=== PATIENT | male | born 1955 | race Caucasian/White ===

== ENCOUNTER 2020-08-24 13:24 | Emergency (ER) | payer MEDICARE, MEDICAID, SELFPAY ==
[2020-08-24 13:31] VITALS: BP 123/71; PULSE 71; RESP 18; TEMP 36.5; O2SAT 99; BMI 23.5
[2020-08-24] MEDS: lidocaine 1% INJ 20 mL SUBCUT (15:45)
--- NOTE | 2020-08-24 16:01 | ED_ITS ---
HPI - Extremity Problem General: Chief complaint: Extremity Problem,Nontraumatic Stated complaint: LEFT TOE AMP IS BLEEDING Time Seen by Provider: 08/24/20 13:37 History of Present Illness: HPI Narrative: The patient is a 64-year-old male with past medical history left second hammertoe who had it operated on earlier this month. He had sutures removed today from the wound and when he got home they removed his shoe and the blood clot came off with it starting fresh bleeding. In the ER a pressure dressing was placed. Location: left Quality: sharp Associated symptoms: Deny chest pain or rash Review of Systems General: Reports: 10 or more systems reviewed and unremarkable except in HPI and below Const: Denies: fatigue Eyes: Denies: change in vision, blurry vision or eye redness ENMT: Denies: throat pain, swelling of lips/tongue, ear or mastoid pain or nasal congestion Card: Denies: chest pain, palpitations, irregular heart rhythm, edema, dyspnea on exertion or orthopnea Resp: Denies: dyspnea, productive cough or non-productive cough GI: Denies: abdominal pain, diarrhea or GI cramping : Denies: flank pain, urinary frequency or urinary urgency Musc: Denies: neck pain, back pain, extremity pain, joint pain, joint redness, limited range of motion or muscle weakness Skin/Breast: Reports: other (Bleeding from left second toe wound); Denies: rash, pruritus, erythema, skin pain or skin tenderness Neuro: Denies: headache(s), numbness in extremities, weakness in extremities, sensory changes, difficulty walking, dizziness, confusion or Slurred speech present Psych: Denies: anxiety or depression Endo: Denies: polyuria All/Imm: Denies: urticaria, throat swelling or tongue swelling Physical Exam Const: COMMON NORMALS: no acute distress, average body habitus, patient oriented x3, no limitations, healthy appearing, alert and well nourished GENERAL APPEARANCE: cooperative, comfortable, well kempt and well developed ORIENTATION/CONSCIOUSNESS: Yes awake, Yes oriented to person, Yes oriented to place and Yes oriented to time HENMT: COMMON NORMALS: normocephalic, external ears normal and Normal external nose present HEAD & SCALP: normal to inspection and normocephalic NOSE: Normal external nose present EXTERNAL EAR: Yes external ears normal MOUTH: Normal oral and palatal mucosa present THROAT: posterior oropharynx normal Eye: COMMON NORMALS: Equal, round and reactive pupils present and EOMs intact bilaterally GENERAL EYE: appearance normal, both eyes and all related structures PUPIL: Yes Equal, round and reactive pupils present Neck/C-Spine: COMMON NORMALS: full ROM, no lymphadenopathy, no meningeal signs and no JVD GENERAL: Yes normal visual inspection Lymph: LYMPHATIC: no lymphadenopathy noted Chest: COMMONS NORMALS: normal inspection of the chest and normal palpation of entire chest wall Resp: COMMON NORMALS: normal respiratory effort, No retractions, No use of accessory muscles, clear to auscultation bilaterally and percussion normal EFFORT & INSPECTION: Yes able to speak in complete sentences AUSCULTATION: clear to auscultation bilaterally PERCUSSION: percussion normal Cardio: COMMON NORMALS: no JVD, regular rate, regular rhythm, S1 normal heart sound present, S2 normal heart sound present and Peripheral pulses 2+ throughout RATE: regular rate RHYTHM: regular rhythm HEART SOUNDS: S1 normal heart sound present and S2 normal heart sound present PERIPHERAL PULSES: Peripheral pulses 2+ throughout GI: COMMON NORMALS: Normal to inspection, nondistended, normoactive bowel sounds present, Soft to palpation, non-tender and no masses INSPECTION: Yes normal to inspection PALPATION: Yes Soft to palpation : COMMON NORMALS: Yes no CVA tenderness BLADDER/KIDNEY EXAM: Yes no CVA tenderness Back/Pelvis: COMMON NORMALS: no CVA tenderness, thoracic and lumbar spine normal to inspection, no thoracic nor lumbar tenderness and thoraco-lumbar ROM normal Extremity: COMMON NORMALS: normal to inspection, full ROM, capillary refill normal, no joint enlargement and no pedal edema NARRATIVE EXTREMITY EXAM: Normal except recently amputated left second toe with open wound which has some oozing blood. After 1 hour of compression dressing it was still oozing blood from a small artery. Several [id number] sutures were placed to stop the bleeding as well as silver nitrate sticks. Pressure dressing was reapplied and after 30 minutes checked again and there was no bleeding. Nonstick dressing and pressure dressing reapplied and he was discharged in stable condition. GENERAL: Yes normal exam except as noted Neuro: COMMON NORMALS: patient oriented x3, CN's II-XII intact bilaterally, moves all extremities, no focal motor deficits, no sensory deficits noted and gait normal SENSORIUM/ORIENTATION: Yes alert, Yes oriented to person, Yes oriented to place and Yes oriented to time MENINGEAL SIGNS: Yes no meningeal signs Psych: COMMON NORMALS: mental status grossly normal, Normal thought process present, cooperative, normal affect and speech normal APPEARANCE: Yes well kempt ATTITUDE: Yes calm SPEECH: Yes normal speech THOUGHT PROCESS: Normal thought process present Skin: COMMON NORMALS: no rashes or lesions noted GENERAL SKIN EXAM: no rashes or lesions noted Course Vital Signs: Vital signs: Vital Signs Temperature 97.7 F 08/24/20 13:31 Pulse Rate 71 08/24/20 13:31 Respiratory Rate 18 08/24/20 13:31 Blood Pressure 123/71 08/24/20 13:31 Pulse Oximetry 99 08/24/20 13:31 MDM - Extremity (Nontraumatic) MDM Narrative: Medical decision making narrative: The patient had suture removal of a left second toe amputation today for hammertoe. when he got home patient had a small arterial bleed after the scab was glued to his shoe and came off when he took his shoe off after having a suture removal. Pressure dressing felt to stop this. So did silver nitrate sticks. He was anesthetized locally with 1% lidocaine, the wound cleaned before that. Several [id number] sutures were used to stop the bleed which did successfully. Recommended not walking on it and offered crutches. He refused them because he says they are uncomfortable however when he gets to his home he lives in a wheelchair. I recommended he avoid pressure on this wound until it heals. Return to the ER with bleeding. Wound check in 2 days from primary care physician. His tetanus was updated prior to discharge Discharge Plan Discharge Patient Disposition: Home Clinical Impression: Bleeding from wound Condition: Stable Discharge Orders: Discharge ED (Routine); Ordered 08/24/20 Ordered By: Nba East Referrals: Rehan Rodriguez MD [Primary Care Provider] - Discharge Diet: Advance as tolerated Discharge Activity: Resume usual activity Patient Instructions: Suture Care (ED), Opioid Safety, Wound Care (General) Activity Restrictions/Additional Instructions: You have had some bleeding and we have had to suture it to stop the bleeding. Please continue to monitor this and return to the ER if the bleeding continues. Follow-up with your regular doctor in 2 days for a wound check and return to the ER at any time with worrisome symptoms. Coding Level of Care Code ED Medical/Surgery Registered Nurse for mAber Lawson
[2020-08-24] MEDS: tetanus-dipt-pertussis 0.5 mL SDV IM (16:12)
[2020-08-24] MEDS: silver nitrate applicator 1 EACH TOPICAL (16:13)
[2020-08-24 16:19] VITALS: BP 125/90; PULSE 86; RESP 14; O2SAT 96
== END 2020-08-24 16:20 | disposition home or self-care (01) ==
PROVIDERS: Emergency Provider Family Medicine; PCP Internal Medicine
DX: M96.830 Postprocedural hemorrhage of a musculoskeletal structure following a musculoskeletal system procedure (principal); Z89.422 Acquired absence of other left toe(s); Z23 Encounter for immunization
CPT/HCPCS: 90471; 90715; 99282

== ENCOUNTER 2020-09-16 07:44 | Emergency (ER) | payer MEDICARE, MEDICAID, SELFPAY ==
[2020-09-16 07:44] VITALS: BP 129/78; PULSE 71; RESP 18; TEMP 36.6; O2SAT 98; BMI 23.5
--- NOTE | 2020-09-16 07:54 | XR_ITS ---
WS: [id number] Left foot, 3 views, 09/16/2020 Clinical Data: recent surgery, toe amputation Comparison: None. Findings: The second and third toes are absent. There is an orthopedic screw at the head of the left third meta tarsal. There is an orthopedic fusion of the left first MTP joint with a plate and screws. There is s oft tissue calcification or ossification on the plantar surface of the distal left first metatarsal. No recent fractures are seen. There is cystic change of the distal portion of the left first proximal phalanx and base of the left first distal phalanx. There is soft tissue swelling over the distal pha lanx of the left first toe. No bone destruction or erosion is seen. The tarsal bones are normal. Ther e is a plantar spur. XR/XR foot LT min 3V* [id number] Impression: 1. 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 2. Soft tissue swelling over distal phalanx of left first toe. 3. Fusion of the left first MTP joint. 4. Orthopedic screw in head of left third metatarsal.
--- NOTE | 2020-09-16 09:12 | PC.NURSE ---
blood drawn and sent to lab, no needs identified, will continue to monitor.
[2020-09-16 09:16] LABS: Basophils % 0.8 %; Eosinophils # 0.1 10^3/uL (0.0-0.8); Eosinophils % 2.3 %; Hematocrit 34.3 % (42.0-52.0); Hemoglobin 11.2 g/dL (11.7-16.6); Lymphocytes # 1.2 10^3/uL (0.8-4.8); Lymphocytes % 22.1 %; Mean Corpuscular HGB Conc 32.7 g/dL (30.0-36.0); Mean Corpuscular Hemoglobin 30.9 pg (28.0-34.0); Mean Corpuscular Volume 94.8 fL (80-94); Mean Platelet Volume 8.3 fL (7.4-10.4); Monocytes # 0.6 10^3/uL (0.2-0.9); Monocytes % 11.3 %; Neutrophils % 62.9 %; Nucleated Red Blood Cells % 0 %; Platelet Count 220 10^3/cmm (130-400); Red Blood Count 3.62 10^6/uL (4.1-5.3); White Blood Count 5.2 10^3/uL (4.0-10.0)
--- NOTE | 2020-09-16 09:22 | W.ED.EXTPRO ---
HPI - Extremity Problem General: Chief complaint: Extremity Problem,Nontraumatic Stated complaint: UNCONTROLLED BLEEDING FROM AMPUTATED TOE Time Seen by Provider: 09/16/20 07:45 History of Present Illness: HPI Narrative: 64-year-old male presents with bleeding from the operation site of a amputation for hammertoe on his left foot. This morning he woke up he had bleeding from the toe which is unusual he called EMS and was transported here. He denies any fever sweats or chills he previously had an amputation of the toe on that left foot and then had the second amputations now the second and third toes are both gone. EMS applied a pressure bandage when he was removed here on arrival for exam bleeding had stopped. MD Complaint: other (Bleeding from recent amputation toe same) Onset (ago): minute(s) Pain Consistency: constant Location: left Radiation: none Relieving factors: other (Pressure bandage on arrival here bleeding is stopped) Associated symptoms: Deny arthralgias, chest pain, fever(s), myalgias, rash or short of breath Review of Systems Const: Denies: fever(s) ENMT: Denies: throat pain, ear or mastoid pain, nasal discharge or nasal congestion Card: Denies: chest pain Resp: Denies: dyspnea, productive cough or non-productive cough GI: Denies: abdominal pain, nausea, vomiting, hematemesis, coffee ground emesis, diarrhea, constipation, bloating, hematochezia or melena : Denies: flank pain, dysuria, urinary frequency or urinary urgency Skin/Breast: Denies: rash Physical Exam Const: COMMON NORMALS: no acute distress GENERAL APPEARANCE: cooperative and comfortable ORIENTATION/CONSCIOUSNESS: Yes awake, Yes oriented to person, Yes oriented to place and Yes oriented to time HENMT: COMMON NORMALS: normocephalic, atraumatic, hearing grossly normal bilaterally, external ears normal, EAC's normal, TM's normal bilaterally, Normal nasal mucous membranes and turbinates present, moist oral mucous membranes and oropharynx normal HEAD & SCALP: normocephalic and atraumatic NOSE: Normal nasal mucous membranes and turbinates present EXTERNAL EAR: Yes external ears normal EXTERNAL AUDITORY CANAL: EAC's normal TYMPANIC MEMBRANE: TM's normal bilaterally Eye: COMMON NORMALS: Equal, round and reactive pupils present, EOMs intact bilaterally, conjunctivae normal and no scleral icterus CONJUNCTIVA: Yes conjunctivae normal PUPIL: Yes Equal, round and reactive pupils present Neck/C-Spine: COMMON NORMALS: full ROM, no lymphadenopathy, supple and no JVD Lymph: LYMPHATIC: no lymphadenopathy noted and no lymphedema noted Resp: COMMON NORMALS: normal respiratory effort, No retractions, No use of accessory muscles and clear to auscultation bilaterally AUSCULTATION: clear to auscultation bilaterally Cardio: COMMON NORMALS: no JVD, regular rate, regular rhythm and No murmurs present (Cardio) RATE: regular rate RHYTHM: regular rhythm GI: COMMON NORMALS: Soft to palpation and No hepatosplenomegaly present AUSCULTATION: Yes normoactive bowel sounds PALPATION: Yes Soft to palpation, No Tenderness to palpation present (GI), No Guarding due to palpation present (GI) and Yes No hepatosplenomegaly present Extremity: NARRATIVE EXTREMITY EXAM: Third and fourth toe surgically absent. Open wound at the surgical site approximately 2 cm in length open by about 1/2 cm widest point no active bleeding present when lying down. Trial the patient with him sitting up with a bit foot hanging over the edge of the bed. While in a dependent position there was no further active bleeding. Wound redressed. Neuro: SENSORIUM/ORIENTATION: Yes oriented to person, Yes oriented to place and Yes oriented to time Skin: COMMON NORMALS: no rashes or lesions noted GENERAL SKIN EXAM: no rashes or lesions noted Course Vital Signs: Vital signs: Vital Signs Temperature 97.9 F 09/16/20 07:44 Pulse Rate 81 09/16/20 11:47 Respiratory Rate 14 09/16/20 11:47 Blood Pressure 95/73 09/16/20 11:47 Pulse Oximetry 96 09/16/20 11:47 MDM - Extremity (Nontraumatic) MDM Narrative: Medical decision making narrative: Hemoglobin stable. Wound shows no sign of infection. Wound dressed we will have him follow-up with wound care clinic. Elevate whenever possible. If has recurrence recheck. Lab Data: Labs: Lab Results 09/16/20 Range/Units 09:05 WBC 5.2 (4.0-10.0) 10^3/ uL RBC 3.62 L (4.1-5.3) 10^6/u L Hgb 11.2 L (11.7-16.6) g/dL Hct 34.3 L (42.0-52.0) % MCV 94.8 H (80-94) fL MCH 30.9 (28.0-34.0) pg MCHC 32.7 (30.0-36.0) g/dL RDW 13.0 (12.1-15.1) % Plt Count 220 (130-400) 10^3/c mm MPV 8.3 (7.4-10.4) fL Neut % (Auto) 62.9 % Lymph % (Auto) 22.1 % Montgomery % (Auto) 11.3 % Eos % (Auto) 2.3 % Baso % (Auto) 0.8 % Neut # (Auto) 3.30 (1.8-7.7) 10^3/u L Lymph # (Auto) 1.2 (0.8-4.8) 10^3/u L Montgomery # (Auto) 0.6 (0.2-0.9) 10^3/u L Eos # (Auto) 0.1 (0.0-0.8) 10^3/u L Baso # (Auto) 0.0 (0.0-0.1) 10^3/u L Nucleated RBC % (a uto) 0 % Nucleated RBCs # 0.0 /100WBC Discharge Plan Discharge Patient Disposition: Home Clinical Impression: Post-op bleeding, Dehiscence of external surgical wound Condition: Stable Discharge Orders: Discharge ED (Routine); Ordered 09/16/20 Ordered By: Rad Menon Referrals: Rehan Rodriguez MD [Primary Care Provider] - Discharge Diet: Usual diet Discharge Activity: Increase activity as tolerated Patient Instructions: Opioid Safety Activity Restrictions/Additional Instructions: Case management will call to refer you to wound care for your foot. Coding Level of Care Code ED Jewelry Drill Operator for [facility] Fwd Exam Comprehensive
[2020-09-16 11:47] VITALS: BP 95/73; PULSE 81; RESP 14; O2SAT 96
--- NOTE | 2020-09-20 10:57 | DCPLANNER ---
Addendum entered by Johanny Mack 09/28/20 15:08: late entry - clinic called caser up and stated that patient had been transferred and would contact patient to schedule an appointment. Original Note: adult education manager had message to schedule a follow up appointment for patient with Wound Care. adult education manager called Wound Care clinic, spoke with Carley, gave clinic patients information. adult education manager was told that patients information would be printed and reviewed. Clinic will call patient with appointment information.
== END 2020-09-16 11:50 | disposition home or self-care (01) ==
PROVIDERS: Emergency Provider Family Medicine; PCP Internal Medicine
DX: M96.831 Postprocedural hemorrhage of a musculoskeletal structure following other procedure (principal); T87.81 Dehiscence of amputation stump; Z89.422 Acquired absence of other left toe(s)
CPT/HCPCS: 73630; 85025; 99283

== ENCOUNTER 2020-09-18 11:40 | Emergency (ER) | payer MEDICARE, MEDICAID, SELFPAY ==
[2020-09-18] VITALS (7 sets, daily range): BP systolic 94–165; BP diastolic 74–118; PULSE 78–96; RESP 16; TEMP 36.9; O2SAT 96–99; BMI 23.5
--- NOTE | 2020-09-18 12:03 | PC.NURSE ---
pressure dressing applied with ER physician at bedside. gauze and coban used.
--- NOTE | 2020-09-18 12:04 | ED_ITS ---
HPI - Wound/Laceration General: Chief Complaint: Wound/Laceration Stated Complaint: RECENT TOE AMPUTATION WITH BLEEDING AT SITE Time Seen by Provider: 09/18/20 11:45 Source: patient Mode of arrival: EMS Limitations: no limitations History of Present Illness: HPI narrative: This is a 64-year-old male who presents to the hospital from his place of residence at [facility] with bleeding from his left second toe at site of amputation. He had amputation done on 10 September by multiple drum sander helper at [facility] in [place]. He was seen here 2 days ago for bleeding from the wound however the bleeding stopped spontaneously and he was discharged back. Today during lunch he noticed that the wound dressing was soaked with blood and he had blood spilling down his leg. He denies any pain, fever, myalgias. Onset (ago): hour(s) (1) Review of Systems General: Reports: 10 or more systems reviewed and unremarkable except in HPI and below Physical Exam Const: COMMON NORMALS: no acute distress, average body habitus, patient oriented x3, no limitations, healthy appearing, alert and well nourished HENMT: COMMON NORMALS: normocephalic, atraumatic and moist oral mucous membranes HEAD & SCALP: normocephalic and atraumatic Neck/C-Spine: COMMON NORMALS: no meningeal signs and no JVD Resp: COMMON NORMALS: normal respiratory effort, No retractions, No use of accessory muscles, clear to auscultation bilaterally and percussion normal AUSCULTATION: clear to auscultation bilaterally PERCUSSION: percussion normal Cardio: COMMON NORMALS: no JVD, regular rate, regular rhythm, S1 normal heart sound present, S2 normal heart sound present, No gallops present (Cardio), No clicks present (Cardio), No murmurs present (Cardio), No rub (Cardio) and Peripheral pulses 2+ throughout RATE: regular rate RHYTHM: regular rhythm HEART SOUNDS: S1 normal heart sound present and S2 normal heart sound present PERIPHERAL PULSES: Peripheral pulses 2+ throughout GI: COMMON NORMALS: Normal to inspection, nondistended, normoactive bowel sounds present, Soft to palpation, non-tender, No hepatosplenomegaly present, no masses and no bruits PALPATION: Yes Soft to palpation and Yes No hepatosplenomegaly present Extremity: COMMON NORMALS: normal to inspection, full ROM, capillary refill normal, no calf tenderness and no pedal edema NARRATIVE EXTREMITY EXAM: Arterial bleed from the surgical wound of an amputated left second/third toe. Unable to get the arterial bleeding under control in a sufficient manner to examine the wound properly. No surrounding erythema, no purulent drainage. No signs of infection. Neuro: COMMON NORMALS: patient oriented x3 SENSORIUM/ORIENTATION: Yes alert MENINGEAL SIGNS: Yes no meningeal signs Course Consultations: Consultation #1: Discussed the patient with Dr. Hermosillo, multiple drum sander helper on-call at [facility] in [place]. He advised that we try long Steri-Strips from the bottom of the foot to the top of the foot to try to apply pressure and see if that stops the bleeding. He advised that if he does not the patient will need to be transferred to [facility] and be admitted under the service of the hospitalist as the multiple drum sander helper do not have admitting privileges. Time: 12:12 Consultation #2: Discussed the patient with Dr. Fan, hospitalist at [facility] in [place] and he kindly accepted the patient to his service. Time: 13:39 Vital Signs: Vital signs: Vital Signs Temperature 98.5 F 09/18/20 11:42 Pulse Rate 96 09/18/20 18:13 Respiratory Rate 16 09/18/20 11:42 Blood Pressure 165/118 09/18/20 18:13 Pulse Oximetry 96 09/18/20 18:13 MDM - Wound/Laceration MDM Narrative: Medical decision making narrative: Of [id number] male who had an amputation of his toe and presents to the emergency department with signs of secondary hemorrhage. The wound had arterial pulsatile bleeding which I was unable to stop. I initially applied a pressure dressing that was not successful, applied half-inch Steri-Strips as advised by the multiple drum sander helper on-call at [facility] and that was unsuccessful also. After another pressure dressing the patient had an episode where the blood soaked through his dressing and was pouring down his foot again. I eventually used a gauze soaked in tranexamic acid to attempt hemostasis. This was successful. However because of the nature of the bleed and the difficulty in controlling the bleeding he was transferred to [facility] for further evaluation and management. Hemoglobin was stable in the emergency department and no signs of infection on examination or lab work. Medical Records: Attestation: I reviewed the patient's medical records. Lab Data: Attestation: I reviewed the patient's lab results. Labs: Lab Results 09/18/20 09/18/20 09/18/20 Range/Units 12:30 12:30 12:35 WBC 4.3 (4.0-10.0) 10^3/ uL RBC 3.57 L (4.1-5.3) 10^6/u L Hgb 11.1 L (11.7-16.6) g/dL Hct 33.3 L (42.0-52.0) % MCV 93.3 (80-94) fL MCH 31.1 (28.0-34.0) pg MCHC 33.3 (30.0-36.0) g/dL RDW 13.0 (12.1-15.1) % Plt Count 244 (130-400) 10^3/c mm MPV 8.9 (7.4-10.4) fL Neut % (Auto) 56.7 % Lymph % (Auto) 28.8 % Sterling % (Auto) 10.5 % Eos % (Auto) 2.6 % Baso % (Auto) 0.7 % Neut # (Auto) 2.42 (1.8-7.7) 10^3/u L Lymph # (Auto) 1.2 (0.8-4.8) 10^3/u L Sterling # (Auto) 0.5 (0.2-0.9) 10^3/u L Eos # (Auto) 0.1 (0.0-0.8) 10^3/u L Baso # (Auto) 0.0 (0.0-0.1) 10^3/u L Nucleated RBC % (a uto) 0 % Nucleated RBCs # 0.0 /100WBC PT 12.90 (12.1-14.9) SECO NDS INR 0.95 (0.8-1.2) APTT 33.6 (23.9-36.7) SECO NDS Sodium 128 L (136-145) mmol/L Potassium 4.4 (3.5-5.1) mmol/L Chloride 94 L (98-107) mmol/L Carbon Dioxide 25 (22-29) mmol/L Anion Gap 13.4 (5-19) BUN 11 (8-23) mg/dL Creatinine 0.7 (0.7-1.2) mg/dL GFR Calculation 114.3 (90-130) mL/min Glucose 98 (65-115) mg/dL Calculated Osmolal ity 265 L (285-295) mOsm/k g Calcium 8.1 L (8.5-10.5) mg/dL Total Bilirubin 0.2 (0.15-1.2) mg/dL AST 15 (0-40) U/L ALT 15 (0-41) U/L Alkaline Phosphata se 61 (40-130) IU/L Total Protein 6.0 L (6.6-8.7) g/dL Albumin 3.7 (3.5-5.2) g/dL Globulin 2.3 (1.3-4.6) g/dL Discharge Plan Discharge Patient Disposition: Xfer Short-Term Hosp Clinical Impression: Secondary postoperative hemorrhage, Hyponatremia Dehiscence of external surgical wound Qualifiers: Encounter type: subsequent encounter Qualified Code(s): T81.31XD - Disruption of external operation (surgical) wound, not elsewhere classified, subsequent encounter Condition: Stable Discharge Orders: Transfer Out of Facility (Order); Ordered 09/18/20 Ordered By: Campos Tabor Referrals: Rehan Rodriguez MD [Primary Care Provider] - Coding Level of Care Code ED Professor Of Literacy for [facility] Fwd Exam Detailed
[2020-09-18 12:45] LABS: Basophils % 0.7 %; Eosinophils # 0.1 10^3/uL (0.0-0.8); Eosinophils % 2.6 %; Hematocrit 33.3 % (42.0-52.0); Hemoglobin 11.1 g/dL (11.7-16.6); Lymphocytes # 1.2 10^3/uL (0.8-4.8); Lymphocytes % 28.8 %; Mean Corpuscular HGB Conc 33.3 g/dL (30.0-36.0); Mean Corpuscular Hemoglobin 31.1 pg (28.0-34.0); Mean Corpuscular Volume 93.3 fL (80-94); Mean Platelet Volume 8.9 fL (7.4-10.4); Monocytes # 0.5 10^3/uL (0.2-0.9); Monocytes % 10.5 %; Neutrophils # 2.42 10^3/uL (1.8-7.7); Neutrophils % 56.7 %; Nucleated Red Blood Cells % 0 %; Platelet Count 244 10^3/cmm (130-400); Red Blood Count 3.57 10^6/uL (4.1-5.3); White Blood Count 4.3 10^3/uL (4.0-10.0)
[2020-09-18 13:02] LABS: Alanine Aminotransferase 15 U/L (0-41); Albumin Level 3.7 g/dL (3.5-5.2); Alkaline Phosphatase 61 IU/L (40-130); Blood Urea Nitrogen 11 mg/dL (8-23); Calcium 8.1 mg/dL (8.5-10.5); Carbon Dioxide 25 mmol/L (22-29); Chloride 94 mmol/L (98-107); Globulin 2.3 g/dL (1.3-4.6); Glomerular Filtration Rate 114.3 mL/min (90-130); Glucose 98 mg/dL (65-115); Osmolality Calculated 265 mOsm/kg (285-295); Sodium 128 mmol/L (136-145); Total Bilirubin 0.2 mg/dL (0.15-1.2)
[2020-09-18 13:04] LABS: Anion Gap 13.4 (5-19)
[2020-09-18 13:05] LABS: Aspartate Amino Transferase 15 U/L (0-40); Potassium 4.4 mmol/L (3.5-5.1)
--- NOTE | 2020-09-18 13:14 | PC.NURSE ---
pressure dressing reapplied. ER physician at bedside.
[2020-09-18 13:59] LABS: INR 0.95 (0.8-1.2)
[2020-09-18 14:00] LABS: Partial Thromboplastin Time 33.6 SECONDS (23.9-36.7)
[2020-09-18] MEDS: tranexamic acid 1,000 mg/10mL SDV 500 MG XX (17:45)
[2020-09-18] MEDS: oxyCODONE-APAP 5-325 mg Tablet 1 TAB PO (18:02)
== END 2020-09-18 18:13 | disposition short-term general hospital (02) ==
PROVIDERS: Emergency Provider Family Medicine; PCP Internal Medicine
DX: T81.31XA Disruption of external operation (surgical) wound, not elsewhere classified, initial encounter (principal); M96.831 Postprocedural hemorrhage of a musculoskeletal structure following other procedure; E87.1 Hypo-osmolality and hyponatremia; Z89.422 Acquired absence of other left toe(s)
CPT/HCPCS: 80053; 85025; 85610; 85730; 99285

== ENCOUNTER → 2020-12-08 10:48 | Outpatient (BNVA) | payer MEDICARE, MEDICAID, SELFPAY | PROVIDERS: PCP Internal Medicine; Referring Provider Psychiatry & Neurology Neurology; Visit Provider Specialist | DX: G43.709 Chronic migraine without aura, not intractable, without status migrainosus (principal); F32.9 Major depressive disorder, single episode, unspecified | CPT/HCPCS: 99204 ==

== ENCOUNTER 2020-12-27 15:49 | Inpatient (IN) | payer MEDICARE, MEDICAID, SELFPAY ==
--- NOTE | 2020-12-27 15:54 | W.ED.AMS ---
HPI - Altered Mental Status General: Chief Complaint: ER Hold Stated Complaint: CONFUSED Time Seen by Provider: 12/27/20 15:53 History of Present Illness: HPI narrative: Mr. Lucero is a 65-year-old gentleman with significant past medical history of hypertension, hyperlipidemia, migraines who presents to the emergency department due to altered mental status. Symptom onset was subacute or gradual approximately 3 days ago. He denies specific provoking factors. He describes his symptoms as feeling like his brain is foggy. Overall the course of symptoms has been worsening. The intensity is now moderate to severe. He denies similar episodes in the past. He denies head trauma or infectious symptoms. No recent changes in medications. No other specific exacerbating, alleviating, or provoking factors that the patient identifies. Review of Systems General: Reports: 10 or more systems reviewed and unremarkable except in HPI and below Narrative: CONSTITUTIONAL: denies fever, see hpi EYES - denies pain, denies loss of vision EARS - denies ear issues. NOSE - denies congestion or rhinorrhea. THROAT - denies sore throat or difficulty swallowing. CARDIOVASCULAR - denies chest pain and palpitations RESPIRATORY - denies shortness of breath and cough GASTROINTESTINAL - denies abdominal pain, no nausea vomiting, no changes in bowel habits GENITOURINARY - denies dysuria or urinary frequency MUSCULOSKELETAL- denies deformity or pain SKIN - denies rashes or new changed skin lesions NEUROLOGIC - denies focal weakness or sensory changes HEMATOLOGIC/LYMPHATIC - denies easy bruising or lymphadenopathy. [facility] ED PFS: Medical History (Updated 12/29/20 @ 13:23 by Maritza Tran MD) Depression determined by examination Social History Smoking and tobacco status: never smoked Physical Exam Narrative: EXAM NARRATIVE: GENERAL/CONSTITUTIONAL - somewhat ill appearing. No acute distress. somnolent Eyes - PERRL, no conjunctival injection ENMT - Atraumatic external nose and ears. Moist mucous membranes NECK - supple. trachea midline CARDIOVASCULAR - regular rate and rhythm. Peripheral pulses 2+ and equal RESPIRATORY -clear to auscultation bilaterally. No retractions or accessory muscle use. ABDOMEN/GI - Nontender, Nondistended. No tenderness to percussion or evidence of peritonitis MSK - Extremities without obvious deformity or tenderness to palpation SKIN - Warm, Dry NEURO - alert and appropriately oriented. strength and sensation intact. Moves all extremities equally. CN 2-12 intact. PSYCH - Appropriate mood and affect Course ED course: - Patient was seen and evaluated by me at bedside - Patient placed on cardiac monitors, IV access obtained - Initial evaluation notable for somewhat ill appearance, no acute distress. Nonfocal neurologic exam. -Fluids ordered - Labs notable for leukocytosis, normocytic anemia MRSA baseline. Elevated creatinine. After some delay urinalysis showed urinary tract infection. Antibiotics ordered. - Upon serial reexamination after treatment the patient was similar - Based on patient history, evaluation, labs, and imaging as interpreted the most likely cause of the patient's condition is urosepsis and STEVEN - The results of ED evaluation were discussed with the patient including plan for admission due to requirement for level of care not available if discharged to prevent significant worsening/deterioration. -Hospitalist service contacted and agreed to accept patient. - Patient was admitted without further deterioration or significant events. Vital Signs: Vital signs: Vital Signs Temperature 97.9 F 12/29/20 14:52 Pulse Rate 85 12/29/20 14:52 Respiratory Rate 18 12/29/20 14:52 Blood Pressure 157/89 12/29/20 14:52 Pulse Oximetry 97 12/29/20 14:52 MDM - Altered Mental Status Medical Records: Attestation: I reviewed the patient's medical records. Lab Data: Attestation: I reviewed the patient's lab results. Labs: Lab Results 12/27/20 12/27/20 12/27/20 Range/Units 16:32 16:37 16:37 WBC 11.4 H (4.0-10.0) 10^3/ uL RBC 3.22 L (4.1-5.3) 10^6/u L Hgb 8.6 L (11.7-16.6) g/dL Hct 28.3 L (42.0-52.0) % MCV 87.9 (80-94) fl MCH 26.7 L (28.0-34.0) pg MCHC 30.4 (30.0-36.0) g/dL RDW 14.9 (12.1-15.1) % Plt Count 350 (130-400) 10^3/c mm MPV 8.0 (7.4-10.4) fL Neut % (Auto) 79.8 % Lymph % (Auto) 8.8 % [place] % (Auto) 10.5 % Eos % (Auto) 0.1 % Baso % (Auto) 0.2 % Neut # (Auto) 9.09 H (1.8-7.7) 10^3/u L Lymph # (Auto) 1.0 (0.8-4.8) 10^3/u L [place] # (Auto) 1.2 H (0.2-0.9) 10^3/u L Eos # (Auto) 0.0 (0.0-0.8) 10^3/u L Baso # (Auto) 0.0 (0.0-0.1) 10^3/u L Nucleated RBC % (a uto) 0 % Nucleated RBCs # 0.0 /100WBC Specimen Type Arterial Sample Site Radial, left ABG pH 7.38 (7.35-7.45) ABG pCO2 45.0 (35-45) mmHg ABG pO2 64.9 L (80.0-100.0) mmH g ABG HCO3 26.6 H (22-26) mmol/L ABG Base Excess 1.2 (-2.0-2.0) mmol/ L Xavier Test Pos Hematocrit 27.0 L (42-52) % O2 Delivery Device Room air FiO2 21.0 % Hospital Staff Pharmacist ID [place] Sodium 136 (136-145) mmol/L Potassium 3.8 (3.5-5.1) mmol/L Chloride 97 L (98-107) mmol/L Carbon Dioxide 26 (22-29) mmol/L Anion Gap 16.8 (5-19) BUN 25 H (8-23) mg/dL Creatinine 1.9 H (0.7-1.2) mg/dL GFR Calculation 36.0 L (90-130) mL/min Glucose 98 (65-115) mg/dL Calculated Osmolal ity 286 (285-295) mOsm/k g Lactate (0.5-2.2) mmol/L Calcium 9.0 (8.5-10.5) mg/dL Magnesium 2.3 (1.7-2.3) mg/dL Total Bilirubin 0.2 (0.15-1.2) mg/dL AST 7 (0-40) U/L ALT 6 (0-41) U/L Alkaline Phosphata se 71 (40-130) IU/L Ammonia (16-60) umol/L Creatine Kinase (39-308) U/L Troponin T Baselin e (0-15) ng/L Troponin T 120 Min [place] (0-15) ng/L Delta Troponin T (0-10) ABS# Troponin T Hi Sens 6Hr (0-15) ng/L Troponin T Hi Sens 6Hr Delta (0-12) ng/L C-Reactive Protein 149.7 H (0.0-4.9) mg/L NT-Pro-B Natriuret Pep 321 H (0-125) pg/mL Total Protein 6.0 L (6.6-8.7) g/dL Albumin 3.0 L (3.5-5.2) g/dL Globulin 3.0 (1.3-4.6) g/dL Procalcitonin 0.26 (0-0.5) ng/mL TSH 0.88 (0.27-4.20) uIU/ mL Urine Color (Yellow) Urine Appearance (CLEAR) Urine pH (5-7) Ur Specific Gravit y (1.005-1.030) Urine Protein (Negative) Urine Glucose (UA) (Normal) Urine Ketones (Negative) Urine Blood (Negative) Urine Nitrate (Negative) Urine Bilirubin (Negative) Urine Urobilinogen (Negative) mg/dL Ur Leukocyte Jyoti ase (Negative) Urine RBC (0-2) /hpf Urine WBC (0-5) /hpf Ur Squamous Epith Cells (0-5) /hpf Amorphous Sediment Urine Bacteria (NONE) /hpf Ur Random Sodium mmol/L Ur Random Potassiu m mmol/L Ur Random Chloride mmol/L Urine Opiates Scre en (Negative) ng/mL Ur Barbiturates Sc reen (Negative) ng/mL Ur Phencyclidine S crn (Negative) ng/mL Ur Amphetamines Sc reen (Negative) ng/mL U Benzodiazepines Scrn (Negative) ng/mL Urine Cocaine Scre en (Negative) ng/mL U Marijuana (THC) Screen (Negative) ng/mL SARS-CoV-2 Ag (Rap id) (Negative) 12/27/20 12/27/20 12/27/20 Range/Units 16:37 16:37 16:37 WBC (4.0-10.0) 10^3/ uL RBC (4.1-5.3) 10^6/u L Hgb (11.7-16.6) g/dL Hct (42.0-52.0) % MCV (80-94) fl MCH (28.0-34.0) pg MCHC (30.0-36.0) g/dL RDW (12.1-15.1) % Plt Count (130-400) 10^3/c mm MPV (7.4-10.4) fL Neut % (Auto) % Lymph % (Auto) % [place] % (Auto) % Eos % (Auto) % Baso % (Auto) % Neut # (Auto) (1.8-7.7) 10^3/u L Lymph # (Auto) (0.8-4.8) 10^3/u L [place] # (Auto) (0.2-0.9) 10^3/u L Eos # (Auto) (0.0-0.8) 10^3/u L Baso # (Auto) (0.0-0.1) 10^3/u L Nucleated RBC % (a uto) % Nucleated RBCs # /100WBC Specimen Type Sample Site ABG pH (7.35-7.45) ABG pCO2 (35-45) mmHg ABG pO2 (80.0-100.0) mmH g ABG HCO3 (22-26) mmol/L ABG Base Excess (-2.0-2.0) mmol/ L Xavier Test Hematocrit (42-52) % O2 Delivery Device FiO2 % Hospital Staff Pharmacist ID Sodium (136-145) mmol/L Potassium (3.5-5.1) mmol/L Chloride (98-107) mmol/L Carbon Dioxide (22-29) mmol/L Anion Gap (5-19) BUN (8-23) mg/dL Creatinine (0.7-1.2) mg/dL GFR Calculation (90-130) mL/min Glucose (65-115) mg/dL Calculated Osmolal ity (285-295) mOsm/k g Lactate 0.6 (0.5-2.2) mmol/L Calcium (8.5-10.5) mg/dL Magnesium (1.7-2.3) mg/dL Total Bilirubin (0.15-1.2) mg/dL AST (0-40) U/L ALT (0-41) U/L Alkaline Phosphata se (40-130) IU/L Ammonia 11 L (16-60) umol/L Creatine Kinase (39-308) U/L Troponin T Baselin e 50 H (0-15) ng/L Troponin T 120 Min [place] (0-15) ng/L Delta Troponin T (0-10) ABS# Troponin T Hi Sens 6Hr (0-15) ng/L Troponin T Hi Sens 6Hr Delta (0-12) ng/L C-Reactive Protein (0.0-4.9) mg/L NT-Pro-B Natriuret Pep (0-125) pg/mL Total Protein (6.6-8.7) g/dL Albumin (3.5-5.2) g/dL Globulin (1.3-4.6) g/dL Procalcitonin (0-0.5) ng/mL TSH (0.27-4.20) uIU/ mL Urine Color (Yellow) Urine Appearance (CLEAR) Urine pH (5-7) Ur Specific Gravit y (1.005-1.030) Urine Protein (Negative) Urine Glucose (UA) (Normal) Urine Ketones (Negative) Urine Blood (Negative) Urine Nitrate (Negative) Urine Bilirubin (Negative) Urine Urobilinogen (Negative) mg/dL Ur Leukocyte Jyoti ase (Negative) Urine RBC (0-2) /hpf Urine WBC (0-5) /hpf Ur Squamous Epith Cells (0-5) /hpf Amorphous Sediment Urine Bacteria (NONE) /hpf Ur Random Sodium mmol/L Ur Random Potassiu m mmol/L Ur Random Chloride mmol/L Urine Opiates Scre en (Negative) ng/mL Ur Barbiturates Sc reen (Negative) ng/mL Ur Phencyclidine S crn (Negative) ng/mL Ur Amphetamines Sc reen (Negative) ng/mL U Benzodiazepines Scrn (Negative) ng/mL Urine Cocaine Scre en (Negative) ng/mL U Marijuana (THC) Screen (Negative) ng/mL SARS-CoV-2 Ag (Rap id) (Negative) 12/27/20 12/27/20 12/27/20 Range/Units 16:42 18:50 19:35 WBC (4.0-10.0) 10^3/ uL RBC (4.1-5.3) 10^6/u L Hgb (11.7-16.6) g/dL Hct (42.0-52.0) % MCV (80-94) fl MCH (28.0-34.0) pg MCHC (30.0-36.0) g/dL RDW (12.1-15.1) % Plt Count (130-400) 10^3/c mm MPV (7.4-10.4) fL Neut % (Auto) % Lymph % (Auto) % [place] % (Auto) % Eos % (Auto) % Baso % (Auto) % Neut # (Auto) (1.8-7.7) 10^3/u L Lymph # (Auto) (0.8-4.8) 10^3/u L [place] # (Auto) (0.2-0.9) 10^3/u L Eos # (Auto) (0.0-0.8) 10^3/u L Baso # (Auto) (0.0-0.1) 10^3/u L Nucleated RBC % (a uto) % Nucleated RBCs # /100WBC Specimen Type Sample Site ABG pH (7.35-7.45) ABG pCO2 (35-45) mmHg ABG pO2 (80.0-100.0) mmH g ABG HCO3 (22-26) mmol/L ABG Base Excess (-2.0-2.0) mmol/ L Xavier Test Hematocrit (42-52) % O2 Delivery Device FiO2 % Hospital Staff Pharmacist ID Sodium (136-145) mmol/L Potassium (3.5-5.1) mmol/L Chloride (98-107) mmol/L Carbon Dioxide (22-29) mmol/L Anion Gap (5-19) BUN (8-23) mg/dL Creatinine (0.7-1.2) mg/dL GFR Calculation (90-130) mL/min Glucose (65-115) mg/dL Calculated Osmolal ity (285-295) mOsm/k g Lactate (0.5-2.2) mmol/L Calcium (8.5-10.5) mg/dL Magnesium (1.7-2.3) mg/dL Total Bilirubin (0.15-1.2) mg/dL AST (0-40) U/L ALT (0-41) U/L Alkaline Phosphata se (40-130) IU/L Ammonia (16-60) umol/L Creatine Kinase (39-308) U/L Troponin T Baselin e (0-15) ng/L Troponin T 120 Min [place] 43.91 H (0-15) ng/L Delta Troponin T -6.09 L (0-10) ABS# Troponin T Hi Sens 6Hr (0-15) ng/L Troponin T Hi Sens 6Hr Delta (0-12) ng/L C-Reactive Protein (0.0-4.9) mg/L NT-Pro-B Natriuret Pep (0-125) pg/mL Total Protein (6.6-8.7) g/dL Albumin (3.5-5.2) g/dL Globulin (1.3-4.6) g/dL Procalcitonin (0-0.5) ng/mL TSH (0.27-4.20) uIU/ mL Urine Color Yellow (Yellow) Urine Appearance Sl hazy (CLEAR) Urine pH 5 (5-7) Ur Specific Gravit y 1.005 (1.005-1.030) Urine Protein Neg (Negative) Urine Glucose (UA) Norm (Normal) Urine Ketones Negative (Negative) Urine Blood 2+ H (Negative) Urine Nitrate Negative (Negative) Urine Bilirubin Neg (Negative) Urine Urobilinogen Norm (Negative) mg/dL Ur Leukocyte Jyoti ase 2+ H (Negative) Urine RBC 0-4 H (0-2) /hpf Urine WBC >100 H (0-5) /hpf Ur Squamous Epith Cells 0-4 H (0-5) /hpf Amorphous Sediment Not Reportable Urine Bacteria 4+ H (NONE) /hpf Ur Random Sodium mmol/L Ur Random Potassiu m mmol/L Ur Random Chloride mmol/L Urine Opiates Scre en (Negative) ng/mL Ur Barbiturates Sc reen (Negative) ng/mL Ur Phencyclidine S crn (Negative) ng/mL Ur Amphetamines Sc reen (Negative) ng/mL U Benzodiazepines Scrn (Negative) ng/mL Urine Cocaine Scre en (Negative) ng/mL U Marijuana (THC) Screen (Negative) ng/mL SARS-CoV-2 Ag (Rap id) Negative (Negative) 12/27/20 12/27/20 12/27/20 Range/Units 19:35 20:40 22:27 WBC (4.0-10.0) 10^3/ uL RBC (4.1-5.3) 10^6/u L Hgb (11.7-16.6) g/dL Hct (42.0-52.0) % MCV (80-94) fl MCH (28.0-34.0) pg MCHC (30.0-36.0) g/dL RDW (12.1-15.1) % Plt Count (130-400) 10^3/c mm MPV (7.4-10.4) fL Neut % (Auto) % Lymph % (Auto) % [place] % (Auto) % Eos % (Auto) % Baso % (Auto) % Neut # (Auto) (1.8-7.7) 10^3/u L Lymph # (Auto) (0.8-4.8) 10^3/u L [place] # (Auto) (0.2-0.9) 10^3/u L Eos # (Auto) (0.0-0.8) 10^3/u L Baso # (Auto) (0.0-0.1) 10^3/u L Nucleated RBC % (a uto) % Nucleated RBCs # /100WBC Specimen Type Sample Site ABG pH (7.35-7.45) ABG pCO2 (35-45) mmHg ABG pO2 (80.0-100.0) mmH g ABG HCO3 (22-26) mmol/L ABG Base Excess (-2.0-2.0) mmol/ L Xavier Test Hematocrit (42-52) % O2 Delivery Device FiO2 % Hospital Staff Pharmacist ID Sodium 135 L (136-145) mmol/L Potassium 3.2 L (3.5-5.1) mmol/L Chloride 97 L (98-107) mmol/L Carbon Dioxide 25 (22-29) mmol/L Anion Gap 16.2 (5-19) BUN 22 (8-23) mg/dL Creatinine 1.8 H (0.7-1.2) mg/dL GFR Calculation 38.3 L (90-130) mL/min Glucose 93 (65-115) mg/dL Calculated Osmolal ity 283 L (285-295) mOsm/k g Lactate (0.5-2.2) mmol/L Calcium 8.8 (8.5-10.5) mg/dL Magnesium (1.7-2.3) mg/dL Total Bilirubin (0.15-1.2) mg/dL AST (0-40) U/L ALT (0-41) U/L Alkaline Phosphata se (40-130) IU/L Ammonia (16-60) umol/L Creatine Kinase (39-308) U/L Troponin T Baselin e (0-15) ng/L Troponin T 120 Min [place] (0-15) ng/L Delta Troponin T (0-10) ABS# Troponin T Hi Sens 6Hr 44.32 H (0-15) ng/L Troponin T Hi Sens 6Hr Delta -5.68 L (0-12) ng/L C-Reactive Protein (0.0-4.9) mg/L NT-Pro-B Natriuret Pep (0-125) pg/mL Total Protein (6.6-8.7) g/dL Albumin (3.5-5.2) g/dL Globulin (1.3-4.6) g/dL Procalcitonin (0-0.5) ng/mL TSH (0.27-4.20) uIU/ mL Urine Color (Yellow) Urine Appearance (CLEAR) Urine pH (5-7) Ur Specific Gravit y (1.005-1.030) Urine Protein (Negative) Urine Glucose (UA) (Normal) Urine Ketones (Negative) Urine Blood (Negative) Urine Nitrate (Negative) Urine Bilirubin (Negative) Urine Urobilinogen (Negative) mg/dL Ur Leukocyte Jyoti ase (Negative) Urine RBC (0-2) /hpf Urine WBC (0-5) /hpf Ur Squamous Epith Cells (0-5) /hpf Amorphous Sediment Urine Bacteria (NONE) /hpf Ur Random Sodium 28 mmol/L Ur Random Potassiu m 9 mmol/L Ur Random Chloride 17 mmol/L Urine Opiates Scre en Positive H (Negative) ng/mL Ur Barbiturates Sc reen Negative (Negative) ng/mL Ur Phencyclidine S crn Negative (Negative) ng/mL Ur Amphetamines Sc reen Negative (Negative) ng/mL U Benzodiazepines Scrn Positive H (Negative) ng/mL Urine Cocaine Scre en Negative (Negative) ng/mL U Marijuana (THC) Screen Negative (Negative) ng/mL SARS-CoV-2 Ag (Rap id) (Negative) 12/28/20 Range/Units 06:00 WBC (4.0-10.0) 10^3/ uL RBC (4.1-5.3) 10^6/u L Hgb (11.7-16.6) g/dL Hct (42.0-52.0) % MCV (80-94) fl MCH (28.0-34.0) pg MCHC (30.0-36.0) g/dL RDW (12.1-15.1) % Plt Count (130-400) 10^3/c mm MPV (7.4-10.4) fL Neut % (Auto) % Lymph % (Auto) % [place] % (Auto) % Eos % (Auto) % Baso % (Auto) % Neut # (Auto) (1.8-7.7) 10^3/u L Lymph # (Auto) (0.8-4.8) 10^3/u L [place] # (Auto) (0.2-0.9) 10^3/u L Eos # (Auto) (0.0-0.8) 10^3/u L Baso # (Auto) (0.0-0.1) 10^3/u L Nucleated RBC % (a uto) % Nucleated RBCs # /100WBC Specimen Type Sample Site ABG pH (7.35-7.45) ABG pCO2 (35-45) mmHg ABG pO2 (80.0-100.0) mmH g ABG HCO3 (22-26) mmol/L ABG Base Excess (-2.0-2.0) mmol/ L Xavier Test Hematocrit (42-52) % O2 Delivery Device FiO2 % Hospital Staff Pharmacist ID Sodium (136-145) mmol/L Potassium (3.5-5.1) mmol/L Chloride (98-107) mmol/L Carbon Dioxide (22-29) mmol/L Anion Gap (5-19) BUN (8-23) mg/dL Creatinine (0.7-1.2) mg/dL GFR Calculation (90-130) mL/min Glucose (65-115) mg/dL Calculated Osmolal ity (285-295) mOsm/k g Lactate (0.5-2.2) mmol/L Calcium (8.5-10.5) mg/dL Magnesium (1.7-2.3) mg/dL Total Bilirubin (0.15-1.2) mg/dL AST (0-40) U/L ALT (0-41) U/L Alkaline Phosphata se (40-130) IU/L Ammonia (16-60) umol/L Creatine Kinase 56 (39-308) U/L Troponin T Baselin e (0-15) ng/L Troponin T 120 Min [place] (0-15) ng/L Delta Troponin T (0-10) ABS# Troponin T Hi Sens 6Hr (0-15) ng/L Troponin T Hi Sens 6Hr Delta (0-12) ng/L C-Reactive Protein (0.0-4.9) mg/L NT-Pro-B Natriuret Pep (0-125) pg/mL Total Protein (6.6-8.7) g/dL Albumin (3.5-5.2) g/dL Globulin (1.3-4.6) g/dL Procalcitonin (0-0.5) ng/mL TSH (0.27-4.20) uIU/ mL Urine Color (Yellow) Urine Appearance (CLEAR) Urine pH (5-7) Ur Specific Gravit y (1.005-1.030) Urine Protein (Negative) Urine Glucose (UA) (Normal) Urine Ketones (Negative) Urine Blood (Negative) Urine Nitrate (Negative) Urine Bilirubin (Negative) Urine Urobilinogen (Negative) mg/dL Ur Leukocyte Jyoti ase (Negative) Urine RBC (0-2) /hpf Urine WBC (0-5) /hpf Ur Squamous Epith Cells (0-5) /hpf Amorphous Sediment Urine Bacteria (NONE) /hpf Ur Random Sodium mmol/L Ur Random Potassiu m mmol/L Ur Random Chloride mmol/L Urine Opiates Scre en (Negative) ng/mL Ur Barbiturates Sc reen (Negative) ng/mL Ur Phencyclidine S crn (Negative) ng/mL Ur Amphetamines Sc reen (Negative) ng/mL U Benzodiazepines Scrn (Negative) ng/mL Urine Cocaine Scre en (Negative) ng/mL U Marijuana (THC) Screen (Negative) ng/mL SARS-CoV-2 Ag (Rap id) (Negative) Discharge Plan Discharge Patient Disposition: Admitted As Inpatient Admit Provider: Marium Neff Coding Level of Care Code ED Car Sealer for Amber Lawson
[2020-12-27 15:55] VITALS: BP 142/89; PULSE 86; RESP 16; TEMP 36.6; O2SAT 95; BMI 24.5
--- NOTE | 2020-12-27 16:02 | CTR_ITS ---
PROCEDURE INFORMATION: Exam: CT Head Without Contrast Exam date and time: 12/27/2020 4:02 PM Age: 65 years old Clinical indication: Altered mental status/memory loss; Additional info: AMS TECHNIQUE: Imaging protocol: Computed tomography of the head without contrast. Total images: 206 Radiation optimization: All CT scans at this facility use at least one of these dose optimization techniques: automated exposure control; mA and/or kV adjustment per patient size (includes targeted exams where dose is matched to clinical indication); or iterative reconstruction. COMPARISON: No relevant prior studies available. RADIATION DOSE METRICS: Total DLP (mGy-cm): 904.73 FINDINGS: Brain: No evidence of active or acute intracranial pathologic process, hemorrhage, or trauma. No visible evidence of diffuse cerebral edema or generalized demyelination. No hyperdense MCA or insular ribbon sign. No mass effect. No midline shift. Cerebral ventricles: No ventriculomegaly. Paranasal sinuses: Visualized sinuses are unremarkable. No fluid levels. Mastoid air cells: Visualized mastoid air cells are well aerated. Bones/joints: Unremarkable. No acute fracture. Soft tissues: Unremarkable. CT/CT head wo con* [id number] IMPRESSION: No evidence of active or acute intracranial pathologic process, hemorrhage, or trauma. Radiation Dose CTDIVOL = (mGy): DLP = 904.73 (mGy-cm)
--- NOTE | 2020-12-27 16:02 | XRR_ITS ---
PROCEDURE INFORMATION: Exam: XR Chest Exam date and time: 12/27/2020 4:02 PM Age: 65 years old Clinical indication: Other: AMS TECHNIQUE: Imaging protocol: XR of the chest. Views: 1 view. Total images: 1 COMPARISON: No relevant prior studies available. FINDINGS: Lungs: No visible active interstitial or alveolar airspace disease. Pleural spaces: Unremarkable. No pleural effusion. No pneumothorax. Heart/Mediastinum: Cardiomegaly. Suspected hiatal hernia. Diaphragm: Elevation of the left hemidiaphragm chronicity indeterminate. Bones/joints: Unremarkable. XR/XR chest 1V portable [id number] IMPRESSION: Nonacute.
--- NOTE | 2020-12-27 16:03 | ECG_ITS ---
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 Measurements Intervals [place] Rate: 92 P: 76 SD: 175 QRS: 20 QRSD: 105 T: -12 QT: 344 QTc: 427 Interpretive Statements SINUS RHYTHM LEFT VENTRICULAR HYPERTROPHY AND ST-T CHANGE [VOLTAGE CRITERIA PLUS ST/T ABNORMALITY] No previous ECG available for comparison Electronically Signed On 12-27-2020 17:00:01 CDT by Arturo España M.D. [id number]
[2020-12-27 16:44] LABS: ABG PH Result 7.38 (7.35-7.45); Base Excess ABG 1.2 mmol/L (-2.0-2.0); Blood Gas Allen Test Pos; Blood Gas Operator Identificat MONRO; Blood Gas Sample Site Radial, left; Blood Gas Sample Type Arterial; HCO3 ABG 26.6 mmol/L (22-26); Oxygen Device ROOM AIR; PO2 ABG 64.9 mmHg (80.0-100.0)
[2020-12-27 16:49] LABS: Basophils % 0.2 %; Eosinophils % 0.1 %; Hematocrit 28.3 % (42.0-52.0); Hemoglobin 8.6 g/dL (11.7-16.6); Lymphocytes % 8.8 %; Mean Corpuscular HGB Conc 30.4 g/dL (30.0-36.0); Mean Corpuscular Hemoglobin 26.7 pg (28.0-34.0); Mean Corpuscular Volume 87.9 fl (80-94); Monocytes # 1.2 10^3/uL (0.2-0.9); Monocytes % 10.5 %; Neutrophils # 9.09 10^3/uL (1.8-7.7); Neutrophils % 79.8 %; Nucleated Red Blood Cells % 0 %; Platelet Count 350 10^3/cmm (130-400); Red Blood Count 3.22 10^6/uL (4.1-5.3); Red Cell Distribution Width 14.9 % (12.1-15.1); White Blood Count 11.4 10^3/uL (4.0-10.0)
[2020-12-27 17:13] LABS: Lactate (Lactic Acid level) 0.6 mmol/L (0.5-2.2)
[2020-12-27 17:14] LABS: SARS Covid-2 Antigen Negative (Negative)
[2020-12-27 17:19] LABS: Troponin(5th) Baseline 50 ng/L (0-15)
[2020-12-27 17:26] LABS: NT Pro B Type Natriuretic Pept 321 pg/mL (0-125); Procalcitonin 0.26 ng/mL (0-0.5); Thyroid Stimulating Hormone 0.88 uIU/mL (0.27-4.20)
[2020-12-27 17:29] LABS: Ammonia 11 umol/L (16-60)
[2020-12-27 17:46] LABS: Alanine Aminotransferase 6 U/L (0-41); Alkaline Phosphatase 71 IU/L (40-130); Aspartate Amino Transferase 7 U/L (0-40); Blood Urea Nitrogen 25 mg/dL (8-23); C Reactive Protein 149.7 mg/L (0.0-4.9); Carbon Dioxide 26 mmol/L (22-29); Glucose 98 mg/dL (65-115); Magnesium 2.3 mg/dL (1.7-2.3); Total Bilirubin 0.2 mg/dL (0.15-1.2)
[2020-12-27 18:01] LABS: Anion Gap 16.8 (5-19); Osmolality Calculated 286 mOsm/kg (285-295); Potassium 3.8 mmol/L (3.5-5.1); Sodium 136 mmol/L (136-145)
[2020-12-27 18:02] LABS: Chloride 97 mmol/L (98-107)
[2020-12-27] MEDS: sodium chloride 0.9% 1,000 ML 999 ML IV (18:03)
--- NOTE | 2020-12-27 18:03 | ECG_ITS ---
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 Measurements Intervals [place] Rate: 93 P: 84 PA: 235 QRS: 24 QRSD: 102 T: -15 QT: 344 QTc: 430 Interpretive Statements SINUS RHYTHM WITH FIRST DEGREE AV BLOCK LEFT VENTRICULAR HYPERTROPHY AND ST-T CHANGE [VOLTAGE CRITERIA PLUS ST/T ABNORMALITY] Compared to ECG 12/27/2020 16:39:26 First degree AV block now present ST (T wave) deviation still present Electronically Signed On 12-27-2020 21:40:09 CDT by Arturo España M.D. [id number]
[2020-12-27 19:27] LABS: Troponin 5 2HR 43.91 ng/L (0-15)
[2020-12-27 19:29] LABS: Troponin 5 2HR Delta -6.09 ABS# (0-10)
[2020-12-27] MEDS: lactated ringers 1,000 ML 999 ML IV (19:41)
[2020-12-27 20:28] VITALS: BP 136/103; BP 154/95; BP 165/103; PULSE 102; PULSE 105; PULSE 108
[2020-12-27 20:47] LABS: Add Urine Microscopic? YES; Bilirubin Urine Neg (Negative); Blood Urine 2+ (Negative); Glucose Urine UA Norm (Normal); Ketones Urine Negative (Negative); Leukocyte Esterase Urine 2+ (Negative); Nitrate Urine Negative (Negative); Protein Urine Neg (Negative); Specific Gravity, Urine 1.005 (1.005-1.030); Urine Appearance SL Hazy (CLEAR); Urine Color Yellow (Yellow); Urobilinogen Urine Norm (Negative); pH Urine 5 (5-7)
[2020-12-27 20:48] LABS: Add Urine Culture? Yes; Bacteria Urine 4+ /hpf; RBC Urine 0-4 /hpf (0-2); Squamous Epithelial Cell Urine 0-4 /hpf (0-5); WBC Urine >100 /hpf (0-5)
[2020-12-27 21:11] LABS: Anion Gap 16.2 (5-19); Blood Urea Nitrogen 22 mg/dL (8-23); Calcium 8.8 mg/dL (8.5-10.5); Carbon Dioxide 25 mmol/L (22-29); Chloride 97 mmol/L (98-107); Glomerular Filtration Rate 38.3 mL/min (90-130); Glucose 93 mg/dL (65-115); Osmolality Calculated 283 mOsm/kg (285-295); Potassium 3.2 mmol/L (3.5-5.1); Sodium 135 mmol/L (136-145)
--- NOTE | 2020-12-27 22:03 | ECG_ITS ---
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 Measurements Intervals [place] Rate: 121 P: 46 IL: 167 QRS: 34 QRSD: 100 T: 210 QT: 269 QTc: 382 Interpretive Statements SINUS TACHYCARDIA ST DEVIATION AND MODERATE T-WAVE ABNORMALITY, CONSIDER ANTEROLATERAL ISCHEMIA [-0.1+ mV T-WAVE IN V3-V6] ST DEVIATION AND MODERATE T-WAVE ABNORMALITY, CONSIDER INFERIOR ISCHEMIA [-0.1+ mV T-WAVE IN II/aVF] Compared to ECG 12/27/2020 18:13:41 T-wave abnormality now present Possible ischemia now present Sinus rhythm no longer present First degree AV block no longer present Left ventricular hypertrophy no longer present ST (T wave) deviation no longer present Electronically Signed On 12-27-2020 23:06:16 CDT by Arturo España M.D. [email or web address].[id number]
[2020-12-27] MEDS: cefTRIAXone 1,000 MG in sodium chloride 0.9% (plus) 50 ML 100 MG IV (22:39)
[2020-12-27 22:53] LABS: Troponin 5 6HR 44.32 ng/L (0-15)
[2020-12-27 22:55] LABS: Troponin 5 6HR Delta -5.68 ng/L (0-12)
[2020-12-27 23:05] VITALS: BP 142/91; PULSE 113; RESP 18; O2SAT 94
[2020-12-28] VITALS (13 sets, daily range): BP systolic 122–160; BP diastolic 68–103; PULSE 79–116; RESP 12–22; TEMP 36.7; O2SAT 92–99
--- NOTE | 2020-12-28 01:14 | CTR_ITS ---
PROCEDURE INFORMATION: Exam: CT Abdomen And Pelvis Without Contrast Exam date and time: 12/28/2020 1:14 AM Age: 65 years old Clinical indication: Abnormal findings; Abnormal lab test; Abnormal kidney function lab tests; Prior surgery; Surgery type: Gastric. Gb. Hernia. ; Patient HX: Elevated creatinine. Positive bacteria on ua. ; Additional info: Evaluate for obstruction, hydronephrosis TECHNIQUE: Imaging protocol: Computed tomography of the abdomen and pelvis without contrast. Radiation optimization: All CT scans at this facility use at least one of these dose optimization techniques: automated exposure control; mA and/or kV adjustment per patient size (includes targeted exams where dose is matched to clinical indication); or iterative reconstruction. COMPARISON: CR XR chest 1V portable [id number] 12/27/2020 4:17 PM RADIATION DOSE METRICS: Total DLP (mGy-cm): 820.85 FINDINGS: Liver: Normal. No mass. Gallbladder and bile ducts: Surgical clips in the gallbladder fossa consistent with cholecystectomy. Pancreas: Normal. No ductal dilation. Spleen: Normal. No splenomegaly. Adrenal glands: Normal. No mass. Kidneys and ureters: Moderate to large bilateral hydronephrosis which may be secondary to enlarged urinary bladder. Stomach and bowel: Unremarkable. No obstruction. No mucosal thickening. Appendix: No evidence of appendicitis. Intraperitoneal space: Unremarkable. No free air. No significant fluid collection. Vasculature: Calcification of the abdominal aorta and/or iliac arteries consistent with atherosclerotic vessel disease. One or more calcified pelvic phleboliths. Lymph nodes: Unremarkable. No enlarged lymph nodes. Urinary bladder: Large urinary bladder suggesting possible outlet obstruction versus neurogenic bladder. Reproductive: Unremarkable as visualized. Bones/joints: Unremarkable. No acute fracture. Soft tissues: Unremarkable. CT/CT kidney stone [id number] IMPRESSION: 1. Large urinary bladder suggesting possible outlet obstruction versus neurogenic bladder. 2. Moderate to large bilateral hydronephrosis which may be secondary to enlarged urinary bladder. Radiation Dose CTDIVOL = (mGy): DLP = 820.85 (mGy-cm)
--- NOTE | 2020-12-28 01:24 | PM.HP ---
Providers/Chief Complaint Admitting Physician: Marium Neff MD Primary Care Provider: Rehan Rodriguez MD Chief Complaint: CONFUSED History of Present Illness Luis Lucero JR is a 65 year old male With a past medical history of hypertension, hyperlipidemia, migraine, esophageal cancer not currently active per history presented to the ER today due to altered mental status. Patient is a poor historian and unable to get a good history from him. Initially upon arrival he had complained about generalized weakness, being altered as if being in a fog. Work-up here identified a positive UA concerning for UTI. Patient denies any past history of urinary complaints to me, however his home medication list does contain bethanechol and Flomax. He is uncertain why he is on these medications. Denies any recent fever at home. Labs also notable for STEVEN with creatinine up to 1.8. Denies any abdominal pain nausea vomiting URI symptoms, cough chest pain dyspnea palpitations dysuria. He is right now able to tell me his name date of and the fact that he is in a hospital. CT head is unremarkable. Rapid Covid antigen is negative. He reports being vaccinated for COVID-19, but has recently been in touch with several positive contacts. Review of Systems General: Reports: 10 or more systems reviewed and unremarkable except in HPI and below Const: Denies: fever(s), chills or body aches Eyes: Denies: change in vision, blurry vision or photophobia ENMT: Reports: hoarseness; Denies: throat pain, enlarged tonsils, odynophagia or nasal congestion Card: Denies: chest pain, palpitations, irregular heart rhythm, edema, swelling of feet/ankles, lightheadedness, pre-syncope, dyspnea on exertion or orthopnea Resp: Denies: dyspnea, productive cough, non-productive cough, wheezing, stridor, pain on inspiration, change in phlegm color, hemoptysis or chest congestion GI: Denies: abdominal pain, nausea, vomiting, hematemesis, coffee ground emesis, dysphagia, heartburn, diarrhea, constipation, GI cramping, change in stool character, hematochezia or melena : Denies: flank pain, dysuria, urinary frequency, urinary urgency, urinary hesitancy or hematuria Musc: Denies: neck pain, back pain, extremity pain, joint swelling, joint warmth or deformity Neuro: Denies: headache(s), numbness in extremities, weakness in extremities, sensory changes, difficulty walking, frequent falls, dizziness, vertigo, behavioral changes, Slurred speech present or seizure-like activity Psych: Denies: anxiety, depression, suicidal ideation or homicidal ideation Endo: Denies: polyuria, polydipsia, tired all the time, cold intolerance or hot flashes Ebenezer/Lymph: Denies: easy bruising or easy bleeding Medications/Allergies Home Medications Medication Instructions Recorded Confirmed Last Taken Type amitriptyline 100 mg tablet 100 mg PO DAILY@199912/08/20 12/27/20 12/26/20 History amlodipine 5 mg tablet 5 mg PO DAILY@69912/08/20 12/27/20 12/27/20 History aspirin 81 mg tablet,delayed 81 mg PO DAILY@69912/08/20 12/27/20 12/27/20 History release bethanechol chloride 25 mg tablet 25 mg PO BID@08,199912/08/20 12/27/20 12/27/20 History buspirone 15 mg tablet 15 mg PO TID@0700,1400,199912/08/20 12/27/20 12/27/20 History clonidine HCl 0.1 mg tablet 0.1 mg PO Q12H PRN MDD SEE 12/08/20 12/27/20 Unknown History PHARMACY COMMENT divalproex 250 mg tablet,delayed 250 mg PO TID@0700,1400,199912/08/20 12/27/20 12/27/20 History release docusate sodium 100 mg capsule 100 mg PO BID@07,199912/08/20 12/27/20 12/27/20 History ferrous sulfate 325 mg (65 mg 325 mg PO DAILY@69912/08/20 12/27/20 12/27/20 History iron) tablet finasteride 5 mg tablet 5 mg PO DAILY@69912/08/20 12/27/20 12/27/20 History gabapentin 400 mg capsule 400 mg PO TID@07,,12/08/20 12/27/20 12/27/20 History hydrocodone 10 mg-acetaminophen 1 tab PO TID@0800,1400,1999 PRN 12/08/20 12/27/20 12/27/20 History 325 mg tablet linaclotide 145 mcg capsule 145 mcg PO DAILY@69912/08/20 12/27/20 12/27/20 History lorazepam 0.5 mg tablet 1 mg PO DAILY@1400 tab 12/08/20 12/27/20 12/27/20 History losartan 50 mg tablet 50 mg PO DAILY@79912/08/20 12/27/20 12/27/20 History metoprolol tartrate 50 mg tablet See Rx Instructions .ROUTE .COMPLEX 12/08/20 12/27/20 12/27/20 History omeprazole 40 mg capsule,delayed 40 mg PO DAILY@199912/08/20 12/27/20 12/26/20 History release oxybutynin chloride 10 mg 10 mg PO DAILY@69912/08/20 12/27/20 12/27/20 History tablet,extended release 24 hr oxycodone-acetaminophen 5 mg-325 1 tab PO Q4H PRN 12/08/20 12/27/20 Unknown History mg tablet tamsulosin 0.4 mg capsule 0.4 mg PO DAILY@69912/08/20 12/27/20 12/27/20 History tizanidine 2 mg capsule 2 mg PO DAILY@1900 PRN cap 12/08/20 12/27/20 12/26/20 History Mylanta 200 ml PO Q6H PRN 12/27/20 12/27/20 Unknown History aluminum hydrox-magnesium carb 10 ml PO Q6H PRN 12/27/20 12/27/20 Unknown History calcium carbonate-vitamin D3 1 tab PO BID@0700,1900 12/27/20 12/27/20 12/27/20 History [Calcium 600 + D(3)] cyanocobalamin (vitamin B-12) 1,000 mcg IM Q30D 12/27/20 12/27/20 12/13/20 History diclofenac sodium 2 g TOPICAL QID 12/27/20 12/27/20 Unknown History lorazepam 0.5 mg PO BID@0800,199912/27/20 12/27/20 12/27/20 History quetiapine 50 mg PO DAILY@1900 12/27/20 12/27/20 12/26/20 History Allergies Allergy/AdvReac Type Severity Reaction Status Date / Time No Known Allergies Allergy Verified 12/27/20 15:59 PFSH Acute PFSH: Medical History (Updated 12/28/20 @ 05:01 by Marium Neff MD) Depression determined by examination Social History Smoking and tobacco status: never smoked Vitals/I&O/Wt Last Vital Signs Temp 97.8 F 12/27/20 15:55 Pulse 113 H 12/27/20 23:05 Resp 18 12/27/20 23:05 BP 142/91 12/27/20 23:05 Pulse Ox 94 12/27/20 23:05 Weight last 48 hrs Weight 71.214 kg Physical Exam Narrative: EXAM NARRATIVE: GENERAL: Awake, alert, appears to be anxious, restless [] HEENT: Normocephalic, atraumatic, PERRLA. [] CHEST: Clear to auscultation bilaterally. [] CVS: S1, S2 normal. No murmur, rubs, gallops. Peripheral pulses palpable. [] ABDOMEN: Soft, . Bowel sounds heard. Distended with? Palpable bladder. Midline and right upper quadrant old scars noted, patient reports this is from surgery for esophageal cancer. [] NEUROVASCULAR: Awake, alert. Power 5/5 all extremities. [] EXTREMITIES: No edema. [] Data : 12/27/20 16:37 12/27/20 20:40 Micro: Microbiology 12/27/20 18:45 Blood Culture - Preliminary Blood SPECIMEN COLLECTED 12/27/20 18:50 Blood Culture - Preliminary Blood SPECIMEN COLLECTED Attestation for Other Data: I personally reviewed and interpreted the following: Other data: Laboratory Results WBC 11.4 10^3/uL (4.0-10.0) H 12/27/20 16:37 RBC 3.22 10^6/uL (4.1-5.3) L 12/27/20 16:37 Hgb 8.6 g/dL (11.7-16.6) L 12/27/20 16:37 Hct 28.3 % (42.0-52.0) L 12/27/20 16:37 MCV 87.9 fl (80-94) 12/27/20 16:37 MCH 26.7 pg (28.0-34.0) L 12/27/20 16:37 MCHC 30.4 g/dL (30.0-36.0) 12/27/20 16:37 RDW 14.9 % (12.1-15.1) 12/27/20 16:37 Plt Count 350 10^3/cmm (130-400) 12/27/20 16:37 MPV 8.0 fL (7.4-10.4) 12/27/20 16:37 Neut % (Auto) 79.8 % 12/27/20 16:37 Lymph % (Auto) 8.8 % 12/27/20 16:37 Bleckley % (Auto) 10.5 % 12/27/20 16:37 Eos % (Auto) 0.1 % 12/27/20 16:37 Baso % (Auto) 0.2 % 12/27/20 16:37 Neut # (Auto) 9.09 10^3/uL (1.8-7.7) H 12/27/20 16:37 Lymph # (Auto) 1.0 10^3/uL (0.8-4.8) 12/27/20 16:37 Bleckley # (Auto) 1.2 10^3/uL (0.2-0.9) H 12/27/20 16:37 Eos # (Auto) 0.0 10^3/uL (0.0-0.8) 12/27/20 16:37 Baso # (Auto) 0.0 10^3/uL (0.0-0.1) 12/27/20 16:37 Nucleated RBC % (auto) 0 % 12/27/20 16:37 Nucleated RBCs # 0.0 /100WBC 12/27/20 16:37 Specimen Type Arterial 12/27/20 16:32 Sample Site Radial, left 12/27/20 16:32 ABG pH 7.38 (7.35-7.45) 12/27/20 16:32 ABG pCO2 45.0 mmHg (35-45) 12/27/20 16:32 ABG pO2 64.9 mmHg (80.0-100.0) L 12/27/20 16:32 ABG HCO3 26.6 mmol/L (22-26) H 12/27/20 16:32 ABG Base Excess 1.2 mmol/L (-2.0-2.0) 12/27/20 16:32 Xavier Test Pos 12/27/20 16:32 Hematocrit 27.0 % (42-52) L 12/27/20 16:32 O2 Delivery Device Room air 12/27/20 16:32 FiO2 21.0 % 12/27/20 16:32 Car Servicer ID Howard 12/27/20 16:32 Sodium 135 mmol/L (136-145) L 12/27/20 20:40 Potassium 3.2 mmol/L (3.5-5.1) L 12/27/20 20:40 Chloride 97 mmol/L (98-107) L 12/27/20 20:40 Carbon Dioxide 25 mmol/L (22-29) 12/27/20 20:40 Anion Gap 16.2 (5-19) 12/27/20 20:40 BUN 22 mg/dL (8-23) 12/27/20 20:40 Creatinine 1.8 mg/dL (0.7-1.2) H 12/27/20 20:40 GFR Calculation 38.3 mL/min (90-130) L 12/27/20 20:40 Glucose 93 mg/dL (65-115) 12/27/20 20:40 Calculated Osmolality 283 mOsm/kg (285-295) L 12/27/20 20:40 Lactate 0.6 mmol/L (0.5-2.2) 12/27/20 16:37 Calcium 8.8 mg/dL (8.5-10.5) 12/27/20 20:40 Magnesium 2.3 mg/dL (1.7-2.3) 12/27/20 16:37 Total Bilirubin 0.2 mg/dL (0.15-1.2) 12/27/20 16:37 AST 7 U/L (0-40) 12/27/20 16:37 ALT 6 U/L (0-41) 12/27/20 16:37 Alkaline Phosphatase 71 IU/L (40-130) 12/27/20 16:37 Ammonia 11 umol/L (16-60) L 12/27/20 16:37 Troponin T Baseline 50 ng/L (0-15) H 12/27/20 16:37 Troponin T 120 Minute 43.91 ng/L (0-15) H 12/27/20 18:50 Delta Troponin T -6.09 ABS# (0-10) L 12/27/20 18:50 Troponin T Hi Sens 6Hr 44.32 ng/L (0-15) H 12/27/20 22:27 Troponin T Hi Sens 6Hr Delta -5.68 ng/L (0-12) L 12/27/20 22:27 C-Reactive Protein 149.7 mg/L (0.0-4.9) H 12/27/20 16:37 NT-Pro-B Natriuret Pep 321 pg/mL (0-125) H 12/27/20 16:37 Total Protein 6.0 g/dL (6.6-8.7) L 12/27/20 16:37 Albumin 3.0 g/dL (3.5-5.2) L 12/27/20 16:37 Globulin 3.0 g/dL (1.3-4.6) 12/27/20 16:37 Procalcitonin 0.26 ng/mL (0-0.5) 12/27/20 16:37 TSH 0.88 uIU/mL (0.27-4.20) 12/27/20 16:37 Urine Color Yellow (Yellow) 12/27/20 19:35 Urine Appearance Sl hazy (CLEAR) 12/27/20 19:35 Urine pH 5 (5-7) 12/27/20 19:35 Ur Specific Henderson 1.005 (1.005-1.030) 12/27/20 19:35 Urine Protein Neg (Negative) 12/27/20 19:35 Urine Glucose (UA) Norm (Normal) 12/27/20 19:35 Urine Ketones Negative (Negative) 12/27/20 19:35 Urine Blood 2+ (Negative) H 12/27/20 19:35 Urine Nitrate Negative (Negative) 12/27/20 19:35 Urine Bilirubin Neg (Negative) 12/27/20 19:35 Urine Urobilinogen Norm mg/dL (Negative) 12/27/20 19:35 Ur Leukocyte Esterase 2+ (Negative) H 12/27/20 19:35 Urine RBC 0-4 /hpf (0-2) H 12/27/20 19:35 Urine WBC >100 /hpf (0-5) H 12/27/20 19:35 Ur Squamous Epith Cells 0-4 /hpf (0-5) H 12/27/20 19:35 Amorphous Sediment Not Reportable 12/27/20 19:35 Urine Bacteria 4+ /hpf (NONE) H 12/27/20 19:35 SARS-CoV-2 Ag (Rapid) Negative (Negative) 12/27/20 16:42 Impressions Chest X-Ray 12/27/20 16:02 IMPRESSION: Nonacute. Head CT 12/27/20 16:02 IMPRESSION: No evidence of active or acute intracranial pathologic process, hemorrhage, or trauma. Radiation Dose CTDIVOL = (mGy): DLP = 904.73 (mGy-cm) A&P Assessment and plan (1) UTI (urinary tract infection): Urine analysis with urine analysis with positive blood, 2+ leukocyte Estrace, 100 WBCs. Urine culture pending. Empiric ceftriaxone while pending results of urine culture. CT abdomen to evaluate for underlying hydronephrosis, abdomen appears to be distended, discomfort to palpation over left CVA. Patient denies any past urinary complaints to me, however review of medication list shows oxybutynin, finasteride, bethanechol. Obtain records from PCP in the morning. Status: Acute Qualifiers: Urinary tract infection type: acute cystitis Hematuria presence: with hematuria Qualified Code(s): N30.01 - Acute cystitis with hematuria (2) STEVEN (acute kidney injury): Creatinine today at 1.8, last known normal at 0.7 from September 2020. Suspect bladder outlet obstruction, CT pending as above Bazan placement, urine lites Normal saline at 75 cc an hour Status: Acute Attestations Medical Necessity Statement*: Anticipate greater than 2 midnight admission for evaluation and management of UTI, possible urinary retention, IV antibiotics and IV hydration. 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
[2020-12-28] MEDS: enoxaparin 40 mg/0.4 mL Syringe SUBCUT (01:53)
[2020-12-28] MEDS: sodium chloride 0.9% 1,000 ML 75 ML IV ×2 (01:53→16:23)
[2020-12-28 05:37] LABS: Amphetamines Screen Urine Negative (Negative); Barbiturates Screen Urine Negative (Negative); Benzodiazepines Screen Urine Positive (Negative); Cocaine Screen Urine Negative (Negative); Opiate Screen Urine Positive (Negative); PCP Screen Urine Negative (Negative); THC Screen Urine Negative (Negative)
--- NOTE | 2020-12-28 05:39 | PC.NURSE ---
Pt requested transfer to [facility] in [place]. Dr Neff informed.
[2020-12-28 05:55] LABS: Potassium, Radom Urine 9 mmol/L; Urine Random Sodium 28 mmol/L
[2020-12-28 06:14] LABS: Urine Random Chloride 17 mmol/L
[2020-12-28 06:47] LABS: Creatine Phosphokinase 56 U/L (39-308)
[2020-12-28] MEDS: metoprolol tartrate 50 mg Tablet PO (07:14)
[2020-12-28] MEDS: gabapentin 400 mg Capsule PO ×3 (07:14→21:09)
[2020-12-28] MEDS: finasteride 5 mg Tablet PO (07:15)
[2020-12-28] MEDS: BuSPIRONE 10 mg Tablet 15 MG PO ×3 (07:15→21:10)
[2020-12-28] MEDS: divalproex DR 250 mg Tablet PO ×3 (07:15→21:11)
[2020-12-28] MEDS: LORazepam 0.5 mg Tablet PO ×2 (07:15→21:10)
[2020-12-28] MEDS: tamsulosin 0.4 mg Capsule PO (07:15)
[2020-12-28] MEDS: aspirin 81 mg EC Tablet PO (07:15)
[2020-12-28] MEDS: amlodipine 5 mg Tablet PO (07:15)
--- NOTE | 2020-12-28 10:18 | PC.NURSE ---
THIS NURSE EMPTIED PATIENT CATHETER. CATHETER DRAINED 1700 ML OF BRIGHT RED URINE. CLOTS AND SEDIMENT NOTED UPON DRAINAGE. STATES HE IS HAVING BACK PAIN, RATED 8/10. PATIENT HAD NO FURTHER NEEDS AT THIS TIME.
--- NOTE | 2020-12-28 11:54 | PM.PN ---
Subjective Subjective: Interval history: Sx started 1 week ago no reported fever Distal rectal exam in the ER revealed tender prostate, concern for prostatitis, Patient was very upset and wanted to be transferred to [facility] however we have told him it might be difficult to find a bed for him he is agreeable to stay if he gets refused by other facilities His sister outside in the ER secondary to cardiac arrest that is why he has reserved image about this hospital PMH BPH HTN Bipolar migraine PHI PSHx EGD for Achalsia appendectomy left second toe amputation Non smoker Lives at [facility] Vitals/I&O/Wt Last Vital Signs Temp 97.8 F 12/27/20 15:55 Pulse 89 12/28/20 11:52 Resp 22 H 12/28/20 11:52 BP 155/92 12/28/20 11:52 Pulse Ox 96 12/28/20 11:52 12/27/20 12/28/20 12/28/20 22:59 06:59 14:59 Output Total 1700 / 1700 Balance -1700 / -1700 Weight last 48 hrs Weight 71.214 kg Physical Exam Narrative: EXAM NARRATIVE: male who was trying to sit at the bedside Bazan catheter with hematuria Tender prostate on rectal exam, prostate enlarged, soft S1, S2 Abdomen soft Lower extremity without any swelling EOMI, PERRLA Awake alert oriented x3 GCS 15 Urinary Catheter Management^: Bazan: Cath Placed During This Visit: yes Reason for Continuing Indwelling Catheter: Acute Urinary Retention or Obstruction Urinary Catheter Date of Insertion: 12/28/20 Urinary Catheter Time of Insertion: 05:20 Data : 12/27/20 16:37 12/27/20 20:40 Micro: Microbiology 12/27/20 18:45 Blood Culture - Preliminary Blood SPECIMEN COLLECTED 12/27/20 18:50 Blood Culture - Preliminary Blood SPECIMEN COLLECTED A&P Assessment and plan (1) Urinary retention: Status: Acute (2) UTI (urinary tract infection): Status: Acute Qualifiers: Urinary tract infection type: acute cystitis Hematuria presence: with hematuria Qualified Code(s): N30.01 - Acute cystitis with hematuria (3) STEVEN (acute kidney injury): Status: Acute (4) Sepsis: Status: Acute Additional A&P Information Sepsis secondary to prostatitis Abnormal UA, sepsis present on admission Tender prostate on rectal exam Criteria met with tachypnea, tachycardia and leukocytosis Requested blood cultures and urine culture Patient does not want to follow-up with our urologist, he wants to be transferred to [facility], will touch base with him later today if agreeable to see Dr. Yuan Stop aspirin, hematuria likely traumatic insertion of Bazan catheter and with massive bladder distention it is suspected been anticipated to be cleared Of note, patient does endorse night sweats, fever and unintentional weight loss We will request PSA STEVEN secondary to post renal etiology Bladder outlet obstruction due to BPH Patient has been diagnosed with BPH and he takes Flomax at his assisted living, his urologist at [facility] recommended intermittent catheterization at the facility however he has been reluctant to do it Blood loss anemia secondary to hematuria Repeat H&H Hemoglobin 8.6 previous hemoglobin 11.1 hemodynamically stable heart rate in 80s Full code Regular diet DVT prophylaxis contraindicated Attestations Medical Necessity Statement*: Continue medical management for prostatitis Time Spent in Patient Care: 16 - 35 minutes Coding Level of Care Code 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
--- NOTE | 2020-12-28 11:59 | PC.NURSE ---
PATIENT UP TO POTTY. PATIENT HAD BOWEL MOVEMENT, HARD STOOL. PATIENT HAS NO FURTHER NEEDS AT THIS TIME.
--- NOTE | 2020-12-28 13:44 | PC.NURSE ---
PATIENT RESTING IN BED. PATIENT CATHETER DRAINED. 1450 ML. BLOOD CLOTS AND SEDIMENT NOTED IN TUBING, BUT TUBING IS PATENT AND EMPTYING. URINE IS BRIGHT RED. PATIENT HAS NO FURTHER NEEDS AT THIS TIME.
[2020-12-28] MEDS: LORazepam 0.5 mg Tablet 1 MG PO (14:54)
[2020-12-28] MEDS: sennosides-docusate Tablet 1 TAB PO (14:57)
[2020-12-28] MEDS: potassium chloride oral liq 20 mEq/15 mL UDC PO (14:59)
[2020-12-28 15:57] LABS: Hematocrit 27.8 % (42.0-52.0); Hemoglobin 8.6 g/dL (11.7-16.6)
[2020-12-28 17:37] LABS: Glucose Point of Care 88 mg/dL (70-110)
[2020-12-28] MEDS: quetiapine 25 mg Tablet 50 MG PO (19:05)
[2020-12-28] MEDS: amitriptyline 25 mg Tablet 100 MG PO (21:04)
[2020-12-28] MEDS: metoprolol tartrate 50 mg Tablet 100 MG PO (21:05)
[2020-12-28] MEDS: pantoprazole DR 40 mg Tablet PO (21:05)
[2020-12-28] MEDS: cefTRIAXone 1,000 MG in sodium chloride 0.9% (plus) 50 ML 100 MG IV (21:54)
[2020-12-29] VITALS (14 sets, daily range): BP systolic 118–193; BP diastolic 66–103; PULSE 70–85; RESP 14–20; TEMP 36.4–36.8; O2SAT 93–100
[2020-12-29] MEDS: HYDROcodone-acetaminophen 10-325 mg Tablet 1 TAB PO (00:58)
[2020-12-29 05:47] LABS: Basophils % 0.3 %; Eosinophils # 0.1 10^3/uL (0.0-0.8); Eosinophils % 1.9 %; Hematocrit 24.8 % (42.0-52.0); Hemoglobin 7.6 g/dL (11.7-16.6); Lymphocytes # 1.3 10^3/uL (0.8-4.8); Mean Corpuscular HGB Conc 30.6 g/dL (30.0-36.0); Mean Corpuscular Hemoglobin 26.4 pg (28.0-34.0); Mean Corpuscular Volume 86.1 fl (80-94); Mean Platelet Volume 8.2 fL (7.4-10.4); Monocytes # 0.7 10^3/uL (0.2-0.9); Monocytes % 10.1 %; Neutrophils % 66.5 %; Nucleated Red Blood Cells % 0 %; Platelet Count 378 10^3/cmm (130-400); Red Blood Count 2.88 10^6/uL (4.1-5.3); Red Cell Distribution Width 15.1 % (12.1-15.1); White Blood Count 6.5 10^3/uL (4.0-10.0)
--- NOTE | 2020-12-29 05:58 | PC.NURSE ---
Patient alert and disoriented x4 most of shift. Patient thought he was an employee of [facility] and attempted to get out of bed and walk out without IV and moyer, which were still intact. Patients IV was removed during this time and moyer remains patent but continues to have bloody red urine. He states, I do not want to be in this hospital, I hate this place. He tends to have moments of depressive state and then becomes impulsive at times just getting straight out of bed. Bed alarm is on and active, room is clutter free and call light is within reach. Patient gets hourly or more rounding. He repositions self in bed. No needs at this time. Will report and handoff to oncoming nurse at shift change.
[2020-12-29] MEDS: BuSPIRONE 10 mg Tablet 15 MG PO ×3 (06:11→20:53)
[2020-12-29] MEDS: divalproex DR 250 mg Tablet PO ×3 (06:12→20:51)
[2020-12-29] MEDS: metoprolol tartrate 50 mg Tablet PO (06:12)
[2020-12-29] MEDS: tamsulosin 0.4 mg Capsule PO (06:12)
[2020-12-29] MEDS: gabapentin 400 mg Capsule PO ×3 (06:12→20:53)
[2020-12-29] MEDS: finasteride 5 mg Tablet PO (06:12)
[2020-12-29] MEDS: amlodipine 5 mg Tablet PO (06:12)
[2020-12-29] MEDS: sodium chloride 0.9% 1,000 ML 75 ML IV (06:14)
[2020-12-29 06:17] LABS: Alanine Aminotransferase < 5 U/L (0-41); Albumin Level 2.3 g/dL (3.5-5.2); Alkaline Phosphatase 58 IU/L (40-130); Anion Gap 13.2 (5-19); Aspartate Amino Transferase 5 U/L (0-40); Blood Urea Nitrogen 18 mg/dL (8-23); Calcium 7.8 mg/dL (8.5-10.5); Carbon Dioxide 26 mmol/L (22-29); Chloride 104 mmol/L (98-107); Glomerular Filtration Rate 55.8 mL/min (90-130); Glucose 82 mg/dL (65-115); Osmolality Calculated 291 mOsm/kg (285-295); Potassium 3.2 mmol/L (3.5-5.1); Sodium 140 mmol/L (136-145); Total Bilirubin 0.2 mg/dL (0.15-1.2); Total Protein 5.3 g/dL (6.6-8.7)
[2020-12-29] MEDS: LORazepam 0.5 mg Tablet PO ×2 (09:31→20:52)
[2020-12-29] MEDS: sennosides-docusate Tablet 1 TAB PO (09:32)
[2020-12-29] MEDS: potassium chloride ER 20 mEq Tablet 40 MEQ PO (11:54)
--- NOTE | 2020-12-29 13:21 | PM.PN ---
Subjective Subjective: Interval history: Patient was seen and examined this morning, patient is adamant that he would not like to see a urologist here and rather follow-up at [facility], we made a plan to watch hematuria for next 1 day, transfuse him with PRBC today his urine color is getting director of security No overnight events, Vitals/I&O/Wt Last Vital Signs Temp 98.1 F 12/29/20 08:00 Pulse 73 12/29/20 08:00 Resp 18 12/29/20 08:00 BP 160/89 12/29/20 08:00 Pulse Ox 95 12/29/20 08:00 12/28/20 12/29/20 12/29/20 22:59 06:59 14:59 Intake Total 1523.75 / 1523.75 1246.25 / 2770.00 Output Total 2050 / 5200 900 / 6100 800 / 800 Balance -526.25 / -3676.25 346.25 / -3330.00 -800 / -800 Weight last 48 hrs Weight 71.214 kg Physical Exam Narrative: EXAM NARRATIVE: Patient was laying flat without any active discomfort Hematuria urine color changing to light pink S1, S2 Abdomen soft EOMI, PERRLA No neurological deficits No audible stridor or wheezing Urinary Catheter Management^: Bazan: Cath Placed During This Visit: yes Reason for Continuing Indwelling Catheter: Acute Urinary Retention or Obstruction Urinary Catheter Date of Insertion: 12/28/20 Urinary Catheter Time of Insertion: 05:20 Data : 12/29/20 05:02 12/29/20 05:02 Micro: Microbiology 12/27/20 19:35 Urine Culture - Preliminary Urine,Clean Catch Strep agalactiae - (group b) 12/27/20 18:50 Blood Culture - Preliminary Blood NEGATIVE TO DATE 12/27/20 18:45 Blood Culture - Preliminary Blood NEGATIVE TO DATE A&P Assessment and plan (1) Sepsis: Status: Acute (2) Urinary retention: Status: Acute (3) Prostatitis: Status: Acute (4) UTI (urinary tract infection): Status: Acute Qualifiers: Urinary tract infection type: acute cystitis Hematuria presence: with hematuria Qualified Code(s): N30.01 - Acute cystitis with hematuria (5) STEVEN (acute kidney injury): Status: Acute Additional A&P Information Sepsis secondary to prostatitis Sepsis resolved 12/29 Continue ceftriaxone Urine culture growing gram-positive agalactiae which will be covered by ceftriaxone STEVEN secondary to bladder outlet obstruction secondary to BPH Continue tamsulosin and finasteride Patient is refusing urology consult here and would like to follow-up at [facility] Acute normocytic blood loss anemia Transfuse 1 unit PRBC Full code Regular diet DVT prophylaxis contraindicated Attestations Medical Necessity Statement*: We will watch resolution of hematuria for next 1 day Time Spent in Patient Care: less than 15 minutes Coding Level of Care Code Acute 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
[2020-12-29] MEDS: LORazepam 0.5 mg Tablet 1 MG PO (13:58)
[2020-12-29] MEDS: sodium chloride 0.9% (100 ml) 100 ML 50 ML (14:41)
[2020-12-29] MEDS: quetiapine 25 mg Tablet 50 MG PO (18:24)
[2020-12-29] MEDS: metoprolol tartrate 50 mg Tablet 100 MG PO (20:52)
[2020-12-29] MEDS: amitriptyline 25 mg Tablet 100 MG PO (20:53)
[2020-12-29] MEDS: pantoprazole DR 40 mg Tablet PO (20:54)
[2020-12-29] MEDS: cefTRIAXone 1,000 MG in sodium chloride 0.9% (plus) 50 ML 100 MG IV (23:53)
[2020-12-30] VITALS (7 sets, daily range): BP systolic 135–158; BP diastolic 76–100; PULSE 61–86; RESP 16–22; TEMP 36.1–36.9; O2SAT 92–99
[2020-12-30] MEDS: HYDROcodone-acetaminophen 10-325 mg Tablet 1 TAB PO ×3 (01:57→13:36)
--- NOTE | 2020-12-30 05:33 | PC.NURSE ---
Shift Note Patient has been alert and oriented during this shift. Rested in bed most of the night. Up ad rony to bathroom. Continues to have Moyer, urine is pink in color. Patient did receive one chang pill during this shift. Frequent safety and comfort rounds continue. Orders and/or nursing care completed as indicated. Patient monitored for response to intervention and treatment(s). Education provided includes taking moyer with him when going to the bathroom.. Patient and/or senior patient account representative verbalized understanding. Will continue to monitor.
[2020-12-30 06:18] LABS: Basophils % 0.5 %; Eosinophils # 0.1 10^3/uL (0.0-0.8); Eosinophils % 1.4 %; Hematocrit 31.3 % (42.0-52.0); Hemoglobin 9.8 g/dL (11.7-16.6); Lymphocytes # 1.4 10^3/uL (0.8-4.8); Lymphocytes % 18.1 %; Mean Corpuscular HGB Conc 31.3 g/dL (30.0-36.0); Mean Corpuscular Volume 86.2 fl (80-94); Mean Platelet Volume 8.1 fL (7.4-10.4); Monocytes # 0.7 10^3/uL (0.2-0.9); Neutrophils # 5.52 10^3/uL (1.8-7.7); Neutrophils % 69.6 %; Nucleated Red Blood Cells % 0 %; Platelet Count 366 10^3/cmm (130-400); Red Blood Count 3.63 10^6/uL (4.1-5.3); Red Cell Distribution Width 14.9 % (12.1-15.1); White Blood Count 7.9 10^3/uL (4.0-10.0)
[2020-12-30] MEDS: BuSPIRONE 10 mg Tablet 15 MG PO ×3 (06:18→20:37)
[2020-12-30] MEDS: tamsulosin 0.4 mg Capsule PO (06:18)
[2020-12-30] MEDS: divalproex DR 250 mg Tablet PO ×3 (06:18→20:36)
[2020-12-30] MEDS: finasteride 5 mg Tablet PO (06:18)
[2020-12-30] MEDS: gabapentin 400 mg Capsule PO ×3 (06:18→20:37)
[2020-12-30] MEDS: amlodipine 5 mg Tablet PO (06:19)
[2020-12-30 06:52] LABS: Anion Gap 13.5 (5-19); Blood Urea Nitrogen 10 mg/dL (8-23); Calcium 8.2 mg/dL (8.5-10.5); Carbon Dioxide 26 mmol/L (22-29); Chloride 102 mmol/L (98-107); Glomerular Filtration Rate 75.5 mL/min (90-130); Glucose 85 mg/dL (65-115); Osmolality Calculated 284 mOsm/kg (285-295); Potassium 3.5 mmol/L (3.5-5.1); Sodium 138 mmol/L (136-145)
[2020-12-30] MEDS: sennosides-docusate Tablet 1 TAB PO (08:35)
[2020-12-30] MEDS: LORazepam 0.5 mg Tablet PO ×2 (08:35→20:45)
[2020-12-30] MEDS: metoprolol tartrate 50 mg Tablet PO (09:56)
[2020-12-30] MEDS: LORazepam 0.5 mg Tablet 1 MG PO (13:35)
--- NOTE | 2020-12-30 13:45 | P.PN_ITS ---
Subjective Subjective: Interval history: Status post 1 unit PRBC hemoglobin 9.8 Bazan catheter still showing mckay hematuria, CBI started today Bazan catheter 20 Surinamese used, 16 Surinamese removed Patient endorsing constipation Vitals/I&O/Wt Last Vital Signs Temp 98.1 F 12/30/20 12:00 Pulse 72 12/30/20 12:00 Resp 18 12/30/20 12:00 BP 142/80 12/30/20 12:00 Pulse Ox 98 12/30/20 12:00 12/29/20 12/30/20 12/30/20 22:59 06:59 14:59 Intake Total 2200 / 2200 50 / 2250 120 / 120 Output Total 1200 / 4200 2450 / 6650 1300 / 1300 Balance 1000 / -2000 -2400 / -4400 -1180 / -1180 Physical Exam Narrative: EXAM NARRATIVE: Patient was lying comfortably in bed Urine bag with mckay hematuria S1, S2 no active signs of heart failure or murmur Abdomen soft EOMI, PERRLA No neurological deficit Appropriate mood and affect No audible stridor or wheezing saturating well on room air Urinary Catheter Management^: Bazan: Cath Placed During This Visit: yes Reason for Continuing Indwelling Catheter: Accurate Measurement of Urinary Output in Critically Ill Patients Urinary Catheter Date of Insertion: 12/28/20 Urinary Catheter Time of Insertion: 05:20 Data : 12/30/20 05:48 12/30/20 05:48 Micro: Microbiology 12/27/20 19:35 Urine Culture - Final Urine,Clean Catch Strep agalactiae - (group b) A&P Assessment and plan (1) Prostatitis: Status: Acute (2) Sepsis: Status: Acute (3) Urinary retention: Status: Acute (4) UTI (urinary tract infection): Status: Acute Qualifiers: Urinary tract infection type: acute cystitis Hematuria presence: with hematuria Qualified Code(s): N30.01 - Acute cystitis with hematuria (5) STEVEN (acute kidney injury): Status: Acute (6) Constipation: Status: Acute (7) Acute blood loss anemia: Status: Acute Additional A&P Information Sepsis secondary to prostatitis Resolved continue ceftriaxone for now Awaiting cultures Mckay hematuria Bazan catheter replaced, 20 Surinamese inserted today started CBI STEVEN: Resolved Acute blood loss anemia status post 1 unit PRBC secondary to hematuria hemoglobin 9.8 today stable Constipation: Enema, MiraLAX, sennaS glycerin suppository Full code Cardiac diet DVT prophylaxis SCDs Attestations Medical Necessity Statement*: Anticipate improvement once hematuria resolves to go with Bazan catheter Time Spent in Patient Care: less than 15 minutes Coding Level of Care Code Acute Corrugated Sheet Material Sheeter for Chg Fwd Diagnoses Prostatitis N41.9 Sepsis A41.9 Urinary retention R33.9 UTI (urinary tract infection) N30.01 Urinary tract infection type: acute cystitis Hematuria presence: with hematuria STEVEN (acute kidney injury) N17.9 Constipation K59.00 Acute blood loss anemia D62
--- NOTE | 2020-12-30 14:41 | PC.CHAP ---
Pastoral Care Encounter/Spiritual Assessment Type of Contact [] Declined forms analysis manager visit [] Patient/Family/Request visit [] Outpatient visit [xx] Follow-up visit [] Physician referral [] Code/Alert [] Routine visit [] Staff referral [] Actively dying [] Patient sleeping [] Family support [] [] Out of room [] Palliative care [] [X] Receiving care in room [] Pre-surgical visit [] Trauma [] Long length of stay [] ICU visit [] Other: Relational/Emotional Strength [] Patient feels connected with others/family/visitors/staff [] Distress [] Loneliness/isolation [] Abandonment Spirituality of Patient [] Person of Camilla [] Attends Confucianist of their Camilla [] Believes in Prayer [] Reads Bible or Episcopalian materials [] There are Spiritual issues to be addressed Director Of Scout Work Interventions [] Prayer [] Active listening [] Non-anxious presence [] Spiritual/emotional support [] Crisis/trauma care [] Spiritual counseling [] Bereavement support [] Provided bereavement packet [] Provided Bible/devotional materials [] Provided toy/stuffed animal, coloring book to patient or family member [] Provided Communion [] Anointing/Aline [] Salvation [] Completed spiritual assessment [] Other: Impact on Illness or Injury [] Angry [] Fearful [] Anxious [] Often cries [] Exhaustion [] Unable to work [] Unable to attend mormonism [] Unable to walk/stand [] Unable to read [] Unable to drive [] Unable to eat/drink [] Unable to sleep [] Unable to be with family [] Patient intubated [] Other: Summary Follow up needed Time spent with patient
[2020-12-30] MEDS: quetiapine 25 mg Tablet 50 MG PO (18:22)
[2020-12-30] MEDS: pantoprazole DR 40 mg Tablet PO (20:36)
[2020-12-30] MEDS: amitriptyline 25 mg Tablet 100 MG PO (20:36)
[2020-12-30] MEDS: sennosides 8.6 mg Tablet 17.2 MG PO (20:36)
[2020-12-30] MEDS: metoprolol tartrate 50 mg Tablet 100 MG PO (20:39)
[2020-12-31] MEDS: cefTRIAXone 1,000 MG in sodium chloride 0.9% (plus) 50 ML 100 MG IV (02:25)
[2020-12-31 04:00] VITALS: BP 148/74; PULSE 76; RESP 20; TEMP 36.7; O2SAT 97
[2020-12-31 06:13] LABS: Hematocrit 31.2 % (42.0-52.0); Hemoglobin 9.8 g/dL (11.7-16.6)
[2020-12-31] MEDS: BuSPIRONE 10 mg Tablet 15 MG PO ×3 (06:49→20:53)
[2020-12-31] MEDS: amlodipine 5 mg Tablet PO (06:50)
[2020-12-31] MEDS: divalproex DR 250 mg Tablet PO ×3 (06:50→20:59)
[2020-12-31] MEDS: finasteride 5 mg Tablet PO (06:51)
[2020-12-31] MEDS: gabapentin 400 mg Capsule PO ×3 (06:51→20:52)
[2020-12-31] MEDS: tamsulosin 0.4 mg Capsule PO (06:51)
[2020-12-31] MEDS: metoprolol tartrate 50 mg Tablet PO (06:51)
[2020-12-31] MEDS: acetaminophen 325 mg Tablet 650 MG PO (06:53)
[2020-12-31 07:06] LABS: Anion Gap 13.5 (5-19); Blood Urea Nitrogen 7 mg/dL (8-23); Calcium 8.6 mg/dL (8.5-10.5); Carbon Dioxide 30 mmol/L (22-29); Chloride 98 mmol/L (98-107); Glomerular Filtration Rate 75.5 mL/min (90-130); Glucose 78 mg/dL (65-115); Osmolality Calculated 283 mOsm/kg (285-295); Potassium 3.5 mmol/L (3.5-5.1); Sodium 138 mmol/L (136-145)
[2020-12-31 08:00] VITALS: BP 152/82; PULSE 68; RESP 16; TEMP 36.7; O2SAT 97
--- NOTE | 2020-12-31 08:39 | PC.SOCIAL ---
IM follow up explained and copy provided. No questions voiced.
[2020-12-31] MEDS: LORazepam 0.5 mg Tablet PO ×2 (09:04→20:52)
[2020-12-31] MEDS: sennosides-docusate Tablet 1 TAB PO (09:04)
[2020-12-31] MEDS: HYDROcodone-acetaminophen 10-325 mg Tablet 1 TAB PO ×2 (09:13→14:06)
--- NOTE | 2020-12-31 10:50 | PC.NURSE ---
Addendum entered by Brittany Meredith RN 12/31/20 11:01: Given at this time. Patient tolerated well. No return as patient is trying to hold it for a little bit. Original Note: Patient was supposed to get an enema yesterday afternoon. Enema was not given. Dr. Tran approached this nurse and requested that the enema be given now. Milk and Molasses enema
--- NOTE | 2020-12-31 11:30 | PC.NURSE ---
Patient had a large bowel movement at this time. Patient states that he feels much better.
[2020-12-31 12:00] VITALS: BP 148/82; PULSE 83; RESP 16; TEMP 37.1; O2SAT 93
--- NOTE | 2020-12-31 12:04 | PC.NURSE ---
Patient had a second moderate bowel movement at this time.
--- NOTE | 2020-12-31 13:31 | P.PN_ITS ---
Subjective Subjective: Interval history: Patient was given enema today, had 2 bowel movements, CBI which was started yesterday did help to improve his urine color to light pink today I have asked nurse to continue CBI until his urine color completely gets normal Vitals/I&O/Wt Last Vital Signs Temp 98.7 F 12/31/20 12:00 Pulse 83 12/31/20 12:00 Resp 16 12/31/20 12:00 BP 148/82 12/31/20 12:00 Pulse Ox 93 12/31/20 12:00 12/30/20 12/31/20 12/31/20 22:59 06:59 14:59 Intake Total 860 / 980 50 / 1030 480 / 480 Output Total 5000 / 7825 18780 / 20668 4000 / 4000 Balance -4140 / -6845 -36777 / -50940 -3520 / -3520 Physical Exam Narrative: EXAM NARRATIVE: Patient was laying comfortably in his bed Saturating well on room air S1, S2 Abdomen soft Lower extremity no edema EOMI, PERRLA no neurological deficit Bazan catheter draining light pink urine with some clots Awake alert oriented x3 No audible stridor or wheezing Urinary Catheter Management^: Bazan: Cath Placed During This Visit: yes Reason for Continuing Indwelling Catheter: Accurate Measurement of Urinary Output in Critically Ill Patients Urinary Catheter Date of Insertion: 12/28/20 Urinary Catheter Time of Insertion: 05:20 Data : 12/31/20 05:03 12/31/20 05:03 Micro: Microbiology 12/27/20 19:35 Urine Culture - Final Urine,Clean Catch Strep agalactiae - (group b) A&P Assessment and plan (1) Acute blood loss anemia: Status: Acute (2) Constipation: Status: Acute (3) Prostatitis: Status: Acute (4) Sepsis: Status: Acute (5) Urinary retention: Status: Acute (6) UTI (urinary tract infection): Status: Acute Qualifiers: Urinary tract infection type: acute cystitis Hematuria presence: with hematuria Qualified Code(s): N30.01 - Acute cystitis with hematuria (7) STEVEN (acute kidney injury): Status: Acute Additional A&P Information Sepsis secondary to prostatitis: Resolved Urine culture growing strep recollected today I will discontinue ceftriaxone and use Augmentin for now he has been afebrile leukocytosis improved STEVEN secondary to post renal obstruction: Improved with placement of Bazan catheter and currently undergoing CBI for hematuria Once his hematuria improved he will be discharged back to [facility] with a Bazan catheter He wants to follow-up with his urologist Constipation: Improved after enema Acute blood loss anemia status post 1 unit PRBC hemoglobin stable at this point Full code Cardiac diet DVT prophylaxis contraindicated CDs for now Attestations Medical Necessity Statement*: Anticipating discharge within the next 48 hours once his urine color improves with CBI Time Spent in Patient Care: 16 - 35 minutes Coding Level of Care Code Acute 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
[2020-12-31] MEDS: LORazepam 0.5 mg Tablet 1 MG PO (14:06)
[2020-12-31 15:39] VITALS: BP 134/83; PULSE 77; RESP 16; TEMP 36.4; O2SAT 95
[2020-12-31] MEDS: amoxicillin-clav 875-125 mg Tablet 1 TAB PO (18:12)
[2020-12-31] MEDS: quetiapine 25 mg Tablet 50 MG PO (18:12)
[2020-12-31 20:00] VITALS: BP 164/110; PULSE 102; RESP 18; TEMP 36.4; O2SAT 98
[2020-12-31] MEDS: sennosides 8.6 mg Tablet 17.2 MG PO (20:52)
[2020-12-31] MEDS: metoprolol tartrate 50 mg Tablet 100 MG PO (20:52)
[2020-12-31] MEDS: amitriptyline 25 mg Tablet 100 MG PO (20:52)
[2020-12-31] MEDS: pantoprazole DR 40 mg Tablet PO (20:53)
[2020-12-31 23:23] VITALS: BP 185/108; PULSE 68; RESP 18; TEMP 36.4; O2SAT 99
[2021-01-01 03:35] VITALS: BP 171/96; PULSE 75; RESP 18; TEMP 36.6; O2SAT 98
[2021-01-01 05:53] LABS: Basophils % 0.6 %; Eosinophils # 0.3 10^3/uL (0.0-0.8); Eosinophils % 4.5 %; Hematocrit 32.7 % (42.0-52.0); Hemoglobin 10.3 g/dL (11.7-16.6); Lymphocytes # 1.3 10^3/uL (0.8-4.8); Lymphocytes % 20.5 %; Mean Corpuscular HGB Conc 31.5 g/dL (30.0-36.0); Mean Corpuscular Volume 85.8 fl (80-94); Mean Platelet Volume 7.9 fL (7.4-10.4); Monocytes # 0.6 10^3/uL (0.2-0.9); Monocytes % 9.4 %; Neutrophils # 4.12 10^3/uL (1.8-7.7); Neutrophils % 63.5 %; Nucleated Red Blood Cells % 0 %; Platelet Count 342 10^3/cmm (130-400); Red Blood Count 3.81 10^6/uL (4.1-5.3); Red Cell Distribution Width 14.9 % (12.1-15.1); White Blood Count 6.5 10^3/uL (4.0-10.0)
[2021-01-01 06:23] LABS: Anion Gap 12.4 (5-19); Blood Urea Nitrogen 7 mg/dL (8-23); Calcium 8.6 mg/dL (8.5-10.5); Carbon Dioxide 31 mmol/L (22-29); Chloride 98 mmol/L (98-107); Glomerular Filtration Rate 85.2 mL/min (90-130); Glucose 91 mg/dL (65-115); Osmolality Calculated 284 mOsm/kg (285-295); Potassium 3.4 mmol/L (3.5-5.1); Sodium 138 mmol/L (136-145)
[2021-01-01] MEDS: amlodipine 5 mg Tablet PO (06:37)
[2021-01-01] MEDS: tamsulosin 0.4 mg Capsule PO (06:37)
[2021-01-01] MEDS: finasteride 5 mg Tablet PO (06:37)
[2021-01-01] MEDS: divalproex DR 250 mg Tablet PO ×3 (06:37→21:14)
[2021-01-01] MEDS: metoprolol tartrate 50 mg Tablet PO (06:37)
[2021-01-01] MEDS: BuSPIRONE 10 mg Tablet 15 MG PO ×3 (06:38→21:15)
[2021-01-01] MEDS: gabapentin 400 mg Capsule PO ×3 (06:38→21:14)
[2021-01-01] MEDS: HYDROcodone-acetaminophen 10-325 mg Tablet 1 TAB PO ×2 (07:36→17:48)
[2021-01-01] MEDS: amoxicillin-clav 875-125 mg Tablet 1 TAB PO ×2 (07:36→17:47)
[2021-01-01] MEDS: LORazepam 0.5 mg Tablet PO ×2 (07:36→21:14)
[2021-01-01] MEDS: sennosides-docusate Tablet 1 TAB PO (07:36)
[2021-01-01 08:00] VITALS: BP 122/77; PULSE 74; RESP 16; TEMP 36.9; O2SAT 96
[2021-01-01 12:00] VITALS: BP 129/83; PULSE 83; RESP 16; TEMP 36.5; O2SAT 96
--- NOTE | 2021-01-01 13:47 | P.PN_ITS ---
Subjective Subjective: Interval history: Patient had couple bowel movements yesterday after enema with CBI today urine is light pink turning to light yellow today question nurse to increase the rate of CBI patient still does not want to follow-up with Dr. Yuan , Nurse was also present in the room Vitals/I&O/Wt Last Vital Signs Temp 98.4 F 01/01/21 08:00 Pulse 74 01/01/21 08:00 Resp 16 01/01/21 08:00 BP 122/77 01/01/21 08:00 Pulse Ox 96 01/01/21 08:00 12/31/20 01/01/21 01/01/21 22:59 06:59 14:59 Intake Total 200 / 680 240 / 240 Output Total 3900 / 7900 1999 / 9899 Balance -3700 / -7220 -1999 / -9220 240 / 240 Physical Exam Narrative: EXAM NARRATIVE: Patient laying comfortably in his bed Bazan catheter with light pink to light yellow urine Noticing blood clots no signs of retention patient is able to void urine without any pain or limitations with a Bazan catheter S1, S2 Abdomen soft EOMI, PERRLA No neurological deficits Urinary Catheter Management^: Bazan: Cath Placed During This Visit: yes Reason for Continuing Indwelling Catheter: Accurate Measurement of Urinary Output in Critically Ill Patients Urinary Catheter Date of Insertion: 12/28/20 Urinary Catheter Time of Insertion: 05:20 Data : 01/01/21 05:20 01/01/21 05:20 A&P Assessment and plan (1) Acute blood loss anemia: Status: Acute (2) Constipation: Status: Acute (3) Prostatitis: Status: Acute (4) Sepsis: Status: Acute (5) Urinary retention: Status: Acute (6) UTI (urinary tract infection): Status: Acute Qualifiers: Urinary tract infection type: acute cystitis Hematuria presence: with hematuria Qualified Code(s): N30.01 - Acute cystitis with hematuria (7) STEVEN (acute kidney injury): Status: Acute Additional A&P Information Sepsis related to prostatitis Resolved Hypokalemia: Potassium repleted Blood loss anemia status post 1 unit PRBC hemoglobin stable Continue CBI until urine color improved and there are no more blood clots I am anticipating this will get better in next 24 hours and patient will be able to go back to lamp light DORON Constipation: Resolved Full code Cardiac diet DVT prophylaxis contraindicated Attestations Medical Necessity Statement*: Anticipating discharge on Saturday Time Spent in Patient Care: less than 15 minutes Coding Level of Care Code Acute Sales Executive Insurance for Chg Fwd Diagnoses Acute blood loss anemia D62 Constipation K59.00 Prostatitis N41.9 Sepsis A41.9 Urinary retention R33.9 UTI (urinary tract infection) N30.01 Urinary tract infection type: acute cystitis Hematuria presence: with hematuria STEVEN (acute kidney injury) N17.9
[2021-01-01] MEDS: LORazepam 0.5 mg Tablet 1 MG PO (13:52)
[2021-01-01 16:00] VITALS: BP 139/88; PULSE 99; RESP 17; TEMP 36.7; O2SAT 98
[2021-01-01] MEDS: potassium chloride ER 20 mEq Tablet 40 MEQ PO (16:02)
[2021-01-01] MEDS: quetiapine 25 mg Tablet 50 MG PO (17:47)
[2021-01-01 20:00] VITALS: BP 130/85; PULSE 85; RESP 17; TEMP 36.6; O2SAT 94
[2021-01-01 20:09] LABS: Glucose Point of Care 105 mg/dL (70-110)
[2021-01-01] MEDS: amitriptyline 25 mg Tablet 100 MG PO (21:13)
[2021-01-01] MEDS: sennosides 8.6 mg Tablet 17.2 MG PO (21:13)
[2021-01-01] MEDS: pantoprazole DR 40 mg Tablet PO (21:14)
[2021-01-01] MEDS: metoprolol tartrate 50 mg Tablet 100 MG PO (21:15)
[2021-01-02] VITALS (7 sets, daily range): BP systolic 121–155; BP diastolic 79–90; PULSE 72–84; RESP 16–20; TEMP 36.4–36.7; O2SAT 92–97
[2021-01-02] MEDS: HYDROcodone-acetaminophen 10-325 mg Tablet 1 TAB PO ×3 (03:27→21:47)
[2021-01-02] MEDS: tizanidine 4 mg Tablet 2 MG PO (03:27)
[2021-01-02 05:32] LABS: Basophils % 0.6 %; Eosinophils # 0.3 10^3/uL (0.0-0.8); Eosinophils % 3.9 %; Hematocrit 33.1 % (42.0-52.0); Hemoglobin 10.2 g/dL (11.7-16.6); Lymphocytes # 1.8 10^3/uL (0.8-4.8); Lymphocytes % 27.3 %; Mean Corpuscular HGB Conc 30.8 g/dL (30.0-36.0); Mean Corpuscular Hemoglobin 26.7 pg (28.0-34.0); Mean Corpuscular Volume 86.6 fl (80-94); Monocytes # 0.8 10^3/uL (0.2-0.9); Monocytes % 11.7 %; Neutrophils # 3.59 10^3/uL (1.8-7.7); Neutrophils % 54.5 %; Nucleated Red Blood Cells % 0 %; Platelet Count 330 10^3/cmm (130-400); Red Blood Count 3.82 10^6/uL (4.1-5.3); Red Cell Distribution Width 15.1 % (12.1-15.1); White Blood Count 6.6 10^3/uL (4.0-10.0)
[2021-01-02 05:54] LABS: Anion Gap 11.9 (5-19); Blood Urea Nitrogen 9 mg/dL (8-23); Calcium 8.2 mg/dL (8.5-10.5); Carbon Dioxide 29 mmol/L (22-29); Chloride 99 mmol/L (98-107); Glomerular Filtration Rate 85.2 mL/min (90-130); Glucose 88 mg/dL (65-115); Osmolality Calculated 280 mOsm/kg (285-295); Potassium 3.9 mmol/L (3.5-5.1); Sodium 136 mmol/L (136-145)
[2021-01-02] MEDS: BuSPIRONE 10 mg Tablet 15 MG PO ×3 (06:51→21:47)
[2021-01-02] MEDS: finasteride 5 mg Tablet PO (06:52)
[2021-01-02] MEDS: tamsulosin 0.4 mg Capsule PO (06:52)
[2021-01-02] MEDS: amlodipine 5 mg Tablet PO (06:52)
[2021-01-02] MEDS: gabapentin 400 mg Capsule PO ×3 (06:52→21:48)
[2021-01-02] MEDS: metoprolol tartrate 50 mg Tablet PO (06:53)
[2021-01-02] MEDS: divalproex DR 250 mg Tablet PO ×3 (06:53→21:48)
[2021-01-02] MEDS: potassium chloride ER 20 mEq Tablet 40 MEQ PO (08:39)
[2021-01-02] MEDS: sennosides-docusate Tablet 1 TAB PO (08:39)
[2021-01-02] MEDS: amoxicillin-clav 875-125 mg Tablet 1 TAB PO ×2 (08:39→17:04)
[2021-01-02] MEDS: LORazepam 0.5 mg Tablet PO ×2 (08:40→21:48)
--- NOTE | 2021-01-02 12:18 | PC.SOCIAL ---
IMM Update: pg 2 of IMM updated and reviewed w/ patient. Copy provided.
[2021-01-02] MEDS: LORazepam 0.5 mg Tablet 1 MG PO (14:45)
--- NOTE | 2021-01-02 15:32 | PM.CONSULT ---
Providers/Reason For Consult Consulting Physician/Specialty*: Urology/Yuan Reason for Consult*: Urinary retention, gross hematuria Attending Physician: Maritza Tran MD Primary Care Provider: Rehan Rodriguez MD History of Present Illness History of Present Illness Luis Lucero JR is a 65 year old male. UROLOGY CONSULT Patient was admitted on 12/27/2020 through the emergency department for evidence of mental status changes and urinary tract infection. CT scan revealed a hugely distended bladder with bilateral hydroureteronephrosis. There was no evidence of clot in the bladder or upper urinary tract bleeding on the CT scan. In addition there were no stones or neoplastic appearing masses etc. Urology/Yuan Bazan catheter was placed on the morning of 12/28/2020 and about 1100 cc of urine was returned and described as pale yellow. At roughly noon there is documentation that his urine had changed and he was having hematuria Since that time his urine has been generally red. At some point several days ago continuous bladder irrigation was initiated and required to keep urine light pink. Has a history of urologic care in [place] and records reflecting that care have been requested. Apparently he has been known to have retention for a while, was treated with medical therapy and encouraged to self cath per patient but he does not do that. I was consulted for evaluation regarding his hematuria Additional history: He saw Dr. Ariel Hastings at [facility] previously and was discovered to have elevated PVR. He states that he had never been put on prostate medication and was not familiar with Flomax. Dr. Hastings recommended based on what sounds to be the idea that he probably had a neurogenic bladder to start SCIC. The patient refused. Apparently at least another visit or to confirm that he was not emptying well. He is unaware of having had a PSA but states that his prostate exam by Dr. Hastings was large . No knowledge of nodules etc. I reviewed with the patient the findings and the significant risk of these findings with a very distended bladder and bilateral hydronephrosis with elevated creatinine. Reviewed that he might see substantial improvement at baseline voiding on an alpha-claire but there may be more to the bladder function then persistent obstruction. Regarding the hematuria I think that that was purely related to over distention and acute decompression. It is cleared now on the CBI is no longer really required to keep his urine clear. Recommendations: 1. Continue TAMSULOSIN indwelling Bazan catheter discharge 2. Follow-up in about 2 to 3 weeks for cystoscopy, voiding trial, self-catheterization training. After detailed explanation of the process he was more willing to consider it. Review of Systems Const: Denies: fever(s) or chills Eyes: Denies: change in vision ENMT: Denies: odynophagia Card: Denies: chest pain or palpitations Resp: Denies: productive cough or wheezing GI: Denies: abdominal pain or nausea : Reports: urinary dribbling, difficulty starting urination and hematuria Musc: Denies: joint redness or joint warmth Skin/Breast: Denies: changing lesions Neuro: Reports: difficulty communicating thoughts; Denies: seizure-like activity Psych: Reports: memory loss Ebenezer/Lymph: Denies: easy bruising or easy bleeding All/Imm: Denies: urticaria or acute wheezing Meds/Allergies Home Medications and Allergies Home Medications Medication Instructions Recorded Confirmed Last Taken Type amitriptyline 100 mg tablet 100 mg PO DAILY@199912/08/20 12/27/20 12/26/20 History amlodipine 5 mg tablet 5 mg PO DAILY@69912/08/20 12/27/20 12/27/20 History aspirin 81 mg tablet,delayed 81 mg PO DAILY@69912/08/20 12/27/20 12/27/20 History release bethanechol chloride 25 mg tablet 25 mg PO BID@0800,199912/08/20 12/27/20 12/27/20 History buspirone 15 mg tablet 15 mg PO TID@0700,1400,199912/08/20 12/27/20 12/27/20 History clonidine HCl 0.1 mg tablet 0.1 mg PO Q12H PRN MDD SEE 12/08/20 12/27/20 Unknown History PHARMACY COMMENT divalproex 250 mg tablet,delayed 250 mg PO TID@0700,1400,199912/08/20 12/27/20 12/27/20 History release docusate sodium 100 mg capsule 100 mg PO BID@0700,199912/08/20 12/27/20 12/27/20 History ferrous sulfate 325 mg (65 mg 325 mg PO DAILY@69912/08/20 12/27/20 12/27/20 History iron) tablet finasteride 5 mg tablet 5 mg PO DAILY@69912/08/20 12/27/20 12/27/20 History gabapentin 400 mg capsule 400 mg PO TID@12/08/20 12/27/20 12/27/20 History hydrocodone 10 mg-acetaminophen 1 tab PO TID@0800,1399,1999 PRN 12/08/20 12/27/20 12/27/20 History 325 mg tablet linaclotide 145 mcg capsule 145 mcg PO DAILY@69912/08/20 12/27/20 12/27/20 History lorazepam 0.5 mg tablet 1 mg PO DAILY@1400 tab 12/08/20 12/27/20 12/27/20 History losartan 50 mg tablet 50 mg PO DAILY@79912/08/20 12/27/20 12/27/20 History metoprolol tartrate 50 mg tablet See Rx Instructions .ROUTE .COMPLEX 12/08/20 12/27/20 12/27/20 History omeprazole 40 mg capsule,delayed 40 mg PO DAILY@199912/08/20 12/27/20 12/26/20 History release oxybutynin chloride 10 mg 10 mg PO DAILY@69912/08/20 12/27/20 12/27/20 History tablet,extended release 24 hr oxycodone-acetaminophen 5 mg-325 1 tab PO Q4H PRN 12/08/20 12/27/20 Unknown History mg tablet tamsulosin 0.4 mg capsule 0.4 mg PO DAILY@69912/08/20 12/27/20 12/27/20 History tizanidine 2 mg capsule 2 mg PO DAILY@1900 PRN cap 12/08/20 12/27/20 12/26/20 History Mylanta 200 ml PO Q6H PRN 12/27/20 12/27/20 Unknown History aluminum hydrox-magnesium carb 10 ml PO Q6H PRN 12/27/20 12/27/20 Unknown History calcium carbonate-vitamin D3 1 tab PO BID@0700,1900 12/27/20 12/27/20 12/27/20 History [Calcium 600 + D(3)] cyanocobalamin (vitamin B-12) 1,000 mcg IM Q30D 12/27/20 12/27/20 12/13/20 History diclofenac sodium 2 g TOPICAL QID 12/27/20 12/27/20 Unknown History lorazepam 0.5 mg PO BID@08,199912/27/20 12/27/20 12/27/20 History quetiapine 50 mg PO DAILY@1900 12/27/20 12/27/20 12/26/20 History Allergies Allergy/AdvReac Type Severity Reaction Status Date / Time green pepper Allergy ADR-Vomitin Verified 12/29/20 09:30 g Milk Containing Products Allergy Unknown Verified 12/29/20 09:30 Current Medications Current Medications Generic Name Dose Route Start Last Admin Trade Name Frehamida PRN Reason Stop Dose Admin Acetaminophen 650 mg 12/28/20 01:15 12/31/20 06:53 Acetaminophen 325 Mg Tablet PO 650 mg Q6H PRN Administration Mild/Mod Pain Or Temp >/= 101 Hydrocodone Bitart/Acetaminophen 1 tab 12/28/20 08:00 01/02/21 12:16 Hydrocodone-Acetaminophen 10-325 Mg Tablet PO 1 tab TID@08, PRN Administration Pain Amitriptyline HCl 100 mg 12/28/20 20:00 01/01/21 21:13 Amitriptyline 25 Mg Tablet PO 100 mg DAILY@1999 DESTIN Administration Amlodipine Besylate 5 mg 12/28/20 07:00 01/02/21 06:52 Amlodipine 5 Mg Tablet PO 5 mg DAILY@0700 DESTIN Administration Amoxicillin/Clavulanate Potassium 1 tab 12/31/20 18:00 01/02/21 08:39 Amoxicillin-Clav 875-125 Mg Tablet PO 1 tab BID DESTIN Administration Protocol Aspirin 81 mg 12/28/20 07:00 12/28/20 07:15 Aspirin 81 Mg Ec Tablet PO 81 mg DAILY@0700 DESTIN Administration Buspirone HCl 15 mg 12/28/20 07:00 01/02/21 14:45 Buspirone 10 Mg Tablet PO 15 mg TID@699, DESTIN Administration Divalproex Sodium 250 mg 12/28/20 07:00 01/02/21 14:[address] 250 Mg Tablet PO 250 mg TID@699, DESTIN Administration Enoxaparin Sodium 40 mg 12/28/20 02:00 12/28/20 01:53 Enoxaparin 40 Mg/0.4 Ml Syringe SUBCUT 40 mg Q24H DESTIN Administration Finasteride 5 mg 12/28/20 07:00 01/02/21 06:52 Finasteride 5 Mg Tablet PO 5 mg DAILY@0700 DESTIN Administration Gabapentin 400 mg 12/28/20 07:00 01/02/21 14:45 Gabapentin 400 Mg Capsule PO 400 mg TID@07,,20 DESTIN Administration Lorazepam 1 mg 12/28/20 14:00 01/02/21 14:45 Lorazepam 0.5 Mg Tablet PO 1 mg DAILY@1400 DESTIN Administration Lorazepam 0.5 mg 12/28/20 08:00 01/02/21 08:40 Lorazepam 0.5 Mg Tablet PO 0.5 mg BID@08 DESTIN Administration Metoprolol Tartrate 50 mg 12/28/20 07:00 01/02/21 06:53 Metoprolol Tartrate 50 Mg Tablet PO 50 mg 07 DESTIN Administration Metoprolol Tartrate 100 mg 12/28/20 20:00 01/01/21 21:15 Metoprolol Tartrate 50 Mg Tablet PO 100 mg 1999 DESTIN Administration Pantoprazole Sodium 40 mg 12/28/20 20:00 01/01/21 21:[address] 40 Mg Tablet PO 40 mg DAILY@1999 DESTIN Administration Polyethylene Glycol 17 gm 12/31/20 09:00 01/02/21 08:39 Polyethylene Glycol 3350 Pkt 17 Gm PO Not Given DAILY [facility] Potassium Chloride 40 meq 01/01/21 13:55 01/02/21 08:39 Potassium Chloride Er 20 Meq Tablet PO 40 meq DAILY DESTIN Administration Quetiapine Fumarate 50 mg 12/28/20 19:00 01/01/21 17:47 Quetiapine 25 Mg Tablet PO 50 mg DAILY@1900 DESTIN Administration Senna 17.2 mg 12/30/20 21:00 01/01/21 21:13 Sennosides 8.6 Mg Tablet PO 17.2 mg BEDTIME DESTIN Administration Senna/Docusate Sodium 1 tab 12/28/20 12:30 01/02/21 08:39 Sennosides-Docusate Tablet PO 1 tab DAILY DESTIN Administration Tamsulosin HCl 0.4 mg 12/28/20 07:00 01/02/21 06:52 Tamsulosin 0.4 Mg Capsule PO 0.4 mg DAILY@0700 DESTIN Administration Tizanidine HCl 2 mg 12/28/20 01:44 01/02/21 03:27 Tizanidine 4 Mg Tablet PO 2 mg DAILY@1900 PRN Administration MUSCLE SPASMS PFSH Acute PFSH: Medical History Depression determined by examination Social History Smoking and tobacco status: never smoked Vitals/I&O/Wt Last Vital Signs Temp 97.8 F 01/02/21 15:19 Pulse 79 01/02/21 15:19 Resp 16 01/02/21 15:19 BP 121/79 01/02/21 15:19 Pulse Ox 95 01/02/21 15:19 01/02/21 01/02/21 01/02/21 06:59 14:59 22:59 Intake Total 480 / 960 960 / 960 Output Total 4600 / 4600 Balance -4120 / -3640 960 / 960 Physical Exam Const: GENERAL APPEARANCE: well kempt HENMT: COMMON NORMALS: normocephalic, atraumatic and hearing grossly normal bilaterally HEAD & SCALP: normocephalic and atraumatic Neck/C-Spine: COMMON NORMALS: full ROM Resp: COMMON NORMALS: normal respiratory effort EFFORT & INSPECTION: No tachypneic and No respiratory distress GI: COMMON NORMALS: Soft to palpation PALPATION: Yes Soft to palpation and No Tenderness to palpation present (GI) : MALE GROIN/PERINEUM EXAM: No ecchymosis and No hernia PENIS: normal penis MEATUS: meatus normal, no meatla discharge and No Blood at meatus present SCROTUM: Yes testes descended bilaterally, No edematous and No scrotal swelling TESTES: No absent testicle, No testicular tenderness, No testicular mass, Yes epididymides normal and No epididymal tenderness Psych: COMMON NORMALS: cooperative; negative for Normal thought process present APPEARANCE: Yes grossly normal and Yes well kempt MOOD & AFFECT: Yes anxious THOUGHT PROCESS: abnormal Urinary Catheter Management^: Bazan: Cath Placed During This Visit: yes Reason for Continuing Indwelling Catheter: Accurate Measurement of Urinary Output in Critically Ill Patients Urinary Catheter Date of Insertion: 12/28/20 Urinary Catheter Time of Insertion: 05:20 Data Micro: Micro: Microbiology 12/27/20 18:45 Blood Culture - Fi nal Blood NO GROWTH AFTER 5 DAYS 12/27/20 18:50 Blood Culture - Fi nal Blood NO GROWTH AFTER 5 DAYS A&P Assessment and plan (1) Urinary retention: Status: Acute (2) Gross hematuria: Status: Acute (3) UTI (urinary tract infection): Status: Acute Qualifiers: Hematuria presence: with hematuria Urinary tract infection type: acute cystitis Qualified Code(s): N30.01 - Acute cystitis with hematuria (4) Bilateral hydronephrosis: Status: Acute (5) STEVEN (acute kidney injury): Status: Acute Consult Attestations Medical Necessity Statement: See attending Coding Level of Care Code Acute 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 [employer] Fwd Exam Detailed Diagnoses Urinary retention R33.9 Gross hematuria R31.0 UTI (urinary tract infection) N30.01 Hematuria presence: with hematuria Urinary tract infection type: acute cystitis Bilateral hydronephrosis N13.30 STEVEN (acute kidney injury) N17.9
[2021-01-02] MEDS: quetiapine 25 mg Tablet 50 MG PO (17:04)
--- NOTE | 2021-01-02 18:04 | P.PN_ITS ---
Subjective Subjective: Interval history: Patient is requesting urology consult today and is agreeable to see Dr. Kwabena ZUNIGA at the bedside, urine color has changed from dark red to clear urine without any clots in the urine bag I have talked with the administrative liaison at [facility] to update her as well, Vitals/I&O/Wt Last Vital Signs Temp 97.8 F 01/02/21 15:19 Pulse 79 01/02/21 15:19 Resp 16 01/02/21 15:19 BP 121/79 01/02/21 15:19 Pulse Ox 95 01/02/21 15:19 01/02/21 01/02/21 01/02/21 06:59 14:59 22:59 Intake Total 480 / 960 960 / 960 Output Total 4600 / 4600 Balance -4120 / -3640 960 / 960 Physical Exam Narrative: EXAM NARRATIVE: Patient lying comfortably in his bed Saturating well on room air General, PERRLA Abdomen soft CBI clear urine no clots No abdominal tenderness Awake alert 20x3 GCS 15 No neurological deficit No acute resp distress Urinary Catheter Management^: Bazan: Cath Placed During This Visit: yes Reason for Continuing Indwelling Catheter: Accurate Measurement of Urinary Output in Critically Ill Patients Urinary Catheter Date of Insertion: 12/28/20 Urinary Catheter Time of Insertion: 05:20 Data : 01/02/21 04:58 01/02/21 04:58 Micro: Microbiology 12/27/20 18:45 Blood Culture - Final Blood NO GROWTH AFTER 5 DAYS 12/27/20 18:50 Blood Culture - Final Blood NO GROWTH AFTER 5 DAYS A&P Assessment and plan (1) Acute blood loss anemia: Status: Acute (2) Constipation: Status: Acute (3) Prostatitis: Status: Acute (4) Sepsis: Status: Acute (5) Urinary retention: Status: Acute (6) UTI (urinary tract infection): Status: Acute Qualifiers: Urinary tract infection type: acute cystitis Hematuria presence: with hematuria Qualified Code(s): N30.01 - Acute cystitis with hematuria (7) STEVEN (acute kidney injury): Status: Acute Additional A&P Information Sepsis secondary to prostatitis: Resolved Urine culture positive for strep B Ceftriaxone de-escalate to Augmentin Constipation: Resolved after enema STEVEN resolved after placement of Bazan catheter Persistent hematuria: Resolved with CBI today, patient is requesting to see Dr. Yuan, Dr. 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
[2021-01-02] MEDS: metoprolol tartrate 50 mg Tablet 100 MG PO (21:46)
[2021-01-02] MEDS: amitriptyline 25 mg Tablet 100 MG PO (21:46)
[2021-01-02] MEDS: sennosides 8.6 mg Tablet 17.2 MG PO (21:47)
[2021-01-02] MEDS: pantoprazole DR 40 mg Tablet PO (22:25)
[2021-01-03 02:25] LABS: Basophils % 0.5 %; Eosinophils # 0.4 10^3/uL (0.0-0.8); Eosinophils % 4.8 %; Hematocrit 32.8 % (42.0-52.0); Lymphocytes # 1.8 10^3/uL (0.8-4.8); Lymphocytes % 24.2 %; Mean Corpuscular HGB Conc 30.5 g/dL (30.0-36.0); Mean Corpuscular Hemoglobin 26.5 pg (28.0-34.0); Mean Platelet Volume 7.9 fL (7.4-10.4); Monocytes # 0.6 10^3/uL (0.2-0.9); Monocytes % 8.4 %; Neutrophils # 4.52 10^3/uL (1.8-7.7); Neutrophils % 60.4 %; Nucleated Red Blood Cells % 0 %; Platelet Count 258 10^3/cmm (130-400); Red Blood Count 3.77 10^6/uL (4.1-5.3); Red Cell Distribution Width 15.2 % (12.1-15.1); White Blood Count 7.5 10^3/uL (4.0-10.0)
[2021-01-03 02:40] LABS: Anion Gap 14.3 (5-19); Blood Urea Nitrogen 9 mg/dL (8-23); Calcium 8.6 mg/dL (8.5-10.5); Carbon Dioxide 27 mmol/L (22-29); Chloride 101 mmol/L (98-107); Glomerular Filtration Rate 85.2 mL/min (90-130); Glucose 117 mg/dL (65-115); Osmolality Calculated 286 mOsm/kg (285-295); Potassium 4.3 mmol/L (3.5-5.1); Sodium 138 mmol/L (136-145)
[2021-01-03 03:52] VITALS: BP 150/81; PULSE 69; RESP 20; TEMP 36.7; O2SAT 95
[2021-01-03] MEDS: finasteride 5 mg Tablet PO (06:40)
[2021-01-03] MEDS: BuSPIRONE 10 mg Tablet 15 MG PO ×3 (06:40→20:09)
[2021-01-03] MEDS: tamsulosin 0.4 mg Capsule PO (06:41)
[2021-01-03] MEDS: gabapentin 400 mg Capsule PO ×3 (06:41→20:10)
[2021-01-03] MEDS: divalproex DR 250 mg Tablet PO ×3 (06:41→20:09)
[2021-01-03] MEDS: amlodipine 5 mg Tablet PO (06:42)
[2021-01-03] MEDS: metoprolol tartrate 50 mg Tablet PO (06:42)
[2021-01-03 07:53] VITALS: BP 147/88; PULSE 72; RESP 18; TEMP 36.7; O2SAT 96
[2021-01-03] MEDS: amoxicillin-clav 875-125 mg Tablet 1 TAB PO ×2 (09:04→17:38)
[2021-01-03] MEDS: LORazepam 0.5 mg Tablet PO ×2 (09:04→20:11)
[2021-01-03] MEDS: sennosides-docusate Tablet 1 TAB PO (09:05)
[2021-01-03] MEDS: potassium chloride ER 20 mEq Tablet 40 MEQ PO (09:05)
--- NOTE | 2021-01-03 10:55 | PM.PN ---
Subjective Subjective: Interval history: Patient was seen and examined this morning. Last night CBI had to be resumed , as clots were aspirated during for regular flushing, currently urine is clearing. Medications: Reviewed: Yes Vitals/I&O/Wt Last Vital Signs Temp 98.0 F 01/03/21 07:53 Pulse 72 01/03/21 07:53 Resp 18 01/03/21 07:53 BP 147/88 01/03/21 07:53 Pulse Ox 96 01/03/21 07:53 01/02/21 01/03/21 01/03/21 22:59 06:59 14:59 Intake Total 1200 / 2160 120 / 2280 880 / 880 Output Total 700 / 700 7850 / 8550 1000 / 1000 Balance 500 / 1460 -7730 / -6270 -120 / -120 Physical Exam Const: COMMON NORMALS: patient oriented x3 HENMT: COMMON NORMALS: normocephalic and atraumatic HEAD & SCALP: normocephalic and atraumatic Resp: COMMON NORMALS: clear to auscultation bilaterally AUSCULTATION: clear to auscultation bilaterally Cardio: COMMON NORMALS: regular rate, regular rhythm, S1 normal heart sound present, S2 normal heart sound present, No gallops present (Cardio), No murmurs present (Cardio), No rub (Cardio) and Peripheral pulses 2+ throughout RATE: regular rate RHYTHM: regular rhythm HEART SOUNDS: S1 normal heart sound present and S2 normal heart sound present PERIPHERAL PULSES: Peripheral pulses 2+ throughout GI: COMMON NORMALS: Normal to inspection, nondistended, normoactive bowel sounds present, Soft to palpation, non-tender, No hepatosplenomegaly present and no masses AUSCULTATION: Yes normoactive bowel sounds PALPATION: Yes Soft to palpation and Yes No hepatosplenomegaly present RECTAL EXAM: Yes deferred Extremity: COMMON NORMALS: no clubbing, cyanosis or edema and no pedal edema Neuro: COMMON NORMALS: patient oriented x3 Urinary Catheter Management^: Bazan: Cath Placed During This Visit: yes Reason for Continuing Indwelling Catheter: Accurate Measurement of Urinary Output in Critically Ill Patients Urinary Catheter Date of Insertion: 12/28/20 Urinary Catheter Time of Insertion: 05:20 Data : 01/03/21 02:15 01/03/21 02:15 A&P Assessment and plan (1) Acute blood loss anemia: Status: Acute (2) Constipation: Status: Acute (3) Prostatitis: Status: Acute (4) Sepsis: Status: Acute (5) Urinary retention: Status: Acute (6) UTI (urinary tract infection): Urine analysis with urine analysis with positive blood, 2+ leukocyte Estrace, 100 WBCs. Urine culture pending. Empiric ceftriaxone while pending results of urine culture. CT abdomen and pelvis: Large urinary bladder suggesting possible outlet obstruction versus neurogenic bladder. Moderate to large bilateral hydronephrosis which may be secondary to enlarged urinary bladder. Patient denies any past urinary complaints to me, however review of medication list shows oxybutynin, finasteride, bethanechol. Status: Acute Qualifiers: Urinary tract infection type: acute cystitis Hematuria presence: with hematuria Qualified Code(s): N30.01 - Acute cystitis with hematuria (7) STEVEN (acute kidney injury): STEVEN secondary to obstructive uropathy:Resolved Creatinine today at 0.9 last known normal at 0.7 from September 2020. Status: Acute Additional A&P Information Sepsis secondary to prostatitis: Resolved Urine culture positive for strep B Ceftriaxone de-escalate to Augmentin Constipation: Resolved after enema STEVEN resolved after placement of Bazan catheter Persistent hematuria: Improving with CBI. Urology on board Full code Cardiac diet DVT prophylaxis contraindicated Attestations Medical Necessity Statement*: Patient needs to be in hospital for management of hematuria, postobstructive uropathy. Coding Level of Care Code Acute Content Architect for [facility] Diagnoses Acute blood loss anemia D62 Constipation K59.00 Prostatitis N41.9 Sepsis A41.9 Urinary retention R33.9 UTI (urinary tract infection) N30.01 Urinary tract infection type: acute cystitis Hematuria presence: with hematuria STEVEN (acute kidney injury) N17.9
[2021-01-03 12:00] VITALS: BP 153/88; PULSE 70; RESP 18; TEMP 36.6; O2SAT 96
[2021-01-03] MEDS: LORazepam 0.5 mg Tablet 1 MG PO (13:29)
[2021-01-03 16:00] VITALS: BP 168/105; PULSE 88; RESP 20; TEMP 36.7; O2SAT 97
[2021-01-03] MEDS: quetiapine 25 mg Tablet 50 MG PO (17:38)
[2021-01-03 20:00] VITALS: BP 141/88; PULSE 108; RESP 18; TEMP 36.7; O2SAT 98
[2021-01-03] MEDS: amitriptyline 25 mg Tablet 100 MG PO (20:09)
[2021-01-03] MEDS: pantoprazole DR 40 mg Tablet PO (20:09)
[2021-01-03] MEDS: metoprolol tartrate 50 mg Tablet 100 MG PO (20:11)
[2021-01-03] MEDS: sennosides 8.6 mg Tablet 17.2 MG PO (20:11)
--- NOTE | 2021-01-03 20:42 | PC.NURSE ---
BLADDER IRRIGATED WITH 250, 250 RETURNED WITH MIN CLOTS OUTS. PT C/O OF DISCOMFORT, BUT TOLERATED WELL. CBI RUNNING MODERATELY WITH SLIGHT LEAK AROUND PENIS.
[2021-01-03] MEDS: HYDROcodone-acetaminophen 10-325 mg Tablet 1 TAB PO (20:51)
[2021-01-03 20:57] LABS: Glucose Point of Care 234 mg/dL (70-110)
--- NOTE | 2021-01-03 21:42 | PC.NURSE ---
i reported high pulse 108 to nurse
[2021-01-04] VITALS: BP 132/82; PULSE 76; RESP 16; TEMP 36.9; O2SAT 96
[2021-01-04 04:00] VITALS: BP 134/83; PULSE 76; RESP 16; TEMP 36.8; O2SAT 97
[2021-01-04] MEDS: BuSPIRONE 10 mg Tablet 15 MG PO ×3 (06:06→20:24)
[2021-01-04] MEDS: divalproex DR 250 mg Tablet PO ×3 (06:06→20:13)
[2021-01-04] MEDS: gabapentin 400 mg Capsule PO ×3 (06:06→20:16)
[2021-01-04] MEDS: finasteride 5 mg Tablet PO (06:06)
[2021-01-04] MEDS: tamsulosin 0.4 mg Capsule PO (06:06)
[2021-01-04] MEDS: metoprolol tartrate 50 mg Tablet PO (06:07)
[2021-01-04] MEDS: amlodipine 5 mg Tablet PO (06:07)
[2021-01-04 08:00] VITALS: BP 159/94; PULSE 70; RESP 18; TEMP 37.1; O2SAT 97
[2021-01-04] MEDS: polyethylene glycol 3350 Pkt 17 gm PO (08:04)
[2021-01-04] MEDS: potassium chloride ER 20 mEq Tablet 40 MEQ PO (08:05)
[2021-01-04] MEDS: amoxicillin-clav 875-125 mg Tablet 1 TAB PO ×2 (08:05→17:13)
[2021-01-04] MEDS: LORazepam 0.5 mg Tablet PO ×2 (08:06→20:25)
[2021-01-04] MEDS: sennosides-docusate Tablet 1 TAB PO (08:06)
[2021-01-04] MEDS: HYDROcodone-acetaminophen 10-325 mg Tablet 1 TAB PO ×2 (08:10→13:41)
[2021-01-04 12:00] VITALS: BP 143/84; PULSE 70; RESP 17; TEMP 36.5; O2SAT 96
--- NOTE | 2021-01-04 12:17 | PC.NURSE ---
Dr. Yuan present in patients room and CBI was shut off. Verbal instructions received to continue monitoring output color/clots. Will continue to monitor.
--- NOTE | 2021-01-04 12:37 | P.PN_ITS ---
Subjective Subjective: Interval history: Urology follow-up: Last night he had some darkening of his urine and irrigation yielded a few clots. Since that time his CBI has been running at a very slow pace with clear urine. Again the most likely explanation for his grossly bloody urine was post distention decompression of his bladder. He has cleared as expected. At this point I think it safe for him to go home but he will need to keep the catheter in place. Will need close follow-up with primary care. I will plan on seeing him back next week for voiding trial [facility] instruction and cystoscopy. Vitals/I&O/Wt Last Vital Signs Temp 98.8 F 01/04/21 08:00 Pulse 70 01/04/21 08:00 Resp 18 01/04/21 08:00 BP 159/94 01/04/21 08:00 Pulse Ox 97 01/04/21 08:00 01/03/21 01/04/21 01/04/21 22:59 06:59 14:59 Intake Total 240 / 1840 720 / 2560 480 / 480 Balance 240 / 840 720 / 1560 480 / 480 Physical Exam Const: COMMON NORMALS: no acute distress, alert and well nourished GENERAL APPEARANCE: well kempt and well developed ORIENTATION/CONSCIOUSNESS: not confused Resp: COMMON NORMALS: normal respiratory effort EFFORT & INSPECTION: No labored and No Actively coughing : OTHER: Urine is clear with CBI off Neuro: SENSORIUM/ORIENTATION: Yes alert Psych: APPEARANCE: Yes grossly normal and Yes well kempt ATTITUDE: Yes calm and Yes engaged Urinary Catheter Management^: Bazan: Cath Placed During This Visit: yes Reason for Continuing Indwelling Catheter: Other Urinary Catheter Date of Insertion: 12/28/20 Urinary Catheter Time of Insertion: 05:20 Data : 01/03/21 02:15 01/03/21 02:15 A&P Assessment and plan (1) Bilateral hydronephrosis: Secondary to chronic bladder outlet obstruction Status: Acute (2) Gross hematuria: Secondary to chronic bladder distention with acute decompression via Bazan catheter. Has cleared now I think it safe to consider discharge home with Bazan catheter in place with follow-up next week with me Status: Acute (3) Urinary retention: Chronic with bilateral hydronephrosis. 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 Seems more willing now to go in that direction on follow-up Status: Acute (4) Detrusor dysfunction: Etiology unclear could be chronic obstruction consequence or potentially neurogenic source. Status: Acute Attestations Medical Necessity Statement*: See attending Coding Level of Care Code Acute Technical Analyst for [facility] Fwd Diagnoses Bilateral hydronephrosis N13.30 Gross hematuria R31.0 Urinary retention R33.9 Detrusor dysfunction N31.8
[2021-01-04] MEDS: LORazepam 0.5 mg Tablet 1 MG PO (13:41)
--- NOTE | 2021-01-04 14:03 | PC.SOCIAL ---
IMM Updated Updated pt on Pg 2 IMM. No questions voiced. Provided pt a copy. Initialed, dated, & timed copy in chart.
[2021-01-04 16:00] VITALS: BP 150/92; PULSE 74; RESP 18; TEMP 36.5; O2SAT 94
[2021-01-04] MEDS: quetiapine 25 mg Tablet 50 MG PO (17:13)
--- NOTE | 2021-01-04 19:19 | PM.PN ---
Subjective Subjective: Interval history: Patient was seen and examined this morning, urine is clearing, continues to be on CBI. Medications: Reviewed: Yes Vitals/I&O/Wt Last Vital Signs Temp 97.7 F 01/04/21 16:00 Pulse 74 01/04/21 16:00 Resp 18 01/04/21 16:00 BP 150/92 01/04/21 16:00 Pulse Ox 94 01/04/21 16:00 01/04/21 01/04/21 01/04/21 06:59 14:59 22:59 Intake Total 720 / 2560 680 / 680 240 / 920 Output Total 1450 / 1450 350 / 1800 Balance 720 / 1560 -770 / -770 -110 / -880 Physical Exam Const: COMMON NORMALS: patient oriented x3 HENMT: COMMON NORMALS: normocephalic and atraumatic HEAD & SCALP: normocephalic and atraumatic Resp: COMMON NORMALS: clear to auscultation bilaterally AUSCULTATION: clear to auscultation bilaterally Cardio: COMMON NORMALS: regular rate, regular rhythm, S1 normal heart sound present, S2 normal heart sound present, No gallops present (Cardio), No murmurs present (Cardio), No rub (Cardio) and Peripheral pulses 2+ throughout RATE: regular rate RHYTHM: regular rhythm HEART SOUNDS: S1 normal heart sound present and S2 normal heart sound present PERIPHERAL PULSES: Peripheral pulses 2+ throughout GI: COMMON NORMALS: Normal to inspection, nondistended, normoactive bowel sounds present, Soft to palpation, non-tender, No hepatosplenomegaly present and no masses AUSCULTATION: Yes normoactive bowel sounds PALPATION: Yes Soft to palpation and Yes No hepatosplenomegaly present RECTAL EXAM: Yes deferred Extremity: COMMON NORMALS: no clubbing, cyanosis or edema and no pedal edema Neuro: COMMON NORMALS: patient oriented x3 Urinary Catheter Management^: Bazan: Cath Placed During This Visit: yes Reason for Continuing Indwelling Catheter: Other Urinary Catheter Date of Insertion: 12/28/20 Urinary Catheter Time of Insertion: 05:20 Data : 01/03/21 02:15 01/03/21 02:15 A&P Assessment and plan (1) Acute blood loss anemia: Status: Acute (2) Constipation: Status: Acute (3) Prostatitis: Status: Acute (4) Sepsis: Status: Acute (5) Urinary retention: Status: Acute (6) UTI (urinary tract infection): Urine analysis with urine analysis with positive blood, 2+ leukocyte Estrace, 100 WBCs. Urine culture pending. Empiric ceftriaxone while pending results of urine culture. CT abdomen and pelvis: Large urinary bladder suggesting possible outlet obstruction versus neurogenic bladder. Moderate to large bilateral hydronephrosis which may be secondary to enlarged urinary bladder. Patient denies any past urinary complaints to me, however review of medication list shows oxybutynin, finasteride, bethanechol. Status: Acute Qualifiers: Urinary tract infection type: acute cystitis Hematuria presence: with hematuria Qualified Code(s): N30.01 - Acute cystitis with hematuria (7) STEVEN (acute kidney injury): STEVEN secondary to obstructive uropathy:Resolved Creatinine today at 0.9 last known normal at 0.7 from September 2020. Status: Acute Additional A&P Information Sepsis secondary to prostatitis: Resolved Urine culture positive for strep B Ceftriaxone de-escalate to Augmentin Constipation: Resolved after enema STEVEN resolved after placement of Bazan catheter Persistent hematuria: Improving with CBI. Patient will be discharged with indwelling Bazan, he will follow urology as an outpatient in a week's time For voiding trial [facility] instruction and cystoscopy. Urology on board. Full code Cardiac diet DVT prophylaxis contraindicated Attestations Medical Necessity Statement*: Patient needs to be in hospital for management of hematuria, postobstructive uropathy. Coding Level of Care Code Acute Pocket Secretary Assembler for [facility] Fwd Diagnoses Acute blood loss anemia D62 Constipation K59.00 Prostatitis N41.9 Sepsis A41.9 Urinary retention R33.9 UTI (urinary tract infection) N30.01 Urinary tract infection type: acute cystitis Hematuria presence: with hematuria STEVEN (acute kidney injury) N17.9
[2021-01-04 20:00] VITALS: BP 109/73; PULSE 68; RESP 18; TEMP 36.8; O2SAT 97
[2021-01-04] MEDS: amitriptyline 25 mg Tablet 100 MG PO (20:13)
[2021-01-04] MEDS: metoprolol tartrate 50 mg Tablet 100 MG PO (20:15)
[2021-01-04] MEDS: pantoprazole DR 40 mg Tablet PO (20:25)
[2021-01-04] MEDS: sennosides 8.6 mg Tablet 17.2 MG PO (21:35)
[2021-01-05] VITALS: BP 125/75; PULSE 79; RESP 20; TEMP 36.8; O2SAT 97
[2021-01-05 03:15] LABS: Basophils # 0.1 10^3/uL (0.0-0.1); Basophils % 0.8 %; Eosinophils # 0.4 10^3/uL (0.0-0.8); Eosinophils % 5.3 %; Hematocrit 33.4 % (42.0-52.0); Hemoglobin 10.3 g/dL (11.7-16.6); Lymphocytes % 30.1 %; Mean Corpuscular HGB Conc 30.8 g/dL (30.0-36.0); Mean Corpuscular Volume 87.7 fl (80-94); Mean Platelet Volume 8.2 fL (7.4-10.4); Monocytes # 0.6 10^3/uL (0.2-0.9); Monocytes % 9.6 %; Neutrophils % 52.5 %; Nucleated Red Blood Cells % 0 %; Platelet Count 257 10^3/cmm (130-400); Red Blood Count 3.81 10^6/uL (4.1-5.3); Red Cell Distribution Width 15.8 % (12.1-15.1); White Blood Count 6.7 10^3/uL (4.0-10.0)
[2021-01-05 03:44] LABS: Alanine Aminotransferase 13 U/L (0-41); Alkaline Phosphatase 61 IU/L (40-130); Anion Gap 12.6 (5-19); Aspartate Amino Transferase 10 U/L (0-40); Blood Urea Nitrogen 9 mg/dL (8-23); Calcium 8.6 mg/dL (8.5-10.5); Carbon Dioxide 25 mmol/L (22-29); Chloride 102 mmol/L (98-107); Globulin 2.7 g/dL (1.3-4.6); Glomerular Filtration Rate 75.5 mL/min (90-130); Glucose 97 mg/dL (65-115); Osmolality Calculated 279 mOsm/kg (285-295); Potassium 4.6 mmol/L (3.5-5.1); Sodium 135 mmol/L (136-145); Total Bilirubin 0.2 mg/dL (0.15-1.2); Total Protein 5.7 g/dL (6.6-8.7)
[2021-01-05 04:00] VITALS: BP 145/83; PULSE 82; RESP 18; TEMP 36.8; O2SAT 96
[2021-01-05] MEDS: metoprolol tartrate 50 mg Tablet PO (06:20)
[2021-01-05] MEDS: tamsulosin 0.4 mg Capsule PO (06:20)
[2021-01-05] MEDS: finasteride 5 mg Tablet PO (06:20)
[2021-01-05] MEDS: amlodipine 5 mg Tablet PO (06:21)
[2021-01-05] MEDS: gabapentin 400 mg Capsule PO (06:21)
[2021-01-05] MEDS: divalproex DR 250 mg Tablet PO (06:21)
[2021-01-05] MEDS: BuSPIRONE 10 mg Tablet 15 MG PO (06:22)
[2021-01-05] MEDS: HYDROcodone-acetaminophen 10-325 mg Tablet 1 TAB PO (06:41)
[2021-01-05 07:46] VITALS: BP 134/78; PULSE 68; RESP 16; TEMP 36.8; O2SAT 93
[2021-01-05] MEDS: potassium chloride ER 20 mEq Tablet 40 MEQ PO (09:06)
[2021-01-05] MEDS: amoxicillin-clav 875-125 mg Tablet 1 TAB PO (09:06)
[2021-01-05] MEDS: LORazepam 0.5 mg Tablet PO (09:06)
--- NOTE | 2021-01-05 10:24 | P.DS_ITS ---
Discharge Providers Date of Admission: 12/28/20 07:00 Date of Discharge: January 05, 2021 Attending Provider at Admission: Marium Neff MD Attending Provider at Discharge: Robin Briscoe MD Primary Care Provider: Rehan Rodriguez MD Diagnoses at Discharge Discharge Diagnosis (1) Acute blood loss anemia: Status: Acute (2) Prostatitis: Status: Acute (3) Sepsis: Status: Acute (4) Urinary retention: Status: Acute (5) UTI (urinary tract infection): Status: Acute Qualifiers: Hematuria presence: with hematuria Urinary tract infection type: acute cystitis Qualified Code(s): N30.01 - Acute cystitis with hematuria (6) STEVEN (acute kidney injury): Status: Acute Reason for Visit Reason for Visit: CONFUSED Hospital Course Hospital Course 65 year old male With a past medical history of hypertension, hyperlipidemia, migraine, esophageal cancer not currently active per history presented to the ER with generalized weakness. He was admitted for the management of STEVEN l secondary to postobstructive uropathy 2/2 to chronic bladder outlet obstruction , UTI as well as hematuria. During this hospital stay, he was kept on CBI for gross hematuria. Gross hematuria: Secondary to chronic bladder distention with acute decompression.Patient responded well to CBI , at the time of discharge urine was clearing, there was n o obstruction, STEVEN had resolved, urology was on board, patient was discharged with indwelling Bazan, he will continue to follow urology as an outpatient. During this hospital stay patient also required PRBC transfusion for anemia due to blood loss secondary to hematuria.During this hospital stay he was also managed for sepsis secondary to prostatitis, urine culture grew strep B, blood cultures were negative. Patient responded well to the above medical management and was discharged in stable condition to home. He will continue to follow urology as an outpatient. Physical Exam Const: COMMON NORMALS: patient oriented x3 HENMT: COMMON NORMALS: normocephalic and atraumatic HEAD & SCALP: normocephalic and atraumatic Resp: COMMON NORMALS: clear to auscultation bilaterally AUSCULTATION: clear to auscultation bilaterally Cardio: COMMON NORMALS: regular rate, regular rhythm, S1 normal heart sound present, S2 normal heart sound present, No gallops present (Cardio), No murmurs present (Cardio), No rub (Cardio) and Peripheral pulses 2+ throughout RATE: regular rate RHYTHM: regular rhythm HEART SOUNDS: S1 normal heart sound present and S2 normal heart sound present PERIPHERAL PULSES: Peripheral pulses 2+ throughout GI: COMMON NORMALS: Normal to inspection, nondistended, normoactive bowel sounds present, Soft to palpation, non-tender, No hepatosplenomegaly present and no masses AUSCULTATION: Yes normoactive bowel sounds PALPATION: Yes Soft to palpation and Yes No hepatosplenomegaly present RECTAL EXAM: Yes deferred Extremity: COMMON NORMALS: no clubbing, cyanosis or edema and no pedal edema Neuro: COMMON NORMALS: patient oriented x3 Urinary Catheter Management^: Bazan: Cath Placed During This Visit: yes Reason for Continuing Indwelling Catheter: Accurate Measurement of Urinary Output in Critically Ill Patients Urinary Catheter Date of Insertion: 12/28/20 Urinary Catheter Time of Insertion: 05:20 Discharge Data Data Completed and Pending: Completed Studies During Hospitalization Category Date Time Status CT head wo con* 7 0450 Urgent Cat Scan 12/27/20 16:[address] kidney stone 7 4176 Routine Cat Scan 12/28/20 01:14 Completed XR chest 1V elpidio ble 70157 Urgent Exams 12/27/20 16:02 Completed Pending at discharge Category Date Time Status Complete Blood Co unt w/Auto AM LABS Lab 01/06/21 04:00 Ordered Complete Blood Co unt w/Auto AM LABS Lab 01/07/21 04:00 Ordered Comprehensive Met abolic Panel AM LA BS Lab 01/06/21 04:00 Ordered Comprehensive Met abolic Panel AM LA BS Lab 01/07/21 04:00 Ordered Labs from last 24 hours 01/05/21 01/05/21 02:49 02:49 WBC 6.7 RBC 3.81 L Hgb 10.3 L Hct 33.4 L MCV 87.7 MCH 27.0 L MCHC 30.8 RDW 15.8 H Plt Count 257 MPV 8.2 Neut % (Auto) 52.5 Lymph % (Auto) 30.1 [place] % (Auto) 9.6 Eos % (Auto) 5.3 Baso % (Auto) 0.8 Neut # (Auto) 3.50 Lymph # (Auto) 2.0 [place] # (Auto) 0.6 Eos # (Auto) 0.4 Baso # (Auto) 0.1 Nucleated RBC % (a uto) 0 Nucleated RBCs # 0.0 Sodium 135 L Potassium 4.6 Chloride 102 Carbon Dioxide 25 Anion Gap 12.6 BUN 9 Creatinine 1.0 GFR Calculation 75.5 L Glucose 97 Calculated Osmolal ity 279 L Calcium 8.6 Total Bilirubin 0.2 AST 10 ALT 13 Alkaline Phosphata se 61 Total Protein 5.7 L Albumin 3.0 L Globulin 2.7 Vitals: Last Vital Signs Temp 98.2 F 01/05/21 07:46 Pulse 68 01/05/21 07:46 Resp 16 01/05/21 07:46 BP 134/78 01/05/21 07:46 Pulse Ox 93 01/05/21 07:46 Discharge Plan Discharge Patient Disposition: Home Condition: Stable Prescriptions: Continued aspirin [Adult Low Dose Aspirin] 81 mg tablet,delayed release (DR/EC) 81 mg PO DAILY@0700 RF: 0 ferrous sulfate 325 mg (65 mg iron) tablet 325 mg PO DAILY@0700 RF: 0 finasteride 5 mg tablet 5 mg PO DAILY@0700 RF: 0 Linzess 145 mcg capsule 145 mcg PO DAILY@07 RF: 0 metoprolol tartrate 50 mg tablet See Rx Instructions .ROUTE .COMPLEX RF: 0 oxybutynin chloride 10 mg tablet extended release 24hr 10 mg PO DAILY@0700 RF: 0 tamsulosin 0.4 mg capsule 0.4 mg PO DAILY@0700 RF: 0 amlodipine 5 mg tablet 5 mg PO DAILY@0700 RF: 0 losartan 50 mg tablet 50 mg PO DAILY@0800 RF: 0 lorazepam 0.5 mg tablet 1 mg PO DAILY@1400 RF: 0 bethanechol chloride 25 mg tablet 25 mg PO BID@799,1999 RF: 0 docusate sodium 100 mg capsule 100 mg PO BID@699,1999 RF: 0 hydrocodone-acetaminophen 10-325 mg tablet 1 tab PO TID@08,1399,1999 PRN (Reason: Pain) RF: 0 divalproex [Depakote] 250 mg tablet,delayed release (DR/EC) 250 mg PO TID@699,1399,1999 RF: 0 gabapentin 400 mg capsule 400 mg PO TID@, RF: 0 buspirone 15 mg tablet 15 mg PO TID@699,1399,1999 RF: 0 amitriptyline 100 mg tablet 100 mg PO DAILY@1999 RF: 0 omeprazole 40 mg capsule,delayed release(DR/EC) 40 mg PO DAILY@1999 RF: 0 tizanidine 2 mg capsule 2 mg PO DAILY@1900 PRN (Reason: MUSCLE SPASMS) RF: 0 clonidine HCl 0.1 mg tablet 0.1 mg PO Q12H MDD SEE PHARMACY COMMENT PRN (Reason: UNKNOWN) RF: 0 oxycodone-acetaminophen 5-325 mg tablet 1 tab PO Q4H PRN (Reason: UNKNOWN) RF: 0 lorazepam 0.5 mg tablet 0.5 mg PO BID@08,1999 RF: 0 Calcium 600 + D(3) 600 mg(1,500mg) -400 unit Tablet 1 tab PO BID@0700,1900 RF: 0 cyanocobalamin (vitamin B-12) 1,000 mcg/mL solution 1,000 mcg IM Q30D RF: 0 quetiapine 50 mg tablet 50 mg PO DAILY@1900 RF: 0 diclofenac sodium 1 % Gel 2 g TOPICAL QID RF: 0 Mylanta 200 ml PO Q6H PRN (Reason: Nausea) RF: 0 aluminum hydrox-magnesium carb 10 ml PO Q6H PRN (Reason: UNKNOWN) RF: 0 Discharge Orders: Discharge Order (Routine); Ordered 01/05/21 Ordered By: Robin Briscoe Referrals: Anthony Yuan MD [Physician] - 01/13/21 9:30 am Discharge Diet: Regular Discharge Activity: Resume usual activity Patient Instructions: Bazan Catheter Care, Urinary Tract Infection in Men (GEN), Bazan Catheter Placement and Care (GEN), Sepsis (GEN), Opioid Safety Discharge Attestations Time Spent in Discharge Care*: less than 30 min Specific Discharge Activities: educating patient, educating and/or supporting family/caregiver, discussing with pcp/other providers, discussing with case work aide/social workers/dc planners, documenting/other paperwork and evaluating patient/reviewing data Status at Discharge: Cognitive status at discharge: cognitively intact , Behavioral status at discharge: cooperative , Functional status at discharge: independent ambulation Overall status at discharge: patient is back to baseline Quality Metrics Clinical Quality Measures During this hospital stay, did patient experience: None Coding Level of Care Code Acute Chg [facility] DC note Diagnoses Acute blood loss anemia D62 Prostatitis N41.9 Sepsis A41.9 Urinary retention R33.9 UTI (urinary tract infection) N30.01 Hematuria presence: with hematuria Urinary tract infection type: acute cystitis STEVEN (acute kidney injury) N17.9
--- NOTE | 2021-01-06 09:17 | PC.SOCIAL ---
discharge follow up call made. patient is a resident at [facility]. Spoke with the obiee architect there. Patient continues to have moyer cath. Facility is aware of follow up date and time with Dr. Yuan.
== END 2021-01-05 11:45 | disposition home or self-care (01) | DRG 690 ==
LOC: ER 20:45 → ER IP 12-28 07:15 → MEDSURG 12-28 15:57
PROVIDERS: Internal Medicine; Admitting Provider Student in an Organized Health Care Education/Training Program; Emergency Provider Emergency Medicine; PCP Internal Medicine; Visit Provider Internal Medicine
DX: N30.01 Acute cystitis with hematuria (principal); D62 Acute posthemorrhagic anemia; N17.9 Acute kidney failure, unspecified; N41.0 Acute prostatitis; N13.30 Unspecified hydronephrosis; N13.8 Other obstructive and reflux uropathy; I10 Essential (primary) hypertension; E78.5 Hyperlipidemia, unspecified; F32.9 Major depressive disorder, single episode, unspecified; D50.9 Iron deficiency anemia, unspecified; Z85.01 Personal history of malignant neoplasm of esophagus; N40.1 Benign prostatic hyperplasia with lower urinary tract symptoms; R33.8 Other retention of urine; Z79.891 Long term (current) use of opiate analgesic; Z79.82 Long term (current) use of aspirin; N31.8 Other neuromuscular dysfunction of bladder; B95.1 Streptococcus, group B, as the cause of diseases classified elsewhere; K59.00 Constipation, unspecified
CPT/HCPCS: 36415; 36416; 36430; 36600; 51702; 70450; 71045; 74176; 80048; 80053; 80306; 81001; 82140; 82436; 82550; 82803; 82962; 83605; 83735; 83880; 84133; 84145; 84300; 84443; 84484; 85014; 85018; 85025; 86140; 86850; 86900; 86920; 87040; 87086; 87426; 93005; 96365; 96367; 96372; 99285; J0696; J1650; J7030; P9016

== ENCOUNTER 2021-04-09 14:59 | Emergency (ER) | payer MEDICARE, MEDICAID, SELFPAY ==
[2021-04-09 15:04] VITALS: BP 214/112; PULSE 66; RESP 17; TEMP 36.6; O2SAT 96; BMI 21.9
--- NOTE | 2021-04-09 15:24 | ED_ITS ---
HPI - General Adult General: Chief complaint: General Medical Stated complaint: HTN Time Seen by Provider: 04/09/21 15:03 History of Present Illness: HPI narrative: CC: Elevated BP HPI: [65]yo patient w/ x hx of HTN, on amlodipine 10mg, metoprolol 50mg, and los low 50mg presenting to the ED with complaints that his BP is not well controlled. However, the patient noticed today BP is uncontrolled. Denies chest pain, SOB, palpitation, N/V/D, pain radiating to the shoulder, headache, vision changes, LOC, or focal neurological deficits. Patient also denies light- headedness, syncope, vertigo abdominal pain, back pain. Tolerating PO meds without issues. Onset: chronic Duration: ongoing Location: home Severity: moderate Review of Systems Narrative: Constitutional: No fever, no chills. HEENT: No vision changes CV: No chest pain, no palpitations PULM: No cough, no dyspnea. GI: No abdominal pain, no N/V/D. : No dysuria MSKEL: No edema SKIN: No new rashes, no lesions. NEURO: No headache, no focal weakness. HEME: No visible bruises PSYCH: Normal mood PFSH ED PFSH: Medical History Acute blood loss anemia STEVEN (acute kidney injury) Bilateral hydronephrosis Constipation Depression determined by examination Detrusor dysfunction Gross hematuria Prostatitis Sepsis Urinary retention UTI (urinary tract infection) Family History Mother Diabetes Father Diabetes Sister Diabetes Social History Alcohol intake: never Marital status: Single Current occupational status: unemployed and retired Physical Exam Narrative: EXAM NARRATIVE: Head: Atraumatic Eyes: PERRL, conjunctiva without injection, ENT: Dry membrane moist NECK: Supple without lymphadenopathy LUNGS: LCTAB CV: RRR ABDOMEN: Soft, nontender EXTREMITY: Normal ROM, No track pittman, moderate tremulous movements in the UE SKIN: No rash or erythema, no visible patches, no noticeable cellulitis NEURO: AAOX3, mildly agitated and moving all extremities PSYCH: Cooperative with exam Course Vital Signs: Vital signs: Vital Signs Temperature 97.9 F 04/09/21 15:04 Pulse Rate 60 04/09/21 15:44 Respiratory Rate 13 04/09/21 15:44 Blood Pressure 163/88 04/09/21 16:49 Pulse Oximetry 96 04/09/21 16:49 MDM - General Adult MDM Narrative: Medical decision making narrative: [65]yo patient w/ hx of HTN on multiple medications presenting to the ED with high BP readings x 1 day without other medical complaints. BP in the ED of 209/116. Rest of exam including full neuro exam intact. Given presentation, history and exam, I do not suspect aortic dissection, hypertensive encephalopathy, intracranial hemorrhage, ACS, TIA/CVA, flash pulmonary edema. Intervention: Nifedipine 30mg x 1 PRN elevated BP [3:50pm] On reassessment, BP improved after 1 dose of nifedpine in the ER. Patient continues to be symptom-free at this time. Do not suspect an emergent cause. Discussed with the patient the importance of logging BPs and following up with his PCP for adjustment of BP if BP continues to be persistently high. Given return instructions. Rx: Amlodipine 10mg QDaily x 7 days Based on history, exam, vital signs, and work up (as indicated) I do not suspect an ongoing emergent medical condition, and I believe the patient is safe for discharge and outpatient follow-up. The plan of care was discussed with the patient and all questions were answered. The patient agrees with the plan of care and is discharged in stable condition with verbal and written instructions, and verbalized understanding and ability to comply. I discussed the diagnosis and treatment plan at length with the patient. The patient understands signs and symptoms (including those which are new or worsening) which should prompt return to the ED. The patient is to seek prompt outpatient follow-up as noted verbally and/or in the discharge instructions. At the time of discharge the patient is well-appearing, well-hydrated, non-toxic, and assures appropriate follow-up as an outpatient. Lab Data: Labs: Lab Results 04/09/21 04/09/21 15:38 15:38 WBC 6.7 10^3/uL 10^3/ uL (4.0-10.0) RBC 3.75 10^6/uL L 10 ^6/uL (4.1-5.3) Hgb 11.5 g/dL L g/dL (11.7-16.6) Hct 35.0 % L % (42.0-52.0) MCV 93.3 fl fl (80-94) MCH 30.7 pg pg (28.0-34.0) MCHC 32.9 g/dL g/dL (30.0-36.0) RDW 13.3 % % (12.1-15.1) Plt Count 206 10^3/cmm 10^3 /cmm (130-400) MPV 9.4 fL fL (7.4-10.4) Neut % (Auto) 71.3 % % Lymph % (Auto) 19.7 % % Stephenson % (Auto) 6.6 % % Eos % (Auto) 1.5 % % Baso % (Auto) 0.6 % % Neut # (Auto) 4.79 10^3/uL 10^3 /uL (1.8-7.7) Lymph # (Auto) 1.3 10^3/uL 10^3/ uL (0.8-4.8) Stephenson # (Auto) 0.4 10^3/uL 10^3/ uL (0.2-0.9) Eos # (Auto) 0.1 10^3/uL 10^3/ uL (0.0-0.8) Baso # (Auto) 0.0 10^3/uL 10^3/ uL (0.0-0.1) Nucleated RBC % (a uto) 0 % % Nucleated RBCs # 0.0 /100WBC /100W BC Sodium 139 mmol/L mmol/L (136-145) Potassium 3.6 mmol/L mmol/L (3.5-5.1) Chloride 99 mmol/L mmol/L (98-107) Carbon Dioxide 30 mmol/L H mmol/ L (22-29) Anion Gap 13.6 (5-19) BUN 15 mg/dL mg/dL (8-23) Creatinine 1.2 mg/dL mg/dL (0.7-1.2) GFR Calculation 61.1 mL/min L mL/ min (90-130) Glucose 97 mg/dL mg/dL (65-115) Calculated Osmolal ity 289 mOsm/kg mOsm/ kg (285-295) Calcium 8.4 mg/dL L mg/dL (8.5-10.5) Discharge Plan Discharge Patient Disposition: Home Clinical Impression: Hypertension Condition: Stable Prescriptions: New amlodipine 10 mg tablet 10 mg PO DAILY 10 Days Qty: 10 RF: 0 Discontinued amlodipine 5 mg tablet 5 mg PO DAILY@0700 RF: 0 No Action aspirin [Adult Low Dose Aspirin] 81 mg tablet,delayed release (DR/EC) 81 mg PO DAILY@0700 RF: 0 ferrous sulfate 325 mg (65 mg iron) tablet 325 mg PO DAILY@0700 RF: 0 finasteride 5 mg tablet 5 mg PO DAILY@0700 RF: 0 Linzess 145 mcg capsule 145 mcg PO DAILY@0700 RF: 0 metoprolol tartrate 50 mg tablet See Rx Instructions .ROUTE .COMPLEX RF: 0 oxybutynin chloride 10 mg tablet extended release 24hr 10 mg PO DAILY@0700 RF: 0 tamsulosin 0.4 mg capsule 0.4 mg PO DAILY@0700 RF: 0 bethanechol chloride 25 mg tablet 25 mg PO BID@08,1999 RF: 0 docusate sodium 100 mg capsule 100 mg PO BID@699,1999 RF: 0 hydrocodone-acetaminophen 10-325 mg tablet 1 tab PO TID PRN (Reason: Pain) RF: 0 divalproex [Depakote] 250 mg tablet,delayed release (DR/EC) 250 mg PO TID@0700,1399,1999 RF: 0 gabapentin 400 mg capsule 400 mg PO TID@07,14,20 RF: 0 buspirone 15 mg tablet 15 mg PO TID@0700,1399,1999 RF: 0 amitriptyline 100 mg tablet 100 mg PO DAILY@1999 RF: 0 omeprazole 40 mg capsule,delayed release(DR/EC) 40 mg PO DAILY@1999 RF: 0 tizanidine 2 mg capsule 2 mg PO DAILY@1900 PRN (Reason: MUSCLE SPASMS) RF: 0 clonidine HCl 0.1 mg tablet 0.1 mg PO Q12H PRN (Reason: Blood Pressure) RF: 0 lorazepam 0.5 mg tablet 0.5 mg PO BID@799,1999 RF: 0 calcium carbonate-vitamin D3 [Calcium 600 + D(3)] 600 mg(1,500mg) -400 unit Tablet 1 tab PO BID@0700,1900 RF: 0 cyanocobalamin (vitamin B-12) 1,000 mcg/mL solution 1,000 mcg IM Q30D RF: 0 aluminum hydrox-magnesium carb 254-237.5 mg/5 mL Suspension 10 ml PO QID PRN (Reason: Stomach Upset) Qty: 0 RF: 0 quetiapine 50 mg tablet 25 mg PO DAILY@0700 RF: 0 diclofenac sodium 1 % Gel 2 g TOPICAL QID RF: 0 Mylanta 200 ml PO Q6H PRN (Reason: Nausea) RF: 0 quetiapine 25 mg Tablet 75 mg PO BEDTIME RF: 0 Vitamin C 500 mg Tablet 500 mg PO DAILY RF: 0 folic acid 1 mg Tablet 1 mg PO DAILY RF: 0 losartan 100 mg Tablet 100 mg PO DAILY RF: 0 Discharge Orders: Discharge ED (Routine); Ordered 04/09/21 Ordered By: Serafin Davila Referrals: Rehan Rodriguez MD [Primary Care Provider] - Discharge Diet: Advance as tolerated Discharge Activity: Resume usual activity Patient Instructions: Hypertension (ED) Activity Restrictions/Additional Instructions: Follow-up with your primary care provider for further evaluation of high blood pressure. Please continue take your new medication as instructed. Come back to the emergency room for any new or concerning complaints. Come back if any focal weakness of arms weakness chest pain, shortness of breath, or any new concerning complaints today. Coding Level of Care Code ED Supervisor Cell Efficiency for Amber Lawson
[2021-04-09] MEDS: hyDRALAzine 25 mg Tablet PO (15:43)
[2021-04-09 15:44] VITALS: BP 214/112; PULSE 60; RESP 13; O2SAT 98
[2021-04-09 15:49] LABS: Basophils % 0.6 %; Eosinophils # 0.1 10^3/uL (0.0-0.8); Eosinophils % 1.5 %; Hemoglobin 11.5 g/dL (11.7-16.6); Lymphocytes # 1.3 10^3/uL (0.8-4.8); Lymphocytes % 19.7 %; Mean Corpuscular HGB Conc 32.9 g/dL (30.0-36.0); Mean Corpuscular Hemoglobin 30.7 pg (28.0-34.0); Mean Corpuscular Volume 93.3 fl (80-94); Mean Platelet Volume 9.4 fL (7.4-10.4); Monocytes # 0.4 10^3/uL (0.2-0.9); Monocytes % 6.6 %; Neutrophils # 4.79 10^3/uL (1.8-7.7); Neutrophils % 71.3 %; Nucleated Red Blood Cells % 0 %; Platelet Count 206 10^3/cmm (130-400); Red Blood Count 3.75 10^6/uL (4.1-5.3); Red Cell Distribution Width 13.3 % (12.1-15.1); White Blood Count 6.7 10^3/uL (4.0-10.0)
[2021-04-09 16:06] LABS: Blood Urea Nitrogen 15 mg/dL (8-23); Calcium 8.4 mg/dL (8.5-10.5); Carbon Dioxide 30 mmol/L (22-29); Chloride 99 mmol/L (98-107); Glomerular Filtration Rate 61.1 mL/min (90-130); Glucose 97 mg/dL (65-115); Osmolality Calculated 289 mOsm/kg (285-295); Sodium 139 mmol/L (136-145)
[2021-04-09 16:08] VITALS: BP 171/94
[2021-04-09 16:28] LABS: Anion Gap 13.6 (5-19); Potassium 3.6 mmol/L (3.5-5.1)
[2021-04-09 16:49] VITALS: BP 163/88; O2SAT 96
--- NOTE | 2021-04-09 17:12 | ECG_ITS ---
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 Measurements Intervals Universal Rate: 62 P: 35 IA: 181 QRS: 48 QRSD: 103 T: 28 QT: 417 QTc: 426 Interpretive Statements SINUS RHYTHM POSSIBLE LEFT VENTRICULAR HYPERTROPHY [VOLTAGE CRITERIA PLUS LAE OR QRS WIDENING] Compared to ECG 12/27/2020 22:09:31 Sinus tachycardia no longer present T-wave abnormality no longer present Possible ischemia no longer present Electronically Signed On 04-10-2021 17:11:05 PLUG GROWER by Arturo España M.D. [id number] f
== END 2021-04-09 16:52 | disposition home or self-care (01) ==
PROVIDERS: Emergency Provider Emergency Medicine; PCP Internal Medicine
DX: I10 Essential (primary) hypertension (principal); Z79.82 Long term (current) use of aspirin
CPT/HCPCS: 80048; 85025; 93005; 99283

== ENCOUNTER 2021-04-16 07:51 | Inpatient (IN) | payer MEDICARE, MEDICAID, SELFPAY ==
[2021-04-16] VITALS (15 sets, daily range): BP systolic 151–208; BP diastolic 81–106; PULSE 84–113; RESP 16–20; TEMP 36.7–37.1; O2SAT 97–100; BMI 20.3
--- NOTE | 2021-04-16 07:55 | W.ED.AMS ---
HPI - Altered Mental Status General: Stated Complaint: ABD PAIN; AMS Time Seen by Provider: 04/16/21 07:55 [facility] ED PFSH: Medical History Acute blood loss anemia STEVEN (acute kidney injury) Bilateral hydronephrosis Constipation Depression determined by examination Detrusor dysfunction Gross hematuria Prostatitis Sepsis Urinary retention UTI (urinary tract infection) Family History Mother Diabetes Father Diabetes Sister Diabetes Social History Alcohol intake: never Marital status: Single Current occupational status: unemployed and retired Discharge Plan Discharge Prescriptions: No Action aspirin [Adult Low Dose Aspirin] 81 mg tablet,delayed release (DR/EC) 81 mg PO DAILY@0700 RF: 0 ferrous sulfate 325 mg (65 mg iron) tablet 325 mg PO DAILY@0700 RF: 0 finasteride 5 mg tablet 5 mg PO DAILY@0700 RF: 0 Linzess 145 mcg capsule 145 mcg PO DAILY@0700 RF: 0 metoprolol tartrate 50 mg tablet See Rx Instructions .ROUTE .COMPLEX RF: 0 oxybutynin chloride 10 mg tablet extended release 24hr 10 mg PO DAILY@0700 RF: 0 tamsulosin 0.4 mg capsule 0.4 mg PO DAILY@0700 RF: 0 bethanechol chloride 25 mg tablet 25 mg PO BID@08,1999 RF: 0 docusate sodium 100 mg capsule 100 mg PO BID@699,1999 RF: 0 hydrocodone-acetaminophen 10-325 mg tablet 1 tab PO TID PRN (Reason: Pain) RF: 0 divalproex [Depakote] 250 mg tablet,delayed release (DR/EC) 250 mg PO TID@0700,1399,1999 RF: 0 gabapentin 400 mg capsule 400 mg PO TID@,, RF: 0 buspirone 15 mg tablet 15 mg PO TID@0700,1399,1999 RF: 0 amitriptyline 100 mg tablet 100 mg PO DAILY@1999 RF: 0 omeprazole 40 mg capsule,delayed release(DR/EC) 40 mg PO DAILY@1999 RF: 0 tizanidine 2 mg capsule 2 mg PO DAILY@1900 PRN (Reason: MUSCLE SPASMS) RF: 0 clonidine HCl 0.1 mg tablet 0.1 mg PO Q12H PRN (Reason: Blood Pressure) RF: 0 lorazepam 0.5 mg tablet 0.5 mg PO BID@0800,2000 RF: 0 calcium carbonate-vitamin D3 [Calcium 600 + D(3)] 600 mg(1,500mg) -400 unit Tablet 1 tab PO BID@0700,1900 RF: 0 cyanocobalamin (vitamin B-12) 1,000 mcg/mL solution 1,000 mcg IM Q30D RF: 0 aluminum hydrox-magnesium carb 254-237.5 mg/5 mL Suspension 10 ml PO QID PRN (Reason: Stomach Upset) Qty: 0 RF: 0 quetiapine 50 mg tablet 25 mg PO DAILY@0700 RF: 0 diclofenac sodium 1 % Gel 2 g TOPICAL QID RF: 0 Mylanta 200 ml PO Q6H PRN (Reason: Nausea) RF: 0 amlodipine 10 mg tablet 10 mg PO DAILY 10 Days Qty: 10 RF: 0 quetiapine 25 mg Tablet 75 mg PO BEDTIME RF: 0 Vitamin C 500 mg Tablet 500 mg PO DAILY RF: 0 folic acid 1 mg Tablet 1 mg PO DAILY RF: 0 losartan 100 mg Tablet 100 mg PO DAILY RF: 0 Coding Level of Care Code ED Corporate Compliance Director for Amber Lawson
--- NOTE | 2021-04-16 08:06 | ECG_ITS ---
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 Measurements Intervals [place] Rate: 108 P: 57 AL: 207 QRS: 55 QRSD: 105 T: -89 QT: 320 QTc: 431 Interpretive Statements SINUS TACHYCARDIA LEFT VENTRICULAR HYPERTROPHY AND ST-T CHANGE [VOLTAGE CRITERIA PLUS ST/T ABNORMALITY] Compared to ECG 04/09/2021 15:09:51 ST (T wave) deviation now present Sinus rhythm no longer present Electronically Signed On 04-16-2021 20:06:45 SUSTAINABLE PRODUCTS MARKETING MANAGER by Kelsie Smith M.D. [id number]
--- NOTE | 2021-04-16 08:06 | XRR_ITS ---
PROCEDURE INFORMATION: Exam: XR Chest Exam date and time: 04/16/2021 8:06 AM Age: 65 years old Clinical indication: Other: AMS; Additional info: HTN, AMS TECHNIQUE: Imaging protocol: XR of the chest. Views: 1 view. Total images: 1 COMPARISON: CR XR chest 1V portable [id number] 12/27/2020 4:17 PM FINDINGS: Lungs: Trace atelectasis or scar noted in the left lung base. Nonspecific opacity in the right lung base, favoring atelectasis or pneumonia. Pleural spaces: Unremarkable. No pleural effusion. No pneumothorax. Heart/Mediastinum: Heart is enlarged but stable when compared to the prior exam. Diaphragm: There is nonspecific elevation of the left hemidiaphragm. Bones/joints: Diffuse osteopenia noted. Osseous structures are unchanged from the prior exam. Other findings: Stable postsurgical changes. XR/XR chest 1V portable [id number] IMPRESSION: 1. Heart is enlarged but stable when compared to the prior exam. 2. Trace atelectasis or scar noted in the left lung base. 3. Nonspecific opacity in the right lung base, favoring atelectasis or pneumonia.
[2021-04-16 08:27] LABS: Basophils % 0.2 %; Hematocrit 43.4 % (42.0-52.0); Hemoglobin 14.7 g/dL (11.7-16.6); Lymphocytes # 0.2 10^3/uL (0.8-4.8); Lymphocytes % 5.1 %; Mean Corpuscular HGB Conc 33.9 g/dL (30.0-36.0); Mean Corpuscular Hemoglobin 30.9 pg (28.0-34.0); Mean Corpuscular Volume 91.2 fl (80-94); Mean Platelet Volume 9.8 fL (7.4-10.4); Neutrophils # 3.81 10^3/uL (1.8-7.7); Neutrophils % 93.2 %; Nucleated Red Blood Cells % 0 %; Platelet Count 152 10^3/cmm (130-400); Red Blood Count 4.76 10^6/uL (4.1-5.3); Red Cell Distribution Width 12.8 % (12.1-15.1); White Blood Count 4.1 10^3/uL (4.0-10.0)
--- NOTE | 2021-04-16 08:34 | W.ED.GENADLT ---
Documented by User: MARLON Crawford 04/16/21 08:56 HPI - General Adult General: Chief complaint: ER Hold Stated complaint: ABD PAIN; AMS Time Seen by Provider: 04/16/21 07:55 History of Present Illness: HPI narrative: Patient arrives via ambulance from [place] [facility] with complaints of increased confusion and abdominal discomfort. Patient has recently been in the hospital for urosepsis and hypertension. Onset (ago): hour(s) Associated symptoms: Deny chest pain Review of Systems Const: Reports: fever(s) Card: Denies: chest pain GI: Reports: abdominal pain : Reports: urinary incontinence Psych: Reports: other (Increased confusion as per [place] [facility] and ambulance crew) [facility] ED PFSH: Medical History Acute blood loss anemia STEVEN (acute kidney injury) Bilateral hydronephrosis Constipation Depression determined by examination Detrusor dysfunction Gross hematuria Prostatitis Prostatitis Sepsis Urinary retention Urinary retention UTI (urinary tract infection) UTI (urinary tract infection) Family History Mother Diabetes Father Diabetes Sister Diabetes Social History Alcohol intake: never Marital status: Single Current occupational status: unemployed and retired Physical Exam Const: EXAM LIMITATIONS: altered mental status GENERAL APPEARANCE: cooperative Chest: COMMONS NORMALS: normal inspection of the chest Resp: EFFORT & INSPECTION: Yes tachypneic AUSCULTATION: diminished lung sounds Cardio: RATE: tachycardic GI: AUSCULTATION: Yes Hypoactive bowel sounds present PALPATION: Yes Tenderness to palpation present (GI) (Generalized) PERCUSSION: dullness to percussion : PENIS: normal penis OTHER: Incontinent strong odor urine Psych: OTHER: Patient is responding to questions but not in full sentences. Asked sickly Skin: OTHER: Patient does have mottling from the thighs down to below the knee to mid lo extremity somewhat cool and upper no edema noted. Course Vital Signs: Vital signs: Vital Signs Temperature 97.7 F 04/25/21 16:33 Pulse Rate 82 04/25/21 16:33 Respiratory Rate 17 04/25/21 16:33 Blood Pressure 128/79 04/25/21 16:33 Pulse Oximetry 98 04/25/21 16:33 MDM - General Adult MDM Narrative: Medical decision making narrative: Patient's presentation and clinical picture discussed with Dr. Parrish at beginning of visit. Laboratory and radiology studies, have been ordered fluids are being given, Bazan cath being placed. Sepsis work-up has begun. Lab Data: Labs: Lab Results 04/16/21 04/16/21 04/16/21 07:38 07:38 07:38 WBC 4.1 10^3/uL 10^3/ uL (4.0-10.0) RBC 4.76 10^6/uL 10^6 /uL (4.1-5.3) Hgb 14.7 g/dL g/dL (11.7-16.6) Hct 43.4 % % (42.0-52.0) MCV 91.2 fl fl (80-94) MCH 30.9 pg pg (28.0-34.0) MCHC 33.9 g/dL g/dL (30.0-36.0) RDW 12.8 % % (12.1-15.1) Plt Count 152 10^3/cmm 10^3 /cmm (130-400) MPV 9.8 fL fL (7.4-10.4) Neut % (Auto) 93.2 % % Lymph % (Auto) 5.1 % % Bucks % (Auto) 1.0 % % Eos % (Auto) 0.0 % % Baso % (Auto) 0.2 % % Neut # (Auto) 3.81 10^3/uL 10^3 /uL (1.8-7.7) Lymph # (Auto) 0.2 10^3/uL L 10^ 3/uL (0.8-4.8) Bucks # (Auto) 0.0 10^3/uL L 10^ 3/uL (0.2-0.9) Eos # (Auto) 0.0 10^3/uL 10^3/ uL (0.0-0.8) Baso # (Auto) 0.0 10^3/uL 10^3/ uL (0.0-0.1) Nucleated RBC % (a uto) 0 % % Nucleated RBCs # 0.0 /100WBC /100W BC PT 13.10 SECONDS SEC ONDS (12.1-14.9) INR 0.97 (0.8-1.2) Specimen Type Sample Site ABG pH ABG pCO2 ABG pO2 ABG HCO3 ABG Base Excess Xavier Test Hematocrit O2 Delivery Device O2 Liters/Min FiO2 Supercalender Operator ID Sodium 136 mmol/L mmol/L (136-145) Potassium 3.5 mmol/L mmol/L (3.5-5.1) Chloride 93 mmol/L L mmol/ L (98-107) Carbon Dioxide 24 mmol/L mmol/L (22-29) Anion Gap 22.5 H (5-19) BUN 36 mg/dL H mg/dL (8-23) Creatinine 2.8 mg/dL H mg/dL (0.7-1.2) GFR Calculation 23.0 mL/min L mL/ min (90-130) Glucose 168 mg/dL H mg/dL (65-115) Calculated Osmolal ity 294 mOsm/kg mOsm/ kg (285-295) Lactic Acid Lactic Acid (Sepsi s) Calcium 8.6 mg/dL mg/dL (8.5-10.5) Total Bilirubin 0.4 mg/dL mg/dL (0.15-1.2) AST 10 U/L U/L (0-40) ALT 14 U/L U/L (0-41) Alkaline Phosphata se 100 IU/L IU/L (40-130) Troponin T Baselin e Troponin T 120 Min [place] Troponin T Total Protein 6.8 g/dL g/dL (6.6-8.7) Albumin 3.9 g/dL g/dL (3.5-5.2) Globulin 2.9 g/dL g/dL (1.3-4.6) Urine Color Urine Appearance Urine pH Ur Specific Gravit y Urine Protein Urine Glucose (UA) Urine Ketones Urine Blood Urine Nitrate Urine Bilirubin Urine Urobilinogen Ur Leukocyte Jyoti ase Urine RBC Urine WBC Ur Squamous Epith Cells Amorphous Sediment Urine Bacteria 04/16/21 04/16/21 04/16/21 07:38 08:35 08:37 WBC RBC Hgb Hct MCV MCH MCHC RDW Plt Count MPV Neut % (Auto) Lymph % (Auto) Bucks % (Auto) Eos % (Auto) Baso % (Auto) Neut # (Auto) Lymph # (Auto) Bucks # (Auto) Eos # (Auto) Baso # (Auto) Nucleated RBC % (a uto) Nucleated RBCs # PT INR Specimen Type Sample Site ABG pH ABG pCO2 ABG pO2 ABG HCO3 ABG Base Excess Xavier Test Hematocrit O2 Delivery Device O2 Liters/Min FiO2 Supercalender Operator ID Sodium Potassium Chloride Carbon Dioxide Anion Gap BUN Creatinine GFR Calculation Glucose Calculated Osmolal ity Lactic Acid 3.8 mmol/L H mmol /L (0.5-2.2) Lactic Acid (Sepsi s) Calcium Total Bilirubin AST ALT Alkaline Phosphata se Troponin T Baselin e 35 ng/L H ng/L (0-15) Troponin T 120 Min [place] Troponin T Total Protein Albumin Globulin Urine Color Straw (Yellow) Urine Appearance Hazy A (CLEAR) Urine pH 5 (5-7) Ur Specific Gravit y 1.015 (1.005-1.030) Urine Protein Neg (Negative) Urine Glucose (UA) Norm (Normal) Urine Ketones Negative (Negative) Urine Blood 3+ H (Negative) Urine Nitrate Negative (Negative) Urine Bilirubin Neg (Negative) Urine Urobilinogen Norm mg/dL mg/dL (Negative) Ur Leukocyte Jyoti ase 2+ H (Negative) Urine RBC 15-25 /hpf H /hpf (0-2) Urine WBC 55-80 /hpf H /hpf (0-5) Ur Squamous Epith Cells Rare /hpf /hpf (0-5) Amorphous Sediment Not Reportable Urine Bacteria 4+ /hpf H /hpf (NONE) 04/16/21 04/16/21 04/16/21 10:00 10:02 10:36 WBC RBC Hgb Hct MCV MCH MCHC RDW Plt Count MPV Neut % (Auto) Lymph % (Auto) Bucks % (Auto) Eos % (Auto) Baso % (Auto) Neut # (Auto) Lymph # (Auto) Bucks # (Auto) Eos # (Auto) Baso # (Auto) Nucleated RBC % (a uto) Nucleated RBCs # PT INR Specimen Type Arterial Sample Site Radial, left ABG pH 7.37 (7.35-7.45) ABG pCO2 39.4 mmHg mmHg (35-45) ABG pO2 126.0 mmHg H mmHg (80.0-100.0) ABG HCO3 22.7 mmol/L mmol/ L (22-26) ABG Base Excess -2.4 mmol/L L mmo l/L (-2.0-2.0) Xavier Test Pos Hematocrit 33.5 % L % (42-52) O2 Delivery Device Nc O2 Liters/Min 3.5 % % FiO2 34.0 % % Supercalender Operator ID Cak Sodium Potassium Chloride Carbon Dioxide Anion Gap BUN Creatinine GFR Calculation Glucose Calculated Osmolal ity Lactic Acid Lactic Acid (Sepsi s) 3.6 mmol/L H mmol /L (0.5-2.2) Calcium Total Bilirubin AST ALT Alkaline Phosphata se Troponin T Baselin e Troponin T [address] [place] 44.87 ng/L H ng/L (0-15) Delta Troponin T 9.87 ABS# ABS# (0-10) Total Protein Albumin Globulin Urine Color Urine Appearance Urine pH Ur Specific Gravit y Urine Protein Urine Glucose (UA) Urine Ketones Urine Blood Urine Nitrate Urine Bilirubin Urine Urobilinogen Ur Leukocyte Jyoti ase Urine RBC Urine WBC Ur Squamous Epith Cells Amorphous Sediment Urine Bacteria EKG Data^: EKG 1: EKG interpretation date: 04/16/21 EKG interpretation time: 08:43 Computer generated interpretation: Chest X-Ray 04/16/21 08:06 IMPRESSION: 1. Heart is enlarged but stable when compared to the prior exam. 2. Trace atelectasis or scar noted in the left lung base. 3. Nonspecific opacity in the right lung base, favoring atelectasis or pneumonia. Head CT 04/16/21 08:37 IMPRESSION: No acute intracranial abnormality. Abdomen/Pelvis CT 04/16/21 08:53 IMPRESSION: 1. Small bilateral pleural effusions with compressive atelectasis. 2. Bilateral hydroureteronephrosis unchanged. 3. Moderate stool burden. 4. No renal, ureteral, nor bladder calculi detected. Sinus tachycardia LVH, ventricular rate 108 bpm SC interval 2 7 ms QRS duration 105 ms QT is [address]?ST changes Discharge Plan Discharge Patient Disposition: Admitted As Inpatient Admit Provider: Adriana Freeman Clinical Impression: Acute UTI, Sepsis, STEVEN (acute kidney injury) Condition: Stable Discharge Diet: Advance as tolerated Discharge Activity: Resume usual activity Sign Out Sign Out Data: Patient Sign Out occurred on 04/16/21 at 09:40. Patient's care was discussed, and care was transferred from to Bola Parrish MD. Coding Level of Care Code ED Sewer Connector for [facility] Fwd Exam Detailed Documented by User: Bola Parrish MD 04/27/21 00:52 HPI - General Adult General: Chief complaint: ER Hold Stated complaint: ABD PAIN; AMS Time Seen by Provider: 04/16/21 07:55 PFSH ED PFSH: Medical History Acute blood loss anemia STEVEN (acute kidney injury) Bilateral hydronephrosis Constipation Depression determined by examination Detrusor dysfunction Gross hematuria Prostatitis Prostatitis Sepsis Urinary retention Urinary retention UTI (urinary tract infection) UTI (urinary tract infection) Family History Mother Diabetes Father Diabetes Sister Diabetes Social History Alcohol intake: never Marital status: Single Current occupational status: unemployed and retired Course Vital Signs: Vital signs: Vital Signs Temperature 97.7 F 04/25/21 16:33 Pulse Rate 82 04/25/21 16:33 Respiratory Rate 17 04/25/21 16:33 Blood Pressure 128/79 04/25/21 16:33 Pulse Oximetry 98 04/25/21 16:33 MDM - General Adult MDM Narrative: Medical decision making narrative: I discussed this case with Moustapha Kumar NP. I personally evaluated the patient and reperformed cedeno portions of E/M. HPI is limited by mental status change. He endorses abdominal discomfort and has recent hospitalization for urosepsis. Exact course, provoking, exacerbating, or alleviating factors is unclear. Intensity quality is also somewhat unclear. 10 point review of systems completed to best of ability given mental status change. GENERAL/CONSTITUTIONAL -somewhat ill appearing. Eyes -no scleral icterus, no conjunctival injection ENMT - Atraumatic external nose and ears. Moist mucous membranes NECK - supple. trachea midline CARDIOVASCULAR -tachycardic rate and regular rhythm. RESPIRATORY - clear to auscultation bilaterally. No retractions or accessory muscle use. ABDOMEN/GI -generalized tender to palpation without evidence of peritonitis MSK - Extremities without obvious deformity or tenderness to palpation SKIN - Warm, Dry NEURO - alert but confused. No focal neurologic deficits. Moves all extremities equally. PSYCH -impaired cognition and memory Labs and imaging were personally interpreted. Clinical impression is patient has urosepsis. Hospitalist service contacted and agreed to admit the patient. Bola Parrish MD Emergency Medicine Lab Data: Labs: Lab Results 04/16/21 04/16/21 04/16/21 07:38 07:38 07:38 WBC 4.1 10^3/uL 10^3/ uL (4.0-10.0) RBC 4.76 10^6/uL 10^6 /uL (4.1-5.3) Hgb 14.7 g/dL g/dL (11.7-16.6) Hct 43.4 % % (42.0-52.0) MCV 91.2 fl fl (80-94) MCH 30.9 pg pg (28.0-34.0) MCHC 33.9 g/dL g/dL (30.0-36.0) RDW 12.8 % % (12.1-15.1) Plt Count 152 10^3/cmm 10^3 /cmm (130-400) MPV 9.8 fL fL (7.4-10.4) Neut % (Auto) 93.2 % % Lymph % (Auto) 5.1 % % Bucks % (Auto) 1.0 % % Eos % (Auto) 0.0 % % Baso % (Auto) 0.2 % % Neut # (Auto) 3.81 10^3/uL 10^3 /uL (1.8-7.7) Lymph # (Auto) 0.2 10^3/uL L 10^ 3/uL (0.8-4.8) Bucks # (Auto) 0.0 10^3/uL L 10^ 3/uL (0.2-0.9) Eos # (Auto) 0.0 10^3/uL 10^3/ uL (0.0-0.8) Baso # (Auto) 0.0 10^3/uL 10^3/ uL (0.0-0.1) Nucleated RBC % (a uto) 0 % % Nucleated RBCs # 0.0 /100WBC /100W BC PT 13.10 SECONDS SEC ONDS (12.1-14.9) INR 0.97 (0.8-1.2) Specimen Type Sample Site ABG pH ABG pCO2 ABG pO2 ABG HCO3 ABG Base Excess Xavier Test Hematocrit O2 Delivery Device O2 Liters/Min FiO2 Supercalender Operator ID Sodium 136 mmol/L mmol/L (136-145) Potassium 3.5 mmol/L mmol/L (3.5-5.1) Chloride 93 mmol/L L mmol/ L (98-107) Carbon Dioxide 24 mmol/L mmol/L (22-29) Anion Gap 22.5 H (5-19) BUN 36 mg/dL H mg/dL (8-23) Creatinine 2.8 mg/dL H mg/dL (0.7-1.2) GFR Calculation 23.0 mL/min L mL/ min (90-130) Glucose 168 mg/dL H mg/dL (65-115) Calculated Osmolal ity 294 mOsm/kg mOsm/ kg (285-295) Lactic Acid Lactic Acid (Sepsi s) Calcium 8.6 mg/dL mg/dL (8.5-10.5) Total Bilirubin 0.4 mg/dL mg/dL (0.15-1.2) AST 10 U/L U/L (0-40) ALT 14 U/L U/L (0-41) Alkaline Phosphata se 100 IU/L IU/L (40-130) Troponin T Baselin e Troponin T 120 Min [place] Troponin T Total Protein 6.8 g/dL g/dL (6.6-8.7) Albumin 3.9 g/dL g/dL (3.5-5.2) Globulin 2.9 g/dL g/dL (1.3-4.6) Urine Color Urine Appearance Urine pH Ur Specific Gravit y Urine Protein Urine Glucose (UA) Urine Ketones Urine Blood Urine Nitrate Urine Bilirubin Urine Urobilinogen Ur Leukocyte Joyti ase Urine RBC Urine WBC Ur Squamous Epith Cells Amorphous Sediment Urine Bacteria 04/16/21 04/16/21 04/16/21 07:38 08:35 08:37 WBC RBC Hgb Hct MCV MCH MCHC RDW Plt Count MPV Neut % (Auto) Lymph % (Auto) Bucks % (Auto) Eos % (Auto) Baso % (Auto) Neut # (Auto) Lymph # (Auto) Bucks # (Auto) Eos # (Auto) Baso # (Auto) Nucleated RBC % (a uto) Nucleated RBCs # PT INR Specimen Type Sample Site ABG pH ABG pCO2 ABG pO2 ABG HCO3 ABG Base Excess Xavier Test Hematocrit O2 Delivery Device O2 Liters/Min FiO2 Supercalender Operator ID Sodium Potassium Chloride Carbon Dioxide Anion Gap BUN Creatinine GFR Calculation Glucose Calculated Osmolal ity Lactic Acid 3.8 mmol/L H mmol /L (0.5-2.2) Lactic Acid (Sepsi s) Calcium Total Bilirubin AST ALT Alkaline Phosphata se Troponin T Baselin e 35 ng/L H ng/L (0-15) Troponin T 120 Min [place] Troponin T Total Protein Albumin Globulin Urine Color Straw (Yellow) Urine Appearance Hazy A (CLEAR) Urine pH 5 (5-7) Ur Specific Gravit y 1.015 (1.005-1.030) Urine Protein Neg (Negative) Urine Glucose (UA) Norm (Normal) Urine Ketones Negative (Negative) Urine Blood 3+ H (Negative) Urine Nitrate Negative (Negative) Urine Bilirubin Neg (Negative) Urine Urobilinogen Norm mg/dL mg/dL (Negative) Ur Leukocyte Jyoti ase 2+ H (Negative) Urine RBC 15-25 /hpf H /hpf (0-2) Urine WBC 55-80 /hpf H /hpf (0-5) Ur Squamous Epith Cells Rare /hpf /hpf (0-5) Amorphous Sediment Not Reportable Urine Bacteria 4+ /hpf H /hpf (NONE) 04/16/21 04/16/21 04/16/21 10:00 10:02 10:36 WBC RBC Hgb Hct MCV MCH MCHC RDW Plt Count MPV Neut % (Auto) Lymph % (Auto) Bucks % (Auto) Eos % (Auto) Baso % (Auto) Neut # (Auto) Lymph # (Auto) Bucks # (Auto) Eos # (Auto) Baso # (Auto) Nucleated RBC % (a uto) Nucleated RBCs # PT INR Specimen Type Arterial Sample Site Radial, left ABG pH 7.37 (7.35-7.45) ABG pCO2 39.4 mmHg mmHg (35-45) ABG pO2 126.0 mmHg H mmHg (80.0-100.0) ABG HCO3 22.7 mmol/L mmol/ L (22-26) ABG Base Excess -2.4 mmol/L L mmo l/L (-2.0-2.0) Xavier Test Pos Hematocrit 33.5 % L % (42-52) O2 Delivery Device Nc O2 Liters/Min 3.5 % % FiO2 34.0 % % Supercalender Operator ID Cak Sodium Potassium Chloride Carbon Dioxide Anion Gap BUN Creatinine GFR Calculation Glucose Calculated Osmolal ity Lactic Acid Lactic Acid (Sepsi s) 3.6 mmol/L H mmol /L (0.5-2.2) Calcium Total Bilirubin AST ALT Alkaline Phosphata se Troponin T Baselin e Troponin T 120 [address] [place] 44.87 ng/L H ng/L (0-15) Delta Troponin T 9.87 ABS# ABS# (0-10) Total Protein Albumin Globulin Urine Color Urine Appearance Urine pH Ur Specific Gravit y Urine Protein Urine Glucose (UA) Urine Ketones Urine Blood Urine Nitrate Urine Bilirubin Urine Urobilinogen Ur Leukocyte Jyoti ase Urine RBC Urine WBC Ur Squamous Epith Cells Amorphous Sediment Urine Bacteria EKG Data^: EKG 1: Computer generated interpretation: Chest X-Ray 04/16/21 08:06 IMPRESSION: 1. Heart is enlarged but stable when compared to the prior exam. 2. Trace atelectasis or scar noted in the left lung base. 3. Nonspecific opacity in the right lung base, favoring atelectasis or pneumonia. Head CT 04/16/21 08:37 IMPRESSION: No acute intracranial abnormality. Abdomen/Pelvis CT 04/16/21 08:53 IMPRESSION: 1. Small bilateral pleural effusions with compressive atelectasis. 2. Bilateral hydroureteronephrosis unchanged. 3. Moderate stool burden. 4. No renal, ureteral, nor bladder calculi detected. Discharge Plan Discharge Patient Disposition: Admitted As Inpatient Admit Provider: Adriana Freeman Clinical Impression: Acute UTI, Sepsis, STEVEN (acute kidney injury) Condition: Stable Discharge Diet: Advance as tolerated Discharge Activity: Resume usual activity Sign Out Sign Out Data: Patient Sign Out occurred on 04/16/21 at 09:40. Patient's care was discussed, and care was transferred from to Bola Parrish MD. Coding Level of Care Code ED Sewer Connector for [facility] Fwd Exam Detailed
[2021-04-16 08:37] LABS: INR 0.97 (0.8-1.2); Troponin(5th) Baseline 35 ng/L (0-15)
--- NOTE | 2021-04-16 08:37 | CTR_ITS ---
PROCEDURE INFORMATION: Exam: CT Head Without Contrast Exam date and time: 04/16/2021 8:37 AM Age: 65 years old Clinical indication: Altered mental status/memory loss; Additional info: AMS, hypertension, R/O ich TECHNIQUE: Imaging protocol: Computed tomography of the head without contrast. Total images: 207 Radiation optimization: All CT scans at this facility use at least one of these dose optimization techniques: automated exposure control; mA and/or kV adjustment per patient size (includes targeted exams where dose is matched to clinical indication); or iterative reconstruction. COMPARISON: CT head wo con* [id number] 12/27/2020 4:14 PM RADIATION DOSE METRICS: Total DLP (mGy-cm): 901.34 FINDINGS: Brain: There is moderate diffuse cerebral atrophy present. Cerebral ventricles: No ventriculomegaly. Paranasal sinuses: Visualized sinuses are unremarkable. No fluid levels. Mastoid air cells: Visualized mastoid air cells are well aerated. Bones/joints: Unremarkable. No acute fracture. Soft tissues: Unremarkable. Other findings: Incidental incompetence of the diaphragmatic sella. CT/CT head wo con* [id number] IMPRESSION: No acute intracranial abnormality.
[2021-04-16 08:40] LABS: Alanine Aminotransferase 14 U/L (0-41); Albumin Level 3.9 g/dL (3.5-5.2); Alkaline Phosphatase 100 IU/L (40-130); Anion Gap 22.5 (5-19); Aspartate Amino Transferase 10 U/L (0-40); Blood Urea Nitrogen 36 mg/dL (8-23); Calcium 8.6 mg/dL (8.5-10.5); Carbon Dioxide 24 mmol/L (22-29); Chloride 93 mmol/L (98-107); Globulin 2.9 g/dL (1.3-4.6); Glucose 168 mg/dL (65-115); Osmolality Calculated 294 mOsm/kg (285-295); Potassium 3.5 mmol/L (3.5-5.1); Sodium 136 mmol/L (136-145); Total Bilirubin 0.4 mg/dL (0.15-1.2); Total Protein 6.8 g/dL (6.6-8.7)
[2021-04-16] MEDS: sodium chloride 0.9% 1,000 ML 999 ML IV ×3 (08:50→10:23)
[2021-04-16] MEDS: cefTRIAXone 1,000 MG in sodium chloride 0.9% (plus) 50 ML 100 MG IV (08:52)
--- NOTE | 2021-04-16 08:53 | CTR_ITS ---
PROCEDURE INFORMATION: Exam: CT Abdomen And Pelvis Without Contrast Exam date and time: 04/16/2021 8:53 AM Age: 65 years old Clinical indication: Abdominal pain; Other: UTI; Additional info: Alessio, pain, HX acute obstructive nephropathy TECHNIQUE: Imaging protocol: Computed tomography of the abdomen and pelvis without contrast. Total images: 239 Radiation optimization: All CT scans at this facility use at least one of these dose optimization techniques: automated exposure control; mA and/or kV adjustment per patient size (includes targeted exams where dose is matched to clinical indication); or iterative reconstruction. COMPARISON: CT kidney stone [id number] 12/28/2020 1:31 AM RADIATION DOSE METRICS: Total DLP (mGy-cm): 1054.51 FINDINGS: Tubes, catheters and devices: Mesh repair of the anterior abdominal wall is noted. Lungs: Compressive atelectasis of the lungs. Pleural spaces: Small bilateral pleural effusions are present. Liver: Normal. No mass. Gallbladder and bile ducts: Prior cholecystectomy noted. Pancreas: Normal. No ductal dilation. Spleen: Incidental splenic granuloma. Adrenal glands: Normal. No mass. Kidneys and ureters: Bilateral hydroureteronephrosis unchanged. No renal, ureteral, nor bladder calculi detected. Stomach and bowel: Postsurgical changes consistent with gastric pull-through with fluid-filled stomach within the right hemithorax similar to prior exam. Moderate stool burden. Appendix: No evidence of appendicitis. Intraperitoneal space: Unremarkable. No free air. No significant fluid collection. Vasculature: Moderate atherosclerotic disease is evident. Incidental phleboliths noted. Lymph nodes: Unremarkable. No enlarged lymph nodes. Urinary bladder: A Bazan catheter decompresses urinary bladder. Reproductive: Unremarkable as visualized. Bones/joints: Unremarkable. No acute fracture. Soft tissues: Unremarkable. CT/CT abdomen pelvis wo con [id number] IMPRESSION: 1. Small bilateral pleural effusions with compressive atelectasis. 2. Bilateral hydroureteronephrosis unchanged. 3. Moderate stool burden. 4. No renal, ureteral, nor bladder calculi detected.
[2021-04-16 09:10] LABS: Lactic Sepsis W/Reflex 3.8 mmol/L (0.5-2.2)
[2021-04-16 09:20] LABS: Add Urine Microscopic? YES; Bilirubin Urine Neg (Negative); Blood Urine 3+ (Negative); Glucose Urine UA Norm (Normal); Ketones Urine Negative (Negative); Leukocyte Esterase Urine 2+ (Negative); Nitrate Urine Negative (Negative); Protein Urine Neg (Negative); Specific Gravity, Urine 1.015 (1.005-1.030); Urine Appearance Hazy (CLEAR); Urine Color Straw (Yellow); Urobilinogen Urine Norm (Negative); pH Urine 5 (5-7)
[2021-04-16 09:21] LABS: RBC Urine 15-25 /hpf (0-2); Squamous Epithelial Cell Urine RARE /hpf (0-5); WBC Urine 55-80 /hpf (0-5)
[2021-04-16 09:22] LABS: Add Urine Culture? Yes; Bacteria Urine 4+ /hpf
--- NOTE | 2021-04-16 10:06 | ECG_ITS ---
[facility] Test Date: 2021-04-16 Pat Name: Luis Luceor Department: Room: Gender: Male Tool Crib Lead: : 1955 Requested By: Moustapha Kumar Order Number: [id number] Stanley MD: Kelsie Smith M.D. Measurements Intervals Mobile Rate: 101 P: 66 NV: 193 QRS: 67 QRSD: 109 T: 3 QT: 337 QTc: 439 Interpretive Statements SINUS TACHYCARDIA LEFT VENTRICULAR HYPERTROPHY AND ST-T CHANGE [VOLTAGE CRITERIA PLUS ST/T ABNORMALITY] Compared to ECG 04/16/2021 08:41:24 No significant changes Electronically Signed On 04-16-2021 20:22:38 AQUATIC LIFE LABORER by Kelsie Smith M.D. [id number]
[2021-04-16 10:29] LABS: Troponin 5 2HR 44.87 ng/L (0-15); Troponin 5 2HR Delta 9.87 ABS# (0-10)
[2021-04-16 10:38] LABS: Reflex Lactate Order REFLEX LACTIC ORDERD
[2021-04-16 10:47] LABS: ABG PCO2 39.4 mmHg (35-45); ABG PH Result 7.37 (7.35-7.45); Arterial Blood Gas Hematocrit 33.5 % (42-52); Base Excess ABG -2.4 mmol/L (-2.0-2.0); Blood Gas Allen Test Pos; Blood Gas LPM 3.5 %; Blood Gas Operator Identificat CAK; Blood Gas Sample Site Radial, left; Blood Gas Sample Type Arterial; HCO3 ABG 22.7 mmol/L (22-26); Oxygen Device NC
[2021-04-16 11:06] LABS: Lactic Acid level (Lactate) 3.6 mmol/L (0.5-2.2)
[2021-04-16 12:21] LABS: SARS Covid-2 Antigen Negative (Negative)
--- NOTE | 2021-04-16 14:06 | ECG_ITS ---
[facility] Test Date: 2021-04-16 Pat Name: Luis Lucero Department: Room: Gender: Male Acquisitions Assistant: : 1955 Requested By: Moustapha Kumar Order Number: [id number] Stanley MD: Kelsie Smith M.D. Measurements Intervals [place] Rate: 98 P: 53 NM: 168 QRS: 65 QRSD: 108 T: 38 QT: 372 QTc: 475 Interpretive Statements SINUS RHYTHM LEFT VENTRICULAR HYPERTROPHY AND ST-T CHANGE [VOLTAGE CRITERIA PLUS ST/T ABNORMALITY] Compared to ECG 04/16/2021 10:13:08 Sinus tachycardia no longer present ST (T wave) deviation still present Electronically Signed On 04-16-2021 20:23:03 ROLL SHEETING CUTTER by Kelsie Smith M.D. [id number]
[2021-04-16 14:52] LABS: Troponin 5 6HR 47.37 ng/L (0-15)
[2021-04-16 14:55] LABS: Troponin 5 6HR Delta 12.37 ng/L (0-12)
--- NOTE | 2021-04-16 16:27 | P.HP_ITS ---
Providers/Chief Complaint Primary Care Provider: Rehan Rodriguez MD Chief Complaint: ABD PAIN; AMS History of Present Illness Luis Lucero Jr is a 65 year old male with past medical history of acute blood loss anemia, STEVEN, bilateral hydronephrosis, constipation, depression, detrusor dysfunction, gross hematuria, prostatitis, sepsis, urinary retention, UTI presented to the ER with complaint of confusion and altered mental status. He is a senior living patient and was sent here for having abdominal pain and confusion. I am unable to obtain any history from the patient as he is confused. Unsure of his baseline mental status. No family at bedside present. Review of systems done but patient denies any chest pain, shortness of breath, abdominal pain, back pain, leg pain, cough, fever. ED course: Blood pressure 208/106, respiratory rate 20, pulse rate 113, pulse ox 100%. He was having 55-88 WBC on urine and blood. Bazan was placed initially it was clear but after that he started having gross hematuria. CT has was done which was negative, chest x-ray showed atelectasis CTA was done which showed small bilateral PE and hydroutero nephrosis. Patient was given Rocephin. Bazan catheter when initially placed had 2 L of urine drained out. Lactic acid 3.8 which trended down to 3.6 and then to 1.6. Patient did get 2 L normal saline as per sepsis protocol. He was also found to have an STEVEN baseline creatinine 1 it went up to 2.8 today. Hospitalist was called for admission. Unsure of this point but I was also told that he has esophageal cancer but I cannot find any of that information in the records. We will try to call senior living tomorrow to see if the actually has it or not Review of Systems General: Reports: ROS unobtainable due to mental status Medications/Allergies Home Medications Medication Instructions Recorded Confirmed Last Taken Type amitriptyline 100 mg tablet 100 mg PO DAILY@199912/08/20 04/16/21 12/26/20 History aspirin 81 mg tablet,delayed 81 mg PO DAILY@0712/08/20 04/16/21 12/27/20 History release bethanechol chloride 25 mg tablet 25 mg PO BID@08,199912/08/20 04/16/21 12/27/20 History buspirone 15 mg tablet 15 mg PO TID@00,1400,199912/08/20 04/16/21 12/27/20 History clonidine HCl 0.1 mg tablet 0.2 mg PO TID PRN 12/08/20 04/16/21 Unknown History divalproex 250 mg tablet,delayed 250 mg PO TID@0700,1400,199912/08/20 04/16/21 12/27/20 History release docusate sodium 100 mg capsule 100 mg PO BID@07,199912/08/20 04/16/21 12/27/20 History ferrous sulfate 325 mg (65 mg 325 mg PO DAILY@69912/08/20 04/16/21 12/27/20 History iron) tablet finasteride 5 mg tablet 5 mg PO DAILY@69912/08/20 04/16/21 12/27/20 History gabapentin 400 mg capsule 400 mg PO TID@07,,12/08/20 04/16/21 12/27/20 History hydrocodone 10 mg-acetaminophen 1 tab PO TID 12/08/20 04/16/21 12/27/20 History 325 mg tablet linaclotide 145 mcg capsule 145 mcg PO DAILY@69912/08/20 04/16/21 12/27/20 History metoprolol tartrate 50 mg tablet 100 mg PO BID 12/08/20 04/16/21 12/27/20 History omeprazole 40 mg capsule,delayed 40 mg PO DAILY@199912/08/20 04/16/21 12/26/20 History release oxybutynin chloride 10 mg 10 mg PO DAILY@69912/08/20 04/16/21 12/27/20 History tablet,extended release 24 hr tamsulosin 0.4 mg capsule 0.4 mg PO DAILY@69912/08/20 04/16/21 12/27/20 History tizanidine 2 mg capsule 2 mg PO DAILY@1899 cap 12/08/20 04/16/21 12/26/20 Hist ory Mylanta 20 ml PO Q6H PRN 12/27/20 04/16/21 Unknown History aluminum hydrox-magnesium carb 10 ml PO QID PRN #0 12/27/20 04/16/21 Unknown History calcium carbonate-vitamin D3 1 tab PO BID@0700,1900 12/27/20 04/16/21 12/27/20 History [Calcium 600 + D(3)] cyanocobalamin (vitamin B-12) 1,000 mcg IM Q30D 12/27/20 04/16/21 04/14/21 History diclofenac sodium 2 g TOPICAL QID PRN 12/27/20 04/16/21 Unknown History quetiapine 25 mg PO DAILY@0700 12/27/20 04/16/21 12/26/20 History amlodipine 10 mg PO DAILY 10 Days #10 tab 04/09/21 04/16/21 Unknown Rx ascorbic acid (vitamin C) [Vitamin 500 mg PO DAILY 04/09/21 04/16/21 Unknown History C] folic acid 1 mg PO DAILY 04/09/21 04/16/21 Unknown History losartan 100 mg PO DAILY 04/09/21 04/16/21 Unknown History quetiapine 75 mg PO BEDTIME 04/09/21 04/16/21 Unknown History carboxymethylcellulose sodium 1 - 2 drp OPHTHALMIC (EYE) DAILY 04/16/21 04/16/21 Unknown History [Refresh] PRN copper gluconate 2 mg PO DAILY 04/16/21 04/16/21 Unknown History lorazepam 1 mg PO TID@07,14,20 04/16/21 04/16/21 Unknown History magnesium sulfate (bulk) [Epsom 1 applic TOPICAL BID 04/16/21 04/16/21 Unknown History Salt] olopatadine [Pataday] 1 drp OPHTHALMIC (EYE) DAILY PRN 04/16/21 04/16/21 Unknown History Allergies Allergy/AdvReac Type Severity Reaction Status Date / Time green pepper Allergy ADR-Vomitin Verified 04/09/21 15:01 g Milk Containing Products Allergy Unknown Verified 04/09/21 15:01 PFSH Acute PFSH: Medical History (Updated 04/16/21 @ 19:23 by Adriana Freeman MD) Acute blood loss anemia STEVEN (acute kidney injury) Bilateral hydronephrosis Constipation Depression determined by examination Detrusor dysfunction Gross hematuria Prostatitis Sepsis Urinary retention UTI (urinary tract infection) UTI (urinary tract infection) Family History Mother Diabetes Father Diabetes Sister Diabetes Social History Alcohol intake: never Marital status: Single Current occupational status: unemployed and retired Vitals/I&O/Wt Last Vital Signs Temp 98.8 F 04/16/21 14:58 Pulse 99 04/16/21 14:58 Resp 18 04/16/21 14:58 BP 153/97 04/16/21 14:58 Pulse Ox 99 04/16/21 14:58 04/16/21 04/16/21 04/16/21 06:59 14:59 22:59 Intake Total 3050 / 3050 Balance 3050 / 3050 Weight last 48 hrs Weight 58.967 kg Physical Exam Narrative: EXAM NARRATIVE: GENERAL: Awake, alert, but not oriented only able to tell me his name restless nc/at/eomi CHEST: Clear to auscultation bilaterally. CVS: S1, S2 normal. No murmur, rubs, gallops. Peripheral pulses palpable. ABDOMEN: Soft, . Bowel sounds heard. nontender, Midline and right upper quadrant old scars noted, patient reports this is from surgery for esophageal cancer. NEUROVASCULAR: Awake, alert. Power 5/5 all extremities. EXTREMITIES: No edema. Urinary Catheter Management^: Bazan: Cath Placed During This Visit: yes Urinary Catheter Date of Insertion: 04/16/21 Urinary Catheter Time of Insertion: 08:00 Data : 04/16/21 07:38 04/16/21 07:38 Micro: Microbiology 04/16/21 08:35 Blood Culture - Preliminary Blood SPECIMEN COLLECTED A&P Assessment and plan (1) Acute UTI: Status: Acute (2) Sepsis: Status: Acute (3) STEVEN (acute kidney injury): Status: Acute (4) Hypertension: Status: Acute (5) Gross hematuria: Status: Acute Additional A&P Information #Bladder outlet obstruction #Gross hematuria #STEVEN #Sepsis secondary to UTI #Hypertension Urine analysis abdnormal. Urine culture pending. Empiric ceftriaxone while pending results of urine culture. CT abdomen did show Small bilateral pleural effusions with compressive atelectasis. 2. Bilateral hydroureteronephrosis unchanged. 3. Moderate stool burden. 4. No renal, ureteral, nor bladder calculi detected. Patient was admitted in December for this. does have a known history of gross hematuria and urinary retention. Continuous bladder irrigation was initiated last time until bladder was clear. Before that he was evaluated by Dr. Hastings at [facility]. Dr. Hastings did recommend S CIC but patient refused. He was placed on Flomax and Bazan catheter was left in place for plan for cystoscopy and voiding trial. Urine culture grew group B strep. He is follows with Dr. Yuan as an outpatient. Today he again presents for similar problem. We will keep patient on ceftriaxone Check urine culture Check blood cultures Placed on IV fluids 100 cc normal saline per hour Lactic acidosis has resolved We will start CBI Discussed with Dr. Yuan over the phone. He will see him as consulted. Await further recommendations STEVEN Most likely secondary to bladder outlet obstruction We will place on IV fluids and recheck creatinine #HTN -Patient is on amlodipine and clonidine as needed at home for hypertension. Initially these medications were not given as blood pressure came down on its own after Bazan was placed. By the evening patient did become hypertensive and clonidine 0.1x1 was given along with amlodipine restarted. Metoprolol 100 twice daily was also restarted. I will hold off on adding other medications for now. Note to next doctor taking over the care of the patient tomorrow: Please go over patient's medications and restart whatever you think is appropriate. Call family tomorrow for an update. Supportive care Physical therapy Occupational Therapy Full code Cardiac diet Attestations Medical Necessity Statement*: >48 hours Coding Level of Care Code Acute Shake Sawyer for Chg Fwd Diagnoses Acute UTI N39.0 Sepsis A41.9 STEVEN (acute kidney injury) N17.9 Hypertension I10 Gross hematuria R31.0
[2021-04-16 17:00] LABS: Lactate (Lactic Acid level) 1.7 mmol/L (0.5-2.2)
[2021-04-16] MEDS: aspirin 81 mg Chew Tablet 324 MG PO (17:04)
[2021-04-16] MEDS: sodium chloride 0.9% 1,000 ML 100 ML IV (17:04)
--- NOTE | 2021-04-16 17:33 | PC.NURSE ---
report called to ISELA Sloan. Bilateral IVs intact. NaCl running at 100ml/hr in left AC. Bazan catheter intact with hematuria still noted. Patient denies being hungry at this time - just thirsty - water given. Patient is alert to person, place, and year.
[2021-04-16] MEDS: gabapentin 400 mg Capsule PO (19:19)
[2021-04-16] MEDS: cloNIDine 0.1 mg Tablet PO (19:19)
[2021-04-16] MEDS: BuSPIRONE 10 mg Tablet 15 MG PO (19:20)
[2021-04-16] MEDS: pantoprazole DR 40 mg Tablet 20 MG PO (19:20)
[2021-04-16] MEDS: divalproex DR 250 mg Tablet PO (19:20)
[2021-04-16] MEDS: quetiapine 25 mg Tablet 75 MG PO (21:07)
[2021-04-17] VITALS (7 sets, daily range): BP systolic 156–168; BP diastolic 78–96; PULSE 80–85; RESP 16; TEMP 36.7–37.4; O2SAT 90–97
--- NOTE | 2021-04-17 00:18 | PC.NURSE ---
Moyer was inserted with some resistance, was manually irrigated with 150mL and 150mL was returned, a few small blood clots were noted, moyer is draining clear at this time.
[2021-04-17] MEDS: sodium chloride 0.9% 1,000 ML 100 ML IV (03:43)
[2021-04-17 04:25] LABS: Basophils % 0.2 %; Eosinophils # 0.3 10^3/uL (0.0-0.8); Eosinophils % 1.4 %; Hematocrit 31.8 % (42.0-52.0); Hemoglobin 10.6 g/dL (11.7-16.6); Lymphocytes # 0.8 10^3/uL (0.8-4.8); Lymphocytes % 4.6 %; Mean Corpuscular HGB Conc 33.3 g/dL (30.0-36.0); Mean Corpuscular Hemoglobin 30.6 pg (28.0-34.0); Mean Corpuscular Volume 91.9 fl (80-94); Mean Platelet Volume 10.3 fL (7.4-10.4); Monocytes # 1.4 10^3/uL (0.2-0.9); Monocytes % 7.8 %; Neutrophils # 14.76 10^3/uL (1.8-7.7); Neutrophils % 84.1 %; Nucleated Red Blood Cells % 0 %; Platelet Count 145 10^3/cmm (130-400); Red Blood Count 3.46 10^6/uL (4.1-5.3); Red Cell Distribution Width 13.2 % (12.1-15.1); White Blood Count 17.6 10^3/uL (4.0-10.0)
[2021-04-17 04:48] LABS: Anion Gap 13.7 (5-19); Blood Urea Nitrogen 23 mg/dL (8-23); Calcium 7.6 mg/dL (8.5-10.5); Carbon Dioxide 25 mmol/L (22-29); Chloride 99 mmol/L (98-107); Glomerular Filtration Rate 47.3 mL/min (90-130); Glucose 121 mg/dL (65-115); Magnesium 1.6 mg/dL (1.7-2.3); Osmolality Calculated 285 mOsm/kg (285-295); Sodium 135 mmol/L (136-145)
[2021-04-17 04:56] LABS: Potassium 2.7 mmol/L (3.5-5.1)
--- NOTE | 2021-04-17 05:30 | PC.NURSE ---
Received critical lab of potassium of 2.7, N/O for magnesium and to call with phosphorus results and she will order potassium
[2021-04-17 05:44] LABS: Phosphorus 3.3 mg/dL (2.5-4.5)
[2021-04-17] MEDS: magnesium sulfate premix 2 GM/50 ML PIGGYBACK IV (05:45)
[2021-04-17] MEDS: BuSPIRONE 10 mg Tablet 15 MG PO ×3 (06:23→21:06)
[2021-04-17] MEDS: divalproex DR 250 mg Tablet PO ×3 (06:24→21:06)
[2021-04-17] MEDS: gabapentin 400 mg Capsule PO ×3 (06:24→21:07)
[2021-04-17] MEDS: potassium chloride ER 20 mEq Tablet 40 MEQ PO (07:30)
[2021-04-17] MEDS: lidocaine 1% 5 ML in potassium chloride premix 100 ML 25 ML IV ×2 (07:31→11:38)
[2021-04-17] MEDS: cefTRIAXone 1,000 MG in sodium chloride 0.9% (plus) 50 ML 100 MG IV (08:39)
[2021-04-17] MEDS: metoprolol tartrate 50 mg Tablet 100 MG PO ×2 (08:39→16:24)
[2021-04-17] MEDS: amlodipine 10 mg Tablet PO (08:39)
--- NOTE | 2021-04-17 10:06 | PC.CHAP ---
Pastoral Care Encounter/Spiritual Assessment Type of Contact [] Declined assistant professor surgical technology visit [] Patient/Family/Request visit [] Outpatient visit [] Follow-up visit [] Physician referral [] Code/Alert [x] Routine visit [] Staff referral [] Actively dying [] Patient sleeping [] Family support [] [] Out of room [] Palliative care [] [] Receiving care in room [] Pre-surgical visit [] Trauma [] Long length of stay [] ICU visit [] Other: Relational/Emotional Strength [x] Patient feels connected with others/family/visitors/staff [] Distress [] Loneliness/isolation [] Abandonment Spirituality of Patient [x] Person of Camilla [] Attends Anglican of their Camilla [] Believes in Prayer [] Reads Bible or Rastafarian materials [] There are Spiritual issues to be addressed Bag Inspector Interventions [x Prayer [x] Active listening [x] Non-anxious presence [] Spiritual/emotional support [] Crisis/trauma care [x] Spiritual counseling [] Bereavement support [] Provided bereavement packet [] Provided Bible/devotional materials [] Provided toy/stuffed animal, coloring book to patient or family member [] Provided Communion [] Anointing/[place] [] Salvation [x] Completed spiritual assessment [] Other: Impact on Illness or Injury [] Angry [] Fearful [] Anxious [] Often cries [] Exhaustion [] Unable to work [] Unable to attend lutheran [] Unable to walk/stand [] Unable to read [] Unable to drive [] Unable to eat/drink [] Unable to sleep [] Unable to be with family [] Patient intubated [] Other: Summary Time spent with patient 10 min
[2021-04-17] MEDS: tamsulosin 0.4 mg Capsule PO (10:45)
[2021-04-17] MEDS: piperacillin-tazobactam 3.375 GM in sodium chloride 0.9% (plus) 50 ML IV (11:45)
--- NOTE | 2021-04-17 15:39 | PM.PN ---
Subjective Subjective: Interval history: Patient was seen and examined this morning, he was sound asleep when I woke him up, he did not complain of any pain or dysuria, Bazan catheter was draining clear dilute urine no signs of hematuria at all CBI was running at the bedside, requested nurse to turn it off hemoglobin 10.6 White count 70,000 jumped from 4000 yesterday he has stayed afebrile, IV ceftriaxone Continue normal saline at 50 mL/h Vitals/I&O/Wt Last Vital Signs Temp 98.3 F 04/17/21 15:30 Pulse 82 04/17/21 15:30 Resp 16 04/17/21 15:30 BP 166/96 04/17/21 15:30 Pulse Ox 90 04/17/21 15:30 04/17/21 04/17/21 04/17/21 06:59 14:59 22:59 Intake Total 1850 / 5140 1830.209 / 1830.209 Output Total 600 / 2650 3300 / 3300 1000 / 4300 Balance 1250 / 2490 -1469.791 / -1469.791 -1000 / -2469.791 Weight last 48 hrs Weight 58.967 kg Physical Exam Narrative: EXAM NARRATIVE: Light yellow urine color no signs of hematuria Abdomen soft EOMI, PERRLA Nonfocal neuro exam No audible stridor or wheezing Patient was laying comfortably in his bed S1, S2 Looks well-hydrated Urinary Catheter Management^: Bazan: Cath Placed During This Visit: yes Reason for Continuing Indwelling Catheter: Chronic Indwelling Urinary Catheter on Admission Urinary Catheter Date of Insertion: 04/16/21 Urinary Catheter Time of Insertion: 08:00 Data : 04/17/21 03:44 04/17/21 03:44 Micro: Microbiology 04/16/21 18:13 Blood Culture - Preliminary Blood 04/16/21 08:35 Blood Culture - Preliminary Blood A&P Assessment and plan (1) Acute UTI: Status: Acute (2) Gross hematuria: Status: Acute (3) STEVEN (acute kidney injury): Status: Acute Additional A&P Information Sepsis: Ruled out, does not meet criteria however he does have source of infection which is UTI No endorgan damage secondary to inflammation UTI: Afebrile, there is jump in leukocytosis, he is currently on ceftriaxone we will follow with blood and urine culture Hypokalemia: Repleted Hypomagnesemia: Repleted Gross hematuria: Resolved Patient does follow with Dr. Prince at [facility], on previous admission his gross hematuria improved with continuous bladder irrigation he was placed on Flomax and at that time patient was elected to follow-up with our urologist Dr. Yuan to see him today Hematuria has resolved, discontinue bladder irrigation, continue normal saline Acute kidney injury related to bladder outlet obstruction, BPH Continue tamsulosin and finasteride, creatinine improving UTI: Continue ceftriaxone Hypertension: Blood pressure improved with adequate urine output Full code [facility] Medical Necessity Statement*: Continue medical management Time Spent in Patient Care: less than 15 minutes Coding Level of Care Code Acute Counter Intelligence Technician for g Fwd Diagnoses Acute UTI N39.0 Gross hematuria R31.0 STEVEN (acute kidney injury) N17.9
[2021-04-17] MEDS: HYDROcodone-acetaminophen 5-325 mg Tablet 1 TAB PO ×2 (16:24→22:52)
[2021-04-17] MEDS: hyDRALAzine 25 mg Tablet PO ×2 (16:24→21:07)
[2021-04-17] MEDS: amitriptyline 25 mg Tablet 100 MG PO (21:06)
[2021-04-17] MEDS: finasteride 5 mg Tablet PO (21:07)
[2021-04-17] MEDS: pantoprazole DR 40 mg Tablet 20 MG PO (21:07)
[2021-04-17] MEDS: quetiapine 25 mg Tablet 75 MG PO (21:07)
[2021-04-17] MEDS: sodium chloride 0.9% 1,000 ML 50 ML IV (23:45)
[2021-04-18] VITALS (9 sets, daily range): BP systolic 121–169; BP diastolic 81–111; PULSE 82–123; RESP 14–18; TEMP 36.7–37.1; O2SAT 92–97
[2021-04-18 02:22] LABS: Basophils % 0.1 %; Eosinophils % 0.1 %; Hematocrit 37.1 % (42.0-52.0); Hemoglobin 12.5 g/dL (11.7-16.6); Lymphocytes # 0.9 10^3/uL (0.8-4.8); Lymphocytes % 5.2 %; Mean Corpuscular HGB Conc 33.7 g/dL (30.0-36.0); Mean Corpuscular Hemoglobin 29.9 pg (28.0-34.0); Mean Corpuscular Volume 88.8 fl (80-94); Mean Platelet Volume 9.9 fL (7.4-10.4); Monocytes # 1.3 10^3/uL (0.2-0.9); Monocytes % 7.6 %; Neutrophils # 14.31 10^3/uL (1.8-7.7); Neutrophils % 86.1 %; Nucleated Red Blood Cells % 0 %; Platelet Count 169 10^3/cmm (130-400); Red Blood Count 4.18 10^6/uL (4.1-5.3); Red Cell Distribution Width 12.8 % (12.1-15.1); White Blood Count 16.6 10^3/uL (4.0-10.0)
[2021-04-18 02:45] LABS: Anion Gap 14.8 (5-19); Blood Urea Nitrogen 17 mg/dL (8-23); Calcium 8.2 mg/dL (8.5-10.5); Carbon Dioxide 24 mmol/L (22-29); Chloride 100 mmol/L (98-107); Glomerular Filtration Rate 61.1 mL/min (90-130); Glucose 115 mg/dL (65-115); Osmolality Calculated 284 mOsm/kg (285-295); Sodium 136 mmol/L (136-145)
[2021-04-18 03:02] LABS: Potassium 2.8 mmol/L (3.5-5.1)
--- NOTE | 2021-04-18 03:23 | PC.NURSE ---
Called Dr. Neff with a critical lab of potassium of 2.8, received N/O for 60 meq po now and 20meg IV.
[2021-04-18] MEDS: potassium chloride ER 20 mEq Tablet 60 MEQ PO (04:05)
[2021-04-18] MEDS: lidocaine 1% 5 ML in potassium chloride premix 100 ML 50 ML IV (04:06)
[2021-04-18] MEDS: BuSPIRONE 10 mg Tablet 15 MG PO ×3 (06:30→20:29)
[2021-04-18] MEDS: divalproex DR 250 mg Tablet PO ×3 (06:31→20:29)
[2021-04-18] MEDS: gabapentin 400 mg Capsule PO ×3 (06:31→20:29)
[2021-04-18] MEDS: tamsulosin 0.4 mg Capsule PO ×2 (06:32→09:26)
[2021-04-18 08:04] LABS: Magnesium 1.7 mg/dL (1.7-2.3)
--- NOTE | 2021-04-18 09:19 | PC.NURSE ---
I reported the high bp to the nurse 164/117
[2021-04-18] MEDS: cefTRIAXone 1,000 MG in sodium chloride 0.9% (plus) 50 ML 100 MG IV (09:26)
[2021-04-18] MEDS: metoprolol tartrate 50 mg Tablet 100 MG PO ×2 (09:26→17:57)
[2021-04-18] MEDS: hyDRALAzine 25 mg Tablet PO ×3 (09:26→20:30)
[2021-04-18] MEDS: amlodipine 10 mg Tablet PO (09:26)
[2021-04-18] MEDS: HYDROcodone-acetaminophen 5-325 mg Tablet 1 TAB PO (14:05)
--- NOTE | 2021-04-18 15:42 | PC.NURSE ---
I reported the high bp to the nurse 169/104
--- NOTE | 2021-04-18 16:02 | PC.NURSE ---
Received telephone orders from Dr. Tran to manually irrigate the catheter and to start CBI. Received verbal orders from Dr. Cohn to replace the catheter since it was coming out. Removed current moyer catheter and replaced with a 22F 3-way catheter. Manually irrigated with 4- 50 mL syringes of sterile water and started the CBI. Blood clots were removed with irrigation. CBI currently running.
--- NOTE | 2021-04-18 16:52 | PM.PN ---
Subjective Subjective: Interval history: CBI was stopped yesterday however after that he has been experiencing persistent hematuria, multiple clots have been evacuated with manual irrigation today did recommend manual irrigation to remove clots and after removal of clots CBI can be reinitiated, I have conveyed this plan to the nurse taking care of him, escalated opioids because men irrigation is causing pain Vitals/I&O/Wt Last Vital Signs Temp 98.8 F 04/18/21 15:42 Pulse 102 H 04/18/21 15:42 Resp 16 04/18/21 15:42 BP 169/104 04/18/21 15:42 Pulse Ox 96 04/18/21 15:42 04/18/21 04/18/21 04/18/21 06:59 14:59 22:59 Intake Total 345 / 3978.542 530 / 530 Output Total 810 / 8310 Balance -465 / -4331.458 530 / 530 Physical Exam Narrative: EXAM NARRATIVE: Patient is laying supine No active complaints Persistent hematuria with clots Abdomen soft EOMI, PERRLA Saturating well on room air S1, S2 Nonfocal neuro exam Urinary Catheter Management^: Bazan: Cath Placed During This Visit: yes Reason for Continuing Indwelling Catheter: Chronic Indwelling Urinary Catheter on Admission Urinary Catheter Date of Insertion: 04/16/21 Urinary Catheter Time of Insertion: 08:00 Data : 04/18/21 02:00 04/18/21 02:00 Micro: Microbiology 04/16/21 08:37 Urine Culture - Final Urine,Clean Catch Enterococcus faecalis 04/16/21 18:13 Blood Culture - Preliminary Blood Strep species, gamma-hemolytic 04/16/21 08:35 Blood Culture - Preliminary Blood Strep species, gamma-hemolytic A&P Assessment and plan (1) Gross hematuria: Status: Acute (2) Acute UTI: Status: Acute (3) STEVEN (acute kidney injury): Status: Acute Additional A&P Information Sepsis ruled out UTI continue ceftriaxone Gross hematuria, Dr. Yuan to see him today, requiring manual irrigation, will do CBI after clots have been evacuated STEVEN: Improving with resolution of bladder outlet obstruction with Bazan catheter Hypertension: Improved We will make him n.p.o. in case he will go for cystoscopy tomorrow Full code [facility] Attestations Medical Necessity Statement*: Continue medical management Time Spent in Patient Care: less than 15 minutes Coding Level of Care Code Acute Area Manager for Chg Fwd Diagnoses Gross hematuria R31.0 Acute UTI N39.0 STEVEN (acute kidney injury) N17.9
[2021-04-18] MEDS: HYDROmorphone 1 mg/mL INJ 1 mL 0.4 MG IVP ×2 (17:26→23:12)
[2021-04-18] MEDS: hyDRALAzine 20 mg/mL INJ 1 mL 5 MG IVP (18:22)
--- NOTE | 2021-04-18 19:01 | P.CONIM_ITS ---
Providers/Reason For Consult Consulting Physician/Specialty*: Urology/Yuan Reason for Consult*: Recurrent urinary retention with post decompression gross hematuria Attending Physician: Maritza Tran MD Primary Care Provider: Rehan Rodriguez MD History of Present Illness History of Present Illness Luis Lucero Jr is a 65 year old male well-known to me after initial evaluation back in December of this year when hospitalized for urinary retention and gross hematuria. At that visit he was found to have a hugely distended bladder with bilateral hydroureteronephrosis. He developed post catheter placement hematuria which cleared with conservative therapy. Prior to our evaluation he had been followed in [place] and was found to have an elevated PVR. He had been recommended based on the likelihood of neurogenic source or severely dysfunctional bladder to start SCIC when he was seen in [place] and he refused and that led to last hospitalization with the problems mentioned above. After that visit in the hospital he was seen on 01/13/2021 and a cystoscopy showed normal urethra, mildly enlarged prostate, heavily trabeculated bladder with cellule formation but no other gross pathology. He underwent a voiding trial and was taught SCIC and did very well despite his reluctance. While as initially he had declined utilizing tamsulosin he was still taking it and agreed to stay on it with the hopes of relief of obstruction and possibly some recovery of bladder function. He had an appointment scheduled for 1 month from his last visit but apparently that visit did not happen This hospital stay was initiated after transported by ambulance to the hospital for increased confusion abdominal discomfort and evidence of recurrent infection/sepsis. CT scan confirmed recurrent bladder distention and bilateral hydroureteronephrosis Catheter was placed with a large amount of urine drained roughly 1000 cc or more. He had initially clear urine but it became bloody consistent with post distention hematuria and since that time with management with irrigation and CBI his urine is cleared and the CBI was discontinued. The urine became bloody again and required catheter replacement, manual irrigation and continued CBI with eventual clearing. Had a long discussion with the patient on multiple occasions for this visit regarding his compliance with program that we set up previously. He has a lot of excuses as to why he cannot do it but he has demonstrated profic iency with self-catheterization but not determination to do it. Recommendation will be to leave the catheter in and follow-up on outpatient basis for voiding trial SCIC reconstruction and see if we can get some assistance from his [facility] [place] staffing to help encourage him to do the appropriate thing rather than risk his health with further noncompliance. Review of Systems Const: Reports: fever(s) and malaise Eyes: Denies: change in vision Card: Denies: chest pain or palpitations Resp: Denies: dyspnea or wheezing GI: Reports: abdominal pain : Reports: hematuria Musc: Denies: joint redness or joint warmth Skin/Breast: Denies: changing lesions or jaundice Neuro: Reports: confusion (Improved) Psych: Reports: anxiety, depression and difficulty concentrating Endo: Denies: flushing Ebenezer/Lymph: Denies: easy bruising All/Imm: Denies: urticaria or acute wheezing Meds/Allergies Home Medications and Allergies Home Medications Medication Instructions Recorded Confirmed Last Taken Type amitriptyline 100 mg tablet 100 mg PO DAILY@199912/08/20 04/16/21 12/26/20 History aspirin 81 mg tablet,delayed 81 mg PO DAILY@0700 12/08/20 04/16/21 12/27/20 History release bethanechol chloride 25 mg tablet 25 mg PO BID@0800,199912/08/20 04/16/21 12/27/20 History buspirone 15 mg tablet 15 mg PO TID@0700,1400,199912/08/20 04/16/21 12/27/20 History clonidine HCl 0.1 mg tablet 0.2 mg PO TID PRN 12/08/20 04/16/21 Unknown History divalproex 250 mg tablet,delayed 250 mg PO TID@0700,1400,199912/08/20 04/16/21 12/27/20 History release docusate sodium 100 mg capsule 100 mg PO BID@0700,199912/08/20 04/16/21 12/27/20 History ferrous sulfate 325 mg (65 mg 325 mg PO DAILY@69912/08/20 04/16/21 12/27/20 History iron) tablet finasteride 5 mg tablet 5 mg PO DAILY@0700 12/08/20 04/16/21 12/27/20 History gabapentin 400 mg capsule 400 mg PO TID@07,14,20 12/08/20 04/16/21 12/27/20 History hydrocodone 10 mg-acetaminophen 1 tab PO TID 12/08/20 04/16/21 12/27/20 History 325 mg tablet linaclotide 145 mcg capsule 145 mcg PO DAILY@0700 12/08/20 04/16/21 12/27/20 History metoprolol tartrate 50 mg tablet 100 mg PO BID 12/08/20 04/16/21 12/27/20 History omeprazole 40 mg capsule,delayed 40 mg PO DAILY@199912/08/20 04/16/21 12/26/20 History release oxybutynin chloride 10 mg 10 mg PO DAILY@0700 12/08/20 04/16/21 12/27/20 History tablet,extended release 24 hr tamsulosin 0.4 mg capsule 0.4 mg PO DAILY@0700 12/08/20 04/16/21 12/27/20 History tizanidine 2 mg capsule 2 mg PO DAILY@1900 cap 12/08/20 04/16/21 12/26/20 History Mylanta 20 ml PO Q6H PRN 12/27/20 04/16/21 Unknown History aluminum hydrox-magnesium carb 10 ml PO QID PRN #0 12/27/20 04/16/21 Unknown History calcium carbonate-vitamin D3 1 tab PO BID@0700,1900 12/27/20 04/16/21 12/27/20 History [Calcium 600 + D(3)] cyanocobalamin (vitamin B-12) 1,000 mcg IM Q30D 12/27/20 04/16/21 04/14/21 History diclofenac sodium 2 g TOPICAL QID PRN 12/27/20 04/16/21 Unknown History quetiapine 25 mg PO DAILY@0712/27/20 04/16/21 12/26/20 History amlodipine 10 mg PO DAILY 10 Days #10 tab 04/09/21 04/16/21 Unknown Rx ascorbic acid (vitamin C) [Vitamin 500 mg PO DAILY 04/09/21 04/16/21 Unknown History C] folic acid 1 mg PO DAILY 04/09/21 04/16/21 Unknown History losartan 100 mg PO DAILY 04/09/21 04/16/21 Unknown History quetiapine 75 mg PO BEDTIME 04/09/21 04/16/21 Unknown History carboxymethylcellulose sodium 1 - 2 drp OPHTHALMIC (EYE) DAILY 04/16/21 04/16/21 Unknown History [Refresh] PRN copper gluconate 2 mg PO DAILY 04/16/21 04/16/21 Unknown History lorazepam 1 mg PO TID@,04/16/21 04/16/21 Unknown History magnesium sulfate (bulk) [Epsom 1 applic TOPICAL BID 04/16/21 04/16/21 Unknown History Salt] olopatadine [Pataday] 1 drp OPHTHALMIC (EYE) DAILY PRN 04/16/21 04/16/21 Unknown History Allergies Allergy/AdvReac Type Severity Reaction Status Date / Time green pepper Allergy ADR-Vomitin Verified 04/09/21 15:01 g Milk Containing Products Allergy Unknown Verified 04/09/21 15:01 Current Medications Current Medications Generic Name Dose Route Start Last Admin Trade Name Freq PRN Reason Stop Dose Admin Hydrocodone Bitart/Acetaminophen 1 tab 04/17/21 15:51 04/17/21 16:24 Hydrocodone-Acetaminophen 5-325 Mg Tablet PO 1 tab Q4H PRN Administration MODERATE PAIN Amlodipine Besylate 10 mg 04/17/21 09:00 04/17/21 08:39 Amlodipine 10 Mg Tablet PO 10 mg DAILY DESTIN Administration Buspirone HCl 15 mg 04/16/21 18:03 04/17/21 13:53 Buspirone 10 Mg Tablet PO 15 mg TID@0700,1399,1999 DESTIN Administration Divalproex Sodium 250 mg 04/16/21 18:03 04/17/21 13:[address] 250 Mg Tablet PO 250 mg TID@0700,1399,1999 DESTIN Administration Gabapentin 400 mg 04/16/21 20:00 04/17/21 13:53 Gabapentin 400 Mg Capsule PO 400 mg TID@,, DESTIN Administration Hydralazine HCl 25 mg 04/17/21 15:55 04/17/21 16:24 Hydralazine 25 Mg Tablet PO 25 mg TID DESTIN Administration Sodium Chloride 1,000 mls @ 50 mls/hr 04/16/21 16:26 04/17/21 16:42 Sodium Chloride 0.9% IV Infused .Q20H DESTIN Infusion Metoprolol Tartrate 100 mg 04/17/21 09:00 04/17/21 16:24 Metoprolol Tartrate 50 Mg Tablet PO 100 mg BID DESTIN Administration Non-Formulary Medication 145 mcg 04/17/21 07:00 04/17/21 06:22 Linaclotide [Linzess] PO Not Given DAILY@0700 [facility] Pantoprazole Sodium 20 mg 04/16/21 20:00 04/16/21 19:[address] 40 Mg Tablet PO 20 mg DAILY@2000 [facility] Administration Quetiapine Fumarate 75 mg 04/16/21 21:00 04/16/21 21:07 Quetiapine 25 Mg Tablet PO 75 mg [facility]EDTIME [facility] Administration Tamsulosin HCl 0.4 mg 04/17/21 10:15 04/17/21 10:45 Tamsulosin 0.4 Mg Capsule PO 0.4 mg DAILY DESTIN Administration PFSH Acute PFSH: Medical History Acute blood loss anemia STEVEN (acute kidney injury) Bilateral hydronephrosis Constipation Depression determined by examination Detrusor dysfunction Gross hematuria Prostatitis Prostatitis Sepsis Urinary retention Urinary retention UTI (urinary tract infection) UTI (urinary tract infection) Family History Mother Diabetes Father Diabetes Sister Diabetes Social History Alcohol intake: never Marital status: Single Current occupational status: unemployed and retired Vitals/I&O/Wt Last Vital Signs Temp 98.3 F 04/17/21 15:30 Pulse 82 04/17/21 15:30 Resp 16 04/17/21 15:30 BP 166/96 04/17/21 15:30 Pulse Ox 90 04/17/21 15:30 04/17/21 04/17/21 04/17/21 06:59 14:59 22:59 Intake Total 1850 / 5140 1830.209 / 1830.209 403.333 / 2233.542 Output Total 600 / 2650 3300 / 3300 2500 / 5800 Balance 1250 / 2490 -1469.791 / -1469.791 -2096.667 / -3566.458 Weight last 48 hrs Weight 130 lb Physical Exam Const: COMMON NORMALS: no acute distress, alert and well nourished GENERAL APPEARANCE: well kempt and well developed ORIENTATION/CONSCIOUSNESS: not confused HENMT: COMMON NORMALS: normocephalic and atraumatic HEAD & SCALP: normocephalic and atraumatic Eye: COMMON NORMALS: conjunctivae normal and no scleral icterus CONJUNCTIVA: Yes conjunctivae normal Neck/C-Spine: COMMON NORMALS: full ROM Resp: COMMON NORMALS: normal respiratory effort EFFORT & INSPECTION: No labored and No Actively coughing : COMMON NORMALS: Yes no CVA tenderness BLADDER/KIDNEY EXAM: Yes no CVA tenderness PENIS: normal penis MEATUS: meatus normal and No Blood at meatus present Back/Pelvis: COMMON NORMALS: no CVA tenderness Neuro: SENSORIUM/ORIENTATION: Yes alert Psych: APPEARANCE: Yes grossly normal and Yes well kempt ATTITUDE: Yes calm and Yes engaged Skin: COMMON NORMALS: no rashes or lesions noted and no jaundice GENERAL SKIN EXAM: no rashes or lesions noted Urinary Catheter Management^: Bazan: Cath Placed During This Visit: yes Reason for Continuing Indwelling Catheter: Chronic Indwelling Urinary Catheter on Admission Urinary Catheter Date of Insertion: 04/16/21 Urinary Catheter Time of Insertion: 08:00 Data Micro: Micro: Microbiology 04/16/21 18:13 Blood Culture - Pr eliminary Blood 04/16/21 08:35 Blood Culture - Pr eliminary Blood A&P Assessment and plan (1) Urinary retention: Chronic secondary to likely neurogenic bladder. Poor compliance with recommendations previously for SCIC. Status: Acute (2) Detrusor dysfunction: See above Status: Acute (3) STEVEN (acute kidney injury): Status: Acute (4) Acute UTI: Status: Acute (5) Sepsis: Status: Acute (6) Gross hematuria: Likely related to post retention distention/decompression. Status: Acute (7) STEVEN (acute kidney injury): Status: Acute (8) Bilateral hydronephrosis: Secondary to bladder out obstruction Status: Acute Consult Attestations Medical Necessity Statement: See attending Coding Level of Care Code Acute Director Regulatory Compliance for [facility] Fwd Diagnoses Urinary retention R33.9 Detrusor dysfunction N31.8 STEVEN (acute kidney injury) N17.9 Acute UTI N39.0 Sepsis A41.9 Gross hematuria R31.0 STEVEN (acute kidney injury) N17.9 Bilateral hydronephrosis N13.30
[2021-04-18] MEDS: amitriptyline 25 mg Tablet 100 MG PO (20:28)
[2021-04-18] MEDS: finasteride 5 mg Tablet PO (20:29)
[2021-04-18] MEDS: pantoprazole DR 40 mg Tablet 20 MG PO (20:29)
[2021-04-18] MEDS: quetiapine 25 mg Tablet 75 MG PO (20:30)
--- NOTE | 2021-04-18 21:30 | PC.PHAR ---
Pharmacokinetic dosing service Date: 04/18/21 Time: 2129 Objective: Patient: Luis Lucero Floor: 276-1 Age: 65 yo Serum creatinine: 1.2 mg/dL Height: 67.0 Inches Weight (kg): 58.967 Diagnosis: Relevant medical/social history: Cultures and sensitivities: Other labs: Assessment: IBW (kg): 66.10 Dosing wt(kg): 58.967 Estimated Creatinine clearance (ml/min): 52.6 CRCL method: Cockcroft and Gault using ibw(default). Drug selected: Vancomycin Loading dose (mg): 0 Vd (liters): 53.1 (factor used: 0.9 L/kg) Bienvenido (hr-1): 0.048 Half life (hrs): 14.44 Recommended dose: 1000 mg Interval: 18 hrs Infusion time (hrs): 1.5 Predicted peak (mcg/mL): 31.4 Predicted trough (mcg/mL): 14.22 Total body weight is being used for vancomycin dosing. Renal function is stable [ ] /unstable [ ] Recommendations: Give Vancomycin 1000 mg q 18 hrs with an expected Cpeak of 31.4 mcg/ml and an expected Ctrough of 14.22 mcg/ml Renal dosing of other antibiotics (review renal dosing of other medications and list guidelines here): Thank you for the consult, will continue to follow. Signature: Audra Brock [facility]ly [facility]
[2021-04-18] MEDS: vancomycin 1,000 MG in sodium chloride 0.9% 250 ML 250 MG IV (21:50)
[2021-04-19] VITALS (7 sets, daily range): BP systolic 127–161; BP diastolic 82–94; PULSE 82–107; RESP 16–20; TEMP 36.6–37; O2SAT 91–96
[2021-04-19 06:07] LABS: Basophils # 0.1 10^3/uL (0.0-0.1); Basophils % 0.3 %; Eosinophils % 0.1 %; Hematocrit 39.1 % (42.0-52.0); Hemoglobin 13.1 g/dL (11.7-16.6); Lymphocytes # 0.9 10^3/uL (0.8-4.8); Mean Corpuscular HGB Conc 33.5 g/dL (30.0-36.0); Mean Corpuscular Hemoglobin 30.1 pg (28.0-34.0); Mean Corpuscular Volume 89.9 fl (80-94); Mean Platelet Volume 9.9 fL (7.4-10.4); Monocytes # 1.4 10^3/uL (0.2-0.9); Monocytes % 9.2 %; Neutrophils # 12.97 10^3/uL (1.8-7.7); Neutrophils % 82.6 %; Nucleated Red Blood Cells % 0 %; Platelet Count 168 10^3/cmm (130-400); Red Blood Count 4.35 10^6/uL (4.1-5.3); Red Cell Distribution Width 12.9 % (12.1-15.1); White Blood Count 15.7 10^3/uL (4.0-10.0)
[2021-04-19] MEDS: gabapentin 400 mg Capsule PO ×3 (06:16→20:19)
[2021-04-19] MEDS: BuSPIRONE 10 mg Tablet 15 MG PO ×3 (06:16→20:22)
[2021-04-19] MEDS: tamsulosin 0.4 mg Capsule PO ×2 (06:16→08:48)
[2021-04-19] MEDS: divalproex DR 250 mg Tablet PO ×3 (06:16→20:22)
[2021-04-19 06:29] LABS: Anion Gap 16.9 (5-19); Blood Urea Nitrogen 19 mg/dL (8-23); Carbon Dioxide 25 mmol/L (22-29); Chloride 97 mmol/L (98-107); Glomerular Filtration Rate 67.6 mL/min (90-130); Glucose 91 mg/dL (65-115); Osmolality Calculated 284 mOsm/kg (285-295); Sodium 136 mmol/L (136-145)
[2021-04-19 06:31] LABS: Potassium 2.9 mmol/L (3.5-5.1)
[2021-04-19] MEDS: metoprolol tartrate 50 mg Tablet 100 MG PO ×2 (08:48→17:34)
[2021-04-19] MEDS: hyDRALAzine 25 mg Tablet PO ×3 (08:48→20:20)
[2021-04-19] MEDS: amlodipine 10 mg Tablet PO (08:48)
[2021-04-19] MEDS: lidocaine 1% 5 ML in potassium chloride premix 100 ML 25 ML IV (08:48)
[2021-04-19 09:37] LABS: Magnesium 1.8 mg/dL (1.7-2.3)
--- NOTE | 2021-04-19 10:34 | P.PN_ITS ---
Subjective Subjective: Interval history: CBI started yesterday, persistent hematuria No plan for cystoscopy Advance diet today Bacteremia with gamma hemolytic strep most likely Enterococcus coming from urinary source We will place PICC line once bacteremia resolves No fever White count trending down He was started on vancomycin yesterday on 04/18 Will need PICC line placement and 6 weeks of antibiotics Vitals/I&O/Wt Last Vital Signs Temp 97.9 F 04/19/21 07:54 Pulse 107 H 04/19/21 07:54 Resp 16 04/19/21 07:54 BP 152/94 04/19/21 07:54 Pulse Ox 95 04/19/21 07:54 04/18/21 04/19/21 04/19/21 22:59 06:59 14:59 Intake Total 250 / 780 1052 / 1052 Balance 250 / 780 1052 / 1052 Physical Exam Narrative: EXAM NARRATIVE: Patient resting comfortably in his bed S1, S2 No signs of dehydration Abdomen soft Persistent hematuria noted in urinary bag CBI at the bedside Potassium pending at the bedside EOMI, PERRLA Nonfocal neuro exam Extremities without edema Urinary Catheter Management^: Bazan: Cath Placed During This Visit: yes Reason for Continuing Indwelling Catheter: Chronic Indwelling Urinary Catheter on Admission Urinary Catheter Date of Insertion: 04/16/21 Urinary Catheter Time of Insertion: 08:00 Data : 04/19/21 05:11 04/19/21 05:11 Micro: Microbiology 04/19/21 10:05 Blood Culture - Preliminary Blood SPECIMEN COLLECTED 04/19/21 10:00 Blood Culture - Preliminary Blood SPECIMEN COLLECTED 04/16/21 08:37 Urine Culture - Final Urine,Clean Catch Enterococcus faecalis 04/16/21 18:13 Blood Culture - Preliminary Blood Strep species, gamma-hemolytic 04/16/21 08:35 Blood Culture - Preliminary Blood Strep species, gamma-hemolytic A&P Assessment and plan (1) STEVEN (acute kidney injury): Status: Acute (2) Bilateral hydronephrosis: Status: Acute (3) Detrusor dysfunction: Status: Acute (4) Urinary retention: Status: Acute (5) Gross hematuria: Status: Acute (6) Acute UTI: Status: Acute (7) Bacteremia: Status: Acute Additional A&P Information Bacteremia with gamma hemolytic strep most likely Enterococcus faecalis, urinary source Started vancomycin 04/18, 1 g every 18 hours White count trending down, afebrile Will need 6 weeks of IV antibiotics Sepsis not present Repeat blood cultures today Persistent hematuria: Plan for outpatient evaluation by Dr. Yuan no plan for cystoscopy Advance diet today STEVEN: Resolved Hypertension: Hydralazine added 25 mg 3 times daily along amlodipine ARBsl was held secondary to STEVEN which I would resume as creatinine has improved continue metoprolol Full code Cardiac diet Not a candidate DVT prophylaxis Attestations Medical Necessity Statement*: Likely discharge next week Time Spent in Patient Care: less than 15 minutes Coding Level of Care Code Acute Veterinarian Poultry for [facility] Fwd Diagnoses STEVEN (acute kidney injury) N17.9 Bilateral hydronephrosis N13.30 Detrusor dysfunction N31.8 Urinary retention R33.9 Gross hematuria R31.0 Acute UTI N39.0 Bacteremia R78.81
[2021-04-19] MEDS: losartan 50 mg Tablet 100 MG PO (11:31)
--- NOTE | 2021-04-19 12:05 | PC.SOCIAL ---
IMM update pg 2 of IMM updated and reviewed w/ patient. Copy provided.
[2021-04-19] MEDS: vancomycin 1,000 MG in sodium chloride 0.9% 250 ML 250 MG IV (15:22)
[2021-04-19] MEDS: HYDROmorphone 1 mg/mL INJ 1 mL 0.4 MG IVP ×2 (15:25→20:39)
--- NOTE | 2021-04-19 19:29 | P.PN_ITS ---
Subjective Subjective: Interval history: He thinks he is doing better today. Less issues with the catheter. Not requiring manual irrigation. Urine is light pink. We had a long discussion again tonight about bladder management and thinking about ways to make his bladder management more effective long-term. Reviewed with him that he cannot ignore his bladder and just stop cathing without dire consequences that he has now experienced twice. Encouraged him to stay on his medication, continue the Bazan catheter likely discharge, and follow-up motivated to figure out a more effective way of ma naging the bladder. He seems to be a little bit more to determined tonight Vitals/I&O/Wt Last Vital Signs Temp 98.6 F 04/19/21 15:57 Pulse 101 H 04/19/21 15:57 Resp 16 04/19/21 15:57 BP 127/82 04/19/21 15:57 Pulse Ox 96 04/19/21 15:57 04/19/21 04/19/21 04/19/21 06:59 14:59 22:59 Intake Total 250 / 780 1157 / 1157 610 / 1767 Output Total 2300 / 2300 Balance 250 / 780 1157 / 1157 -1690 / -533 Physical Exam Const: COMMON NORMALS: no acute distress and alert GENERAL APPEARANCE: well kempt and well developed ORIENTATION/CONSCIOUSNESS: Yes awake; not confused Neck/C-Spine: COMMON NORMALS: full ROM GENERAL: Yes normal visual inspection Resp: COMMON NORMALS: normal respiratory effort EFFORT & INSPECTION: No labored and No Actively coughing Neuro: SENSORIUM/ORIENTATION: Yes alert Psych: COMMON NORMALS: mental status grossly normal APPEARANCE: Yes grossly normal and Yes well kempt ATTITUDE: Yes calm and Yes engaged Skin: COMMON NORMALS: no rashes or lesions noted and no jaundice GENERAL SKIN EXAM: no rashes or lesions noted Urinary Catheter Management^: Bazan: Cath Placed During This Visit: yes Reason for Continuing Indwelling Catheter: Acute Urinary Retention or Obstruction Urinary Catheter Date of Insertion: 04/16/21 Urinary Catheter Time of Insertion: 08:00 Data : 04/19/21 05:11 04/19/21 05:11 Micro: Microbiology 04/16/21 08:35 Blood Culture - Preliminary Blood Enterococcus faecalis 04/16/21 18:13 Blood Culture - Preliminary Blood Enterococcus faecalis 04/19/21 10:05 Blood Culture - Preliminary Blood SPECIMEN COLLECTED 04/19/21 10:00 Blood Culture - Preliminary Blood SPECIMEN COLLECTED 04/16/21 08:37 Urine Culture - Final Urine,Clean Catch Enterococcus faecalis A&P Assessment and plan (1) Urinary retention: Status: Acute (2) Detrusor dysfunction: Status: Acute (3) Bilateral hydronephrosis: Status: Acute (4) Acute UTI: Status: Acute (5) Gross hematuria: Status: Acute Attestations Medical Necessity Statement*: See attending Coding Level of Care Code Acute Consumer Marketing Specialist for [facility] Fwd Diagnoses Urinary retention R33.9 Detrusor dysfunction N31.8 Bilateral hydronephrosis N13.30 Acute UTI N39.0 Gross hematuria R31.0
[2021-04-19] MEDS: amitriptyline 25 mg Tablet 100 MG PO (20:19)
[2021-04-19] MEDS: finasteride 5 mg Tablet PO (20:19)
[2021-04-19] MEDS: pantoprazole DR 40 mg Tablet 20 MG PO (20:20)
[2021-04-19] MEDS: quetiapine 25 mg Tablet 75 MG PO (20:21)
[2021-04-20] VITALS (9 sets, daily range): BP systolic 136–153; BP diastolic 78–92; PULSE 80–97; RESP 14–20; TEMP 36.6–36.9; O2SAT 90–97
[2021-04-20] MEDS: HYDROmorphone 1 mg/mL INJ 1 mL 0.4 MG IVP ×5 (01:23→19:57)
--- NOTE | 2021-04-20 01:32 | PC.NURSE ---
CBI Pt had to have a BM. Ambulated to bathroom and enc not to strain. Had a good formed BM Did note utine became darker with this and passed a small stringy clot. CBI increased and will continue to monitor. Also c/o pain across lower abd and received dose of IV Dilaudid
[2021-04-20 05:52] LABS: Basophils # 0.1 10^3/uL (0.0-0.1); Basophils % 0.4 %; Eosinophils % 0.3 %; Hematocrit 34.1 % (42.0-52.0); Hemoglobin 11.6 g/dL (11.7-16.6); Lymphocytes # 1.1 10^3/uL (0.8-4.8); Mean Corpuscular Hemoglobin 30.4 pg (28.0-34.0); Mean Corpuscular Volume 89.3 fl (80-94); Mean Platelet Volume 9.6 fL (7.4-10.4); Monocytes # 1.1 10^3/uL (0.2-0.9); Monocytes % 9.4 %; Neutrophils # 8.87 10^3/uL (1.8-7.7); Neutrophils % 74.9 %; Nucleated Red Blood Cells % 0 %; Platelet Count 173 10^3/cmm (130-400); Red Blood Count 3.82 10^6/uL (4.1-5.3); White Blood Count 11.8 10^3/uL (4.0-10.0)
--- NOTE | 2021-04-20 05:59 | PC.NURSE ---
SHIFT SUMMARY Had trouble getting to sleep tonight but rested well for few hours. Has received IV Dilaudid X2 tonight for lower abd/pelvic pain c/o. Has tenderness present. CBI throughout night with freq monitoring. Urine has ranged from clear to dark red but has mostly been a light to dark pink. Had the episode of darker urine with BM during the night and CBI was ran at a faster rate for few hours to keep cleared up. Tells me his pain is much better this morning. Is drinking well.
[2021-04-20 06:05] LABS: Anion Gap 19.2 (5-19); Blood Urea Nitrogen 18 mg/dL (8-23); Calcium 7.8 mg/dL (8.5-10.5); Carbon Dioxide 23 mmol/L (22-29); Chloride 99 mmol/L (98-107); Glomerular Filtration Rate 67.6 mL/min (90-130); Glucose 102 mg/dL (65-115); Osmolality Calculated 288 mOsm/kg (285-295); Potassium 3.2 mmol/L (3.5-5.1); Sodium 138 mmol/L (136-145)
[2021-04-20 06:12] LABS: Procalcitonin 3.87 ng/mL (0-0.5)
[2021-04-20] MEDS: oxybutynin chloride XL 5 MG TABLET 10 MG PO (06:21)
[2021-04-20] MEDS: tamsulosin 0.4 mg Capsule PO ×2 (06:22→07:57)
[2021-04-20] MEDS: BuSPIRONE 10 mg Tablet 15 MG PO ×3 (06:22→20:02)
[2021-04-20] MEDS: gabapentin 400 mg Capsule PO ×3 (06:22→20:00)
[2021-04-20] MEDS: divalproex DR 250 mg Tablet PO ×3 (06:22→20:00)
--- NOTE | 2021-04-20 06:31 | PC.NURSE ---
CBI TOTALS Pt had 04161dt irrigant in tonight with 07072 emptied from Bazan leaving a total of 2450ml actual urine out
[2021-04-20 07:50] LABS: Slide Review Slide Review Perform
[2021-04-20] MEDS: losartan 50 mg Tablet 100 MG PO (07:57)
[2021-04-20] MEDS: metoprolol tartrate 50 mg Tablet 100 MG PO ×2 (07:57→17:16)
[2021-04-20] MEDS: hyDRALAzine 25 mg Tablet PO ×3 (07:57→20:00)
[2021-04-20] MEDS: lidocaine 1% 5 ML in potassium chloride premix 100 ML 25 ML IV (07:58)
[2021-04-20] MEDS: amlodipine 10 mg Tablet PO (07:58)
--- NOTE | 2021-04-20 09:20 | P.PN_ITS ---
Subjective Subjective: Interval history: Repeat blood cultures without any growth .....repeat cultures 04/19 Enterococcus faecalis most likely urinary source culture +04/16 Afebrile, leukocytosis improving Currently on vancomycin for Enterococcus faecalis, requested ID consult He will need PICC line placement by Saturday if cultures remain negative Hematuria resolving, slight pink urine, with CBI, clots were flushed last night Vitals/I&O/Wt Last Vital Signs Temp 98.3 F 04/20/21 07:58 Pulse 97 04/20/21 07:58 Resp 14 04/20/21 07:58 BP 144/92 04/20/21 07:58 Pulse Ox 94 04/20/21 07:58 04/19/21 04/20/21 04/20/21 22:59 06:59 14:59 Intake Total 610 / 1767 960 / 2727 Output Total 2300 / 2300 2450 / 4750 Balance -1690 / -533 -1490 / -3 Physical Exam Narrative: EXAM NARRATIVE: Patient lying comfortably in his bed Saturating well on room air Abdomen soft Yellow color urine with some clots in the tube EOMI, PERRLA Nonfocal neuro exam Awake and alert Nonfocal neuro exam S1, S2 Urinary Catheter Management^: Bazan: Cath Placed During This Visit: yes Reason for Continuing Indwelling Catheter: Perioperative Use in Selected [place] es Urinary Catheter Date of Insertion: 04/16/21 Urinary Catheter Time of Insertion: 08:00 Data : 04/20/21 04:52 04/20/21 04:52 Micro: Microbiology 04/16/21 08:35 Blood Culture - Preliminary Blood Enterococcus faecalis 04/16/21 18:13 Blood Culture - Preliminary Blood Enterococcus faecalis 04/19/21 10:05 Blood Culture - Preliminary Blood SPECIMEN COLLECTED 04/19/21 10:00 Blood Culture - Preliminary Blood SPECIMEN COLLECTED A&P Assessment and plan (1) Bacteremia: Status: Acute (2) STEVEN (acute kidney injury): Status: Acute (3) Bilateral hydronephrosis: Status: Acute (4) Detrusor dysfunction: Status: Acute (5) Urinary retention: Status: Acute (6) Gross hematuria: Status: Acute (7) Acute UTI: Status: Acute Additional A&P Information Bacteremia First blood culture positive on 04/16 Enterococcus faecalis, vancomycin sensitive Repeat blood culture 04/19 If cultures remain negative will request PICC line placement most likely on Saturday Requested ID consult Continue vancomycin Afebrile, leukocytosis improving Most likely urinary source STEVEN: Resolved after resolution of bladder outlet obstruction with Bazan catheter Hematuria: Intermittent: Resolved with CBI, please see Dr. Yuan note for further details, plan for outpatient evaluation no cystoscopy at this time UTI: Being treated with vancomycin for Enterococcus faecalis Full code Cardiac diet Not a candidate DVT prophylaxis SCDs Hypertension: Continue amlodipine added losartan yesterday, hydralazine 25 mg 3 times daily Attestations Medical Necessity Statement*: Continue medical management Time Spent in Patient Care: 16 - 35 minutes Coding Level of Care Code Acute Hospital Pharmacy Director for g Fwd Diagnoses Bacteremia R78.81 STEVEN (acute kidney injury) N17.9 Bilateral hydronephrosis N13.30 Detrusor dysfunction N31.8 Urinary retention R33.9 Gross hematuria R31.0 Acute UTI N39.0
[2021-04-20 09:33] LABS: Vancomycin Trough 8.7 ug/mL (10-15)
[2021-04-20] MEDS: vancomycin 1,000 MG in sodium chloride 0.9% 250 ML 250 MG IV ×2 (10:52→22:43)
[2021-04-20] MEDS: amitriptyline 25 mg Tablet 100 MG PO (20:00)
[2021-04-20] MEDS: pantoprazole DR 40 mg Tablet 20 MG PO (20:01)
[2021-04-20] MEDS: finasteride 5 mg Tablet PO (20:01)
[2021-04-20] MEDS: quetiapine 25 mg Tablet 75 MG PO (20:01)
[2021-04-21] VITALS (11 sets, daily range): BP systolic 124–185; BP diastolic 78–97; PULSE 78–108; RESP 16–18; TEMP 36.6–37.1; O2SAT 90–98
[2021-04-21] MEDS: HYDROmorphone 1 mg/mL INJ 1 mL 0.4 MG IVP ×5 (00:30→22:07)
--- NOTE | 2021-04-21 00:41 | PC.NURSE ---
Pt c/o I need to pee and abd pain. Manual irrigation performed with 120 mL and 190 mL returned with moderate sized clot. Pt reported relief. Bazan draining without issues and CBI flowing and patent.
[2021-04-21] MEDS: divalproex DR 250 mg Tablet PO ×3 (06:13→20:27)
[2021-04-21] MEDS: tamsulosin 0.4 mg Capsule PO ×2 (06:13→08:37)
[2021-04-21] MEDS: BuSPIRONE 10 mg Tablet 15 MG PO ×3 (06:13→20:28)
[2021-04-21] MEDS: oxybutynin chloride XL 5 MG TABLET 10 MG PO (06:13)
[2021-04-21] MEDS: gabapentin 400 mg Capsule PO ×3 (06:13→20:28)
[2021-04-21 06:37] LABS: Basophils # 0.1 10^3/uL (0.0-0.1); Basophils % 0.7 %; Eosinophils # 0.2 10^3/uL (0.0-0.8); Eosinophils % 1.3 %; Hematocrit 32.9 % (42.0-52.0); Hemoglobin 10.9 g/dL (11.7-16.6); Lymphocytes # 1.3 10^3/uL (0.8-4.8); Lymphocytes % 10.6 %; Mean Corpuscular HGB Conc 33.1 g/dL (30.0-36.0); Mean Corpuscular Hemoglobin 30.3 pg (28.0-34.0); Mean Corpuscular Volume 91.4 fl (80-94); Mean Platelet Volume 9.6 fL (7.4-10.4); Monocytes # 1.1 10^3/uL (0.2-0.9); Monocytes % 9.1 %; Neutrophils # 8.29 10^3/uL (1.8-7.7); Neutrophils % 69.7 %; Nucleated Red Blood Cells % 0 %; Platelet Count 252 10^3/cmm (130-400); Red Cell Distribution Width 13.2 % (12.1-15.1); White Blood Count 11.9 10^3/uL (4.0-10.0)
[2021-04-21 06:55] LABS: Anion Gap 18.3 (5-19); Blood Urea Nitrogen 16 mg/dL (8-23); Calcium 7.7 mg/dL (8.5-10.5); Carbon Dioxide 22 mmol/L (22-29); Chloride 101 mmol/L (98-107); Glomerular Filtration Rate 67.6 mL/min (90-130); Glucose 90 mg/dL (65-115); Osmolality Calculated 287 mOsm/kg (285-295); Potassium 3.3 mmol/L (3.5-5.1); Sodium 138 mmol/L (136-145)
--- NOTE | 2021-04-21 07:55 | PM.CONSULT ---
Providers/Reason For Consult Consulting Physician/Specialty*: Marium Neff MD Reason for Consult*: E.fecalis bacteremia Attending Physician: Maritza Tran MD Primary Care Provider: Rehan Rodriguez MD History of Present Illness History of Present Illness Luis Lucero Jr is a 65 year old male With a past medical history of hypertension, hyperlipidemia, migraine, esophageal cancer not currently active per history admitted at [facility] in December 2020 for gross hematuria and urinary retention with STEVEN and hydronephrosis. Has a previous history of being evaluated at [facility], discovered to have elevated PVR, uncertain if compliant with his alpha blockers, patient was recommended intermittent self cath due to additional concerns for neurogenic bladder, however patient refused. At the time he was discharged with a Bazan in place with recommendations to continue Flomax. Subsequently he followed up in the office, was taught SCIC, underwent a cystoscopy on January 13 which was with normal urethra, mildly enlarged prostate and heavily trabeculated bladder. Currently admitted since April 16, 2021 after presenting with altered mental status, UTI sepsis. CT on this current admission confirmed recurrent bladder distention and bilateral hydroureteronephrosis, Bazan was again placed and drained 1000 cc. He was on continuous bladder irrigation with eventual clearing of his hematuria. It does appear he has not been compliant with SCIC as recommended on multiple previous occasions. During course of his sepsis evaluation, he was initially noted to have leukocytosis at 16.6, trending down to 11.8. His T-max during this hospitalization has been 99.4 Fahrenheit. Blood culture from April 16, 2021 revealed Enterococcus faecalis, as did the urine culture. Isolate is amp susceptible. Blood culture from 04/19 remains negative thus far. He has been on treatment with IV vancomycin Since 04/18. Previously received ceftriaxone per chart review. ID consulted for recommendations regarding duration and choice of antibiotic. Bulk of history is obtained from chart review, patient is not very forthcoming with his symptomolgy, expresses frustration at not being taken to a [facility] hospital instead of [facility] due to what he believes have been poor outcomes for his relatives at [facility] in the past. It is difficult to redirect him to talk about his current symptoms. Review of Systems General: Reports: 10 or more systems reviewed and unremarkable except in HPI and below Const: Denies: fever(s), chills or body aches Eyes: Denies: change in vision, blurry vision or photophobia ENMT: Reports: hoarseness; Denies: throat pain, enlarged tonsils, odynophagia or nasal congestion Card: Denies: chest pain, palpitations, irregular heart rhythm, edema, swelling of feet/ankles, lightheadedness, pre-syncope, dyspnea on exertion or orthopnea Resp: Denies: dyspnea, productive cough, non-productive cough, wheezing, stridor, pain on inspiration, change in phlegm color, hemoptysis or chest congestion GI: Denies: abdominal pain, nausea, vomiting, hematemesis, coffee ground emesis, dysphagia, heartburn, diarrhea, constipation, GI cramping, change in stool character, hematochezia or melena : Denies: flank pain, dysuria, urinary frequency, urinary urgency, urinary hesitancy or hematuria Musc: Denies: neck pain, back pain, extremity pain, joint swelling, joint warmth or deformity Neuro: Denies: headache(s), numbness in extremities, weakness in extremities, sensory changes, difficulty walking, frequent falls, dizziness, vertigo, behavioral changes, Slurred speech present or seizure-like activity Psych: Denies: anxiety, depression, suicidal ideation or homicidal ideation Endo: Denies: polyuria, polydipsia, tired all the time, cold intolerance or hot flashes Ebenezer/Lymph: Denies: easy bruising or easy bleeding Meds/Allergies Home Medications and Allergies Home Medications Medication Instructions Recorded Confirmed Last Taken Type amitriptyline 100 mg tablet 100 mg PO DAILY@199912/08/20 04/16/21 12/26/20 History aspirin 81 mg tablet,delayed 81 mg PO DAILY@0700 12/08/20 04/16/21 12/27/20 History release bethanechol chloride 25 mg tablet 25 mg PO BID@08,199912/08/20 04/16/21 12/27/20 History buspirone 15 mg tablet 15 mg PO TID@0700,1400,199912/08/20 04/16/21 12/27/20 History clonidine HCl 0.1 mg tablet 0.2 mg PO TID PRN 12/08/20 04/16/21 Unknown History divalproex 250 mg tablet,delayed 250 mg PO TID@0700,1400,199912/08/20 04/16/21 12/27/20 History release docusate sodium 100 mg capsule 100 mg PO BID@07,199912/08/20 04/16/21 12/27/20 History ferrous sulfate 325 mg (65 mg 325 mg PO DAILY@69912/08/20 04/16/21 12/27/20 History iron) tablet finasteride 5 mg tablet 5 mg PO DAILY@69912/08/20 04/16/21 12/27/20 History gabapentin 400 mg capsule 400 mg PO TID@07,,12/08/20 04/16/21 12/27/20 History hydrocodone 10 mg-acetaminophen 1 tab PO TID 12/08/20 04/16/21 12/27/20 History 325 mg tablet linaclotide 145 mcg capsule 145 mcg PO DAILY@69912/08/20 04/16/21 12/27/20 History metoprolol tartrate 50 mg tablet 100 mg PO BID 12/08/20 04/16/21 12/27/20 History omeprazole 40 mg capsule,delayed 40 mg PO DAILY@199912/08/20 04/16/21 12/26/20 History release oxybutynin chloride 10 mg 10 mg PO DAILY@69912/08/20 04/16/21 12/27/20 History tablet,extended release 24 hr tamsulosin 0.4 mg capsule 0.4 mg PO DAILY@69912/08/20 04/16/21 12/27/20 History tizanidine 2 mg capsule 2 mg PO DAILY@1900 cap 12/08/20 04/16/21 12/26/20 History Mylanta 20 ml PO Q6H PRN 12/27/20 04/16/21 Unknown History aluminum hydrox-magnesium carb 10 ml PO QID PRN #0 12/27/20 04/16/21 Unknown History calcium carbonate-vitamin D3 1 tab PO BID@0700,1900 12/27/20 04/16/21 12/27/20 History [Calcium 600 + D(3)] cyanocobalamin (vitamin B-12) 1,000 mcg IM Q30D 12/27/20 04/16/21 04/14/21 History diclofenac sodium 2 g TOPICAL QID PRN 12/27/20 04/16/21 Unknown History quetiapine 25 mg PO DAILY@0700 12/27/20 04/16/21 12/26/20 History amlodipine 10 mg PO DAILY 10 Days #10 tab 04/09/21 04/16/21 Unknown Rx ascorbic acid (vitamin C) [Vitamin 500 mg PO DAILY 04/09/21 04/16/21 Unknown History C] folic acid 1 mg PO DAILY 04/09/21 04/16/21 Unknown History losartan 100 mg PO DAILY 04/09/21 04/16/21 Unknown History quetiapine 75 mg PO BEDTIME 04/09/21 04/16/21 Unknown History carboxymethylcellulose sodium 1 - 2 drp OPHTHALMIC (EYE) DAILY 04/16/21 04/16/21 Unknown History [Refresh] PRN copper gluconate 2 mg PO DAILY 04/16/21 04/16/21 Unknown History lorazepam 1 mg PO TID@07,14,20 04/16/21 04/16/21 Unknown History magnesium sulfate (bulk) [Epsom 1 applic TOPICAL BID 04/16/21 04/16/21 Unknown History Salt] olopatadine [Pataday] 1 drp OPHTHALMIC (EYE) DAILY PRN 04/16/21 04/16/21 Unknown History Allergies Allergy/AdvReac Type Severity Reaction Status Date / Time green pepper Allergy ADR-Vomitin Verified 04/09/21 15:01 g Milk Containing Products Allergy Unknown Verified 04/09/21 15:01 Current Medications Current Medications Generic Name Dose Route Start Last Admin Trade Name Freq PRN Reason Stop Dose Admin Amitriptyline HCl 100 mg 04/17/21 20:00 04/20/21 20:00 Amitriptyline 25 Mg Tablet PO 100 mg DAILY@1999 DESTIN Administration Amlodipine Besylate 10 mg 04/17/21 09:00 04/20/21 07:58 Amlodipine 10 Mg Tablet PO 10 mg DAILY DESTIN Administration Buspirone HCl 15 mg 04/16/21 18:03 04/21/21 06:13 Buspirone 10 Mg Tablet PO 15 mg TID@0700, DESTIN Administration Divalproex Sodium 250 mg 04/16/21 18:03 04/21/21 06:[address] 250 Mg Tablet PO 250 mg TID@0700,1399,1999 DESTIN Administration Finasteride 5 mg 04/17/21 21:00 04/20/21 20:01 Finasteride 5 Mg Tablet PO 5 mg BEDTIME DESTIN Administration Gabapentin 400 mg 04/16/21 20:00 04/21/21 06:13 Gabapentin 400 Mg Capsule PO 400 mg TID@07,, DESTIN Administration Hydralazine HCl 25 mg 04/17/21 15:55 04/20/21 20:00 Hydralazine 25 Mg Tablet PO 25 mg TID DESTIN Administration Hydromorphone HCl 0.4 mg 04/18/21 16:34 04/21/21 00:30 Hydromorphone 1 Mg/Ml Inj 1 Ml IVP 0.4 mg Q4H PRN Administration pain Vancomycin HCl 1,000 mg/ 250 mls @ 250 mls/hr 04/20/21 10:00 04/20/21 23:53 Sodium Chloride IV Infused Q12H DESTIN Infusion Losartan Potassium 100 mg 04/19/21 10:40 04/20/21 07:57 Losartan 50 Mg Tablet PO 100 mg DAILY DESTIN Administration Metoprolol Tartrate 100 mg 04/17/21 09:00 04/20/21 17:16 Metoprolol Tartrate 50 Mg Tablet PO 100 mg BID DESTIN Administration Non-Formulary Medication 145 mcg 04/17/21 07:00 04/21/21 06:13 Linaclotide [Linzess] PO Not Given DAILY@0700 DESTIN Oxybutynin Chloride 10 mg 04/20/21 07:00 04/21/21 06:13 Oxybutynin Chloride Xl 5 Mg Tablet PO 10 mg DAILY@0700 DESTIN Administration Pantoprazole Sodium 20 mg 04/16/21 20:00 04/20/21 20:[address] 40 Mg Tablet PO 20 mg DAILY@1999 DESTIN Administration Quetiapine Fumarate 75 mg 04/16/21 21:00 04/20/21 20:01 Quetiapine 25 Mg Tablet PO 75 mg BEDTIME DESTIN Administration Tamsulosin HCl 0.4 mg 04/17/21 10:15 04/20/21 07:57 Tamsulosin 0.4 Mg Capsule PO 0.4 mg DAILY DESTIN Administration Tamsulosin HCl 0.4 mg 04/18/21 07:00 04/21/21 06:13 Tamsulosin 0.4 Mg Capsule PO 0.4 mg DAILY@0700 DESTIN Administration PFSH Acute PFSH: Medical History Acute blood loss anemia STEVEN (acute kidney injury) Bilateral hydronephrosis Constipation Depression determined by examination Detrusor dysfunction Gross hematuria Prostatitis Prostatitis Sepsis Urinary retention Urinary retention UTI (urinary tract infection) UTI (urinary tract infection) Family History Mother Diabetes Father Diabetes Sister Diabetes Social History Alcohol intake: never Marital status: Single Current occupational status: unemployed and retired Vitals/I&O/Wt Last Vital Signs Temp 98.2 F 04/21/21 04:00 Pulse 93 04/21/21 04:00 Resp 18 04/21/21 04:00 BP 143/83 04/21/21 04:00 Pulse Ox 93 04/21/21 04:00 04/20/21 04/21/21 04/21/21 22:59 06:59 14:59 Intake Total 480 / 1635 250 / 1885 Output Total 2850 / 3850 3275 / 7125 Balance -2370 / -2215 -3025 / -5240 Physical Exam Narrative: EXAM NARRATIVE: GEN: Awake, alert and oriented, no acute distress CVS: S1S2 N RS: CTA B/L Abd: Soft, nt/nd , bs+ 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: no focal neuro deficits Urinary Catheter Management^: Bazan: Cath Placed During This Visit: yes Reason for Continuing Indwelling Catheter: Acute Urinary Retention or Obstruction Urinary Catheter Date of Insertion: 04/16/21 Urinary Catheter Time of Insertion: 08:00 Data Micro: Micro: Microbiology 04/19/21 10:05 Blood Culture - Pr eliminary Blood NEGATIVE TO SANTI E 04/19/21 10:00 Blood Culture - Pr eliminary Blood NEGATIVE TO SANTI E Spec #: [id number] Abhijeet: 04/16/21 Status: RES Req #: [id number] Recd: 04/16/[address]: Dede Kumar , [facility] Src: Blood SpDesc: Ordered: Bcult Procedure Result Verified Site Blood Culture Preliminary 04/19/21 3 OF 3 BOTTLES POSITIVE DIRECT GRAM STAIN: GRAM POSITIVE COCCI IN CHAINS Organism 1 Enterococcus faecalis Growth IN 3 BOTTLES CRITICAL RESULT YES/NO: YES CRITICAL CALLED BY: LUKASZ TO AND READ BACK BY: BC DATE: 04/17/21 TIME: 0146 E faecalis M.I.C. RX --------- ------ * Ampicillin <=2 S * Linezolid 2 S * Penicillin 2 S Vancomycin 4 S Gentamicin Synergy Screen <=500 S Daptomycin 2 S Enterococcus faecalis: Gram Pos Combo 33-MScan Gentamicin Synergy Screen S Blood Culture Preliminary (changed) 04/18/21-1242 3 OF 3 BOTTLES POSITIVE DIRECT GRAM STAIN: GRAM POSITIVE COCCI IN CHAINS RESULTS TO FOLLOW Organism 1 Strep species, gamma-hemolytic Growth IN 3 BOTTLES Blood Culture Preliminary (changed) 04/17/21-1200 3 OF 3 BOTTLES POSITIVE DIRECT GRAM STAIN: GRAM POSITIVE COCCI IN CHAINS RESULTS TO FOLLOW Blood Culture Preliminary (changed) 04/16/21-1818 SPECIMEN COLLECTED Abhijeet: 04/16/21 Status: COMP Req #: [id number] Recd: 04/16/[address]: Dede Kumar , [facility] Src: Urine CC SpDesc: Ordered: UC Procedure Result Verified Site Urine Culture Final 04/18/21-1650 Organism 1 Enterococcus faecalis [place] Count >100,000 CFU/ml 40,000-50,000 COLS/ML MIXED SUPERFICIAL SELENE ON DAY 2 E faecalis M.I.C. RX --------- ------ * Ampicillin <=2 S * Ciprofloxacin <=1 S * Levofloxacin <=1 S * Linezolid 2 S * Nitrofurantoin <=32 S * Penicillin 2 S Vancomycin 2 S Daptomycin 2 S Other Data: Attestation for Other Data: I personally reviewed and interpreted the following: Other data: Date of Service: 04/16/21 Procedure(s): CT abdomen pelvis wo con [id number] CT/CT abdomen pelvis wo con [id number] IMPRESSION: 1. Small bilateral pleural effusions with compressive atelectasis. 2. Bilateral hydroureteronephrosis unchanged. 3. Moderate stool burden. 4. No renal, ureteral, nor bladder calculi detected. Date of Service: 12/28/20 Procedure(s): CT kidney stone [id number] CT/CT kidney stone [id number] IMPRESSION: 1. Large urinary bladder suggesting possible outlet obstruction versus neurogenic bladder. 2. Moderate to large bilateral hydronephrosis which may be secondary to enlarged urinary bladder. Date of Service: 04/16/21 Procedure(s): CT head wo con* [id number] CT/CT head wo con* [id number] IMPRESSION: No acute intracranial abnormality. A&P Assessment and plan (1) Complicated UTI (urinary tract infection): Status: Acute (2) Chronic cystitis: Status: Acute (3) Urinary retention: Status: Acute (4) Sepsis: Status: Acute Qualifiers: Sepsis acute organ dysfunction status: with acute organ dysfunction Sepsis type: sepsis due to unspecified organism Severe sepsis acute organ dysfunction type: encephalopathy Severe sepsis shock status: without septic shock Qualified Code(s): A41.9 - Sepsis, unspecified organism; R65.20 - Severe sepsis without septic shock; G93.40 - Encephalopathy, unspecified (5) Metabolic encephalopathy: Status: Acute Additional A&P Information Patient with a significant urinary past medical history as noted above admitted currently since April 16, 2021 after presenting with sepsis upon presentation, complicated urinary tract infection, urine and blood cultures positive for Enterococcus faecalis, metabolic encephalopathy likely as a result of sepsis. Blood culture positive on April 16 for Enterococcus faecalis, clear as of 04/19/2021. Source likely to be urinary, recovery of same organism from urine cultures, antecedent history as above. Follows up outpatient with urology, has had issues with recurrent urinary retention, bilateral hydronephrosis, recommended intermittent self-catheterization, however patient appears to be poorly compliant with the same. Additionally suspect that patient may have underlying chronic cystitis as a result of recurrent UTIs, bladder outlet obstruction. On a recent cystoscopy bladder was noted to be trabeculated. Currently he has been treated with IV vancomycin. Clinically improved. Encephalopathy resolved. Bladder draining via Bazan catheter. Recommend total 14 days of treatment for complicated UTI with bacteremia (04/19-05/02) Can transition IV vancomycin to p.o. linezolid 600mg BID at discharge. Also discussed with him that as long as he remains at risk for urinary retention he is likely to develop recurrent UTIs. Encourage compliance with urology recommendations for self-catheterization. Consult Attestations Medical Necessity Statement: per admitting note Coding Level of Care Code Acute Lens Inspector for Chg Fwd Diagnoses Complicated UTI (urinary tract infection) N39.0 Chronic cystitis N30.20 Urinary retention R33.9 Sepsis A41.9; R65.20; G93.40 Sepsis acute organ dysfunction status: with acute organ dysfunction Sepsis type: sepsis due to unspecified organism Severe sepsis acute organ dysfunction type: encephalopathy Severe sepsis shock status: without septic shock Metabolic encephalopathy G93.41
[2021-04-21 08:26] LABS: Slide Review Slide Review Perform
[2021-04-21] MEDS: losartan 50 mg Tablet 100 MG PO (08:36)
[2021-04-21] MEDS: hyDRALAzine 25 mg Tablet PO ×3 (08:37→20:26)
[2021-04-21] MEDS: metoprolol tartrate 50 mg Tablet 100 MG PO ×2 (08:37→17:47)
[2021-04-21] MEDS: amlodipine 10 mg Tablet PO (08:37)
[2021-04-21 10:08] LABS: Vancomycin Trough 24.8 ug/mL (10-15)
[2021-04-21] MEDS: vancomycin 1,000 MG in sodium chloride 0.9% 250 ML 250 MG IV ×2 (10:23→22:47)
--- NOTE | 2021-04-21 12:47 | PM.PN ---
Subjective Subjective: Interval history: Seen examined this morning he is upset that now there is a change in plan to send him back to [facility], he is adamant that he should be transferred to [place] closer to his family, his urologist is also in [place], I have updated discharge planners, Dr. Neff has examined him as well recommended p.o. linezolid 600 mg twice daily for 14 days he has finished 3 days in the hospital already Vitals/I&O/Wt Last Vital Signs Temp 98.4 F 04/21/21 11:49 Pulse 80 04/21/21 11:49 Resp 17 04/21/21 11:49 BP 159/91 04/21/21 11:49 Pulse Ox 94 04/21/21 11:49 04/20/21 04/21/21 04/21/21 22:59 06:59 14:59 Intake Total 480 / 1635 250 / 1885 480 / 480 Output Total 2850 / 3850 3275 / 7125 Balance -2370 / -2215 -3025 / -5240 480 / 480 Physical Exam Narrative: EXAM NARRATIVE: Patient laying comfortably in his bed Bazan catheter draining orange-tinged urine Abdomen soft Well-hydrated Hemodynamically stable Saturating well on room air EOMI, PERRLA Nonfocal neuro exam Urinary Catheter Management^: Bazan: Cath Placed During This Visit: yes Reason for Continuing Indwelling Catheter: Acute Urinary Retention or Obstruction Urinary Catheter Date of Insertion: 04/16/21 Urinary Catheter Time of Insertion: 08:00 Data : 04/21/21 05:24 04/21/21 05:24 Micro: Microbiology 04/16/21 08:35 Blood Culture - Final Blood Enterococcus faecalis Staphylococcus epidermidis 04/16/21 18:13 Blood Culture - Final Blood Enterococcus faecalis Staphylococcus epidermidis 04/19/21 10:05 Blood Culture - Preliminary Blood NEGATIVE TO DATE 04/19/21 10:00 Blood Culture - Preliminary Blood NEGATIVE TO DATE A&P Assessment and plan (1) Chronic cystitis: Status: Acute (2) STEVEN (acute kidney injury): Status: Acute (3) Bilateral hydronephrosis: Status: Acute (4) Detrusor dysfunction: Status: Acute (5) Gross hematuria: Status: Acute (6) Bacteremia: Status: Acute Additional A&P Information Bacteremia related to UTI Appreciate ID recommendations, will switch to linezolid 14-day regimen Updated resource management planner that patient is look forward to be placed to a [facility] in [place] Hypertension: Optimize antihypertensive regimen Patient still has hematuria, continue CBI full code cardiac diet DVT prophylaxis contraindicated Attestations Medical Necessity Statement*: Awaiting placement Time Spent in Patient Care: less than 15 minutes Coding Level of Care Code Acute Hospital Clinic Assistant for Chg Fwd Diagnoses Chronic cystitis N30.20 STEVEN (acute kidney injury) N17.9 Bilateral hydronephrosis N13.30 Detrusor dysfunction N31.8 Gross hematuria R31.0 Bacteremia R78.81
--- NOTE | 2021-04-21 14:53 | PC.SOCIAL ---
IMM Updated Updated pt on IMM.No questions voiced. Provided pt a copy. Initialed, dated, & timed copy in chart.
--- NOTE | 2021-04-21 15:15 | PC.CHAP ---
Pastoral Care Encounter/Spiritual Assessment Type of Contact [] Declined commercial portfolio manager visit [] Patient/Family/Request visit [] Outpatient visit [xx] Follow-up visit [] Physician referral [] Code/Alert [] Routine visit [] Staff referral [] Actively dying [xx] Patient sleeping [] Family support [] [] Out of room [] Palliative care [] [] Receiving care in room [] Pre-surgical visit [] Trauma [xx] Long length of stay [] ICU visit [] Other: Relational/Emotional Strength [] Patient feels connected with others/family/visitors/staff [] Distress [] Loneliness/isolation [] Abandonment Spirituality of Patient [] Person of Camilla [] Attends Yazidism of their Camilla [] Believes in Prayer [] Reads Bible or Anabaptism materials [] There are Spiritual issues to be addressed Seconds Inspector Interventions [] Prayer [] Active listening [] Non-anxious presence [] Spiritual/emotional support [] Crisis/trauma care [] Spiritual counseling [] Bereavement support [] Provided bereavement packet [] Provided Bible/devotional materials [] Provided toy/stuffed animal, coloring book to patient or family member [] Provided Communion [] Anointing/[place] [] Salvation [] Completed spiritual assessment [] Other: Impact on Illness or Injury [] Angry [] Fearful [] Anxious [] Often cries [] Exhaustion [] Unable to work [] Unable to attend samaritan [] Unable to walk/stand [] Unable to read [] Unable to drive [] Unable to eat/drink [] Unable to sleep [] Unable to be with family [] Patient intubated [] Other: Summary Patient sleeping. Follow up later. Time spent with patient
--- NOTE | 2021-04-21 18:06 | PM.PN ---
Subjective Subjective: Interval history: Urology follow-up: He reports that he will be leaving soon and being placed in a assisted living that he is familiar with in [facility]. He has seen Dr. Hastings at [facility] urology clinic. I recommended that he maintain the Bazan catheter until follow-up with him. Reviewed with him why he had hematuria. He has been scoped in the past and no significant pathology other than bladder decompensation from longstanding retention has been discovered. I expect the hematuria this time was from distention chronically, UTI, and acute decompression. His urine is improving daily and I expect that to continue to complete resolution. Reviewed with him the importance of compliance specifically with maintaining indwelling catheter until he can come up with a better plan for long-term bladder management. I will sign off Vitals/I&O/Wt Last Vital Signs Temp 97.8 F 04/21/21 16:00 Pulse 108 H 04/21/21 16:00 Resp 18 04/21/21 17:47 BP 185/97 04/21/21 16:00 Pulse Ox 96 04/21/21 16:00 04/21/21 04/21/21 04/21/21 06:59 14:59 22:59 Intake Total 250 / 1885 960 / 960 Output Total 3275 / 7125 Balance -3025 / -5240 960 / 960 Physical Exam Const: COMMON NORMALS: no acute distress, alert and well nourished GENERAL APPEARANCE: well kempt and well developed ORIENTATION/CONSCIOUSNESS: not confused Resp: COMMON NORMALS: normal respiratory effort EFFORT & INSPECTION: No labored and No Actively coughing Neuro: SENSORIUM/ORIENTATION: Yes alert Psych: APPEARANCE: Yes grossly normal and Yes well kempt ATTITUDE: Yes calm and Yes engaged Urinary Catheter Management^: Bazan: Cath Placed During This Visit: yes Reason for Continuing Indwelling Catheter: Acute Urinary Retention or Obstruction Urinary Catheter Date of Insertion: 04/16/21 Urinary Catheter Time of Insertion: 08:00 Data : 04/21/21 05:24 04/21/21 05:24 Micro: Microbiology 04/16/21 08:35 Blood Culture - Final Blood Enterococcus faecalis Staphylococcus epidermidis 04/16/21 18:13 Blood Culture - Final Blood Enterococcus faecalis Staphylococcus epidermidis A&P Assessment and plan (1) Urinary retention: Status: Acute (2) Detrusor dysfunction: Chronic. Poorly managed bladder. Issues with compliance. Maintain Bazan catheter until outpatient urology follow-up has been accomplished. Status: Acute (3) Bilateral hydronephrosis: Status: Acute (4) Acute UTI: Status: Acute (5) Gross hematuria: Status: Acute Attestations Medical Necessity Statement*: See attending Coding Level of Care Code Acute Drug Abuse Treatment Specialist for Chg Fwd Diagnoses Urinary retention R33.9 Detrusor dysfunction N31.8 Bilateral hydronephrosis N13.30 Acute UTI N39.0 Gross hematuria R31.0
[2021-04-21] MEDS: amitriptyline 25 mg Tablet 100 MG PO (20:25)
[2021-04-21] MEDS: finasteride 5 mg Tablet PO (20:26)
[2021-04-21] MEDS: quetiapine 25 mg Tablet 75 MG PO (20:27)
[2021-04-21] MEDS: pantoprazole DR 40 mg Tablet 20 MG PO (20:28)
[2021-04-22] VITALS (11 sets, daily range): BP systolic 133–155; BP diastolic 80–89; PULSE 81–93; RESP 14–18; TEMP 36.6–37; O2SAT 92–99
[2021-04-22] MEDS: HYDROmorphone 1 mg/mL INJ 1 mL 0.4 MG IVP ×5 (02:13→20:14)
[2021-04-22 05:41] LABS: Hematocrit 32.6 % (42.0-52.0); Hemoglobin 10.8 g/dL (11.7-16.6); Mean Corpuscular HGB Conc 33.1 g/dL (30.0-36.0); Mean Corpuscular Volume 90.6 fl (80-94); Platelet Count 306 10^3/cmm (130-400); Red Cell Distribution Width 13.2 % (12.1-15.1)
[2021-04-22 06:03] LABS: Anion Gap 17.2 (5-19); Blood Urea Nitrogen 13 mg/dL (8-23); Calcium 7.7 mg/dL (8.5-10.5); Carbon Dioxide 23 mmol/L (22-29); Chloride 101 mmol/L (98-107); Glomerular Filtration Rate 61.1 mL/min (90-130); Glucose 94 mg/dL (65-115); Osmolality Calculated 286 mOsm/kg (285-295); Potassium 3.2 mmol/L (3.5-5.1); Sodium 138 mmol/L (136-145)
[2021-04-22] MEDS: oxybutynin chloride XL 5 MG TABLET 10 MG PO (06:10)
[2021-04-22] MEDS: BuSPIRONE 10 mg Tablet 15 MG PO ×3 (06:10→20:17)
[2021-04-22] MEDS: divalproex DR 250 mg Tablet PO ×3 (06:11→20:17)
[2021-04-22] MEDS: gabapentin 400 mg Capsule PO ×3 (06:11→20:18)
[2021-04-22] MEDS: tamsulosin 0.4 mg Capsule PO ×2 (06:11→08:02)
[2021-04-22 07:15] LABS: Slide Review Slide Review Perform
[2021-04-22 07:16] LABS: Absolute Neutrophil 7.8 10^3/cmm (1.4-6.5); Absolute Segmented Neutrophil 7.4 10/cmm (1.6-7.1); Band Neutrophils Absolute 0.4 10^3/cmm (0.0-1.2); Lymphocytes 18 %; Monocytes Absolute 0.7 10^3/cmm (0.1-0.6); Platelet Estimate Normal (Normal); Segmented Neutrophils 62 %; Total Cells Counted 100 (0-100)
[2021-04-22 07:17] LABS: Absolute Eosinophils 0.2 10^3/cmm (0.0-0.7); Eosinophils 2 %; Lymphocytes Absolute 2.4 10^3/cmm (1.2-3.4)
[2021-04-22] MEDS: hyDRALAzine 25 mg Tablet PO ×3 (08:02→20:17)
[2021-04-22] MEDS: amlodipine 10 mg Tablet PO (08:02)
[2021-04-22] MEDS: metoprolol tartrate 50 mg Tablet 100 MG PO ×2 (08:02→17:07)
[2021-04-22] MEDS: losartan 50 mg Tablet 100 MG PO (08:03)
--- NOTE | 2021-04-22 15:55 | P.PN_ITS ---
Subjective Subjective: Interval history: Persistent hematuria, CBI running, leukocytosis, afebrile, currently on IV bank, vanc trough level noted Vitals/I&O/Wt Last Vital Signs Temp 98 F 04/22/21 15:43 Pulse 93 04/22/21 15:43 Resp 16 04/22/21 15:43 BP 148/89 04/22/21 15:43 Pulse Ox 97 04/22/21 15:43 04/22/21 04/22/21 04/22/21 06:59 14:59 22:59 Intake Total 730 / 3190 990 / 990 Output Total 2500 / 2500 Balance 730 / 2765 -1510 / -1510 Physical Exam Narrative: EXAM NARRATIVE: Patient laying comfortably in his bed Saturating well on room air Persistent hematuria CBI Abdomen soft EOMI, PERRLA Urinary Catheter Management^: Bazan: Cath Placed During This Visit: yes Reason for Continuing Indwelling Catheter: Acute Urinary Retention or Obstruction Urinary Catheter Date of Insertion: 04/16/21 Urinary Catheter Time of Insertion: 08:00 Data : 04/22/21 05:08 04/22/21 05:08 Micro: Microbiology 04/16/21 08:35 Blood Culture - Final Blood Enterococcus faecalis Staphylococcus epidermidis 04/16/21 18:13 Blood Culture - Final Blood Enterococcus faecalis Staphylococcus epidermidis A&P Assessment and plan (1) Bacteremia: Status: Acute (2) Chronic cystitis: Status: Acute (3) STEVEN (acute kidney injury): Status: Acute (4) Detrusor dysfunction: Status: Acute (5) Gross hematuria: Status: Acute Additional A&P Information Urinary source related with bacteremia: Cleared afebrile, Vanco IV, appreciate ID recommendations, patient is awaiting skilled nursing placement, persistent hematuria, CBI at the bedside Plan to do linezolid at the time of discharge Attestations Medical Necessity Statement*: Awaiting placement Time Spent in Patient Care: less than 15 minutes Coding Level of Care Code Acute Health And Safety Consultant for g Fwd Diagnoses Bacteremia R78.81 Chronic cystitis N30.20 STEVEN (acute kidney injury) N17.9 Detrusor dysfunction N31.8 Gross hematuria R31.0
[2021-04-22] MEDS: vancomycin 1,000 MG in sodium chloride 0.9% 250 ML 250 MG IV (17:07)
--- NOTE | 2021-04-22 19:01 | PC.NURSE ---
Report to Angelica WEISS.
[2021-04-22] MEDS: amitriptyline 25 mg Tablet 100 MG PO (20:16)
[2021-04-22] MEDS: pantoprazole DR 40 mg Tablet 20 MG PO (20:17)
[2021-04-22] MEDS: finasteride 5 mg Tablet PO (20:17)
[2021-04-22] MEDS: quetiapine 25 mg Tablet 75 MG PO (20:18)
[2021-04-23] VITALS (12 sets, daily range): BP systolic 95–138; BP diastolic 60–85; PULSE 56–113; RESP 15–18; TEMP 36.6–36.8; O2SAT 94–100
[2021-04-23] MEDS: HYDROmorphone 1 mg/mL INJ 1 mL 0.4 MG IVP ×5 (01:49→18:10)
[2021-04-23 03:09] LABS: Basophils # 0.1 10^3/uL (0.0-0.1); Basophils % 0.6 %; Eosinophils # 0.4 10^3/uL (0.0-0.8); Eosinophils % 3.4 %; Hematocrit 32.7 % (42.0-52.0); Hemoglobin 10.9 g/dL (11.7-16.6); Lymphocytes # 1.7 10^3/uL (0.8-4.8); Lymphocytes % 14.6 %; Mean Corpuscular HGB Conc 33.3 g/dL (30.0-36.0); Mean Corpuscular Hemoglobin 30.4 pg (28.0-34.0); Mean Corpuscular Volume 91.3 fl (80-94); Mean Platelet Volume 8.8 fL (7.4-10.4); Monocytes % 8.6 %; Neutrophils # 7.06 10^3/uL (1.8-7.7); Neutrophils % 60.6 %; Nucleated Red Blood Cells % 0 %; Platelet Count 378 10^3/cmm (130-400); Red Blood Count 3.58 10^6/uL (4.1-5.3); Red Cell Distribution Width 12.8 % (12.1-15.1); White Blood Count 11.7 10^3/uL (4.0-10.0)
[2021-04-23 03:39] LABS: Anion Gap 16.3 (5-19); Blood Urea Nitrogen 13 mg/dL (8-23); Calcium 8.2 mg/dL (8.5-10.5); Carbon Dioxide 23 mmol/L (22-29); Chloride 102 mmol/L (98-107); Glomerular Filtration Rate 47.3 mL/min (90-130); Glucose 128 mg/dL (65-115); Osmolality Calculated 288 mOsm/kg (285-295); Potassium 3.3 mmol/L (3.5-5.1); Sodium 138 mmol/L (136-145)
[2021-04-23 04:35] LABS: Slide Review Slide Review Perform
--- NOTE | 2021-04-23 04:38 | PC.NURSE ---
Pt requesting RN to manual irrigate stating I feel I need to pee and I can't . Flushed moyer with 100 mL of NS. 100 mL of NS returned. Two small clots noted. Pt requested this RN to stop stating it feels better . Denies c/o pain. Bladder not distended. Moyer draining.
[2021-04-23] MEDS: oxybutynin chloride XL 5 MG TABLET 10 MG PO (05:59)
[2021-04-23] MEDS: gabapentin 400 mg Capsule PO ×3 (05:59→20:22)
[2021-04-23] MEDS: tamsulosin 0.4 mg Capsule PO ×2 (05:59→08:47)
[2021-04-23] MEDS: divalproex DR 250 mg Tablet PO ×3 (05:59→20:20)
[2021-04-23] MEDS: BuSPIRONE 10 mg Tablet 15 MG PO ×3 (05:59→20:22)
[2021-04-23] MEDS: amlodipine 10 mg Tablet PO (08:47)
[2021-04-23] MEDS: hyDRALAzine 25 mg Tablet PO ×3 (08:47→20:21)
--- NOTE | 2021-04-23 09:34 | PM.PN ---
Subjective Subjective: Interval history: Urology follow-up: Was reviewing the patient's chart and CBI was continuing. I plan to sign off but since the CBI is running wanted to reevaluate. At a very low rate the urine is light pink. I encouraged the nursing staff to stop the CBI and manually irrigate to see if there is any clots that remain. He is not having severe bleeding. Stable on his hemoglobin and hematocrit. He has had a prior cystoscopy not long ago that showed only chronic obstructive changes without any significant pathology otherwise. I do believe the overseeing now is more related to mucosal oozing from over distention chronically in acute decompression. The patient is quite anxious about his urine try to reassure him but I do not think it is done very much good. Will continue to follow while he is in the hospital. Vitals/I&O/Wt Last Vital Signs Temp 97.9 F 04/23/21 08:00 Pulse 107 H 04/23/21 08:00 Resp 15 04/23/21 08:00 BP 95/65 04/23/21 08:00 Pulse Ox 100 04/23/21 08:00 04/22/21 04/23/21 04/23/21 22:59 06:59 14:59 Intake Total 1290 / 2280 Output Total 900 / 3400 1050 / 4450 50 / 50 Balance 390 / -1120 -1050 / -2170 -50 / -50 Physical Exam Const: COMMON NORMALS: no acute distress, alert and well nourished GENERAL APPEARANCE: well kempt and well developed ORIENTATION/CONSCIOUSNESS: not confused HENMT: COMMON NORMALS: normocephalic and atraumatic HEAD & SCALP: normocephalic and atraumatic Resp: COMMON NORMALS: normal respiratory effort EFFORT & INSPECTION: No labored and No Actively coughing : OTHER: Urine is clear pink. A few small clots washed through the catheter now and then without catheter malfunction. CBI very low rate. Neuro: SENSORIUM/ORIENTATION: Yes alert Psych: COMMON NORMALS: mental status grossly normal APPEARANCE: Yes grossly normal and Yes well kempt ATTITUDE: Yes calm and Yes engaged Skin: COMMON NORMALS: no rashes or lesions noted and no jaundice GENERAL SKIN EXAM: no rashes or lesions noted Urinary Catheter Management^: Bazan: Cath Placed During This Visit: yes Reason for Continuing Indwelling Catheter: Acute Urinary Retention or Obstruction Urinary Catheter Date of Insertion: 04/16/21 Urinary Catheter Time of Insertion: 08:00 Data : 04/23/21 02:28 04/23/21 02:28 A&P Assessment and plan (1) Gross hematuria: Still with small volume/mild gross hematuria. Differential diagnosis includes persistent oozing from mucosal inflammatory changes or some old clots in the bladder that are leaching into the system. Reviewed with the nursing staff manual irrigation to try and remove any remaining clots. Try very hard to wean back on the CBI. Currently the patient is managing his own CBI despite strong instructions otherwise from the nursing staff and myself. Status: Acute (2) Urinary retention: Chronic related to neurogenic bladder and poorly compliant with recommendations leading to recurrent retention, bladder distention, bilateral hydronephrosis and UTI/sepsis complications Status: Acute (3) Detrusor dysfunction: Chronic. Poorly managed bladder. Issues with compliance. Maintain Bazan catheter until outpatient urology follow-up has been accomplished. Status: Acute (4) Bilateral hydronephrosis: Secondary to bladder dysfunction chronic retention poor compliance with recommended program. Status: Acute (5) Acute UTI: Secondary to urinary retention and poor bladder management. Likely contributing to his gross hematuria. Status: Acute Attestations Medical Necessity Statement*: See attending Still requiring bladder management with manual and continuous irrigation at times Coding Level of Care Code Acute Medical Assistant Cardiology for Amber Lawson Diagnoses Gross hematuria R31.0 Urinary retention R33.9 Detrusor dysfunction N31.8 Bilateral hydronephrosis N13.30 Acute UTI N39.0
--- NOTE | 2021-04-23 10:18 | PC.NURSE ---
In room to manually irrigate patient's Bazan. Patient states, No not right now. I just want to wait. It is not going to fix the problem anyway. The CBI needs to be running more.
--- NOTE | 2021-04-23 11:00 | PC.NURSE ---
Called back to patient's room and patient states, Okay you can manually flush it now if you do it slowly. When you go fast it hurts! Explained to patient that I need to vigorously irrigate the bladder to get the clots free and to get them out. Patient states, It hurts to bad I need you to do it slow. I also need this CBI to go faster. Attempted to push 50 mls of sterile water into patient's Bazan and patient stated, That is too much water stop. Pulled back the 50mls and then another 150mls of clear urine. Patient states, I don't see any clots lets wait and do it again later.
--- NOTE | 2021-04-23 11:30 | PC.NURSE ---
Called back to patient's room and one of the CBI bags that was 3/4 was almost empty. Patient states, I think we need to irrigate it again now I am feeling some pressure again. Explained to patient that he can not be turning his CBI up without us knowing because if the bag goes dry it could cause a problem. Patient states, I do not touch that. CBI adjusted and explained to patient that I will irrigate him again in about 30 minutes.
[2021-04-23] MEDS: vancomycin 1,000 MG in sodium chloride 0.9% 250 ML 250 MG IV (12:00)
--- NOTE | 2021-04-23 12:21 | PM.PN ---
Subjective Subjective: Interval history: Seen this AM. CBI is still running. Pt was seen by Dr. Yuan as well and recommended manual irrigation. No acute events overnight. Creatinine increase to 1.5 today. Vitals/I&O/Wt Last Vital Signs Temp 97.9 F 04/23/21 08:00 Pulse 107 H 04/23/21 08:00 Resp 18 04/23/21 09:41 BP 95/65 04/23/21 10:43 Pulse Ox 95 04/23/21 09:41 04/22/21 04/23/21 04/23/21 22:59 06:59 14:59 Intake Total 1290 / 2280 Output Total 900 / 3400 1050 / 4450 50 / 50 Balance 390 / -1120 -1050 / -2170 -50 / -50 Physical Exam Narrative: EXAM NARRATIVE: Patient laying comfortably in his bed EOMI, NC/AT Lungs clear to ausculation, no gross wheezes or ronchi, saturating well on room air. Normal respiratory effort. Abdomen soft, non tender, Scar present on chest Persistent hematuria, on CBI at this time. No LE edema present. Bazan draining urine Urinary Catheter Management^: Bazan: Cath Placed During This Visit: yes Reason for Continuing Indwelling Catheter: Acute Urinary Retention or Obstruction Urinary Catheter Date of Insertion: 04/16/21 Urinary Catheter Time of Insertion: 08:00 Data : 04/23/21 02:28 04/23/21 02:28 A&P Assessment and plan (1) Bacteremia: Status: Acute (2) Chronic cystitis: Status: Acute (3) STEVEN (acute kidney injury): Status: Acute (4) Detrusor dysfunction: Status: Acute (5) Gross hematuria: Status: Acute Additional A&P Information #Urinary source related with bacteremia: Cleared afebrile, Vanco IV, appreciate ID recommendations, patient is awaiting senior care placement, persistent hematuria, CBI at the bedside. Dr. Yuan recommends manual irrigation for now. Appreciate recommendations. Urology will continue to follow. Plan to do linezolid at the time of discharge #STEVEN today. Cr 1.5. Baseline 1. Will add IV fluids. Recheck labs in AM. Continue renally dosed vancomycin. Attestations Medical Necessity Statement*: > 48 hour stay for continued management Coding Level of Care Code Acute Product Evangelist for Chg Fwd Diagnoses Bacteremia R78.81 Chronic cystitis N30.20 STEVEN (acute kidney injury) N17.9 Detrusor dysfunction N31.8 Gross hematuria R31.0
--- NOTE | 2021-04-23 13:02 | PC.SOCIAL ---
IMM Updated Updated pt on IMM. No questions voiced. Provided pt a copy. Initialed, dated, & timed copy in chart.
--- NOTE | 2021-04-23 19:04 | PC.NURSE ---
Report to Leidy WEISS at this time.
[2021-04-23] MEDS: amitriptyline 25 mg Tablet 100 MG PO (20:19)
[2021-04-23] MEDS: pantoprazole DR 40 mg Tablet 20 MG PO (20:20)
[2021-04-23] MEDS: HYDROcodone-acetaminophen 10-325 mg Tablet 1 TAB PO (20:21)
[2021-04-23] MEDS: finasteride 5 mg Tablet PO (20:22)
[2021-04-23] MEDS: quetiapine 25 mg Tablet 75 MG PO (20:22)
[2021-04-23] MEDS: sodium chloride 0.9% 1,000 ML 75 ML IV (20:31)
[2021-04-24] VITALS (8 sets, daily range): BP systolic 115–147; BP diastolic 66–90; PULSE 61–107; RESP 14–17; TEMP 36.4–36.8; O2SAT 93–98
[2021-04-24 04:23] LABS: Basophils # 0.1 10^3/uL (0.0-0.1); Basophils % 0.6 %; Eosinophils # 0.3 10^3/uL (0.0-0.8); Eosinophils % 2.7 %; Hematocrit 29.4 % (42.0-52.0); Hemoglobin 9.9 g/dL (11.7-16.6); Lymphocytes # 1.5 10^3/uL (0.8-4.8); Lymphocytes % 12.8 %; Mean Corpuscular HGB Conc 33.7 g/dL (30.0-36.0); Mean Corpuscular Hemoglobin 30.7 pg (28.0-34.0); Mean Corpuscular Volume 91.3 fl (80-94); Mean Platelet Volume 8.6 fL (7.4-10.4); Monocytes % 8.5 %; Neutrophils # 7.25 10^3/uL (1.8-7.7); Neutrophils % 63.9 %; Nucleated Red Blood Cells % 0 %; Platelet Count 380 10^3/cmm (130-400); Red Blood Count 3.22 10^6/uL (4.1-5.3); Red Cell Distribution Width 13.1 % (12.1-15.1); White Blood Count 11.4 10^3/uL (4.0-10.0)
[2021-04-24 04:40] LABS: Anion Gap 16.3 (5-19); Blood Urea Nitrogen 16 mg/dL (8-23); Calcium 7.8 mg/dL (8.5-10.5); Carbon Dioxide 22 mmol/L (22-29); Chloride 103 mmol/L (98-107); Glomerular Filtration Rate 43.9 mL/min (90-130); Glucose 104 mg/dL (65-115); Magnesium 1.7 mg/dL (1.7-2.3); Osmolality Calculated 287 mOsm/kg (285-295); Potassium 3.3 mmol/L (3.5-5.1); Sodium 138 mmol/L (136-145)
[2021-04-24 04:44] LABS: Slide Review Slide Review Perform
[2021-04-24 04:45] LABS: Vancomycin Trough 17.7 ug/mL (10-15)
[2021-04-24] MEDS: vancomycin 1,000 MG in sodium chloride 0.9% 250 ML 250 MG IV ×2 (05:55→23:00)
[2021-04-24] MEDS: oxybutynin chloride XL 5 MG TABLET 10 MG PO (05:57)
[2021-04-24] MEDS: divalproex DR 250 mg Tablet PO ×3 (05:58→20:23)
[2021-04-24] MEDS: BuSPIRONE 10 mg Tablet 15 MG PO ×3 (05:58→20:24)
[2021-04-24] MEDS: tamsulosin 0.4 mg Capsule PO ×2 (05:59→08:21)
[2021-04-24] MEDS: gabapentin 400 mg Capsule PO ×3 (05:59→20:24)
--- NOTE | 2021-04-24 06:32 | PC.NURSE ---
Shift Summary Patient moyer catheter irrigated once at approx. 2145 04/23. Patient tolerated well, urine returned clear then slightly bloody but without clots. Patient hooked back to catheter drainage bag and drainage cleared on it's own without further irrigation. Patient did pass two extremely small clots into catheter bag later in shift but urine remained light starla to yellow in color. No complaints of pain throughout the night, no signs of distention. No CBI throughout the shift.
[2021-04-24] MEDS: hyDRALAzine 25 mg Tablet PO ×3 (08:19→20:23)
[2021-04-24] MEDS: metoprolol tartrate 50 mg Tablet 100 MG PO ×2 (08:19→18:41)
[2021-04-24] MEDS: HYDROcodone-acetaminophen 10-325 mg Tablet 1 TAB PO ×3 (08:20→20:24)
[2021-04-24] MEDS: amlodipine 10 mg Tablet PO (08:21)
[2021-04-24] MEDS: sodium chloride 0.9% 1,000 ML 75 ML IV ×2 (09:30→23:01)
--- NOTE | 2021-04-24 09:36 | PC.CHAP ---
Pastoral Care Encounter/Spiritual Assessment Type of Contact [] Declined rustic fence builder visit [] Patient/Family/Request visit [] Outpatient visit [] Follow-up visit [] Physician referral [] Code/Alert [x] Routine visit [] Staff referral [] Actively dying [] Patient sleeping [] Family support [] [] Out of room [] Palliative care [] [] Receiving care in room [] Pre-surgical visit [] Trauma [] Long length of stay [] ICU visit [] Other: Relational/Emotional Strength [x] Patient feels connected with others/family/visitors/staff [] Distress [] Loneliness/isolation [] Abandonment Spirituality of Patient [x] Person of Camilla [] Attends Latter-Day of their Camilla [] Believes in Prayer [] Reads Bible or Jew materials [x] There are Spiritual issues to be addressed Parts Sales Representative Interventions [x] Prayer [x] Active listening [x] Non-anxious presence [] Spiritual/emotional support [] Crisis/trauma care [x] Spiritual counseling [] Bereavement support [] Provided bereavement packet [] Provided Bible/devotional materials [] Provided toy/stuffed animal, coloring book to patient or family member [] Provided Communion [] Anointing/[place] [] Salvation []x Completed spiritual assessment [] Other: Impact on Illness or Injury [] Angry [] Fearful [] Anxious [] Often cries [] Exhaustion [] Unable to work [] Unable to attend sabianist [] Unable to walk/stand [] Unable to read [] Unable to drive [] Unable to eat/drink [] Unable to sleep [] Unable to be with family [] Patient intubated [] Other: Summary Time spent with patient 15 min
--- NOTE | 2021-04-24 15:11 | P.PN_ITS ---
Subjective Subjective: Interval history: Drop in hemoglobin noted Urine color has cleared after irrigation that was done by nursing staff yesterday Plan to stop CBI once urine color improves we will give him 1 unit PRBC today Vitals/I&O/Wt Last Vital Signs Temp 98.0 F 04/24/21 12:00 Pulse 82 04/24/21 12:00 Resp 14 04/24/21 12:00 BP 147/90 04/24/21 12:00 Pulse Ox 98 04/24/21 12:00 04/24/21 04/24/21 04/24/21 06:59 14:59 22:59 Intake Total 850 / 1780 1393.75 / 1393.75 Output Total 800 / 2850 550 / 550 Balance 50 / -1070 843.75 / 843.75 Physical Exam Narrative: EXAM NARRATIVE: Patient laying comfortably EOMI, PERRLA No audible stridor or wheezing Clear urine in the bag CBI at the bedside Abdomen soft S1, S2 Urinary Catheter Management^: Bazan: Cath Placed During This Visit: yes Reason for Continuing Indwelling Catheter: Acute Urinary Retention or Obstruction Urinary Catheter Date of Insertion: 04/16/21 Urinary Catheter Time of Insertion: 08:00 Data : 04/24/21 04:07 04/24/21 04:07 Micro: Microbiology 04/19/21 10:05 Blood Culture - Final Blood NO GROWTH AFTER 5 DAYS 04/19/21 10:00 Blood Culture - Final Blood NO GROWTH AFTER 5 DAYS A&P Assessment and plan (1) Bacteremia: Status: Acute (2) Chronic cystitis: Status: Acute (3) STEVEN (acute kidney injury): Status: Acute (4) Bilateral hydronephrosis: Status: Acute (5) Detrusor dysfunction: Status: Acute (6) Gross hematuria: Status: Acute Additional A&P Information Bacteremia: Second blood culture negative, plan to use linezolid at the time of discharge Gross hematuria: Improved after CBI Plan to [facility] [place] Not a candidate of DVT prophylaxis He will go on p.o. antibiotics Awaiting placement Acute blood loss anemia secondary to hematuria we will give 1 unit PRBC Attestations Medical Necessity Statement*: Awaiting placement Time Spent in Patient Care: less than 15 minutes Coding Level of Care Code Acute Inspector Tester Sorter for [facility] Fwd Diagnoses Bacteremia R78.81 Chronic cystitis N30.20 STEVEN (acute kidney injury) N17.9 Bilateral hydronephrosis N13.30 Detrusor dysfunction N31.8 Gross hematuria R31.0
--- NOTE | 2021-04-24 18:45 | PC.NURSE ---
Notified at this time that patient's blood is ready. Notified Babita ROBLERO
--- NOTE | 2021-04-24 18:55 | PC.NURSE ---
Report to Babita ROBLERO at this time. Jeannine WEISS is looking for a place to put a 20 gauge IV at this time.
[2021-04-24] MEDS: amitriptyline 25 mg Tablet 100 MG PO (20:23)
[2021-04-24] MEDS: quetiapine 25 mg Tablet 75 MG PO (20:23)
[2021-04-24] MEDS: finasteride 5 mg Tablet PO (20:24)
[2021-04-24] MEDS: pantoprazole DR 40 mg Tablet 20 MG PO (20:24)
[2021-04-25 02:51] LABS: Basophils # 0.1 10^3/uL (0.0-0.1); Basophils % 0.7 %; Eosinophils # 0.4 10^3/uL (0.0-0.8); Eosinophils % 3.4 %; Hematocrit 29.3 % (42.0-52.0); Hemoglobin 9.5 g/dL (11.7-16.6); Lymphocytes # 1.8 10^3/uL (0.8-4.8); Lymphocytes % 16.2 %; Mean Corpuscular HGB Conc 32.4 g/dL (30.0-36.0); Mean Corpuscular Hemoglobin 30.4 pg (28.0-34.0); Mean Corpuscular Volume 93.9 fl (80-94); Mean Platelet Volume 8.5 fL (7.4-10.4); Monocytes # 0.9 10^3/uL (0.2-0.9); Monocytes % 8.3 %; Neutrophils # 6.61 10^3/uL (1.8-7.7); Neutrophils % 60.8 %; Nucleated Red Blood Cells % 0 %; Platelet Count 404 10^3/cmm (130-400); Red Blood Count 3.12 10^6/uL (4.1-5.3); Red Cell Distribution Width 13.3 % (12.1-15.1); White Blood Count 10.9 10^3/uL (4.0-10.0)
[2021-04-25 03:35] VITALS: BP 124/76; PULSE 85; RESP 17; TEMP 36.5; O2SAT 95
[2021-04-25 04:33] LABS: Slide Review Slide Review Perform
[2021-04-25] MEDS: tamsulosin 0.4 mg Capsule PO (06:33)
[2021-04-25] MEDS: divalproex DR 250 mg Tablet PO ×2 (06:33→13:28)
[2021-04-25] MEDS: gabapentin 400 mg Capsule PO ×2 (06:33→13:27)
[2021-04-25] MEDS: oxybutynin chloride XL 5 MG TABLET 10 MG PO (06:33)
[2021-04-25] MEDS: BuSPIRONE 10 mg Tablet 15 MG PO ×2 (06:34→13:28)
--- NOTE | 2021-04-25 06:49 | PC.NURSE ---
Patient had an order to receive one unit packed red blood cells from 04/24/21. This nurse went to the lab twice. The first time, this nurse was told that the blood that was set out for patient had . The second time this nurse went to lab, they stated that the patient did not meet the criteria to receive blood. Patient had a repeat CBC drawn and his hemoglobin came back at 9.5, down from 9.9. Lab was notified and stated patient was still too high to meet the criteria to receive blood. Dr. Garcia was notified and no new orders have been received.
[2021-04-25 08:00] VITALS: BP 118/77; PULSE 92; RESP 18; TEMP 36.6; O2SAT 99
[2021-04-25] MEDS: HYDROcodone-acetaminophen 10-325 mg Tablet 1 TAB PO ×2 (08:22→13:28)
[2021-04-25] MEDS: metoprolol tartrate 50 mg Tablet 100 MG PO (08:22)
[2021-04-25 08:23] VITALS: BP 118/77
[2021-04-25] MEDS: losartan 50 mg Tablet 100 MG PO (08:23)
[2021-04-25] MEDS: hyDRALAzine 25 mg Tablet PO ×2 (08:23→13:28)
[2021-04-25] MEDS: amlodipine 10 mg Tablet PO (08:23)
--- NOTE | 2021-04-25 09:48 | PC.NURSE ---
Notified Dr. Tran of duplicate Tamsulosin order for patient. Dr. Tran stated to cancel one. Order was taken, read back and cancelled.
[2021-04-25 11:51] VITALS: BP 119/68; PULSE 76; RESP 17; TEMP 36.4; O2SAT 98
--- NOTE | 2021-04-25 12:51 | P.DS_ITS ---
Discharge Providers Date of Admission: 04/16/21 11:41 Date of Discharge: April 25, 2021 Attending Provider at Admission: Adriana Freeman MD Attending Provider at Discharge: Maritza Tran MD Primary Care Provider: Rehan Rodriguez MD Diagnoses at Discharge Discharge Diagnosis (1) Bacteremia: Status: Acute (2) Chronic cystitis: Status: Acute (3) STEVEN (acute kidney injury): Status: Acute (4) Bilateral hydronephrosis: Status: Acute (5) Detrusor dysfunction: Status: Acute (6) Gross hematuria: Status: Acute Reason for Visit Reason for Visit: ABD PAIN; AMS Hospital Course Hospital Course Hospital course Patient was admitted for urinary tension, developed hematuria after passage of Bazan catheter, required CBI, Dr. Yuan was consulted. He has a past medical history of hypertension, hyperlipidemia, migraine, esophageal cancer not currently active per history admitted at [facility] [place] December 2020 for gross hematuria and urinary retention with STEVEN and hydronephrosis. Has a previous history of being evaluated at [place], discovered to have elevated PVR, uncertain if compliant with his alpha blockers, patient was recommended intermittent self cath due to additional concerns for neurogenic bladder, however patient refused. At the time he was discharged with a Bazan in place with recommendations to continue Flomax. Subsequently he followed up in the office, was taught [facility], underwent a cystoscopy on January 13 which was with normal urethra, mildly enlarged prostate and heavily trabeculated bladder. Recently admitted on April 16, 2021 after presenting with altered mental status, UTI sepsis. CT on this current admission confirmed recurrent bladder distention and bilateral hydroureteronephrosis, Bazan was again placed and drained 1000 cc. He was on continuous bladder irrigation with eventual clearing of his hematuria. It does appear he has not been compliant with [facility] as recommended on multiple previous occasions. During course of his sepsis evaluation, he was initially noted to have leukocytosis at 16.6, trending down to 11.8. His T-max during this hospitalization has been 99.4 Fahrenheit. Blood culture from April 16, 2021 revealed Enterococcus faecalis, as did the urine culture. Isolate is amp susceptible. Blood culture from 04/19 remains negative thus far. He has been on treatment with IV vancomycin Since 04/18. Previously received ceftriaxone per chart review. Infectious disease/Dr. Neff consulted to recommend duration and choice of antibiotics. She recommended linezolid 600 mg twice daily for Enterococcus faecalis which is vancomycin sensitive. Patient required CBI for prolonged period of time during his hospitalization it was discontinued on 04/23. He required manual irrigation by the nursing staff repeatedly for evacuation of clots. Attempts were made to get him accepted at [facility] in [place] however he was declined by 2 facilities hence decision was made to discharge him on linezolid 600 mg twice daily for 7 more days to finish 14 day treatment and discharge to [facility] assisted living. Patient is not happy as he wanted to go to [place] where his family and urologist are situated. Please note, his baseline hemoglobin ranges between 9 to 10 g/dL, initially he was dehydrated that showed hemoglobin above 11, I do believe he is at his baseline despite persistent gross hematuria. Hold aspirin for at least next 3 weeks. To Avoid interaction with BuSpar Instructions were given to hold buspirone for next 7 days for the time he is taking linezolid. He can start taking similar dose after a week. Physical Exam Narrative: EXAM NARRATIVE: Patient laying comfortably EOMI, PERRLA No audible stridor or wheezing Clear urine in the bag CBI at the bedside Abdomen soft S1, S2 Urinary Catheter Management^: Bazan: Cath Placed During This Visit: yes Reason for Continuing Indwelling Catheter: Acute Urinary Retention or Obstruction Urinary Catheter Date of Insertion: 04/16/21 Urinary Catheter Time of Insertion: 08:00 Discharge Data Data Completed and Pending: Completed Studies During Hospitalization Category Date Time Status CT abdomen pelvis wo con 68483 Urge nt Cat Scan 04/16/21 08:[address] head wo con* 7 0450 Urgent Cat Scan 04/16/21 08:37 Completed XR chest 1V elpidio ble 16041 Stat Exams 04/16/21 08:06 Completed Pending at discharge Category Date Time Status Leukocyte Reduced RBC Routine Lab 04/24/21 16:14 Results Type and Screen R outine Lab 04/24/21 16:14 Results Labs from last 24 hours 04/25/21 04/24/21 02:03 16:14 WBC 10.9 H RBC 3.12 L Hgb 9.5 L Hct 29.3 L MCV 93.9 MCH 30.4 MCHC 32.4 RDW 13.3 Plt Count 404 H MPV 8.5 Neut % (Auto) 60.8 Lymph % (Auto) 16.2 [place]ule[place] % (Auto) 8.3 Eos % (Auto) 3.4 Baso % (Auto) 0.7 Neut # (Auto) 6.61 Lymph # (Auto) 1.8 [place] # (Auto) 0.9 Eos # (Auto) 0.4 Baso # (Auto) 0.1 Nucleated RBC % (a uto) 0 Nucleated RBCs # 0.0 Blood Type A Positive Rho(D) Type Positive Antibody Screen Negative Crossmatch See Detail Vitals: Last Vital Signs Temp 97.6 F 04/25/21 11:51 Pulse 76 04/25/21 11:51 Resp 17 04/25/21 11:51 BP 119/68 04/25/21 11:51 Pulse Ox 98 04/25/21 11:51 Discharge Plan Discharge Patient Disposition: Home Condition: Stable Prescriptions: New linezolid 600 mg Tablet 600 mg PO Q12H 7 Days Qty: 14 RF: 0 Continued ferrous sulfate 325 mg (65 mg iron) tablet 325 mg PO DAILY@07 RF: 0 finasteride 5 mg tablet 5 mg PO DAILY@07 RF: 0 Linzess 145 mcg capsule 145 mcg PO DAILY@07 RF: 0 metoprolol tartrate 50 mg tablet 100 mg PO BID RF: 0 oxybutynin chloride 10 mg tablet extended release 24hr 10 mg PO DAILY@07 RF: 0 tamsulosin 0.4 mg capsule 0.4 mg PO DAILY@07 RF: 0 bethanechol chloride 25 mg tablet 25 mg PO BID@799,1999 RF: 0 docusate sodium 100 mg capsule 100 mg PO BID@ RF: 0 hydrocodone-acetaminophen 10-325 mg tablet 1 tab PO TID RF: 0 divalproex [Depakote] 250 mg tablet,delayed release (DR/EC) 250 mg PO TID@07,1399,1999 RF: 0 gabapentin 400 mg capsule 400 mg PO TID@,, RF: 0 buspirone 15 mg tablet 15 mg PO TID@699,1399,1999 RF: 0 amitriptyline 100 mg tablet 100 mg PO DAILY@1999 RF: 0 omeprazole 40 mg capsule,delayed release(DR/EC) 40 mg PO DAILY@1999 RF: 0 tizanidine 2 mg capsule 2 mg PO DAILY@1900 RF: 0 clonidine HCl 0.1 mg tablet 0.2 mg PO TID PRN (Reason: Blood Pressure) RF: 0 calcium carbonate-vitamin D3 [Calcium 600 + D(3)] 600 mg(1,500mg) -400 unit Tablet 1 tab PO BID@0700,1900 RF: 0 cyanocobalamin (vitamin B-12) 1,000 mcg/mL solution 1,000 mcg IM Q30D RF: 0 aluminum hydrox-magnesium carb 254-237.5 mg/5 mL Suspension 10 ml PO QID PRN (Reason: Stomach Upset) Qty: 0 RF: 0 quetiapine 50 mg tablet 25 mg PO DAILY@0700 RF: 0 diclofenac sodium 1 % Gel 2 g TOPICAL QID PRN (Reason: Pain) RF: 0 Mylanta 20 ml PO Q6H PRN (Reason: Nausea) RF: 0 lorazepam 1 mg Tablet 1 mg PO TID@07,14,20 RF: 0 Epsom Salt 100 % Crystals 1 applic TOPICAL BID RF: 0 carboxymethylcellulose sodium 1 % Drops, Liquid Gel 1 - 2 drp OPHTHALMIC (EYE) DAILY PRN (Reason: Dry Eyes) RF: 0 copper gluconate 2 mg Capsule 2 mg PO DAILY RF: 0 olopatadine 0.2 % Drops 1 drp OPHTHALMIC (EYE) DAILY PRN (Reason: Allergy Symptoms) RF: 0 amlodipine 10 mg tablet 10 mg PO DAILY 10 Days Qty: 10 RF: 0 quetiapine 25 mg Tablet 75 mg PO BEDTIME RF: 0 ascorbic acid (vitamin C) [Vitamin C] 500 mg Tablet 500 mg PO DAILY RF: 0 folic acid 1 mg Tablet 1 mg PO DAILY RF: 0 losartan 100 mg Tablet 100 mg PO DAILY RF: 0 Held aspirin [Adult Low Dose Aspirin] 81 mg tablet,delayed release (DR/EC) 81 mg PO DAILY@0700 RF: 0 Hold Instructions: Resume on 05/16/21. Discharge Orders: Discharge Order (Routine); Ordered 04/25/21 Ordered By: Maritza Tran Referrals: Rehan Rodriguez MD [Primary Care Provider] - (The doctors office will contact you directly to set up your follow up appointment.) Anthony Yuan MD [Physician] - 05/02/21 3:30 pm Discharge Diet: Advance as tolerated Discharge Activity: Resume usual activity Patient Instructions: Linezolid (By mouth), Bacteremia (GEN), Opioid Safety Activity Restrictions/Additional Instructions: Please hold Buspar while taking Linezolid. Per Dr Tran restart Buspar at current dose once Linezolid is completed. Discharge Attestations Time Spent in Discharge Care*: less than 30 min Status at Discharge: Cognitive status at discharge: cognitively intact , Behavioral status at discharge: cooperative , Quality Metrics Clinical Quality Measures During this hospital stay, did patient experience: None Coding Level of Care Code Acute Chg DC note Diagnoses Bacteremia R78.81 Chronic cystitis N30.20 STEVEN (acute kidney injury) N17.9 Bilateral hydronephrosis N13.30 Detrusor dysfunction N31.8 Gross hematuria R31.0
[2021-04-25] MEDS: linezolid 600 mg Tablet PO (13:27)
--- NOTE | 2021-04-25 14:27 | PC.NURSE ---
[facility]
--- NOTE | 2021-04-25 15:10 | PC.SOCIAL ---
Called pharmacy back after discussing with Dr Tran the severe level 2 interaction with Linezolid and Buspar. Order given to hold Buspar while on Linezolid and to restart at current dose day after last dose of Linezolid is completed. Updated Gali at pharmacy. Notified Luther charge nurse and she will call [facility]plight to update of the change listed as well.
[2021-04-25 15:25] LABS: Adenovirus Not Detected (NOT DETECT); Chlamydia Pneumoniae Not Detected (NOT DETECT); Coronavirus 229E,HKU1,NL63,OC4 Not Detected (NOT DETECT); Human Metapneumovirus Not Detected (NOT DETECT); Human Rhinovirus/Enterovirus Not Detected (NOT DETECT); Influenza A Not Detected (NOT DETECT); Influenza A H1 Not Detected (NOT DETECT); Influenza A H1-2009 Not Detected (NOT DETECT); Influenza A H3 Not Detected (NOT DETECT); Influenza B Not Detected (NOT DETECT); Mycoplasma Pneumoniae Not Detected (NOT DETECT); Parainfluenza Virus Type 1 Not Detected (NOT DETECT); Parainfluenza Virus Type 2 Not Detected (NOT DETECT); Parainfluenza Virus Type 3 Not Detected (NOT DETECT); Parainfluenza Virus Type 4 Not Detected (NOT DETECT); Respiratory Syncytial Virus A Not Detected (NOT DETECT); Respiratory Syncytial Virus B Not Detected (NOT DETECT); SARS-COV-2 Not Detected (NOT DETECT)
[2021-04-25 15:44] VITALS: BP 128/79; PULSE 82; RESP 17; TEMP 36.5; O2SAT 98
--- NOTE | 2021-04-25 16:10 | PC.SOCIAL ---
IMM UPDATED IMM dated and initialed and copy given to patient
[2021-04-25 16:33] VITALS: BP 128/79; PULSE 82; RESP 17; TEMP 36.5; O2SAT 98
== END 2021-04-25 16:36 | disposition skilled nursing facility (03) | DRG 689 ==
LOC: ER 11:40 → MEDSURG 17:15
PROVIDERS: Hospitalist; Nurse Practitioner Family; Admitting Provider Internal Medicine; Emergency Provider Emergency Medicine; PCP Internal Medicine; Visit Provider Internal Medicine
DX: N30.21 Other chronic cystitis with hematuria (principal); G93.41 Metabolic encephalopathy; N17.9 Acute kidney failure, unspecified; D62 Acute posthemorrhagic anemia; N13.30 Unspecified hydronephrosis; B95.2 Enterococcus as the cause of diseases classified elsewhere; I10 Essential (primary) hypertension; K59.00 Constipation, unspecified; F32.A Depression, unspecified; Z87.440 Personal history of urinary (tract) infections; R31.0 Gross hematuria; Z85.01 Personal history of malignant neoplasm of esophagus; E87.6 Hypokalemia; E83.42 Hypomagnesemia; Z79.891 Long term (current) use of opiate analgesic; E86.0 Dehydration; N31.9 Neuromuscular dysfunction of bladder, unspecified; N32.0 Bladder-neck obstruction
CPT/HCPCS: 36415; 36600; 51702; 70450; 71045; 74176; 80048; 80053; 80202; 81001; 82803; 83605; 83735; 84100; 84145; 84484; 85007; 85025; 85610; 86850; 86900; 86920; 87040; 87077; 87086; 87186; 87205; 87426; 87635; 93005; 96361; 96365; 99285; J0360; J0696; J1170; J2543; J3370; J3475; J3480; J7030; J7050

== ENCOUNTER 2021-04-25 22:05 | Emergency (ER) | payer MEDICARE, MEDICAID, SELFPAY ==
[2021-04-25 22:06] VITALS: BP 91/57; PULSE 75; RESP 18; TEMP 36.9; O2SAT 97; BMI 23.5
[2021-04-25 22:14] VITALS: PULSE 67
--- NOTE | 2021-04-25 22:14 | XRR_ITS ---
PROCEDURE INFORMATION: Exam: XR Chest Exam date and time: 04/25/2021 10:14 PM Age: 65 years old Clinical indication: Other: Weakness; Prior surgery TECHNIQUE: Imaging protocol: XR of the chest. Views: 1 view. COMPARISON: CR (CHEST, ) 04/16/2021 8:36 AM FINDINGS: Lungs: Unchanged hyperinflation with probable mild basilar fibrosis or scarring. No consolidation. Unchanged nonspecific elevation left hemidiaphragm. Pulmonary vascularity is within normal limits. Pleural spaces: Unremarkable. No pleural effusion. No pneumothorax. Heart/Mediastinum: Unchanged cardiomegaly. Bones/joints: No acute abnormality. XR/XR chest 1V portable [id number] IMPRESSION: No acute findings.
--- NOTE | 2021-04-25 22:15 | ECG_ITS ---
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 Measurements Intervals [place] Rate: 70 P: 37 HI: 182 QRS: 36 QRSD: 101 T: 36 QT: 416 QTc: 449 Interpretive Statements SINUS RHYTHM Compared to ECG 04/16/2021 14:07:07 Left ventricular hypertrophy no longer present ST (T wave) deviation no longer present Electronically Signed On 04-27-2021 8:53:34 SPEEDER TENDER by Arturo sEpaña M.D. [email or web address] [email or web address] general [id number]
--- NOTE | 2021-04-25 22:17 | W.ED.DIZZY ---
HPI - Dizziness General: Chief Complaint: Dizziness Stated Complaint: HYPOTENSION Time Seen by Provider: 04/25/21 22:09 Source: patient and EMS Mode of arrival: EMS Limitations: no limitations History of Present Illness: HPI Narrative: 65-year-old male who was admitted to the hospital for most 2 weeks and discharged this afternoon patient states that since he has been home he had some generalized weakness hypotension blood pressure 93/56 no vomiting diarrhea he does have a Bazan in place he had a UTI states he is got some slight lower abdominal pain. He denies any worst improving factors denies any headache denies any chest pain. Associated symptoms: Denies chest pain or chills Review of Systems Const: Denies: fever(s), chills, body aches or change in appetite Eyes: Denies: blurry vision or eye discomfort ENMT: Denies: throat pain or dental pain Card: Denies: chest pain Resp: Denies: dyspnea GI: Reports: abdominal pain : Denies: dysuria Musc: Denies: neck pain or back pain Skin/Breast: Denies: rash Neuro: Reports: weakness in extremities Psych: Denies: depression Ebenezer/Lymph: Denies: easy bruising All/Imm: Denies: urticaria PFSH ED PFSH: Medical History Acute blood loss anemia STEVEN (acute kidney injury) Bilateral hydronephrosis Constipation Depression determined by examination Detrusor dysfunction Gross hematuria Prostatitis Prostatitis Sepsis Urinary retention Urinary retention UTI (urinary tract infection) UTI (urinary tract infection) Family History Mother Diabetes Father Diabetes Sister Diabetes Social History Alcohol intake: never Marital status: Single Current occupational status: unemployed and retired Physical Exam Const: COMMON NORMALS: no acute distress, patient oriented x3 and healthy appearing HENMT: COMMON NORMALS: normocephalic and atraumatic HEAD & SCALP: normocephalic and atraumatic Eye: COMMON NORMALS: Equal, round and reactive pupils present and EOMs intact bilaterally PUPIL: Yes Equal, round and reactive pupils present Neck/C-Spine: COMMON NORMALS: full ROM and supple Chest: COMMONS NORMALS: normal inspection of the chest and normal palpation of entire chest wall Resp: COMMON NORMALS: normal respiratory effort, No retractions, No use of accessory muscles and clear to auscultation bilaterally AUSCULTATION: clear to auscultation bilaterally Cardio: COMMON NORMALS: regular rate, regular rhythm and No murmurs present (Cardio) RATE: regular rate RHYTHM: regular rhythm GI: COMMON NORMALS: Normal to inspection, nondistended, normoactive bowel sounds present, Soft to palpation, non-tender and no masses PALPATION: Yes Soft to palpation Extremity: COMMON NORMALS: normal to inspection and full ROM Neuro: COMMON NORMALS: patient oriented x3, moves all extremities and no focal motor deficits Psych: COMMON NORMALS: mental status grossly normal, Normal thought process present and cooperative THOUGHT PROCESS: Normal thought process present Skin: COMMON NORMALS: no rashes or lesions noted and no wounds GENERAL SKIN EXAM: no rashes or lesions noted Course Vital Signs: Vital signs: Vital Signs Temperature 98.5 F 04/25/21 22:06 Pulse Rate 68 04/25/21 23:30 Respiratory Rate 12 04/25/21 23:30 Blood Pressure 103/65 04/25/21 23:30 Pulse Oximetry 97 04/25/21 23:30 MDM - Dizziness MDM Narrative: Medical decision making narrative: Patient presents here with some slight weakness and hypotension that is since resolved. His blood pressure here now is 112/67 his hypotension was mild in nature I believe he is on too much metoprolol and will decrease his Toprol from 100 mg twice daily to 50 twice daily. Patient is no signs of septic shock he is requesting discharge I feel he is stable for discharge is return if worsening he understands agrees to plan. Lab Data: Labs: Lab Results 04/25/21 04/25/21 04/25/21 22:42 22:42 22:42 WBC 13.5 10^3/uL H 10 ^3/uL (4.0-10.0) RBC 2.77 10^6/uL L 10 ^6/uL (4.1-5.3) Hgb 8.5 g/dL L g/dL (11.7-16.6) Hct 26.9 % L % (42.0-52.0) MCV 97.1 fl H fl (80-94) MCH 30.7 pg pg (28.0-34.0) MCHC 31.6 g/dL g/dL (30.0-36.0) RDW 13.2 % % (12.1-15.1) Plt Count 427 10^3/cmm H 10 ^3/cmm (130-400) MPV 8.3 fL fL (7.4-10.4) Neut % (Auto) Automatic Oven Operator Lymph % (Auto) Automatic Oven Operator [place] % (Auto) Automatic Oven Operator Eos % (Auto) Automatic Oven Operator Baso % (Auto) Automatic Oven Operator Neut # (Auto) Automatic Oven Operator Lymph # (Auto) Automatic Oven Operator [place] # (Auto) Automatic Oven Operator Eos # (Auto) Automatic Oven Operator Baso # (Auto) Automatic Oven Operator Nucleated RBC % (a uto) Automatic Oven Operator Total Counted 100 (0-100) Atypical Lymphs % 0.0 % % (0-5) Absolute Neutrophi ls 11.6 10^3/cmm H 1 0^3/cmm (1.4-6.5) Segmented Neutroph ils 82 % % Abs Segm Neuts (Ma n) 11.1 10/cmm H 10/ cmm (1.6-7.1) Band Neutrophils 4.0 % % Abs Band Neuts (Ma n) 0.5 10^3/cmm 10^3 /cmm (0.0-1.2) Absolute Lymphocyt es 1.1 10^3/cmm L 10 ^3/cmm (1.2-3.4) Lymphocytes (Manua l) 8 % % Monocytes (Manual) 1.0 % % Absolute Monocytes 0.1 10^3/cmm 10^3 /cmm (0.1-0.6) Eosinophils (Manua l) 0 % % Absolute Eosinophi ls 0.0 10^3/cmm 10^3 /cmm (0.0-0.7) Basophils (Manual) 0.0 % % Absolute Basophils 0.0 10^3/cmm 10^3 /cmm (0.0-0.2) Metamyelocytes 2.0 % % Myelocytes 3.0 % % Nucleated RBCs # Automatic Oven Operator Platelet Estimate Increased (Normal) Sodium 133 mmol/L L mmol /L (136-145) Potassium 3.5 mmol/L mmol/L (3.5-5.1) Chloride 100 mmol/L mmol/L (98-107) Carbon Dioxide 20 mmol/L L mmol/ L (22-29) Anion Gap 16.5 (5-19) BUN 15 mg/dL mg/dL (8-23) Creatinine 1.9 mg/dL H mg/dL (0.7-1.2) GFR Calculation 36.0 mL/min L mL/ min (90-130) Glucose 65 mg/dL mg/dL (65-115) Calculated Osmolal ity 275 mOsm/kg L mOs m/kg (285-295) Lactate 2.3 mmol/L H mmol /L (0.5-2.2) Calcium 7.9 mg/dL L mg/dL (8.5-10.5) Total Bilirubin 0.2 mg/dL mg/dL (0.15-1.2) AST 7 U/L U/L (0-40) ALT 10 U/L U/L (0-41) Alkaline Phosphata se 46 IU/L IU/L (40-130) Total Protein 5.5 g/dL L g/dL (6.6-8.7) Albumin 2.7 g/dL L g/dL (3.5-5.2) Globulin 2.8 g/dL g/dL (1.3-4.6) Urine Color Urine Appearance Urine pH Ur Specific Gravit y Urine Protein Urine Glucose (UA) Urine Ketones Urine Blood Urine Nitrate Urine Bilirubin Urine Urobilinogen Ur Leukocyte Jyoti ase Urine RBC Urine WBC Ur Squamous Epith Cells Amorphous Sediment Urine Bacteria Urine Mucus 04/25/21 23:00 WBC RBC Hgb Hct MCV MCH MCHC RDW Plt Count MPV Neut % (Auto) Lymph % (Auto) [place] % (Auto) Eos % (Auto) Baso % (Auto) Neut # (Auto) Lymph # (Auto) [place] # (Auto) Eos # (Auto) Baso # (Auto) Nucleated RBC % (a uto) Total Counted Atypical Lymphs % Absolute Neutrophi ls Segmented Neutroph ils Abs Segm Neuts (Ma n) Band Neutrophils Abs Band Neuts (Ma n) Absolute Lymphocyt es Lymphocytes (Manua l) Monocytes (Manual) Absolute Monocytes Eosinophils (Manua l) Absolute Eosinophi ls Basophils (Manual) Absolute Basophils Metamyelocytes Myelocytes Nucleated RBCs # Platelet Estimate Sodium Potassium Chloride Carbon Dioxide Anion Gap BUN Creatinine GFR Calculation Glucose Calculated Osmolal ity Lactate Calcium Total Bilirubin AST ALT Alkaline Phosphata se Total Protein Albumin Globulin Urine Color Yellow (Yellow) Urine Appearance Hazy A (CLEAR) Urine pH 5 (5-7) Ur Specific Gravit y 1.010 (1.005-1.030) Urine Protein 2+ H (Negative) Urine Glucose (UA) Norm (Normal) Urine Ketones Negative (Negative) Urine Blood 3+ H (Negative) Urine Nitrate Negative (Negative) Urine Bilirubin Neg (Negative) Urine Urobilinogen Neg mg/dL mg/dL (Negative) Ur Leukocyte Jyoti ase 2+ H (Negative) Urine RBC Too numerous to c nt /hpf H /hpf (0-2) Urine WBC >100 /hpf H /hpf (0-5) Ur Squamous Epith Cells 0-4 /hpf H /hpf (0-5) Amorphous Sediment Not Reportable Urine Bacteria 2+ /hpf H /hpf (NONE) Urine Mucus None /hpf /hpf Discharge Plan Discharge Patient Disposition: Home Clinical Impression: Hypotension Qualifiers: Hypotension type: unspecified hypotension type Qualified Code(s): I95.9 - Hypotension, unspecified Condition: Stable Prescriptions: Changed metoprolol tartrate 50 mg tablet 50 mg PO BID Qty: 60 RF: 0 No Action aspirin [Adult Low Dose Aspirin] 81 mg tablet,delayed release (DR/EC) 81 mg PO DAILY@0700 RF: 0 Hold Instructions: Resume on 05/16/21. ferrous sulfate 325 mg (65 mg iron) tablet 325 mg PO DAILY@0700 RF: 0 finasteride 5 mg tablet 5 mg PO DAILY@0700 RF: 0 Linzess 145 mcg capsule 145 mcg PO DAILY@0700 RF: 0 oxybutynin chloride 10 mg tablet extended release 24hr 10 mg PO DAILY@0700 RF: 0 tamsulosin 0.4 mg capsule 0.4 mg PO DAILY@0700 RF: 0 bethanechol chloride 25 mg tablet 25 mg PO BID@08,1999 RF: 0 docusate sodium 100 mg capsule 100 mg PO BID@699,1999 RF: 0 hydrocodone-acetaminophen 10-325 mg tablet 1 tab PO TID RF: 0 divalproex [Depakote] 250 mg tablet,delayed release (DR/EC) 250 mg PO TID@0700,1399,1999 RF: 0 gabapentin 400 mg capsule 400 mg PO TID@07,14,20 RF: 0 buspirone 15 mg tablet 15 mg PO TID@0700,1399,1999 RF: 0 amitriptyline 100 mg tablet 100 mg PO DAILY@1999 RF: 0 omeprazole 40 mg capsule,delayed release(DR/EC) 40 mg PO DAILY@1999 RF: 0 tizanidine 2 mg capsule 2 mg PO DAILY@1900 RF: 0 clonidine HCl 0.1 mg tablet 0.2 mg PO TID PRN (Reason: Blood Pressure) RF: 0 calcium carbonate-vitamin D3 [Calcium 600 + D(3)] 600 mg(1,500mg) -400 unit Tablet 1 tab PO BID@0700,1900 RF: 0 cyanocobalamin (vitamin B-12) 1,000 mcg/mL solution 1,000 mcg IM Q30D RF: 0 aluminum hydrox-magnesium carb 254-237.5 mg/5 mL Suspension 10 ml PO QID PRN (Reason: Stomach Upset) Qty: 0 RF: 0 quetiapine 50 mg tablet 25 mg PO DAILY@0700 RF: 0 diclofenac sodium 1 % Gel 2 g TOPICAL QID PRN (Reason: Pain) RF: 0 Mylanta 20 ml PO Q6H PRN (Reason: Nausea) RF: 0 lorazepam 1 mg Tablet 1 mg PO TID@07,14,20 RF: 0 Epsom Salt 100 % Crystals 1 applic TOPICAL BID RF: 0 carboxymethylcellulose sodium 1 % Drops, Liquid Gel 1 - 2 drp OPHTHALMIC (EYE) DAILY PRN (Reason: Dry Eyes) RF: 0 copper gluconate 2 mg Capsule 2 mg PO DAILY RF: 0 olopatadine 0.2 % Drops 1 drp OPHTHALMIC (EYE) DAILY PRN (Reason: Allergy Symptoms) RF: 0 linezolid 600 mg Tablet 600 mg PO Q12H 7 Days Qty: 14 RF: 0 amlodipine 10 mg tablet 10 mg PO DAILY 10 Days Qty: 10 RF: 0 quetiapine 25 mg Tablet 75 mg PO BEDTIME RF: 0 ascorbic acid (vitamin C) [Vitamin C] 500 mg Tablet 500 mg PO DAILY RF: 0 folic acid 1 mg Tablet 1 mg PO DAILY RF: 0 losartan 100 mg Tablet 100 mg PO DAILY RF: 0 Discharge Orders: Discharge ED (Routine); Ordered 04/26/21 Ordered By: Lucio Hanna Referrals: Rehan Rodriguez MD [Primary Care Provider] - Discharge Diet: Advance as tolerated Discharge Activity: Resume usual activity Patient Instructions: Hypotension (ED) Coding Level of Care Code ED Shirt Trimmer for Chg Fwd Exam Comprehensive
[2021-04-25 22:24] VITALS: BP 93/56; PULSE 73; RESP 16; O2SAT 96
[2021-04-25 22:30] VITALS: BP 82/54; PULSE 71; RESP 21
[2021-04-25] MEDS: sodium chloride 0.9% 1,000 ML 999 ML IV (22:50)
[2021-04-25 22:59] LABS: Hematocrit 26.9 % (42.0-52.0); Hemoglobin 8.5 g/dL (11.7-16.6); Mean Corpuscular HGB Conc 31.6 g/dL (30.0-36.0); Mean Corpuscular Hemoglobin 30.7 pg (28.0-34.0); Mean Corpuscular Volume 97.1 fl (80-94); Mean Platelet Volume 8.3 fL (7.4-10.4); Platelet Count 427 10^3/cmm (130-400); Red Blood Count 2.77 10^6/uL (4.1-5.3); Red Cell Distribution Width 13.2 % (12.1-15.1); White Blood Count 13.5 10^3/uL (4.0-10.0)
[2021-04-25 23:00] VITALS: BP 92/61; PULSE 69; RESP 18; O2SAT 95
[2021-04-25 23:16] LABS: Alanine Aminotransferase 10 U/L (0-41); Albumin Level 2.7 g/dL (3.5-5.2); Alkaline Phosphatase 46 IU/L (40-130); Anion Gap 16.5 (5-19); Aspartate Amino Transferase 7 U/L (0-40); Blood Urea Nitrogen 15 mg/dL (8-23); Calcium 7.9 mg/dL (8.5-10.5); Carbon Dioxide 20 mmol/L (22-29); Chloride 100 mmol/L (98-107); Globulin 2.8 g/dL (1.3-4.6); Glucose 65 mg/dL (65-115); Lactate (Lactic Acid level) 2.3 mmol/L (0.5-2.2); Osmolality Calculated 275 mOsm/kg (285-295); Potassium 3.5 mmol/L (3.5-5.1); Sodium 133 mmol/L (136-145); Total Bilirubin 0.2 mg/dL (0.15-1.2); Total Protein 5.5 g/dL (6.6-8.7)
[2021-04-25 23:30] VITALS: BP 103/65; PULSE 68; RESP 12; O2SAT 97
[2021-04-25 23:31] LABS: Add Urine Microscopic? YES; Bilirubin Urine Neg (Negative); Blood Urine 3+ (Negative); Glucose Urine UA Norm (Normal); Ketones Urine Negative (Negative); Leukocyte Esterase Urine 2+ (Negative); Nitrate Urine Negative (Negative); Protein Urine 2+ (Negative); Urine Appearance Hazy (CLEAR); Urine Color Yellow (Yellow); Urobilinogen Urine Neg (Negative); pH Urine 5 (5-7)
[2021-04-25 23:32] LABS: Add Urine Culture? Yes; Bacteria Urine 2+ /hpf; RBC Urine TOO NUMEROUS TO CNT /hpf (0-2); Squamous Epithelial Cell Urine 0-4 /hpf (0-5); WBC Urine >100 /hpf (0-5)
[2021-04-25 23:33] LABS: Slide Review Slide Review Perform
[2021-04-25 23:34] LABS: Absolute Neutrophil 11.6 10^3/cmm (1.4-6.5); Absolute Segmented Neutrophil 11.1 10/cmm (1.6-7.1); Band Neutrophils Absolute 0.5 10^3/cmm (0.0-1.2); Eosinophils 0 %; Lymphocytes 8 %; Lymphocytes Absolute 1.1 10^3/cmm (1.2-3.4); Monocytes Absolute 0.1 10^3/cmm (0.1-0.6); Platelet Estimate Increased (Normal); Segmented Neutrophils 82 %; Total Cells Counted 100 (0-100)
[2021-04-26] VITALS: BP 112/67; PULSE 66; RESP 12; O2SAT 95
[2021-04-26 00:30] VITALS: BP 101/63; PULSE 69; RESP 11; O2SAT 95
[2021-04-26 01:00] VITALS: BP 106/66; PULSE 74; RESP 12; O2SAT 96
[2021-04-26 02:21] VITALS: BP 107/65; PULSE 79; RESP 14; TEMP 36.6; O2SAT 96
== END 2021-04-26 02:31 | disposition home or self-care (01) ==
PROVIDERS: Emergency Provider Emergency Medicine; PCP Internal Medicine
DX: I95.9 Hypotension, unspecified (principal); Z79.82 Long term (current) use of aspirin; Z79.899 Other long term (current) drug therapy
CPT/HCPCS: 71045; 80053; 81001; 83605; 85007; 85025; 87040; 87086; 93005; 96360; 99284; J7030

== ENCOUNTER 2021-05-07 07:51 | Emergency (ER) | payer MEDICARE, MEDICAID, SELFPAY ==
[2021-05-07 07:54] VITALS: BP 102/59; PULSE 58; RESP 12; TEMP 36.6; O2SAT 94; BMI 22.7
--- NOTE | 2021-05-07 08:01 | W.ED.GENADLT ---
HPI - General Adult General: Chief complaint: Altered Mental Status Stated complaint: HYPOTENSION; AMS Time Seen by Provider: 05/07/21 07:57 Source: patient, EMS and old records reviewed Mode of arrival: EMS Limitations: altered mental status History of Present Illness: HPI narrative: 65-year-old male brought in by ambulance from his [facility] because of decreased level of alertness and hypotension. He has a history of urinary retention, hydronephrosis, and chronic kidney disease: He was admitted in the hospital from 04/16/21 to 04/25/2021 for acute urinary retention, acute on chronic kidney failure and urosepsis. He returned to the ER on the afternoon of 04/25/2021 with hypotension which was most likely iatrogenic: his dose of metoprolol was decreased at that time from 100 twice daily to 50 twice daily. Blood cultures and urine cultures from that ER visit were negative. He saw urology and had his Bazan removed on 05/02/2021. Since then he has had decreased urinary output, increasing abdominal fullness. He complains of lower abdominal pain, no nausea or vomiting. No chest pain or difficulty breathing. Onset (ago): day(s) Location: head Associated symptoms: Reports malaise; Deny chest pain or dyspnea Review of Systems General: Reports: 10 or more systems reviewed and unremarkable except in HPI and below and ROS unobtainable due to mental status Const: Reports: fatigue and malaise Card: Denies: chest pain Resp: Denies: dyspnea GI: Reports: abdominal pain : Reports: difficulty urinating [facility] ED PFSH: Medical History Acute blood loss anemia Acute UTI STEVEN (acute kidney injury) STEVEN (acute kidney injury) Bacteremia Bilateral hydronephrosis Chronic cystitis Complicated UTI (urinary tract infection) Constipation Depression determined by examination Detrusor dysfunction Gross hematuria Gross hematuria Prostatitis Prostatitis Sepsis Sepsis Urinary retention Urinary retention UTI (urinary tract infection) UTI (urinary tract infection) Family History Mother Diabetes Father Diabetes Sister Diabetes Social History Alcohol intake: never Marital status: Single Current occupational status: unemployed and retired Physical Exam Const: GENERAL APPEARANCE: lethargic, ill appearing and frail appearing; not in distress ORIENTATION/CONSCIOUSNESS: Yes lethargic HENMT: COMMON NORMALS: normocephalic and atraumatic HEAD & SCALP: normocephalic and atraumatic Eye: COMMON NORMALS: Equal, round and reactive pupils present, EOMs intact bilaterally, conjunctivae normal and no scleral icterus CONJUNCTIVA: Yes conjunctivae normal PUPIL: Yes Equal, round and reactive pupils present Neck/C-Spine: COMMON NORMALS: full ROM, no lymphadenopathy, supple and no JVD Chest: COMMONS NORMALS: normal inspection of the chest and normal palpation of entire chest wall Resp: COMMON NORMALS: normal respiratory effort, No retractions, No use of accessory muscles and clear to auscultation bilaterally AUSCULTATION: clear to auscultation bilaterally Cardio: COMMON NORMALS: no JVD, regular rate and regular rhythm RATE: regular rate RHYTHM: regular rhythm GI: COMMON NORMALS: Soft to palpation and non-tender INSPECTION: Yes abdominal distension PALPATION: Yes Soft to palpation Extremity: GENERAL: Yes edema (1+ bilateral pitting edema lower legs.) Neuro: BRUCE COMA SCALE: document GCS findings [place] coma scale eye opening: To sound [place] coma scale verbal response: Words [place] coma scale motor response: Obey commands [place] coma scale total score: 12 SENSORIUM/ORIENTATION: Yes lethargic and Yes somnolent Skin: COMMON NORMALS: no rashes or lesions noted, no wounds, turgor normal and no jaundice GENERAL SKIN EXAM: no rashes or lesions noted and turgor normal Course Vital Signs: Vital signs: Vital Signs Temperature 97.8 F 05/07/21 07:54 Pulse Rate 77 05/07/21 15:43 Respiratory Rate 13 05/07/21 15:43 Blood Pressure 148/81 05/07/21 15:43 Pulse Oximetry 93 05/07/21 15:43 MDM - General Adult MDM Narrative: Medical decision making narrative: 65-year-old male with altered mental status, hypotension, brought in by ambulance from [facility]. Acute urinary retention: Approximately 1200 mL immediately drained after Bazan placed, followed by an additional 1600 over the next 2 h. Urine is dilute, no sign of infection. Renal function and electrolytes stable, CBC suggests hemodilution: Repeat hgb/hct pending. Blood pressure and mentation improved after bladder decompression and IV fluid bolus. His metoprolol dose was recently decreased by half, heart rate is still in the low 60s. In addition he takes several other medications that could be contributing to his hypotension including lorazepam, losartan, amitriptyline, BuSpar, clonidine, hydrocodone, gabapentin, Seroquel, and tizanidine. Chemistry stable on recheck, urine production slowing down. Repeat hemoglobin closer to baseline at 8.9, Bazan will be left in place on discharge Medications reviewed and adjustments made; -decrease metoprolol to 12.5 twice daily, -Change lorazepam to clonazepam 0.5 mg twice daily as needed -Decrease clonidine from 0.2 mg to 0.1 mg twice daily as needed -Decrease losartan to 25 mg once daily -Discontinue tizanidine Follow-up with urology within 1 week Medical Records: Attestation: I reviewed the patient's medical records. Lab Data: Attestation: I reviewed the patient's lab results. Labs: Lab Results 05/07/21 05/07/21 05/07/21 08:10 08:10 08:10 WBC 7.1 10^3/uL 10^3/ uL (4.0-10.0) RBC 2.35 10^6/uL L 10 ^6/uL (4.1-5.3) Hgb 7.2 g/dL L g/dL (11.7-16.6) Hct 22.7 % L % (42.0-52.0) MCV 96.6 fl H fl (80-94) MCH 30.6 pg pg (28.0-34.0) MCHC 31.7 g/dL g/dL (30.0-36.0) RDW 13.7 % % (12.1-15.1) Plt Count 220 10^3/cmm 10^3 /cmm (130-400) MPV 8.7 fL fL (7.4-10.4) Neut % (Auto) 68.0 % % Lymph % (Auto) 18.8 % % [place] % (Auto) 11.8 % % Eos % (Auto) 0.6 % % Baso % (Auto) 0.1 % % Neut # (Auto) 4.82 10^3/uL 10^3 /uL (1.8-7.7) Lymph # (Auto) 1.3 10^3/uL 10^3/ uL (0.8-4.8) [place] # (Auto) 0.8 10^3/uL 10^3/ uL (0.2-0.9) Eos # (Auto) 0.0 10^3/uL 10^3/ uL (0.0-0.8) Baso # (Auto) 0.0 10^3/uL 10^3/ uL (0.0-0.1) Nucleated RBC % (a uto) 0 % % Nucleated RBCs # 0.0 /100WBC /100W BC Sodium 135 mmol/L L mmol /L (136-145) Potassium 3.9 mmol/L mmol/L (3.5-5.1) Chloride 101 mmol/L mmol/L (98-107) Carbon Dioxide 21 mmol/L L mmol/ L (22-29) Anion Gap 16.9 (5-19) BUN 16 mg/dL mg/dL (8-23) Creatinine 1.7 mg/dL H mg/dL (0.7-1.2) GFR Calculation 40.9 mL/min L mL/ min (90-130) Glucose 111 mg/dL mg/dL (65-115) Calculated Osmolal ity 282 mOsm/kg L mOs m/kg (285-295) Lactate 1.9 mmol/L mmol/L (0.5-2.2) Calcium 8.0 mg/dL L mg/dL (8.5-10.5) Magnesium 1.9 mg/dL mg/dL (1.7-2.3) Total Bilirubin 0.2 mg/dL mg/dL (0.15-1.2) AST 7 U/L U/L (0-40) ALT < 5 U/L U/L (0-41) Alkaline Phosphata se 48 IU/L IU/L (40-130) Total Protein 4.9 g/dL L g/dL (6.6-8.7) Albumin 2.5 g/dL L g/dL (3.5-5.2) Globulin 2.4 g/dL g/dL (1.3-4.6) Urine Color Urine Appearance Urine pH Ur Specific Gravit y Urine Protein Urine Glucose (UA) Urine Ketones Urine Blood Urine Nitrate Urine Bilirubin Urine Urobilinogen Ur Leukocyte Jyoti ase 05/07/21 05/07/21 05/07/21 08:10 14:13 14:13 WBC RBC Hgb 8.9 g/dL L g/dL (11.7-16.6) Hct 28.0 % L % (42.0-52.0) MCV MCH MCHC RDW Plt Count MPV Neut % (Auto) Lymph % (Auto) [place] % (Auto) Eos % (Auto) Baso % (Auto) Neut # (Auto) Lymph # (Auto) [place] # (Auto) Eos # (Auto) Baso # (Auto) Nucleated RBC % (a uto) Nucleated RBCs # Sodium 139 mmol/L mmol/L (136-145) Potassium 4.1 mmol/L mmol/L (3.5-5.1) Chloride 104 mmol/L mmol/L (98-107) Carbon Dioxide 21 mmol/L L mmol/ L (22-29) Anion Gap 18.1 (5-19) BUN 15 mg/dL mg/dL (8-23) Creatinine 1.5 mg/dL H mg/dL (0.7-1.2) GFR Calculation 47.3 mL/min L mL/ min (90-130) Glucose 88 mg/dL mg/dL (65-115) Calculated Osmolal ity 288 mOsm/kg mOsm/ kg (285-295) Lactate Calcium 8.2 mg/dL L mg/dL (8.5-10.5) Magnesium 2.0 mg/dL mg/dL (1.7-2.3) Total Bilirubin AST ALT Alkaline Phosphata se Total Protein Albumin Globulin Urine Color Yellow (Yellow) Urine Appearance Clear (CLEAR) Urine pH 7 (5-7) Ur Specific Gravit y 1.005 (1.005-1.030) Urine Protein Neg (Negative) Urine Glucose (UA) Norm (Normal) Urine Ketones Negative (Negative) Urine Blood Neg (Negative) Urine Nitrate Negative (Negative) Urine Bilirubin Neg (Negative) Urine Urobilinogen Norm mg/dL mg/dL (Negative) Ur Leukocyte Jyoti ase Negative (Negative) Discharge Plan Discharge Patient Disposition: Home Clinical Impression: Urinary retention, Acute hypotension Mental status alteration Qualifiers: Altered mental status type: somnolence Qualified Code(s): R40.0 - Somnolence Condition: Stable Prescriptions: New metoprolol tartrate 25 mg tablet 12.5 mg PO BID Qty: 60 RF: 0 losartan 25 mg tablet 25 mg PO DAILY Qty: 30 RF: 0 clonidine HCl 0.1 mg tablet 0.1 mg PO BID Qty: 60 RF: 0 clonazepam 0.5 mg tablet 0.5 mg PO BID PRN (Reason: anxiety, insomnia) 30 Days Qty: 60 RF: 0 Discontinued tizanidine 2 mg capsule 2 mg PO DAILY@1900 RF: 0 clonidine HCl 0.1 mg tablet 0.2 mg PO TID RF: 0 lorazepam 1 mg Tablet 2 mg PO TID PRN (Reason: Anxiety) RF: 0 metoprolol tartrate 50 mg tablet 50 mg PO BID Qty: 60 RF: 0 losartan 100 mg Tablet 100 mg PO DAILY RF: 0 amlodipine 5 mg Tablet 5 mg PO DAILY RF: 0 No Action ferrous sulfate 325 mg (65 mg iron) tablet 325 mg PO DAILY@0700 RF: 0 finasteride 5 mg tablet 5 mg PO DAILY@0700 RF: 0 Linzess 145 mcg capsule 145 mcg PO DAILY@0700 RF: 0 oxybutynin chloride 10 mg tablet extended release 24hr 10 mg PO DAILY@0700 RF: 0 tamsulosin 0.4 mg capsule 0.4 mg PO DAILY@0700 RF: 0 bethanechol chloride 25 mg tablet 25 mg PO BID@08,1999 RF: 0 docusate sodium 100 mg capsule 100 mg PO BID@ RF: 0 hydrocodone-acetaminophen 10-325 mg tablet 1 tab PO TID RF: 0 divalproex [Depakote] 250 mg tablet,delayed release (DR/EC) 250 mg PO TID@0700,1399,1999 RF: 0 gabapentin 400 mg capsule 400 mg PO TID@07,, RF: 0 buspirone 15 mg tablet 15 mg PO TID@0700,1399,1999 RF: 0 amitriptyline 100 mg tablet 100 mg PO DAILY@1999 RF: 0 omeprazole 40 mg capsule,delayed release(DR/EC) 40 mg PO DAILY@1999 RF: 0 calcium carbonate-vitamin D3 [Calcium 600 + D(3)] 600 mg(1,500mg) -400 unit Tablet 1 tab PO BID@0700,1900 RF: 0 cyanocobalamin (vitamin B-12) 1,000 mcg/mL solution 1,000 mcg IM Q30D RF: 0 aluminum hydrox-magnesium carb 254-237.5 mg/5 mL Suspension 10 ml PO QID PRN (Reason: Stomach Upset) Qty: 0 RF: 0 quetiapine 50 mg tablet 25 mg PO DAILY@0700 RF: 0 diclofenac sodium 1 % Gel 2 g TOPICAL QID PRN (Reason: Pain) RF: 0 Mylanta 20 ml PO Q6H PRN (Reason: Nausea) RF: 0 magnesium sulfate (bulk) [Epsom Salt] 100 % Crystals 1 applic TOPICAL BID RF: 0 carboxymethylcellulose sodium 1 % Drops, Liquid Gel 1 - 2 drp OPHTHALMIC (EYE) DAILY PRN (Reason: Dry Eyes) RF: 0 copper gluconate 2 mg Capsule 2 mg PO DAILY RF: 0 olopatadine 0.2 % Drops 1 drp OPHTHALMIC (EYE) DAILY PRN (Reason: Allergy Symptoms) RF: 0 quetiapine 25 mg Tablet 75 mg PO BEDTIME RF: 0 folic acid 1 mg Tablet 1 mg PO DAILY RF: 0 clonidine HCl 0.1 mg Tablet 0.1 mg PO BID PRN (Reason: Blood Pressure) RF: 0 cyanocobalamin (vitamin B-12) 1,000 mcg/mL Solution 1,000 mcg IM Q30D RF: 0 aspirin 81 mg Tablet,Chewable 81 mg PO DAILY RF: 0 Discharge Orders: Discharge ED (Routine); Ordered 05/07/21 Ordered By: Phylicia Lopez Referrals: Rehan Rodriguez MD [Primary Care Provider] - Discharge Diet: Advance as tolerated Discharge Activity: Resume usual activity Patient Instructions: Bazan Catheter Care Activity Restrictions/Additional Instructions: Keep Bazan catheter in place until follow-up with urology. Coding Level of Care Code ED Historic [employer] Registrar for Chg Fwd Exam Comprehensive
--- NOTE | 2021-05-07 08:03 | ECG_ITS ---
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 Measurements Intervals [place] Rate: 60 P: -1 AL: 180 QRS: 63 QRSD: 108 T: 16 QT: 424 QTc: 425 Interpretive Statements SINUS RHYTHM Some early repolarization change POSSIBLE LEFT VENTRICULAR HYPERTROPHY [VOLTAGE CRITERIA PLUS LAE OR QRS WIDENING] Compared to ECG 04/25/2021 23:19:40 No significant changes Electronically Signed On 05-07-2021 20:17:45 USER INTERFACE DEVELOPER by Kelsie Smith M.D. [id number]
[2021-05-07 08:16] VITALS: BP 124/74; PULSE 60; RESP 10; O2SAT 95
[2021-05-07 08:21] LABS: Basophils % 0.1 %; Eosinophils % 0.6 %; Hematocrit 22.7 % (42.0-52.0); Hemoglobin 7.2 g/dL (11.7-16.6); Lymphocytes # 1.3 10^3/uL (0.8-4.8); Lymphocytes % 18.8 %; Mean Corpuscular HGB Conc 31.7 g/dL (30.0-36.0); Mean Corpuscular Hemoglobin 30.6 pg (28.0-34.0); Mean Corpuscular Volume 96.6 fl (80-94); Mean Platelet Volume 8.7 fL (7.4-10.4); Monocytes # 0.8 10^3/uL (0.2-0.9); Monocytes % 11.8 %; Neutrophils # 4.82 10^3/uL (1.8-7.7); Nucleated Red Blood Cells % 0 %; Platelet Count 220 10^3/cmm (130-400); Red Blood Count 2.35 10^6/uL (4.1-5.3); Red Cell Distribution Width 13.7 % (12.1-15.1); White Blood Count 7.1 10^3/uL (4.0-10.0)
[2021-05-07] MEDS: sodium chloride 0.9% 1,000 ML 999 ML IV (08:33)
[2021-05-07 08:40] LABS: Lactate (Lactic Acid level) 1.9 mmol/L (0.5-2.2)
[2021-05-07 08:41] LABS: Alanine Aminotransferase < 5 U/L (0-41); Albumin Level 2.5 g/dL (3.5-5.2); Alkaline Phosphatase 48 IU/L (40-130); Anion Gap 16.9 (5-19); Aspartate Amino Transferase 7 U/L (0-40); Blood Urea Nitrogen 16 mg/dL (8-23); Carbon Dioxide 21 mmol/L (22-29); Chloride 101 mmol/L (98-107); Globulin 2.4 g/dL (1.3-4.6); Glomerular Filtration Rate 40.9 mL/min (90-130); Glucose 111 mg/dL (65-115); Magnesium 1.9 mg/dL (1.7-2.3); Osmolality Calculated 282 mOsm/kg (285-295); Potassium 3.9 mmol/L (3.5-5.1); Sodium 135 mmol/L (136-145); Total Bilirubin 0.2 mg/dL (0.15-1.2); Total Protein 4.9 g/dL (6.6-8.7)
[2021-05-07 08:58] LABS: Add Urine Microscopic? NO; Charge for UA Resulting for Rev
[2021-05-07 09:48] LABS: Bilirubin Urine Neg (Negative); Blood Urine Neg (Negative); Glucose Urine UA Norm (Normal); Ketones Urine Negative (Negative); Leukocyte Esterase Urine Negative (Negative); Nitrate Urine Negative (Negative); Protein Urine Neg (Negative); Specific Gravity, Urine 1.005 (1.005-1.030); Urine Appearance Clear (CLEAR); Urine Color Yellow (Yellow); Urobilinogen Urine Norm (Negative); pH Urine 7 (5-7)
[2021-05-07 10:01] VITALS: BP 140/79; PULSE 61; RESP 10; O2SAT 95
[2021-05-07 12:00] VITALS: BP 135/79; PULSE 66; RESP 10; O2SAT 96
[2021-05-07] MEDS: lactated ringers 1,000 ML 999 ML IV (13:21)
--- NOTE | 2021-05-07 13:22 | PC.NURSE ---
16 slovenian moyer cath placed, 1200mL output 15 minutes after placement.
--- NOTE | 2021-05-07 13:27 | PC.NURSE ---
Addendum entered by Ciarra Lorenzana RN 05/07/21 17:49: 600mL output removed Original Note: Bazan cath emptied, output mL. Dr. Lopez advised
[2021-05-07 14:20] LABS: Hemoglobin 8.9 g/dL (11.7-16.6)
[2021-05-07 14:50] LABS: Anion Gap 18.1 (5-19); Blood Urea Nitrogen 15 mg/dL (8-23); Calcium 8.2 mg/dL (8.5-10.5); Carbon Dioxide 21 mmol/L (22-29); Chloride 104 mmol/L (98-107); Glomerular Filtration Rate 47.3 mL/min (90-130); Glucose 88 mg/dL (65-115); Osmolality Calculated 288 mOsm/kg (285-295); Potassium 4.1 mmol/L (3.5-5.1); Sodium 139 mmol/L (136-145)
[2021-05-07 15:43] VITALS: BP 148/81; PULSE 77; RESP 13; O2SAT 93
--- NOTE | 2021-05-07 17:49 | PC.NURSE ---
1000mL emptied from moyer cath
== END 2021-05-07 17:53 | disposition home or self-care (01) ==
PROVIDERS: Emergency Provider Family Medicine; PCP Internal Medicine
DX: R40.0 Somnolence (principal); R33.9 Retention of urine, unspecified; I95.9 Hypotension, unspecified; Z79.82 Long term (current) use of aspirin; Z87.440 Personal history of urinary (tract) infections
CPT/HCPCS: 36415; 51702; 80048; 80053; 81003; 83605; 83735; 85014; 85018; 85025; 87040; 93005; 96360; 96361; 99284; 99291; J7030

== ENCOUNTER 2021-05-24 21:22 | Emergency (ER) | payer MEDICARE, MEDICAID, SELFPAY ==
[2021-05-24 21:24] VITALS: BP 126/73; PULSE 95; RESP 14; TEMP 36.7; O2SAT 94; BMI 21.9
[2021-05-24 22:03] VITALS: BP 138/80; PULSE 92; RESP 12; O2SAT 100
--- NOTE | 2021-05-24 22:14 | W.ED.AMS ---
HPI - Altered Mental Status General: Chief Complaint: Altered Mental Status Stated Complaint: ams hypotensive Time Seen by Provider: 05/24/21 21:38 Source: EMS Mode of arrival: EMS Limitations: altered mental status History of Present Illness: HPI narrative: 65-year-old male brought in by EMS from his assisted living facility: staff concerned that his blood pressures have been running low , and he is more drowsy and lethargic compared to baseline. He has had numerous visits to the ER for similar symptoms. He has chronic urinary retention: does not self cath as often as he is supposed to, causing recurrent urinary infections and obstructive uropathy. His last visit was on 05/07/2021: He was discharged with Bazan in place. Bazan was removed 2 days ago at his urology follow-up appointment. He complains of mild abdominal discomfort. No nausea, vomiting, fever. He says he has been doing his self catheterizations, most recently just before bed last night. MD complaint: confusion, decreased responsiveness and weakness Onset (ago): day(s) Timing confirmed by: caregiver Review of Systems Const: Denies: fever(s), chills or body aches Eyes: Denies: change in vision or blurry vision Card: Denies: chest pain, palpitations or irregular heart rhythm Resp: Denies: dyspnea, productive cough or non-productive cough GI: Reports: abdominal pain; Denies: nausea or vomiting : Reports: difficulty urinating Musc: Reports: extremity swelling Skin/Breast: Denies: rash or pruritus Neuro: Denies: headache(s), numbness in extremities or weakness in extremities [facility] ED PFSH: Medical History Acute blood loss anemia Acute UTI STEVEN (acute kidney injury) STEVEN (acute kidney injury) Bacteremia Bilateral hydronephrosis Chronic cystitis Complicated UTI (urinary tract infection) Constipation Depression determined by examination Detrusor dysfunction Gross hematuria Gross hematuria Prostatitis Prostatitis Sepsis Sepsis Urinary retention Urinary retention UTI (urinary tract infection) UTI (urinary tract infection) Family History Mother Diabetes Father Diabetes Sister Diabetes Social History Alcohol intake: never Marital status: Single Current occupational status: unemployed and retired Physical Exam Const: COMMON NORMALS: no acute distress and patient oriented x3 GENERAL APPEARANCE: lethargic and frail appearing; not ill appearing NUTRITIONAL APPEARANCE: thin ORIENTATION/CONSCIOUSNESS: Yes lethargic HENMT: COMMON NORMALS: normocephalic and atraumatic HEAD & SCALP: normocephalic and atraumatic FACE & SINUS: normal facial exam and face symmetric Eye: COMMON NORMALS: Equal, round and reactive pupils present, EOMs intact bilaterally and conjunctivae normal CONJUNCTIVA: Yes conjunctivae normal PUPIL: Yes Equal, round and reactive pupils present Neck/C-Spine: COMMON NORMALS: full ROM and no lymphadenopathy Resp: COMMON NORMALS: normal respiratory effort, No retractions and No use of accessory muscles EFFORT & INSPECTION: Yes able to speak in complete sentences GI: COMMON NORMALS: Soft to palpation and non-tender INSPECTION: Yes abdominal distension PALPATION: Yes Soft to palpation Extremity: COMMON NORMALS: capillary refill normal GENERAL: Yes edema Neuro: COMMON NORMALS: patient oriented x3 SENSORIUM/ORIENTATION: Yes lethargic and Yes other (Drowsy, appears sedated) GAIT: Yes Unable to assess gait Skin: COMMON NORMALS: no rashes or lesions noted and no wounds GENERAL SKIN EXAM: no rashes or lesions noted Course Vital Signs: Vital signs: Vital Signs Temperature 98.0 F 05/24/21 21:24 Pulse Rate 92 05/24/21 22:03 Respiratory Rate 12 05/24/21 22:03 Blood Pressure 138/80 05/24/21 22:03 Pulse Oximetry 100 05/24/21 22:03 MDM - Altered Mental Status MDM Narrative: Medical decision making narrative: 65-year-old male with a history of chronic urinary retention presenting with lethargy, drowsiness, and reported low blood pressure. normotensive here. Bladder scan shows at least 900 cc of urine in the bladder. Bazan catheter placed, UA consistent with acute infection WBC count 16, acute on chronic renal insufficiency with creatinine of 2. IV zosyn x1 Looking back on his history, he has presented similarly multiple times in the past with altered mental status due to urinary retention/inadequate self intermittant cath. Plan; fluid bolus, bladder decompression, anticipate return to his assisted living facility with Bazan in place until urology followup. Differential Diagnosis: Differential diagnosis altered mental status: Likely altered mental status, delirium, hypoglycemia, hyponatremia and sepsis Medical Records: Attestation: I reviewed the patient's medical records. Lab Data: Attestation: I reviewed the patient's lab results. Labs: Lab Results 05/24/21 05/24/21 05/24/21 21:09 21:09 23:25 WBC 16.5 10^3/uL H 10 ^3/uL (4.0-10.0) RBC 2.85 10^6/uL L 10 ^6/uL (4.1-5.3) Hgb 8.9 g/dL L g/dL (11.7-16.6) Hct 27.6 % L % (42.0-52.0) MCV 96.8 fl H fl (80-94) MCH 31.2 pg pg (28.0-34.0) MCHC 32.2 g/dL g/dL (30.0-36.0) RDW 14.6 % % (12.1-15.1) Plt Count 263 10^3/cmm 10^3 /cmm (130-400) MPV 9.4 fL fL (7.4-10.4) Neut % (Auto) 75.5 % % Lymph % (Auto) 11.8 % % [place] % (Auto) 11.4 % % Eos % (Auto) 0.1 % % Baso % (Auto) 0.3 % % Neut # (Auto) 12.45 10^3/uL H 1 0^3/uL (1.8-7.7) Lymph # (Auto) 1.9 10^3/uL 10^3/ uL (0.8-4.8) [place] # (Auto) 1.9 10^3/uL H 10^ 3/uL (0.2-0.9) Eos # (Auto) 0.0 10^3/uL 10^3/ uL (0.0-0.8) Baso # (Auto) 0.1 10^3/uL 10^3/ uL (0.0-0.1) Nucleated RBC % (a uto) 0 % % Nucleated RBCs # 0.0 /100WBC /100W BC Sodium 129 mmol/L L mmol /L (136-145) Potassium 3.9 mmol/L mmol/L (3.5-5.1) Chloride 92 mmol/L L mmol/ L (98-107) Carbon Dioxide 26 mmol/L mmol/L (22-29) Anion Gap 14.9 (5-19) BUN 24 mg/dL H mg/dL (8-23) Creatinine 2.0 mg/dL H mg/dL (0.7-1.2) GFR Calculation 33.9 mL/min L mL/ min (90-130) Glucose 97 mg/dL mg/dL (65-115) Calculated Osmolal ity 272 mOsm/kg L mOs m/kg (285-295) Calcium 8.5 mg/dL mg/dL (8.5-10.5) Magnesium 2.0 mg/dL mg/dL (1.7-2.3) Total Bilirubin 0.4 mg/dL mg/dL (0.15-1.2) AST 6 U/L U/L (0-40) ALT 6 U/L U/L (0-41) Alkaline Phosphata se 67 IU/L IU/L (40-130) Total Protein 6.0 g/dL L g/dL (6.6-8.7) Albumin 3.4 g/dL L g/dL (3.5-5.2) Globulin 2.6 g/dL g/dL (1.3-4.6) Urine Color Yellow (Yellow) Urine Appearance Hazy A (CLEAR) Urine pH 7 (5-7) Ur Specific Gravit y 1.030 (1.005-1.030) Urine Protein Trace (Negative) Urine Glucose (UA) Norm (Normal) Urine Ketones Negative (Negative) Urine Blood 3+ H (Negative) Urine Nitrate Negative (Negative) Urine Bilirubin Neg (Negative) Urine Urobilinogen Norm mg/dL mg/dL (Negative) Ur Leukocyte Jyoti ase 2+ H (Negative) Urine RBC 0-4 /hpf H /hpf (0-2) Urine WBC >100 /hpf H /hpf (0-5) Ur Squamous Epith Cells 0-4 /hpf H /hpf (0-5) Amorphous Sediment Not Reportable Urine Bacteria 4+ /hpf H /hpf (NONE) Discharge Plan Discharge Patient Disposition: Home Clinical Impression: Urinary retention, Sedated due to medication UTI (urinary tract infection) Qualifiers: Urinary tract infection type: acute cystitis Hematuria presence: with hematuria Qualified Code(s): N30.01 - Acute cystitis with hematuria Chronic renal disease Qualifiers: Chronic kidney disease stage: unspecified stage Qualified Code(s): N18.9 - Chronic kidney disease, unspecified Condition: Stable Prescriptions: New ciprofloxacin HCl 500 mg tablet 500 mg PO BID 5 Days Qty: 10 RF: 0 No Action ferrous sulfate 325 mg (65 mg iron) tablet 325 mg PO DAILY@0700 RF: 0 finasteride 5 mg tablet 5 mg PO DAILY@0700 RF: 0 Linzess 145 mcg capsule 145 mcg PO DAILY@0700 RF: 0 oxybutynin chloride 10 mg tablet extended release 24hr 10 mg PO DAILY@0700 RF: 0 tamsulosin 0.4 mg capsule 0.4 mg PO DAILY@0700 RF: 0 bethanechol chloride 25 mg tablet 25 mg PO BID@799,1999 RF: 0 docusate sodium 100 mg capsule 100 mg PO BID@699,1999 RF: 0 hydrocodone-acetaminophen 10-325 mg tablet 1 tab PO TID RF: 0 divalproex [Depakote] 250 mg tablet,delayed release (DR/EC) 250 mg PO TID@07,1399,1999 RF: 0 gabapentin 400 mg capsule 400 mg PO TID@07,, RF: 0 buspirone 15 mg tablet 15 mg PO TID@07,1399,1999 RF: 0 amitriptyline 100 mg tablet 100 mg PO DAILY@1999 RF: 0 omeprazole 40 mg capsule,delayed release(DR/EC) 40 mg PO DAILY@1999 RF: 0 ascorbic acid (vitamin C) 500 mg capsule PO DAILY RF: 0 carboxymethylcellulose sodium [Refresh Tears] 0.5 % drops 2 drp ophthalmic (eye) .PRN RF: 0 DOPATEDINE eye-both DAILY PRNRF: 0 calcium carbonate-vitamin D3 [Calcium 600 + D(3)] 600 mg(1,500mg) -400 unit Tablet 1 tab PO BID@0700,1900 RF: 0 aluminum hydrox-magnesium carb 254-237.5 mg/5 mL Suspension 10 ml PO QID PRN (Reason: Stomach Upset) Qty: 0 RF: 0 diclofenac sodium 1 % Gel 2 g TOPICAL QID PRN (Reason: Pain) RF: 0 Mylanta 20 ml PO Q6H PRN (Reason: Nausea) RF: 0 quetiapine 50 mg tablet 75 mg PO .AT HS RF: 0 magnesium sulfate (bulk) [Epsom Salt] 100 % Crystals 1 applic TOPICAL BID RF: 0 carboxymethylcellulose sodium 1 % Drops, Liquid Gel 1 - 2 drp OPHTHALMIC (EYE) DAILY PRN (Reason: Dry Eyes) RF: 0 copper gluconate 2 mg Capsule 2 mg PO DAILY RF: 0 folic acid 1 mg Tablet 1 mg PO DAILY RF: 0 quetiapine 25 mg tablet 25 mg PO DAILY RF: 0 clonidine HCl 0.1 mg Tablet 0.1 mg PO BID PRN (Reason: Blood Pressure) RF: 0 cyanocobalamin (vitamin B-12) 1,000 mcg/mL Solution 1,000 mcg IM Q30D RF: 0 aspirin 81 mg Tablet,Chewable 81 mg PO DAILY RF: 0 metoprolol tartrate 25 mg tablet 12.5 mg PO BID Qty: 60 RF: 0 clonidine HCl 0.1 mg tablet 0.1 mg PO BID Qty: 60 RF: 0 clonazepam 0.5 mg tablet 0.5 mg PO BID PRN (Reason: anxiety, insomnia) 30 Days Qty: 60 RF: 0 Discharge Orders: Discharge ED (Routine); Ordered 05/25/21 Ordered By: Phylicia Lopez Referrals: Rehan Rodriguez MD [Primary Care Provider] - Discharge Diet: Advance as tolerated Discharge Activity: Increase activity as tolerated Activity Restrictions/Additional Instructions: Call to schedule follow-up appointment with Dr. Yuan soon as possible. Until then, leave the catheter in place. Make sure to finish all of your antibiotics. Drink extra fluids. Return immediately to the ER if develop fever, abdominal pain, nausea, vomiting, or any other worsening symptoms. Coding Level of Care Code ED Refrigeration Person for Amber Lawson Exam Comprehensive
[2021-05-24 22:57] LABS: Alanine Aminotransferase 6 U/L (0-41); Albumin Level 3.4 g/dL (3.5-5.2); Alkaline Phosphatase 67 IU/L (40-130); Anion Gap 14.9 (5-19); Aspartate Amino Transferase 6 U/L (0-40); Blood Urea Nitrogen 24 mg/dL (8-23); Calcium 8.5 mg/dL (8.5-10.5); Carbon Dioxide 26 mmol/L (22-29); Chloride 92 mmol/L (98-107); Globulin 2.6 g/dL (1.3-4.6); Glomerular Filtration Rate 33.9 mL/min (90-130); Glucose 97 mg/dL (65-115); Osmolality Calculated 272 mOsm/kg (285-295); Potassium 3.9 mmol/L (3.5-5.1); Sodium 129 mmol/L (136-145); Total Bilirubin 0.4 mg/dL (0.15-1.2)
[2021-05-24 22:58] LABS: Basophils # 0.1 10^3/uL (0.0-0.1); Basophils % 0.3 %; Eosinophils % 0.1 %; Hematocrit 27.6 % (42.0-52.0); Hemoglobin 8.9 g/dL (11.7-16.6); Lymphocytes # 1.9 10^3/uL (0.8-4.8); Lymphocytes % 11.8 %; Mean Corpuscular HGB Conc 32.2 g/dL (30.0-36.0); Mean Corpuscular Hemoglobin 31.2 pg (28.0-34.0); Mean Corpuscular Volume 96.8 fl (80-94); Mean Platelet Volume 9.4 fL (7.4-10.4); Monocytes # 1.9 10^3/uL (0.2-0.9); Monocytes % 11.4 %; Neutrophils # 12.45 10^3/uL (1.8-7.7); Neutrophils % 75.5 %; Nucleated Red Blood Cells % 0 %; Platelet Count 263 10^3/cmm (130-400); Red Blood Count 2.85 10^6/uL (4.1-5.3); Red Cell Distribution Width 14.6 % (12.1-15.1); White Blood Count 16.5 10^3/uL (4.0-10.0)
[2021-05-24] MEDS: piperacillin-tazobactam 3.375 GM in sodium chloride 0.9% (plus) 50 ML IV (23:23)
[2021-05-24 23:47] LABS: Urine Appearance Hazy (CLEAR); Urine Color Yellow (Yellow); pH Urine 7 (5-7)
[2021-05-24 23:48] LABS: Add Urine Culture? Yes; Add Urine Microscopic? YES; Bacteria Urine 4+ /hpf; Bilirubin Urine Neg (Negative); Blood Urine 3+ (Negative); Glucose Urine UA Norm (Normal); Ketones Urine Negative (Negative); Leukocyte Esterase Urine 2+ (Negative); Nitrate Urine Negative (Negative); Protein Urine Trace (Negative); RBC Urine 0-4 /hpf (0-2); Squamous Epithelial Cell Urine 0-4 /hpf (0-5); Urobilinogen Urine Norm (Negative); WBC Urine >100 /hpf (0-5)
--- NOTE | 2021-05-25 00:32 | PC.NURSE ---
Talked to Amita at [facility]. She stated patient is able to use cab or another means to get back to facility. States he does not need a health care / medical job titles for transfer to facility.
[2021-05-25 01:08] VITALS: BP 103/69; PULSE 116; RESP 16; O2SAT 96
[2021-05-25 04:06] VITALS: PULSE 105; RESP 16; O2SAT 97
--- NOTE | 2021-05-25 16:15 | DCPLANNER ---
Addendum entered by Johanny Mack 06/08/21 16:26: Patient had a followup appointment scheduled for 06.07.[address] Duran office - patient did attend appointment. Original Note: treatment manager had message to schedule a follow up appointment for patient with Dr. Yuan. treatment manager emailed patients information to Jez Perez and Teresa at the office of Dr. Yuan. Patients information will be printed and reviewed. Clinic will call patient with appointment information.
== END 2021-05-25 04:08 | disposition home or self-care (01) ==
PROVIDERS: Emergency Provider Family Medicine; PCP Internal Medicine
DX: N30.01 Acute cystitis with hematuria (principal); R33.9 Retention of urine, unspecified; N18.9 Chronic kidney disease, unspecified; R40.0 Somnolence; T50.905A Adverse effect of unspecified drugs, medicaments and biological substances, initial encounter; Z87.440 Personal history of urinary (tract) infections
CPT/HCPCS: 51702; 51798; 80053; 81001; 83735; 85025; 87077; 87086; 87186; 96365; 99284; J2543

== ENCOUNTER 2021-05-25 21:10 | Emergency (ER) | payer MEDICARE, MEDICAID, SELFPAY ==
[2021-05-25 21:11] VITALS: BP 101/64; PULSE 89; RESP 14; TEMP 37.1; O2SAT 96; BMI 22.7
--- NOTE | 2021-05-25 21:11 | XRR_ITS ---
PROCEDURE INFORMATION: Exam: XR Chest Exam date and time: 05/25/2021 9:11 PM Age: 65 years old Clinical indication: Other: Weakness/hypotensive TECHNIQUE: Imaging protocol: XR of the chest. Views: 1 view. Total images: 1 COMPARISON: CR (CHEST, ) 04/25/2021 10:18 PM FINDINGS: Lungs: Diminished inspiratory effort with vascular crowding and minimal atelectasis lung bases. Pleural spaces: No grossly visible significant pleural effusion. No pneumothorax. Heart/Mediastinum: Cardiac size upper limits of normal. Arteriosclerosis. Bones/joints: Unremarkable as visualized. Soft tissues: Gastric pull up. XR/XR chest 1V portable [id number] IMPRESSION: Diminished inspiratory effort with vascular crowding and minimal atelectasis lung bases.
--- NOTE | 2021-05-25 21:12 | ECG_ITS ---
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 Measurements Intervals [place] Rate: 81 P: 44 CO: 196 QRS: 52 QRSD: 112 T: 30 QT: 390 QTc: 453 Interpretive Statements SINUS RHYTHM MODERATE INTRAVENTRICULAR CONDUCTION DELAY [110+ ms QRS DURATION] NONSPECIFIC T-WAVE ABNORMALITY Compared to ECG 05/07/2021 08:15:57 Intraventricular conduction delay now present T-wave abnormality now present Early repolarization no longer present Electronically Signed On 05-26-2021 9:27:31 DOCUMENT COORDINATOR by Carmel David M.D. [id number]
[2021-05-25] MEDS: sodium chloride 0.9% 1,000 ML 999 ML IV (21:15)
--- NOTE | 2021-05-25 21:29 | ED_ITS ---
HPI - General Adult General: Chief complaint: General Medical Stated complaint: low blood pressure Time Seen by Provider: 05/25/21 21:10 Source: patient and EMS Mode of arrival: EMS Limitations: physical limitation History of Present Illness: HPI narrative: 65-year-old male who is here from a skilled nursing he has a history of traumatic brain injury is been seen here multiple times for hypotension was seen here yesterday for hypotension. [facility] states that his blood pressure is running low there initial pressure here is 101/64 he will awake answer questions he has no complaints he is on multiple meds there. No fever no cough no vomiting. Associated symptoms: Deny chest pain, dyspnea, headache(s), nausea, rash or vomiting Review of Systems Const: Denies: fever(s), chills, body aches or change in appetite Eyes: Denies: blurry vision or eye discomfort ENMT: Denies: throat pain or dental pain Card: Denies: chest pain Resp: Denies: dyspnea GI: Denies: abdominal pain, nausea, vomiting or diarrhea : Denies: dysuria Musc: Denies: neck pain or back pain Skin/Breast: Denies: rash Neuro: Denies: headache(s) Psych: Denies: depression Ebenezer/Lymph: Denies: easy bruising All/Imm: Denies: urticaria PFSH ED PFSH: Medical History Acute blood loss anemia Acute UTI STEVEN (acute kidney injury) STEVEN (acute kidney injury) Bacteremia Bilateral hydronephrosis Chronic cystitis Complicated UTI (urinary tract infection) Constipation Depression determined by examination Detrusor dysfunction Gross hematuria Gross hematuria Prostatitis Prostatitis Sepsis Sepsis Urinary retention Urinary retention UTI (urinary tract infection) UTI (urinary tract infection) Family History Mother Diabetes Father Diabetes Sister Diabetes Social History Alcohol intake: never Marital status: Single Current occupational status: unemployed and retired Physical Exam Const: COMMON NORMALS: no acute distress and healthy appearing; negative for patient oriented x3 ORIENTATION/CONSCIOUSNESS: Yes oriented to person HENMT: COMMON NORMALS: normocephalic and atraumatic HEAD & SCALP: normocephalic and atraumatic Eye: COMMON NORMALS: Equal, round and reactive pupils present and EOMs intact bilaterally PUPIL: Yes Equal, round and reactive pupils present Neck/C-Spine: COMMON NORMALS: full ROM and supple Chest: COMMONS NORMALS: normal inspection of the chest and normal palpation of entire chest wall Resp: COMMON NORMALS: normal respiratory effort, No retractions, No use of accessory muscles and clear to auscultation bilaterally AUSCULTATION: clear to auscultation bilaterally Cardio: COMMON NORMALS: regular rate, regular rhythm and No murmurs present (Cardio) RATE: regular rate RHYTHM: regular rhythm GI: COMMON NORMALS: Normal to inspection, nondistended, normoactive bowel sounds present, Soft to palpation, non-tender and no masses PALPATION: Yes Soft to palpation RECTAL EXAM: No heme positive stool Extremity: COMMON NORMALS: normal to inspection and full ROM Neuro: COMMON NORMALS: moves all extremities and no focal motor deficits; negative for patient oriented x3 SENSORIUM/ORIENTATION: Yes oriented to person Psych: COMMON NORMALS: mental status grossly normal, Normal thought process present and cooperative THOUGHT PROCESS: Normal thought process present Skin: COMMON NORMALS: no rashes or lesions noted and no wounds GENERAL SKIN EXAM: no rashes or lesions noted Course Vital Signs: Vital signs: Vital Signs Temperature 97.6 F 05/26/21 00:04 Pulse Rate 88 05/26/21 00:10 Respiratory Rate 12 05/26/21 00:10 Blood Pressure 153/98 05/26/21 00:10 Pulse Oximetry 98 05/26/21 00:10 MDM - General Adult MDM Narrative: Medical decision making narrative: Patient presents here with chronic anemia level here is 7.1. He had hypotension at the assisted living but here has been normotensive. Blood pressures been in the 130s he has no compl aints blood work besides anemia is normal did rectal exam is negative no signs of acute blood loss we will give him 1 unit he is stable for discharge is to follow-up with PCP and return if worsening. Lab Data: Labs: Lab Results 05/25/21 05/25/21 05/25/21 21:41 21:41 21:41 WBC 9.2 10^3/uL 10^3/ uL (4.0-10.0) RBC 2.13 10^6/uL L 10 ^6/uL (4.1-5.3) Hgb 6.6 g/dL L g/dL (11.7-16.6) Hct 19.8 % L* % (42.0-52.0) MCV 93.0 fl fl (80-94) MCH 31.0 pg pg (28.0-34.0) MCHC 33.3 g/dL g/dL (30.0-36.0) RDW 14.6 % % (12.1-15.1) Plt Count 191 10^3/cmm 10^3 /cmm (130-400) MPV 8.9 fL fL (7.4-10.4) Neut % (Auto) 76.7 % % Lymph % (Auto) 10.7 % % [place] % (Auto) 11.1 % % Eos % (Auto) 0.3 % % Baso % (Auto) 0.3 % % Neut # (Auto) 7.01 10^3/uL 10^3 /uL (1.8-7.7) Lymph # (Auto) 1.0 10^3/uL 10^3/ uL (0.8-4.8) [place] # (Auto) 1.0 10^3/uL H 10^ 3/uL (0.2-0.9) Eos # (Auto) 0.0 10^3/uL 10^3/ uL (0.0-0.8) Baso # (Auto) 0.0 10^3/uL 10^3/ uL (0.0-0.1) Nucleated RBC % (a uto) 0 % % Nucleated RBCs # 0.0 /100WBC /100W BC Sodium 133 mmol/L L mmol /L (136-145) Potassium 3.8 mmol/L mmol/L (3.5-5.1) Chloride 100 mmol/L mmol/L (98-107) Carbon Dioxide 24 mmol/L mmol/L (22-29) Anion Gap 12.8 (5-19) BUN 22 mg/dL mg/dL (8-23) Creatinine 1.6 mg/dL H mg/dL (0.7-1.2) GFR Calculation 43.9 mL/min L mL/ min (90-130) Glucose 69 mg/dL mg/dL (65-115) Calculated Osmolal ity 278 mOsm/kg L mOs m/kg (285-295) Lactate 0.8 mmol/L mmol/L (0.5-2.2) Calcium 7.3 mg/dL L mg/dL (8.5-10.5) Total Bilirubin 0.2 mg/dL mg/dL (0.15-1.2) AST 5 U/L U/L (0-40) ALT < 5 U/L U/L (0-41) Alkaline Phosphata se 55 IU/L IU/L (40-130) Total Protein 4.7 g/dL L g/dL (6.6-8.7) Albumin 2.6 g/dL L g/dL (3.5-5.2) Globulin 2.1 g/dL g/dL (1.3-4.6) Urine Color Urine Appearance Urine pH Ur Specific Gravit y Urine Protein Urine Glucose (UA) Urine Ketones Urine Blood Urine Nitrate Urine Bilirubin Urine Urobilinogen Ur Leukocyte Jyoti ase Urine RBC Urine WBC Ur Squamous Epith Cells Amorphous Sediment Urine Bacteria Blood Type Rho(D) Type Antibody Screen Crossmatch 05/25/21 05/25/21 05/25/21 21:41 22:14 22:14 WBC RBC Hgb 7.1 g/dL L g/dL (11.7-16.6) Hct 22.2 % L % (42.0-52.0) MCV MCH MCHC RDW Plt Count MPV Neut % (Auto) Lymph % (Auto) [place] % (Auto) Eos % (Auto) Baso % (Auto) Neut # (Auto) Lymph # (Auto) [place] # (Auto) Eos # (Auto) Baso # (Auto) Nucleated RBC % (a uto) Nucleated RBCs # Sodium Potassium Chloride Carbon Dioxide Anion Gap BUN Creatinine GFR Calculation Glucose Calculated Osmolal ity Lactate Calcium Total Bilirubin AST ALT Alkaline Phosphata se Total Protein Albumin Globulin Urine Color Yellow (Yellow) Urine Appearance Clear (CLEAR) Urine pH 6.5 (5-7) Ur Specific Gravit y 1.000 L (1.005-1.030) Urine Protein Neg (Negative) Urine Glucose (UA) Norm (Normal) Urine Ketones Negative (Negative) Urine Blood 3+ H (Negative) Urine Nitrate Negative (Negative) Urine Bilirubin Neg (Negative) Urine Urobilinogen Norm mg/dL mg/dL (Negative) Ur Leukocyte Jyoti ase 2+ H (Negative) Urine RBC 0-4 /hpf H /hpf (0-2) Urine WBC 5-10 /hpf H /hpf (0-5) Ur Squamous Epith Cells 0-4 /hpf H /hpf (0-5) Amorphous Sediment Not Reportable Urine Bacteria Trace /hpf /hpf (NONE) Blood Type A Positive Rho(D) Type Positive Antibody Screen Negative Crossmatch See Detail EKG Data^: EKG 1: Attestation: I personally reviewed and interpreted this EKG as follows: EKG interpretation date: 05/25/21 EKG interpretation time: 21:32 Interpretation: nsr hr [address] or t wave abnormalities qrs 112 qtc 427 Computer generated interpretation: Chest X-Ray 05/25/21 21:11 IMPRESSION: Diminished inspiratory effort with vascular crowding and minimal atelectasis lung bases. Discharge Plan Discharge Patient Disposition: Home Clinical Impression: Anemia Condition: Stable Prescriptions: No Action ferrous sulfate 325 mg (65 mg iron) tablet 325 mg PO DAILY@0700 RF: 0 finasteride 5 mg tablet 5 mg PO DAILY@0700 RF: 0 Linzess 145 mcg capsule 145 mcg PO DAILY@0700 RF: 0 oxybutynin chloride 10 mg tablet extended release 24hr 10 mg PO DAILY@0700 RF: 0 tamsulosin 0.4 mg capsule 0.4 mg PO DAILY@07 RF: 0 bethanechol chloride 25 mg tablet 25 mg PO BID@08,1999 RF: 0 docusate sodium 100 mg capsule 100 mg PO BID@699,1999 RF: 0 hydrocodone-acetaminophen 10-325 mg tablet 1 tab PO TID RF: 0 divalproex [Depakote] 250 mg tablet,delayed release (DR/EC) 250 mg PO TID@0700,1399,1999 RF: 0 gabapentin 400 mg capsule 400 mg PO TID@07,14,20 RF: 0 buspirone 15 mg tablet 15 mg PO TID@0700,1399,1999 RF: 0 amitriptyline 100 mg tablet 100 mg PO DAILY@1999 RF: 0 omeprazole 40 mg capsule,delayed release(DR/EC) 40 mg PO DAILY@1999 RF: 0 ascorbic acid (vitamin C) 500 mg capsule PO DAILY RF: 0 carboxymethylcellulose sodium [Refresh Tears] 0.5 % drops 2 drp ophthalmic (eye) .PRN RF: 0 DOPATEDINE eye-both DAILY PRNRF: 0 calcium carbonate-vitamin D3 [Calcium 600 + D(3)] 600 mg(1,500mg) -400 unit Tablet 1 tab PO BID@0700,1900 RF: 0 aluminum hydrox-magnesium carb 254-237.5 mg/5 mL Suspension 10 ml PO QID PRN (Reason: Stomach Upset) Qty: 0 RF: 0 diclofenac sodium 1 % Gel 2 g TOPICAL QID PRN (Reason: Pain) RF: 0 Mylanta 20 ml PO Q6H PRN (Reason: Nausea) RF: 0 quetiapine 50 mg tablet 75 mg PO .AT HS RF: 0 magnesium sulfate (bulk) [Epsom Salt] 100 % Crystals 1 applic TOPICAL BID RF: 0 carboxymethylcellulose sodium 1 % Drops, Liquid Gel 1 - 2 drp OPHTHALMIC (EYE) DAILY PRN (Reason: Dry Eyes) RF: 0 copper gluconate 2 mg Capsule 2 mg PO DAILY RF: 0 folic acid 1 mg Tablet 1 mg PO DAILY RF: 0 quetiapine 25 mg tablet 25 mg PO DAILY RF: 0 clonidine HCl 0.1 mg Tablet 0.1 mg PO BID PRN (Reason: Blood Pressure) RF: 0 cyanocobalamin (vitamin B-12) 1,000 mcg/mL Solution 1,000 mcg IM Q30D RF: 0 aspirin 81 mg Tablet,Chewable 81 mg PO DAILY RF: 0 metoprolol tartrate 25 mg tablet 12.5 mg PO BID Qty: 60 RF: 0 clonidine HCl 0.1 mg tablet 0.1 mg PO BID Qty: 60 RF: 0 clonazepam 0.5 mg tablet 0.5 mg PO BID PRN (Reason: anxiety, insomnia) 30 Days Qty: 60 RF: 0 ciprofloxacin HCl 500 mg tablet 500 mg PO BID 5 Days Qty: 10 RF: 0 Discharge Orders: Discharge ED (Routine); Ordered 05/26/21 Ordered By: Lucio Hanna Referrals: Rehan Rodriguez MD [Primary Care Provider] - Discharge Diet: Advance as tolerated Discharge Activity: Use walker/crutches as instructed Patient Instructions: Anemia (ED) Coding Level of Care Code ED Algorithm Design Engineer for Chg Fwd Exam Comprehensive
[2021-05-25 21:47] LABS: Basophils % 0.3 %; Eosinophils % 0.3 %; Hemoglobin 6.6 g/dL (11.7-16.6); Lymphocytes % 10.7 %; Mean Corpuscular HGB Conc 33.3 g/dL (30.0-36.0); Mean Platelet Volume 8.9 fL (7.4-10.4); Monocytes % 11.1 %; Neutrophils # 7.01 10^3/uL (1.8-7.7); Neutrophils % 76.7 %; Nucleated Red Blood Cells % 0 %; Platelet Count 191 10^3/cmm (130-400); Red Blood Count 2.13 10^6/uL (4.1-5.3); Red Cell Distribution Width 14.6 % (12.1-15.1); White Blood Count 9.2 10^3/uL (4.0-10.0)
[2021-05-25 21:59] LABS: Add Urine Culture? No; Add Urine Microscopic? YES; Bacteria Urine TRACE /hpf; Bilirubin Urine Neg (Negative); Blood Urine 3+ (Negative); Glucose Urine UA Norm (Normal); Ketones Urine Negative (Negative); Leukocyte Esterase Urine 2+ (Negative); Nitrate Urine Negative (Negative); Protein Urine Neg (Negative); RBC Urine 0-4 /hpf (0-2); Squamous Epithelial Cell Urine 0-4 /hpf (0-5); Urine Appearance Clear (CLEAR); Urine Color Yellow (Yellow); Urobilinogen Urine Norm (Negative); pH Urine 6.5 (5-7)
[2021-05-25 22:00] LABS: Hematocrit 19.8 % (42.0-52.0)
[2021-05-25 22:14] LABS: Alanine Aminotransferase < 5 U/L (0-41); Albumin Level 2.6 g/dL (3.5-5.2); Alkaline Phosphatase 55 IU/L (40-130); Anion Gap 12.8 (5-19); Aspartate Amino Transferase 5 U/L (0-40); Blood Urea Nitrogen 22 mg/dL (8-23); Calcium 7.3 mg/dL (8.5-10.5); Carbon Dioxide 24 mmol/L (22-29); Chloride 100 mmol/L (98-107); Globulin 2.1 g/dL (1.3-4.6); Glomerular Filtration Rate 43.9 mL/min (90-130); Glucose 69 mg/dL (65-115); Osmolality Calculated 278 mOsm/kg (285-295); Potassium 3.8 mmol/L (3.5-5.1); Sodium 133 mmol/L (136-145); Total Bilirubin 0.2 mg/dL (0.15-1.2); Total Protein 4.7 g/dL (6.6-8.7)
[2021-05-25 22:15] LABS: Lactate (Lactic Acid level) 0.8 mmol/L (0.5-2.2)
[2021-05-25 22:30] LABS: Hematocrit 22.2 % (42.0-52.0); Hemoglobin 7.1 g/dL (11.7-16.6)
[2021-05-25 23:00] VITALS: BP 136/83; PULSE 85; RESP 18; O2SAT 98
[2021-05-25 23:46] VITALS: BP 137/86; PULSE 88; RESP 15; TEMP 36.6; O2SAT 95
[2021-05-26 00:04] VITALS: BP 153/98; PULSE 88; RESP 12; TEMP 36.4; O2SAT 99
[2021-05-26 00:10] VITALS: BP 153/98; PULSE 88; RESP 12; O2SAT 98
[2021-05-26 00:15] VITALS: BP 166/102; PULSE 87; RESP 12; TEMP 36.8; O2SAT 99
[2021-05-26 00:30] VITALS: BP 174/105; PULSE 86; RESP 12; TEMP 36.7; O2SAT 99
[2021-05-26 00:54] VITALS: BP 177/104; PULSE 88; RESP 12; TEMP 36.6; O2SAT 98
[2021-05-26 01:43] LABS: Iron 7 ug/dL (59-158); Percent Saturation 4.6 % (20-50); Total Iron Binding Capacity 149 mcg/dl; Unsaturated Iron Binding 142 ug/dL (112-347)
== END 2021-05-26 01:37 | disposition home or self-care (01) ==
PROVIDERS: Emergency Provider Emergency Medicine; PCP Internal Medicine
DX: D64.9 Anemia, unspecified (principal); Z79.891 Long term (current) use of opiate analgesic; Z79.82 Long term (current) use of aspirin
CPT/HCPCS: 36430; 71045; 80053; 81001; 83540; 83550; 83605; 85014; 85018; 85025; 86850; 86900; 86920; 93005; 99284; J7030; P9016

== ENCOUNTER 2021-05-28 20:02 | Emergency (ER) | payer MEDICARE, MEDICAID, SELFPAY ==
[2021-05-28 20:19] VITALS: BP 145/87; PULSE 96; RESP 18; TEMP 36.1; O2SAT 97; BMI 22.4
--- NOTE | 2021-05-28 21:47 | ED_ITS ---
HPI - General Adult General: Chief complaint: General Medical Stated complaint: Hypertention Time Seen by Provider: 05/28/21 21:26 History of Present Illness: HPI narrative: Patient is a 65-year-old male comes to the ED with elevated blood pressure. Patient says that he was taking his blood pressure at home and it was elevated. He could not tell me the exact numbers but said the systolic number was in the 100s and the diastolic number was over 100. Denies any current symptoms. He takes metoprolol daily. Patient also has a Bazan catheter in place with a leg bag and would like to get it switched to normal catheter bag. Associated symptoms: Deny chest pain, dyspnea, headache(s), nausea, rash, palpitations or vomiting Review of Systems Narrative: hypertension Const: Denies: fever(s), chills or fatigue Eyes: Denies: change in vision or eye discomfort ENMT: Denies: throat pain, odynophagia, nasal discharge or nasal congestion Card: Denies: chest pain, palpitations, edema, swelling of feet/ankles, dyspnea on exertion or orthopnea Resp: Denies: dyspnea, productive cough or non-productive cough GI: Denies: abdominal pain, nausea, vomiting, diarrhea, constipation or hematochezia : Denies: flank pain, difficulty urinating, dysuria or hematuria Musc: Denies: neck pain, back pain or extremity swelling Skin/Breast: Denies: rash or new lesions Neuro: Denies: headache(s), numbness in extremities or weakness in extremities PFSH ED PFSH: Medical History Acute blood loss anemia Acute UTI STEVEN (acute kidney injury) STEVEN (acute kidney injury) Bacteremia Bilateral hydronephrosis Chronic cystitis Complicated UTI (urinary tract infection) Constipation Depression determined by examination Detrusor dysfunction Gross hematuria Gross hematuria Prostatitis Prostatitis Sepsis Sepsis Urinary retention Urinary retention UTI (urinary tract infection) UTI (urinary tract infection) Family History Mother Diabetes Father Diabetes Sister Diabetes Social History Alcohol intake: never Marital status: Single Current occupational status: unemployed and retired Physical Exam Const: COMMON NORMALS: no acute distress, patient oriented x3 and alert GENERAL APPEARANCE: cooperative and comfortable HENMT: COMMON NORMALS: normocephalic HEAD & SCALP: normocephalic MOUTH: Normal oral and palatal mucosa present THROAT: posterior oropharynx normal and uvula midline Eye: COMMON NORMALS: Equal, round and reactive pupils present PUPIL: Yes Equal, round and reactive pupils present Neck/C-Spine: COMMON NORMALS: supple GENERAL: Yes normal visual inspection Resp: COMMON NORMALS: normal respiratory effort, No retractions, No use of accessory muscles and clear to auscultation bilaterally AUSCULTATION: clear to auscultation bilaterally Cardio: COMMON NORMALS: regular rate, regular rhythm, S1 normal heart sound present, S2 normal heart sound present, No gallops present (Cardio), No clicks present (Cardio), No murmurs present (Cardio) and Peripheral pulses 2+ throughout RATE: regular rate RHYTHM: regular rhythm HEART SOUNDS: S1 normal heart sound present and S2 normal heart sound present PERIPHERAL PULSES: Peripheral pulses 2+ throughout GI: COMMON NORMALS: Normal to inspection, nondistended, normoactive bowel sounds present, Soft to palpation, non-tender and no masses PALPATION: Yes Soft to palpation : COMMON NORMALS: Yes no CVA tenderness BLADDER/KIDNEY EXAM: Yes catheter in place Catheter type (Male): urethral and Yes no CVA tenderness OTHER: Catheter in place and attached to a leg bag. Back/Pelvis: COMMON NORMALS: no CVA tenderness Extremity: COMMON NORMALS: normal to inspection Neuro: COMMON NORMALS: patient oriented x3 and moves all extremities SENSORIUM/ORIENTATION: Yes alert Skin: GENERAL SKIN EXAM: dry skin Course ED course: Patient did not like the Bazan cath leg bag. Nurse changed patient's Bazan cath leg bag out for a larger cath bag. Vital Signs: Vital signs: Vital Signs Temperature 98.2 F 05/28/21 23:41 Pulse Rate 78 05/28/21 23:41 Respiratory Rate 18 05/28/21 23:41 Blood Pressure 173/95 05/28/21 23:41 Pulse Oximetry 96 05/28/21 23:41 MDM - General Adult MDM Narrative: Medical decision making narrative: Patient is a 65-year-old male comes to the ED with elevated blood pressure. Patient says that he was taking his blood pressure at home and it was elevated. He could not tell me the exact numbers but said the systolic number was in the 100s and the diastolic number was over 100. Denies any current symptoms. He takes metoprolol daily. Patient also has a Bazan catheter in place with a leg bag and would like to get it switched to normal catheter bag. Vitals stable on blood pressure 145/87. Exam is benign. Nurse changed out patient's Bazan leg bag with a larger cath bag as requested by patient. Patient was diagnosed with hypertension and discharged home. He was told to follow-up with PCP in 5 to 7 days reevaluation. Return to ED precautions given. Patient is to agree with plan. Discharge Plan Discharge Patient Disposition: Home Clinical Impression: Hypertension Qualifiers: Hypertension type: primary hypertension Qualified Code(s): I10 - Essential (primary) hypertension Condition: Stable Prescriptions: No Action ferrous sulfate 325 mg (65 mg iron) tablet 325 mg PO DAILY@0700 RF: 0 finasteride 5 mg tablet 5 mg PO DAILY@0700 RF: 0 Linzess 145 mcg capsule 145 mcg PO DAILY@0700 RF: 0 oxybutynin chloride 10 mg tablet extended release 24hr 10 mg PO DAILY@0700 RF: 0 tamsulosin 0.4 mg capsule 0.4 mg PO DAILY@0700 RF: 0 bethanechol chloride 25 mg tablet 25 mg PO BID@799,1999 RF: 0 docusate sodium 100 mg capsule 100 mg PO BID@699,1999 RF: 0 hydrocodone-acetaminophen 10-325 mg tablet 1 tab PO TID RF: 0 divalproex [Depakote] 250 mg tablet,delayed release (DR/EC) 250 mg PO TID@0700,1399,1999 RF: 0 gabapentin 400 mg capsule 400 mg PO TID@,, RF: 0 buspirone 15 mg tablet 15 mg PO TID@0700,1399,1999 RF: 0 amitriptyline 100 mg tablet 100 mg PO DAILY@1999 RF: 0 omeprazole 40 mg capsule,delayed release(DR/EC) 40 mg PO DAILY@1999 RF: 0 ascorbic acid (vitamin C) 500 mg capsule PO DAILY RF: 0 carboxymethylcellulose sodium [Refresh Tears] 0.5 % drops 2 drp ophthalmic (eye) .PRN RF: 0 DOPATEDINE eye-both DAILY PRNRF: 0 calcium carbonate-vitamin D3 [Calcium 600 + D(3)] 600 mg(1,500mg) -400 unit Tablet 1 tab PO BID@0700,1900 RF: 0 aluminum hydrox-magnesium carb 254-237.5 mg/5 mL Suspension 10 ml PO QID PRN (Reason: Stomach Upset) Qty: 0 RF: 0 diclofenac sodium 1 % Gel 2 g TOPICAL QID PRN (Reason: Pain) RF: 0 Mylanta 20 ml PO Q6H PRN (Reason: Nausea) RF: 0 quetiapine 50 mg tablet 75 mg PO .AT HS RF: 0 magnesium sulfate (bulk) [Epsom Salt] 100 % Crystals 1 applic TOPICAL BID RF: 0 carboxymethylcellulose sodium 1 % Drops, Liquid Gel 1 - 2 drp OPHTHALMIC (EYE) DAILY PRN (Reason: Dry Eyes) RF: 0 copper gluconate 2 mg Capsule 2 mg PO DAILY RF: 0 folic acid 1 mg Tablet 1 mg PO DAILY RF: 0 quetiapine 25 mg tablet 25 mg PO DAILY RF: 0 clonidine HCl 0.1 mg Tablet 0.1 mg PO BID PRN (Reason: Blood Pressure) RF: 0 cyanocobalamin (vitamin B-12) 1,000 mcg/mL Solution 1,000 mcg IM Q30D RF: 0 aspirin 81 mg Tablet,Chewable 81 mg PO DAILY RF: 0 metoprolol tartrate 25 mg tablet 12.5 mg PO BID Qty: 60 RF: 0 clonidine HCl 0.1 mg tablet 0.1 mg PO BID Qty: 60 RF: 0 clonazepam 0.5 mg tablet 0.5 mg PO BID PRN (Reason: anxiety, insomnia) 30 Days Qty: 60 RF: 0 ciprofloxacin HCl 500 mg tablet 500 mg PO BID 5 Days Qty: 10 RF: 0 Discharge Orders: Discharge ED (Routine); Ordered 05/28/21 Ordered By: Beau Heath Referrals: Rehan Rodriguez MD [Primary Care Provider] - Discharge Diet: Regular Discharge Activity: Resume usual activity Patient Instructions: Hypertension (ED) Activity Restrictions/Additional Instructions: Follow-up with medical provider as directed in 5 to 7 days for reevaluation. Continue taking all home medications as previously prescribed. Return to the ER or your medical provider if condition worsens. Please read and understand discharge instructions. Thank you for choosing [facility] for your healthcare needs today. Please realize this is an emergency room and that we are providing you with a medical screening exam and this may not be complete and all inclusive of all the testing and or work up that you may need to determine your ailment or severity of your illness. It is very important that you follow up as instructed or that you return to the Emergency Department should you have concerns or if your condition changes or worsens in any way. Coding Level of Care Code ED Mobile Battery Technician for Amber Lawson Exam Comprehensive
--- NOTE | 2021-05-28 22:54 | PC.NURSE ---
Spoke with his staff (Ros) about patient discharge
[2021-05-28 23:41] VITALS: BP 173/95; PULSE 78; RESP 18; TEMP 36.8; O2SAT 96
== END 2021-05-28 23:43 | disposition home or self-care (01) ==
PROVIDERS: Emergency Provider Physician Assistant; PCP Internal Medicine
DX: I10 Essential (primary) hypertension (principal); Z79.82 Long term (current) use of aspirin
CPT/HCPCS: 99282

== ENCOUNTER 2021-06-12 11:11 | Emergency (ER) | payer MEDICARE, MEDICAID, SELFPAY ==
--- NOTE | 2021-06-12 11:23 | XR_ITS ---
WS: [id number] PORTABLE CHEST HISTORY: dyspnea/cough COMPARISON: 05/25/2021 Mild stable elevation of the LEFT hemidiaphragm. Subsegmental atelectasis adjacent to the RIGHT heart . Lung volumes are mildly decreased. There is some very minimal airspace disease in the RIGHT lower l obe. Mildly progressed since the prior study. No pleural effusion or pneumothorax. Cardiac size: Mildly enlarged cardiac silhouette. Mediastinum/Aorta: Mild atherosclerosis aorta. Evidence for prior gastric pull-through. No osseous abnormality seen. XR/XR chest 1V portable [id number] IMPRESSION: 1. Slight elevation of the LEFT hemidiaphragm. 2. New very subtle airspace disease at the RIGHT lung base. Most likely pneumo nitis. 3. Prior gastric pull-through.
--- NOTE | 2021-06-12 11:23 | ECG_ITS ---
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 Measurements Intervals [place] Rate: 69 P: 70 MA: 167 QRS: 90 QRSD: 147 T: 27 QT: 455 QTc: 488 Interpretive Statements SINUS RHYTHM INTRAVENTRICULAR CONDUCTION DELAY [130+ ms QRS DURATION] Compared to ECG 05/25/2021 21:32:11 T-wave abnormality no longer present Electronically Signed On 06-13-2021 17:08:24 PROCESS CHECKER by Arturo España M.D. [id number]
[2021-06-12 11:24] VITALS: BP 90/54; PULSE 88; RESP 14; TEMP 36.9; O2SAT 96; BMI 23.5
--- NOTE | 2021-06-12 12:09 | W.ED.GENADLT ---
HPI - General Adult General: Chief complaint: General Medical Stated complaint: HYPOTENSION, LETHARGIC Time Seen by Provider: 06/12/21 11:13 Source: patient Mode of arrival: EMS History of Present Illness: 65-year-old male is a resident of [facility] presents for lethargy and hypotension. Patient usually seen by physician in [place] they recently increased his Ativan from 0.53 times a day 1 mg 3 times a day additionally they added clonidine. He denies any chest pain lightheadedness or dizziness with verbal prompting he will awaken follow commands. He is aware of time place and person. He denies any chest or abdominal pain cough or shortness of breath or myalgias. Onset (ago): hour(s) Severity: mild Relieving factors: none Exacerbating factors: medication Associated symptoms: Reports confusion; Deny chest pain, cough, diaphoresis, decreased appetite, dyspnea, fevers/chills, headache(s), malaise, nausea, rash, palpitations, seizures, short of breath, syncope, vomiting or weakness Treatments prior to arrival: none Review of Systems Const: Denies: malaise or diaphoresis ENMT: Denies: throat pain, ear or mastoid pain, nasal discharge or nasal congestion Card: Denies: chest pain, palpitations or syncope Resp: Denies: dyspnea GI: Denies: nausea or vomiting : Denies: flank pain, dysuria, urinary frequency or urinary urgency Skin/Breast: Denies: rash Neuro: Reports: confusion; Denies: headache(s) [facility] ED PFSH: Medical History Acute blood loss anemia Acute UTI STEVEN (acute kidney injury) STEVEN (acute kidney injury) Bacteremia Bilateral hydronephrosis Chronic cystitis Complicated UTI (urinary tract infection) Constipation Depression determined by examination Detrusor dysfunction Gross hematuria Gross hematuria Prostatitis Prostatitis Sepsis Sepsis Urinary retention Urinary retention UTI (urinary tract infection) UTI (urinary tract infection) Family History Mother Diabetes Father Diabetes Sister Diabetes Social History Smoking and tobacco status: never smoked Alcohol intake: never Marital status: Single Current occupational status: unemployed and retired Physical Exam Const: COMMON NORMALS: no acute distress GENERAL APPEARANCE: cooperative and comfortable ORIENTATION/CONSCIOUSNESS: Yes awake HENMT: COMMON NORMALS: normocephalic, atraumatic, hearing grossly normal bilaterally, external ears normal, EAC's normal, TM's normal bilaterally, Normal nasal mucous membranes and turbinates present, moist oral mucous membranes and oropharynx normal HEAD & SCALP: normocephalic and atraumatic NOSE: Normal nasal mucous membranes and turbinates present EXTERNAL EAR: Yes external ears normal EXTERNAL AUDITORY CANAL: EAC's normal TYMPANIC MEMBRANE: TM's normal bilaterally Eye: COMMON NORMALS: Equal, round and reactive pupils present, EOMs intact bilaterally, conjunctivae normal and no scleral icterus CONJUNCTIVA: Yes conjunctivae normal PUPIL: Yes Equal, round and reactive pupils present Neck/C-Spine: COMMON NORMALS: full ROM, no lymphadenopathy, supple and no JVD Resp: COMMON NORMALS: normal respiratory effort, No retractions, No use of accessory muscles and clear to auscultation bilaterally AUSCULTATION: clear to auscultation bilaterally Cardio: COMMON NORMALS: no JVD, regular rate, regular rhythm and No murmurs present (Cardio) RATE: regular rate RHYTHM: regular rhythm GI: COMMON NORMALS: Soft to palpation and No hepatosplenomegaly present AUSCULTATION: Yes normoactive bowel sounds PALPATION: Yes Soft to palpation, No Tenderness to palpation present (GI), No Guarding due to palpation present (GI) and Yes No hepatosplenomegaly present Extremity: COMMON NORMALS: normal to inspection, capillary refill normal, no clubbing, cyanosis or edema, no calf tenderness and no pedal edema Skin: COMMON NORMALS: no rashes or lesions noted GENERAL SKIN EXAM: no rashes or lesions noted Course Vital Signs: Vital signs: Vital Signs Temperature 98.0 F 06/12/21 15:15 Pulse Rate 79 06/12/21 15:15 Respiratory Rate 14 06/12/21 15:15 Blood Pressure 136/85 06/12/21 15:15 Pulse Oximetry 96 06/12/21 15:15 [facility] - General Adult Medical Decision Making Patient somewhat sedated but awake answers questions. The increase his Ativan and his clonidine he is taking clonazepam as a as needed Ativan scheduled. We will decrease his Ativan stop the clonidine. Have him follow-up with his primary care doctor next week return to emergency room if has further problems. Medical Records I reviewed the patient's medical records. Lab Data I reviewed the patient's lab results. : 06/12/21 12:27 06/12/21 12:27 Radiology Impressions Chest X-Ray 06/12/21 11:23 IMPRESSION: 1. Slight elevation of the LEFT hemidiaphragm. 2. New very subtle airspace disease at the RIGHT lung base. Most likely pneumonitis. 3. Prior gastric pull-through. Laboratory Results WBC 16.6 10^3/uL (4.0-10.0) H 06/12/21 12:27 RBC 2.92 10^6/uL (4.1-5.3) L 06/12/21 12:27 Hgb 8.9 g/dL (11.7-16.6) L 06/12/21 12:27 Hct 28.3 % (42.0-52.0) L 06/12/21 12:27 MCV 96.9 fl (80-94) H 06/12/21 12:27 MCH 30.5 pg (28.0-34.0) 06/12/21 12:27 MCHC 31.4 g/dL (30.0-36.0) 06/12/21 12:27 RDW 14.3 % (12.1-15.1) 06/12/21 12:27 Plt Count 256 10^3/cmm (130-400) 06/12/21 12:27 MPV 8.6 fL (7.4-10.4) 06/12/21 12:27 Neut % (Auto) 83.2 % 06/12/21 12:27 Lymph % (Auto) 5.7 % 06/12/21 12:27 [place] % (Auto) 9.8 % 06/12/21 12:27 Eos % (Auto) 0.0 % 06/12/21 12:27 Baso % (Auto) 0.3 % 06/12/21 12:27 Neut # (Auto) 13.82 10^3/uL (1.8-7.7) H 06/12/21 12:27 Lymph # (Auto) 0.9 10^3/uL (0.8-4.8) 06/12/21 12:27 [place] # (Auto) 1.6 10^3/uL (0.2-0.9) H 06/12/21 12:27 Eos # (Auto) 0.0 10^3/uL (0.0-0.8) 06/12/21 12:27 Baso # (Auto) 0.1 10^3/uL (0.0-0.1) 06/12/21 12:27 Nucleated RBC % (auto) 0 % 06/12/21 12: Nucleated RBCs # 0.0 /100WBC 06/12/21 12:27 Sodium 128 mmol/L (136-145) L 06/12/21 12:27 Potassium 4.3 mmol/L (3.5-5.1) 06/12/21 12:27 Chloride 96 mmol/L (98-107) L 06/12/21 12:27 Carbon Dioxide 21 mmol/L (22-29) L 06/12/21 12:27 Anion Gap 15.3 (5-19) 06/12/21 12:27 BUN 23 mg/dL (8-23) 06/12/21 12:27 Creatinine 2.1 mg/dL (0.7-1.2) H 06/12/21 12:27 GFR Calculation 32.1 mL/min (90-130) L 06/12/21 12:27 Glucose 117 mg/dL (65-115) H 06/12/21 12:27 Calculated Osmolality 271 mOsm/kg (285-295) L 06/12/21 12:27 Calcium 7.9 mg/dL (8.5-10.5) L 06/12/21 12:27 Total Bilirubin 0.3 mg/dL (0.15-1.2) 06/12/21 12:27 AST 9 U/L (0-40) 06/12/21 12:27 ALT 7 U/L (0-41) 06/12/21 12:27 Alkaline Phosphatase 64 IU/L (40-130) 06/12/21 12:27 Troponin T Baseline 49 ng/L (0-15) H 06/12/21 12:27 Total Protein 5.9 g/dL (6.6-8.7) L 06/12/21 12:27 Albumin 3.4 g/dL (3.5-5.2) L 06/12/21 12:27 Globulin 2.5 g/dL (1.3-4.6) 06/12/21 12:27 Discharge Plan Discharge Patient Disposition: Home Clinical Impression: Medication side effect Condition: Stable Prescriptions: Changed lorazepam 2 mg Tablet 1 mg PO TID@0600,1600,1999 Qty: 0 0RF losartan 100 mg Tablet 50 mg PO BEDTIME Qty: 0 0RF Discontinued clonidine HCl 0.1 mg Tablet 0.1 mg PO DAILY PRN (Reason: sbp>160) 0RF No Action ferrous sulfate 325 mg (65 mg iron) tablet 325 mg PO DAILY@0700 0RF finasteride 5 mg tablet 5 mg PO DAILY@0700 0RF Linzess 145 mcg capsule 145 mcg PO DAILY@0700 0RF tamsulosin 0.4 mg capsule 0.4 mg PO DAILY@0700 0RF bethanechol chloride 25 mg tablet 25 mg PO BID@0800,1999 0RF docusate sodium 100 mg capsule 100 mg PO BID@07,1999 0RF hydrocodone-acetaminophen 10-325 mg tablet 1 tab PO TID 0RF divalproex [Depakote] 250 mg tablet,delayed release (DR/EC) 250 mg PO TID@0700,1400,1999 0RF gabapentin 400 mg capsule 400 mg PO TID@07,, 0RF buspirone 15 mg tablet 15 mg PO TID@0700,1400,1999 0RF amitriptyline 100 mg tablet 100 mg PO BEDTIME@1999 0RF omeprazole 40 mg capsule,delayed release(DR/EC) 40 mg PO DAILY@1999 0RF ascorbic acid (vitamin C) 500 mg capsule 500 mg PO DAILY 0RF carboxymethylcellulose sodium [Refresh Tears] 0.5 % drops 2 drp ophthalmic (eye) .PRN 0RF DOPATEDINE 1 drp eye-both DAILY PRN (Reason: allergy eye) 0RF calcium carbonate-vitamin D3 [Calcium 600 + D(3)] 600 mg(1,500mg) -400 unit Tablet 1 tab PO BID@0700,1900 0RF Rx Instructions: TAKE WITH MEALS aluminum hydrox-magnesium carb 254-237.5 mg/5 mL Suspension 10 ml PO QID PRN (Reason: Stomach Upset) Qty: 0 0RF diclofenac sodium 1 % Gel 2 g TOPICAL QID PRN (Reason: Pain) 0RF Mylanta 20 ml PO Q6H PRN (Reason: Nausea) 0RF magnesium sulfate (bulk) [Epsom Salt] 100 % Crystals 1 applic TOPICAL BID 0RF Rx Instructions: SOAK TOE TWICE DAILY carboxymethylcellulose sodium 1 % Drops, Liquid Gel 1 - 2 drp OPHTHALMIC (EYE) DAILY PRN (Reason: Dry Eyes) 0RF copper gluconate 2 mg Capsule 2 mg PO DAILY 0RF folic acid 1 mg Tablet 1 mg PO DAILY 0RF quetiapine 25 mg tablet 25 mg PO BID@0700,1900 0RF cyanocobalamin (vitamin B-12) 1,000 mcg/mL Solution 1,000 mcg IM Q30D 0RF Rx Instructions: on 10th aspirin 81 mg Tablet,Chewable 81 mg PO DAILY 0RF metoprolol tartrate 25 mg tablet 12.5 mg PO BID Qty: 60 0RF clonidine HCl 0.2 mg Tablet 0.2 mg PO TID@0600,1600,2000 0RF clonazepam 0.5 mg tablet 0.5 mg PO BID PRN (Reason: Anxiety) 0RF cephalexin 500 mg capsule 500 mg PO QID 7 Days Qty: 28 0RF Discharge Orders: Discharge ED (Routine); Ordered 06/12/21 Ordered By: Rad Menon Referrals: Rehan Rodriguez MD [Primary Care Provider] - Discharge Diet: Usual diet Activity Restrictions/Additional Instructions: Follow-up with your doctor within the week to address medication changes. Coding Level of Care Code ED Consumer Loan Processor for Amber Lawson
[2021-06-12 12:33] LABS: Basophils # 0.1 10^3/uL (0.0-0.1); Basophils % 0.3 %; Hematocrit 28.3 % (42.0-52.0); Hemoglobin 8.9 g/dL (11.7-16.6); Lymphocytes # 0.9 10^3/uL (0.8-4.8); Lymphocytes % 5.7 %; Mean Corpuscular HGB Conc 31.4 g/dL (30.0-36.0); Mean Corpuscular Hemoglobin 30.5 pg (28.0-34.0); Mean Corpuscular Volume 96.9 fl (80-94); Mean Platelet Volume 8.6 fL (7.4-10.4); Monocytes # 1.6 10^3/uL (0.2-0.9); Monocytes % 9.8 %; Neutrophils # 13.82 10^3/uL (1.8-7.7); Neutrophils % 83.2 %; Nucleated Red Blood Cells % 0 %; Platelet Count 256 10^3/cmm (130-400); Red Blood Count 2.92 10^6/uL (4.1-5.3); Red Cell Distribution Width 14.3 % (12.1-15.1); White Blood Count 16.6 10^3/uL (4.0-10.0)
[2021-06-12 13:03] LABS: Alanine Aminotransferase 7 U/L (0-41); Albumin Level 3.4 g/dL (3.5-5.2); Alkaline Phosphatase 64 IU/L (40-130); Anion Gap 15.3 (5-19); Aspartate Amino Transferase 9 U/L (0-40); Blood Urea Nitrogen 23 mg/dL (8-23); Calcium 7.9 mg/dL (8.5-10.5); Carbon Dioxide 21 mmol/L (22-29); Chloride 96 mmol/L (98-107); Globulin 2.5 g/dL (1.3-4.6); Glomerular Filtration Rate 32.1 mL/min (90-130); Glucose 117 mg/dL (65-115); Osmolality Calculated 271 mOsm/kg (285-295); Potassium 4.3 mmol/L (3.5-5.1); Sodium 128 mmol/L (136-145); Total Bilirubin 0.3 mg/dL (0.15-1.2); Total Protein 5.9 g/dL (6.6-8.7)
[2021-06-12 13:04] LABS: Troponin(5th) Baseline 49 ng/L (0-15)
[2021-06-12 14:23] VITALS: BP 111/69; PULSE 76; RESP 16; TEMP 36.7; O2SAT 95
[2021-06-12 15:15] VITALS: BP 136/85; PULSE 79; RESP 14; TEMP 36.7; O2SAT 96
== END 2021-06-12 15:20 | disposition home or self-care (01) ==
PROVIDERS: Emergency Provider Family Medicine; PCP Internal Medicine
DX: T88.7XXA Unspecified adverse effect of drug or medicament, initial encounter (principal); T50.905A Adverse effect of unspecified drugs, medicaments and biological substances, initial encounter; Z79.82 Long term (current) use of aspirin
CPT/HCPCS: 71045; 80053; 84484; 85025; 93005; 99283

== ENCOUNTER 2021-06-12 20:26 | Emergency (ER) | payer MEDICARE, MEDICAID, SELFPAY ==
[2021-06-12 20:37] VITALS: BP 102/60; PULSE 95; RESP 18; TEMP 36.2; O2SAT 95; BMI 29.0
--- NOTE | 2021-06-12 20:55 | ED_ITS ---
HPI - Recheck/Abnormal Lab/Rx General: Chief Complaint: Recheck/Abnormal Lab/Rx Stated Complaint: CAME TO DO A UA Time Seen by Provider: 06/12/21 20:40 Source: patient Mode of arrival: ambulatory Limitations: no limitations History of Present Illness: 65-year-old male who was seen here earlier today as alf was concerned about possible sepsis he had a normal work-up earlier but they sent him back they wanted a urinalysis patient here has normal vital signs including normotension he denies any medical complaints at this time no fever denies any pain or weakness. Review of Systems Const: Denies: fever(s), chills, body aches or change in appetite Eyes: Denies: blurry vision or eye discomfort ENMT: Denies: throat pain or dental pain Card: Denies: chest pain Resp: Denies: dyspnea GI: Denies: abdominal pain, nausea, vomiting or diarrhea : Denies: dysuria Musc: Denies: neck pain or back pain Skin/Breast: Denies: rash Neuro: Denies: headache(s) Psych: Denies: depression [place]/Lymph: Denies: easy bruising All/Imm: Denies: urticaria PFSH ED PFSH: Medical History Acute blood loss anemia Acute UTI STEVEN (acute kidney injury) STEVEN (acute kidney injury) Bacteremia Bilateral hydronephrosis Chronic cystitis Complicated UTI (urinary tract infection) Constipation Depression determined by examination Detrusor dysfunction Gross hematuria Gross hematuria Prostatitis Prostatitis Sepsis Sepsis Urinary retention Urinary retention UTI (urinary tract infection) UTI (urinary tract infection) Family History Mother Diabetes Father Diabetes Sister Diabetes Social History Smoking and tobacco status: never smoked Alcohol intake: never Marital status: Single Current occupational status: unemployed and retired Physical Exam Const: COMMON NORMALS: no acute distress, patient oriented x3 and healthy appearing HENMT: COMMON NORMALS: normocephalic and atraumatic HEAD & SCALP: normocephalic and atraumatic Eye: COMMON NORMALS: Equal, round and reactive pupils present and EOMs intact bilaterally PUPIL: Yes Equal, round and reactive pupils present Neck/C-Spine: COMMON NORMALS: full ROM and supple Chest: COMMONS NORMALS: normal inspection of the chest and normal palpation of entire chest wall Resp: COMMON NORMALS: normal respiratory effort, No retractions, No use of accessory muscles and clear to auscultation bilaterally AUSCULTATION: clear to auscultation bilaterally Cardio: COMMON NORMALS: regular rate, regular rhythm and No murmurs present (Cardio) RATE: regular rate RHYTHM: regular rhythm GI: COMMON NORMALS: Normal to inspection, nondistended, normoactive bowel sounds present, Soft to palpation, non-tender and no masses PALPATION: Yes Soft to palpation Extremity: COMMON NORMALS: normal to inspection and full ROM Neuro: COMMON NORMALS: patient oriented x3, moves all extremities and no focal motor deficits Psych: COMMON NORMALS: mental status grossly normal, Normal thought process present and cooperative THOUGHT PROCESS: Normal thought process present Skin: COMMON NORMALS: no rashes or lesions noted and no wounds GENERAL SKIN EXAM: no rashes or lesions noted Course Vital Signs: Vital signs: Vital Signs Temperature 97.2 F L 06/12/21 20:37 Pulse Rate 95 06/12/21 20:37 Respiratory Rate 18 06/12/21 20:37 Blood Pressure 102/60 06/12/21 20:37 Pulse Oximetry 95 06/12/21 20:37 MDM - Recheck/Abnormal Lab/Rx Medical Decision Making Patient presents here with acute cystitis he did have blood work drawn earlier does not appear to be septic his blood pressure and vitals here been normal we will give him IM Rocephin and p.o. Keflex he is to follow-up with PCP and return if worsening. Lab Data Laboratory Results Urine Color Yellow (Yellow) 06/12/21 23:28 Urine Appearance Sl cloudy (CLEAR) A 06/12/21 23:28 Urine pH 7 (5-7) 06/12/21 23:28 Ur Specific [place] 1.010 (1.005-1.030) 06/12/21 23:28 Urine Protein 1+ (Negative) H 06/12/21 23:28 Urine Glucose (UA) Norm (Normal) 06/12/21 23:28 Urine Ketones Negative (Negative) 06/12/21 23:28 Urine Blood 3+ (Negative) H 06/12/21 23:28 Urine Nitrate Negative (Negative) 06/12/21 23:28 Urine Bilirubin Neg (Negative) 06/12/21 23:28 Urine Urobilinogen Norm mg/dL (Negative) 06/12/21 23:28 Ur Leukocyte Esterase 2+ (Negative) H 06/12/21 23:28 Urine RBC 40-50 /hpf (0-2) H 06/12/21 23:28 Urine WBC 55-80 /hpf (0-5) H 06/12/21 23:28 Ur Squamous Epith Cells 0-4 /hpf (0-5) H 06/12/21 23:28 Amorphous Sediment Not Reportable 06/12/21 23:28 Urine Bacteria 4+ /hpf (NONE) H 06/12/21 23:28 Discharge Plan Discharge Patient Disposition: Home Clinical Impression: Acute cystitis with hematuria Condition: Stable Prescriptions: New cephalexin 500 mg capsule 500 mg PO QID 7 Days Qty: 28 0RF No Action ferrous sulfate 325 mg (65 mg iron) tablet 325 mg PO DAILY@0700 0RF finasteride 5 mg tablet 5 mg PO DAILY@0700 0RF Linzess 145 mcg capsule 145 mcg PO DAILY@0700 0RF tamsulosin 0.4 mg capsule 0.4 mg PO DAILY@0700 0RF bethanechol chloride 25 mg tablet 25 mg PO BID@08,1999 0RF docusate sodium 100 mg capsule 100 mg PO BID@699,1999 0RF hydrocodone-acetaminophen 10-325 mg tablet 1 tab PO TID 0RF divalproex [Depakote] 250 mg tablet,delayed release (DR/EC) 250 mg PO TID@0700,1399,1999 0RF gabapentin 400 mg capsule 400 mg PO TID@, 0RF buspirone 15 mg tablet 15 mg PO TID@0700,1399,1999 0RF amitriptyline 100 mg tablet 100 mg PO BEDTIME@1999 0RF omeprazole 40 mg capsule,delayed release(DR/EC) 40 mg PO DAILY@1999 0RF ascorbic acid (vitamin C) 500 mg capsule 500 mg PO DAILY 0RF carboxymethylcellulose sodium [Refresh Tears] 0.5 % drops 2 drp ophthalmic (eye) .PRN 0RF DOPATEDINE 1 drp eye-both DAILY PRN (Reason: allergy eye) 0RF calcium carbonate-vitamin D3 [Calcium 600 + D(3)] 600 mg(1,500mg) -400 unit Tablet 1 tab PO BID@0700,1900 0RF Rx Instructions: TAKE WITH MEALS aluminum hydrox-magnesium carb 254-237.5 mg/5 mL Suspension 10 ml PO QID PRN (Reason: Stomach Upset) Qty: 0 0RF diclofenac sodium 1 % Gel 2 g TOPICAL QID PRN (Reason: Pain) 0RF Mylanta 20 ml PO Q6H PRN (Reason: Nausea) 0RF magnesium sulfate (bulk) [Epsom Salt] 100 % Crystals 1 applic TOPICAL BID 0RF Rx Instructions: SOAK TOE TWICE DAILY carboxymethylcellulose sodium 1 % Drops, Liquid Gel 1 - 2 drp OPHTHALMIC (EYE) DAILY PRN (Reason: Dry Eyes) 0RF copper gluconate 2 mg Capsule 2 mg PO DAILY 0RF folic acid 1 mg Tablet 1 mg PO DAILY 0RF quetiapine 25 mg tablet 25 mg PO BID@0700,1900 0RF cyanocobalamin (vitamin B-12) 1,000 mcg/mL Solution 1,000 mcg IM Q30D 0RF Rx Instructions: on aspirin 81 mg Tablet,Chewable 81 mg PO DAILY 0RF metoprolol tartrate 25 mg tablet 12.5 mg PO BID Qty: 60 0RF clonidine HCl 0.2 mg Tablet 0.2 mg PO TID@0600,1600,2000 0RF clonazepam 0.5 mg tablet 0.5 mg PO BID PRN (Reason: Anxiety) 0RF lorazepam 2 mg Tablet 1 mg PO TID@0600,1600,2000 Qty: 0 0RF losartan 100 mg Tablet 50 mg PO BEDTIME Qty: 0 0RF Discharge Orders: Discharge ED (Routine); Ordered 06/12/21 Ordered By: Lucio Hanna Referrals: Rehan Rodriguez MD [Primary Care Provider] - Discharge Diet: Advance as tolerated Discharge Activity: Resume usual activity Patient Instructions: Urinary Tract Infection in Men (ED) Coding Level of Care Code ED Community Worker for Amber Fwd Exam Comprehensive
[2021-06-12 23:50] LABS: Add Urine Microscopic? YES; Bilirubin Urine Neg (Negative); Blood Urine 3+ (Negative); Glucose Urine UA Norm (Normal); Ketones Urine Negative (Negative); Leukocyte Esterase Urine 2+ (Negative); Nitrate Urine Negative (Negative); Protein Urine 1+ (Negative); Urine Color Yellow (Yellow); Urobilinogen Urine Norm (Negative); pH Urine 7 (5-7)
[2021-06-12 23:51] LABS: Bacteria Urine 4+ /hpf; RBC Urine 40-50 /hpf (0-2); Squamous Epithelial Cell Urine 0-4 /hpf (0-5); WBC Urine 55-80 /hpf (0-5)
[2021-06-12 23:52] LABS: Add Urine Culture? Yes
[2021-06-13] MEDS: cefTRIAXone 1,000 MG in lidocaine 1% 2.1 ML 1 MG IM (00:13)
[2021-06-13 01:02] VITALS: BP 118/60
== END 2021-06-13 01:03 | disposition home or self-care (01) ==
PROVIDERS: Emergency Provider Emergency Medicine; PCP Internal Medicine
DX: N30.01 Acute cystitis with hematuria (principal); Z79.82 Long term (current) use of aspirin; Z87.440 Personal history of urinary (tract) infections
CPT/HCPCS: 51701; 81001; 87077; 87086; 87186; 96372; 99283; J0696

== ENCOUNTER 2021-06-13 19:59 | Inpatient (IN) | payer MEDICARE, MEDICAID, SELFPAY ==
[2021-06-13 20:30] VITALS: BP 161/90; PULSE 98; RESP 20; O2SAT 96; BMI 22.7
--- NOTE | 2021-06-13 21:22 | ECG_ITS ---
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 Measurements Intervals [place] Rate: 94 P: 29 CT: 184 QRS: 63 QRSD: 110 T: 35 QT: 343 QTc: 430 Interpretive Statements SINUS RHYTHM NONSPECIFIC T-WAVE ABNORMALITY Compared to ECG 06/13/2021 14:09:16 T-wave abnormality now present Intraventricular conduction delay no longer present Electronically Signed On 06-14-2021 19:29:13 OFFICER CAPTAIN by Carmel David M.D. [email or web address]
--- NOTE | 2021-06-13 21:22 | CTR_ITS ---
PROCEDURE INFORMATION: Exam: CT Head Without Contrast Exam date and time: 06/13/2021 9:22 PM Age: 65 years old Clinical indication: Altered mental status/memory loss; Patient HX: AMS TECHNIQUE: Imaging protocol: Computed tomography of the head without contrast. Radiation optimization: All CT scans at this facility use at least one of these dose optimization techniques: automated exposure control; mA and/or kV adjustment per patient size (includes targeted exams where dose is matched to clinical indication); or iterative reconstruction. COMPARISON: 1. CT head wo con* [id number] 2021-04-16 09:[address] head wo con* [id number] 2020-12-27 16:14 RADIATION DOSE METRICS: Total DLP (mGy-cm): 913.06 FINDINGS: Brain: Diffuse mild cerebral age related volume loss. Mild patchy low attenuation in the white matter compatible with mild chronic small vessel ischemic disease. No midline shift, mass, fluid collection, or evidence of hemorrhage. Cerebral ventricles: Ventricular enlargement proportional to volume loss. Paranasal sinuses: Visualized sinuses are unremarkable. No fluid levels. Mastoid air cells: Visualized mastoid air cells are well aerated. Bones/joints: Unremarkable. No acute fracture. Soft tissues: Unremarkable. CT/CT head wo con* [id number] IMPRESSION: Mild involutional changes, no acute intracranial abnormality.
[2021-06-13] MEDS: naloxone 0.4 mg/ml SDV IVP ×2 (21:52→22:56)
[2021-06-13 22:02] LABS: Basophils # 0.1 10^3/uL (0.0-0.1); Basophils % 0.4 %; Eosinophils # 0.1 10^3/uL (0.0-0.8); Eosinophils % 0.4 %; Hemoglobin 8.8 g/dL (11.7-16.6); Lymphocytes # 1.1 10^3/uL (0.8-4.8); Lymphocytes % 9.6 %; Mean Corpuscular HGB Conc 31.4 g/dL (30.0-36.0); Mean Corpuscular Hemoglobin 30.3 pg (28.0-34.0); Mean Corpuscular Volume 96.6 fl (80-94); Monocytes # 1.4 10^3/uL (0.2-0.9); Monocytes % 12.4 %; Neutrophils # 8.82 10^3/uL (1.8-7.7); Neutrophils % 75.8 %; Nucleated Red Blood Cells % 0 %; Platelet Count 253 10^3/cmm (130-400); Red Cell Distribution Width 14.2 % (12.1-15.1); White Blood Count 11.6 10^3/uL (4.0-10.0)
[2021-06-13 22:35] LABS: Alanine Aminotransferase 7 U/L (0-41); Albumin Level 3.2 g/dL (3.5-5.2); Alkaline Phosphatase 65 IU/L (40-130); Anion Gap 15.6 (5-19); Aspartate Amino Transferase 11 U/L (0-40); Blood Urea Nitrogen 27 mg/dL (8-23); Calcium 9.1 mg/dL (8.5-10.5); Carbon Dioxide 17 mmol/L (22-29); Chloride 100 mmol/L (98-107); Glomerular Filtration Rate 38.3 mL/min (90-130); Glucose 96 mg/dL (65-115); Osmolality Calculated 271 mOsm/kg (285-295); Potassium 4.6 mmol/L (3.5-5.1); Salicylate 0.7 mg/dL (3-10); Sodium 128 mmol/L (136-145); Total Bilirubin 0.2 mg/dL (0.15-1.2); Total Protein 6.2 g/dL (6.6-8.7)
[2021-06-13 22:37] LABS: Acetaminophen < 5.0 ug/mL (10-30)
--- NOTE | 2021-06-13 22:46 | ED_ITS ---
Documented by User: Serafin Davila MD 06/13/21 23:05 HPI - General Adult General: Chief complaint: ER Hold Stated complaint: ALOC Time Seen by Provider: 06/13/21 21:03 History of Present Illness: Patient is a 65-year-old male who was recently diagnosed with UTI presenting to emergency room if he was given an dose of [place] and passed out about an hour ago. Patient was to the emergency room by EMS. Patient received Narcan in route and on arrival became more arousable. However while observed in the emergency room patient become more more somnolent. Requi red a dose of Narcan 0.4 mg. Patient does not remember exactly what happened. Denies any other coingestions. Denies any pain or injuries elsewhere. Onset: 1 hr ago Duration:ongoing Location:home Severity:severe Review of Systems General: Reports: ROS unobtainable due to medical condition and ROS unobtainable due to mental status Neuro: Reports: other (+altered mental status) Ebenezer/Lymph: Denies: easy bruising PFS ED PFSH: Medical History Acute blood loss anemia Acute UTI STEVEN (acute kidney injury) STEVEN (acute kidney injury) Bacteremia Bilateral hydronephrosis Chronic cystitis Complicated UTI (urinary tract infection) Constipation Depression determined by examination Detrusor dysfunction Gross hematuria Gross hematuria Prostatitis Prostatitis Sepsis Sepsis Urinary retention Urinary retention UTI (urinary tract infection) UTI (urinary tract infection) Family History Mother Diabetes Father Diabetes Sister Diabetes Social History Smoking and tobacco status: never smoked Alcohol intake: never Marital status: Single Current occupational status: unemployed and retired Physical Exam HENMT: COMMON NORMALS: atraumatic HEAD & SCALP: atraumatic MOUTH: moist mucous membranes not abnormal Eye: COMMON NORMALS: EOMs intact bilaterally and conjunctivae normal CONJUNCTIVA: Yes conjunctivae normal OTHER: midsize pupils b/l Neck/C-Spine: COMMON NORMALS: full ROM and supple Resp: COMMON NORMALS: normal respiratory effort and clear to auscultation bilaterally AUSCULTATION: clear to auscultation bilaterally Cardio: COMMON NORMALS: regular rate RATE: regular rate GI: COMMON NORMALS: Soft to palpation and non-tender PALPATION: Yes Soft to palpation Extremity: COMMON NORMALS: full ROM Neuro: MOTOR EXAM: Abnormal motor strength present OTHER: Possible sternal rub, somnolent sleeping, patient only answer question. Psych: OTHER: Unable to asess given somnolence Course Vital Signs: Vital signs: Vital Signs Pulse Rate 98 06/13/21 20:30 Respiratory Rate 20 H 06/13/21 20:30 Blood Pressure 161/90 06/13/21 20:30 Pulse Oximetry 96 06/13/21 20:[address] [facility] - General Adult Medical Decision Making 65-year-old male presents emergency room with accidental Pickens ingestion. Arrival, patient is somnolent but arousable to sternal rub. Patient received 0.4 mg Narcan initially on arrival with significant improvement mental status. Patient continues to be confused cannot remember exactly what happened. Patient denies any coingestions. Rest of exam is unremarkable. EKG showed NSR. QTc within normal limit. No signs of sodium channel blockade. He was observed in the emergency room and continues to be somnolent after 0.8mg of IV narcan. CT brain negative for any acute finding. Pending full laboratory work-up at this time. Case signed out to Dr. Hanna pending reassessment. Lab Data : 06/13/21 21:57 06/13/21 21:[address] 06/13/21 21:22 IMPRESSION: Mild involutional changes, no acute intracranial abnormality. Laboratory Results WBC 11.6 10^3/uL (4.0-10.0) H 06/13/21 21:57 RBC 2.90 10^6/uL (4.1-5.3) L 06/13/21 21:57 Hgb 8.8 g/dL (11.7-16.6) L 06/13/21 21:57 Hct 28.0 % (42.0-52.0) L 06/13/21 21:57 MCV 96.6 fl (80-94) H 06/13/21 21:57 MCH 30.3 pg (28.0-34.0) 06/13/21 21:57 MCHC 31.4 g/dL (30.0-36.0) 06/13/21 21:57 RDW 14.2 % (12.1-15.1) 06/13/21 21:57 Plt Count 253 10^3/cmm (130-400) 06/13/21 21:57 MPV 9.0 fL (7.4-10.4) 06/13/21 21:57 Neut % (Auto) 75.8 % 06/13/21 21:57 Lymph % (Auto) 9.6 % 06/13/21 21:57 Desha % (Auto) 12.4 % 06/13/21 21:57 Eos % (Auto) 0.4 % 06/13/21 21:57 Baso % (Auto) 0.4 % 06/13/21 21:57 Neut # (Auto) 8.82 10^3/uL (1.8-7.7) H 06/13/21 21:57 Lymph # (Auto) 1.1 10^3/uL (0.8-4.8) 06/13/21 21:57 Desha # (Auto) 1.4 10^3/uL (0.2-0.9) H 06/13/21 21:57 Eos # (Auto) 0.1 10^3/uL (0.0-0.8) 06/13/21 21:57 Baso # (Auto) 0.1 10^3/uL (0.0-0.1) 06/13/21 21:57 Nucleated RBC % (auto) 0 % 06/13/21 21:57 Nucleated RBCs # 0.0 /100WBC 06/13/21 21:57 Sodium 128 mmol/L (136-145) L 06/13/21 21:57 Potassium 4.6 mmol/L (3.5-5.1) 06/13/21 21:57 Chloride 100 mmol/L (98-107) 06/13/21 21:57 Carbon Dioxide 17 mmol/L (22-29) L 06/13/21 21:57 Anion Gap 15.6 (5-19) 06/13/21 21:57 BUN 27 mg/dL (8-23) H 06/13/21 21:57 Creatinine 1.8 mg/dL (0.7-1.2) H 06/13/21 21:57 GFR Calculation 38.3 mL/min (90-130) L 06/13/21 21:57 Glucose 96 mg/dL (65-115) 06/13/21 21:57 Calculated Osmolality 271 mOsm/kg (285-295) L 06/13/21 21:57 Calcium 9.1 mg/dL (8.5-10.5) 06/13/21 21:57 Total Bilirubin 0.2 mg/dL (0.15-1.2) 06/13/21 21:57 AST 11 U/L (0-40) 06/13/21 21:57 ALT 7 U/L (0-41) 06/13/21 21:57 Alkaline Phosphatase 65 IU/L (40-130) 06/13/21 21:57 Total Protein 6.2 g/dL (6.6-8.7) L 06/13/21 21:57 Albumin 3.2 g/dL (3.5-5.2) L 06/13/21 21:57 Globulin 3.0 g/dL (1.3-4.6) 06/13/21 21:57 Salicylates 0.7 mg/dL (3-10) L 06/13/21 21:57 Acetaminophen < 5.0 ug/mL (10-30) L 06/13/21 21:57 Imaging Data Other Imaging: Radiologist's impression: [place] [address] CT Scan Report Signed Patient: Luis Lucero Jr Unit #: [id number] : 1955 Age/Sex: 65 / M ADM Date: 06/13/21 Loc: ER Room/Bed: Attending Dr: Ordering Provider/Ordering MD: Serafin Davila MD Date of Service: 06/13/21 Procedure(s): CT head wo con* [id number] Accession Number(s): [id number] Report Number: [id number] PROCEDURE INFORMATION: Exam: CT Head Without Contrast Exam date and time: 06/13/2021 9:22 PM Age: 65 years old Clinical indication: Altered mental status/memory loss; Patient HX: AMS TECHNIQUE: Imaging protocol: Computed tomography of the head without contrast. Radiation optimization: All CT scans at this facility use at least one of these dose optimization techniques: automated exposure control; mA and/or kV adjustment per patient size (includes targeted exams where dose is matched to clinical indication); or iterative reconstruction. COMPARISON: 1. CT head wo con* [id number] 2021-04-16 09:[address] head wo con* [id number] 2020-12-27 16:14 RADIATION DOSE METRICS: Total DLP (mGy-cm): 913.06 FINDINGS: Brain: Diffuse mild cerebral age related volume loss. Mild patchy low attenuation in the white matter compatible with mild chronic small vessel ischemic disease. No midline shift, mass, fluid collection, or evidence of hemorrhage. Cerebral ventricles: Ventricular enlargement proportional to volume loss. Paranasal sinuses: Visualized sinuses are unremarkable. No fluid levels. Mastoid air cells: Visualized mastoid air cells are well aerated. Bones/joints: Unremarkable. No acute fracture. Soft tissues: Unremarkable. CT/CT head wo con* [id number] IMPRESSION: Mild involutional changes, no acute intracranial abnormality. ? Dictated By: Kishore Rao MD Signed By: Kishore Rao MD Signed Date/Time: 06/13/212212 DD/ 21 Discharge Plan Discharge Patient Disposition: Admitted As Inpatient Clinical Impression: Altered mental status, UTI (urinary tract infection) Condition: Stable Coding Level of Care Code ED Lead Manufacturing Engineering Tech for Chg Fwd Exam Comprehensive Documented by User: Lucio Hanna MD 06/14/21 00:20 HPI - General Adult General: Chief complaint: ER Hold Stated complaint: ALOC Time Seen by Provider: 06/13/21 21:03 PFSH ED PFSH: Medical History Acute blood loss anemia Acute UTI STEVEN (acute kidney injury) STEVEN (acute kidney injury) Bacteremia Bilateral hydronephrosis Chronic cystitis Complicated UTI (urinary tract infection) Constipation Depression determined by examination Detrusor dysfunction Gross hematuria Gross hematuria Prostatitis Prostatitis Sepsis Sepsis Urinary retention Urinary retention UTI (urinary tract infection) UTI (urinary tract infection) Family History Mother Diabetes Father Diabetes Sister Diabetes Social History Smoking and tobacco status: never smoked Alcohol intake: never Marital status: Single Current occupational status: unemployed and retired Course Vital Signs: Vital signs: Vital Signs Pulse Rate 98 06/13/21 20:30 Respiratory Rate 20 H 06/13/21 20:30 Blood Pressure 161/90 06/13/21 20:30 Pulse Oximetry 96 06/13/21 20:30 MDM - General Adult Medical Decision Making 65-year-old male presents emergency room with accidental Pickens ingestion. Arrival, patient is somnolent but arousable to sternal rub. Patient received 0.4 mg Narcan initially on arrival with significant improvement mental status. Patient continues to be confused cannot remember exactly what happened. Patient denies any coingestions. Rest of exam is unremarkable. EKG showed NSR. QTc within normal limit. No signs of sodium channel blockade. He was observed in the emergency room and continues to be somnolent after 0.8mg of IV narcan. CT brain negative for any acute finding. Pending full laboratory work-up at this time. Case signed out to Dr. Hanna pending reassessment. Patient presents here for his 3rd time in 24 hours from assisted living. He is somnolent here likely to to his medicines there he did have a UTI yesterday she has had recurrent visits and has required multiple Narcan's today and does have some dehydration spoke to hospitalist will admit at this time patient given IV antibiotics here head CT here is normal. Lab Data : 06/13/21 21:57 06/13/21 21:[address] 06/13/21 21:22 IMPRESSION: Mild involutional changes, no acute intracranial abnormality. Laboratory Results WBC 11.6 10^3/uL (4.0-10.0) H 06/13/21 21:57 RBC 2.90 10^6/uL (4.1-5.3) L 06/13/21 21:57 Hgb 8.8 g/dL (11.7-16.6) L 06/13/21 21:57 Hct 28.0 % (42.0-52.0) L 06/13/21 21:57 MCV 96.6 fl (80-94) H 06/13/21 21:57 MCH 30.3 pg (28.0-34.0) 06/13/21 21:57 MCHC 31.4 g/dL (30.0-36.0) 06/13/21 21:57 RDW 14.2 % (12.1-15.1) 06/13/21 21:57 Plt Count 253 10^3/cmm (130-400) 06/13/21 21:57 MPV 9.0 fL (7.4-10.4) 06/13/21 21:57 Neut % (Auto) 75.8 % 06/13/21 21:57 Lymph % (Auto) 9.6 % 06/13/21 21:57 Desha % (Auto) 12.4 % 06/13/21 21:57 Eos % (Auto) 0.4 % 06/13/21 21:57 Baso % (Auto) 0.4 % 06/13/21 21:57 Neut # (Auto) 8.82 10^3/uL (1.8-7.7) H 06/13/21 21:57 Lymph # (Auto) 1.1 10^3/uL (0.8-4.8) 06/13/21 21:57 Desha # (Auto) 1.4 10^3/uL (0.2-0.9) H 06/13/21 21:57 Eos # (Auto) 0.1 10^3/uL (0.0-0.8) 06/13/21 21:57 Baso # (Auto) 0.1 10^3/uL (0.0-0.1) 06/13/21 21:57 Nucleated RBC % (auto) 0 % 06/13/21 21:57 Nucleated RBCs # 0.0 /100WBC 06/13/21 21:57 Sodium 128 mmol/L (136-145) L 06/13/21 21:57 Potassium 4.6 mmol/L (3.5-5.1) 06/13/21 21:57 Chloride 100 mmol/L (98-107) 06/13/21 21:57 Carbon Dioxide 17 mmol/L (22-29) L 06/13/21 21:57 Anion Gap 15.6 (5-19) 06/13/21 21:57 BUN 27 mg/dL (8-23) H 06/13/21 21:57 Creatinine 1.8 mg/dL (0.7-1.2) H 06/13/21 21:57 GFR Calculation 38.3 mL/min (90-130) L 06/13/21 21:57 Glucose 96 mg/dL (65-115) 06/13/21 21:57 Calculated Osmolality 271 mOsm/kg (285-295) L 06/13/21 21:57 Calcium 9.1 mg/dL (8.5-10.5) 06/13/21 21:57 Total Bilirubin 0.2 mg/dL (0.15-1.2) 06/13/21 21:57 AST 11 U/L (0-40) 06/13/21 21:57 ALT 7 U/L (0-41) 06/13/21 21:57 Alkaline Phosphatase 65 IU/L (40-130) 06/13/21 21:57 Total Protein 6.2 g/dL (6.6-8.7) L 06/13/21 21:57 Albumin 3.2 g/dL (3.5-5.2) L 06/13/21 21:57 Globulin 3.0 g/dL (1.3-4.6) 06/13/21 21:57 Salicylates 0.7 mg/dL (3-10) L 06/13/21 21:57 Acetaminophen < 5.0 ug/mL (10-30) L 06/13/21 21:57 Discharge Plan Discharge Patient Disposition: Admitted As Inpatient Clinical Impression: Altered mental status, UTI (urinary tract infection) Condition: Stable Coding Level of Care Code ED Lead Manufacturing Engineering Tech for Amber Fwd Exam Comprehensive
[2021-06-13] MEDS: cefTRIAXone 1,000 MG in sodium chloride 0.9% (plus) 50 ML 100 MG IV (23:31)
[2021-06-13] MEDS: sodium chloride 0.9% 1,000 ML 999 ML IV (23:31)
--- NOTE | 2021-06-13 23:58 | CTR_ITS ---
PROCEDURE INFORMATION: Exam: CT Abdomen And Pelvis Without Contrast Exam date and time: 06/13/2021 11:58 PM Age: 65 years old Clinical indication: Abnormal findings; Abnormal lab test; Prior surgery; Surgery type: Hernia mesh. Gb. Hiatal hernia. ; Patient HX: Elevated wbc and creatinine. History of ckd. Patient lethargic. Limited history. ; Additional info: UTI, hydrouteronephrosis TECHNIQUE: Imaging protocol: Computed tomography of the abdomen and pelvis without contrast. Radiation optimization: All CT scans at this facility use at least one of these dose optimization techniques: automated exposure control; mA and/or kV adjustment per patient size (includes targeted exams where dose is matched to clinical indication); or iterative reconstruction. COMPARISON: 1. CT abdomen pelvis wo con [id number] 2021-04-16 09:[address] kidney stone [id number] 2020-12-28 01:31 RADIATION DOSE METRICS: Total DLP (mGy-cm): 1051.31 FINDINGS: Tubes, catheters and devices: Anterior abdominal wall mesh. Liver: Normal. No mass. Gallbladder and bile ducts: Cholecystectomy. Pancreas: Normal. No ductal dilation. Spleen: Small splenic calcification. Adrenal glands: Normal. No mass. Kidneys and ureters: Secondary moderate hydroureter and hydronephrosis. Renal swelling. Correlate for causes of outlet dysfunction or retention. Stomach and bowel: Multiple clips near the gastroesophageal junction. Fluid distended small bowel loops in the left lower abdomen measuring up to 3 cm with decompressed terminal ileum, question partial or early small bowel obstruction. Excess stool within the left hemicolon. Appendix: No evidence of appendicitis. Intraperitoneal space: Unremarkable. No free air. No significant fluid collection. Vasculature: Unremarkable. No abdominal aortic aneurysm. Lymph nodes: Unremarkable. No enlarged lymph nodes. Urinary bladder: Bladder distension. Reproductive: Unremarkable as visualized. Bones/joints: Unremarkable. No acute fracture. Soft tissues: Unremarkable. Other findings: Again demonstrated is a hiatal with food material moderately distending. CT/CT abdomen pelvis wo con [id number] IMPRESSION: 1. Again demonstrated is a hiatal with food material moderately distending. 2. Bladder distension. Secondary moderate hydroureter and hydronephrosis. Renal swelling. Correlate for causes of outlet dysfunction or retention. 3. Fluid distended small bowel loops in the left lower abdomen measuring up to 3 cm with decompressed terminal ileum, question partial or early small bowel obstruction. 4. Excess stool within the left hemicolon.
[2021-06-14] VITALS (15 sets, daily range): BP systolic 136–196; BP diastolic 86–111; PULSE 75–93; RESP 14–21; TEMP 36.3–36.9; O2SAT 95–100
--- NOTE | 2021-06-14 00:50 | PC.PHAR ---
Pharmacokinetic dosing service Date: 06/14/21 Time: 99 Objective: Patient: Luis Lucero Floor: ED-8 Age: 65 yo Serum creatinine: 1.8 mg/dL Height: 67.0 Inches Weight (kg): 65.771 Diagnosis: Relevant medical/social history: Cultures and sensitivities: Other labs: Assessment: IBW (kg): 66.10 Dosing wt(kg): 65.771 Estimated Creatinine clearance (ml/min): 39.1 CRCL method: Cockcroft and Gault using ibw(default). Drug selected: Vancomycin Loading dose (mg): 0 Vd (liters): 59.2 (factor used: 0.9 L/kg) Bienvenido (hr-1): 0.037 Half life (hrs): 18.73 Recommended dose: 1000 mg Interval: 24 hrs Infusion time (hrs): 1.5 Predicted peak (mcg/mL): 27.9 Predicted trough (mcg/mL): 12.14 Total body weight is being used for vancomycin dosing. Renal function is stable [ ] /unstable [ ] Recommendations: Give Vancomycin 1000 mg q 24 hrs with an expected Cpeak of 27.9 mcg/ml and an expected Ctrough of 12.14 mcg/ml Renal dosing of other antibiotics (review renal dosing of other medications and list guidelines here): Thank you for the consult, will continue to follow. Signature: Audra Brock [facility]
--- NOTE | 2021-06-14 01:09 | P.HP_ITS ---
Providers/Chief Complaint Primary Care Provider: Rehan Rodriguez MD Chief Complaint: ALOC History of Present Illness Luis Lucero Jr is a 65 year old male with a past medical history of acute blood loss anemia requiring transfusion chronic anemia, chronic kidney disease, bilateral hydronephrosis, constipation, anxiety and depression on multiple psychotropic medications, chronic pain on narcotics, congestive dysfunction, gross hematuria, prostatitis, hypertension, history of sepsis, history of UTIs, history of urinary retention, history of Enterococcus bacteremia, who presents [facility] due to altered mental status. Patient has had 6 ER visits in the last month, he has a history of recurrent UTIs, recently seen in the emergency room for UTI, sent home on Keflex, he sees urology as outpatient, has urinary retention, and UTIs. Currently impression is alert to person, not to place, not to time, he does not know why he is here in the hospital he does follow commands at times, but falls back asleep, denies any headaches, no blurry vision, no nausea, vomiting, no abdominal pain, no shortness of breath. Blood pressure 161/90, pulse 90, respiratory rate 20, saturating 96% on room air, UA yesterday showed evidence of UTI, white blood cell count 1.6, hemoglobin 8.8, serum sodium 128. There was concerns for narcotic overdose, he was given Narcan twice, some improvement of his mentation Review of Systems General: Reports: ROS unobtainable due to mental status Medications/Allergies Home Medications Medication Instructions Recorded Confirmed Last Taken Type amitriptyline 100 mg tablet 100 mg PO BEDTIME@199912/08/20 06/12/21 12/26/20 History bethanechol chloride 25 mg tablet 25 mg PO BID@0800,199912/08/20 06/12/21 06/12/21 08:00 History buspirone 15 mg tablet 15 mg PO TID@0700,1400,199912/08/20 06/12/21 06/12/21 07:00 History divalproex 250 mg tablet,delayed 250 mg PO TID@0700,1400,199912/08/20 06/12/21 06/12/21 07:00 History release (Depakote) docusate sodium 100 mg capsule 100 mg PO BID@0700,199912/08/20 06/12/2122 07:00 History ferrous sulfate 325 mg (65 mg 325 mg PO DAILY@69912/08/20 06/12/21 06/12/21 07:00 History iron) tablet finasteride 5 mg tablet 5 mg PO DAILY@69912/08/20 06/12/21 06/12/21 07:00 H istory gabapentin 400 mg capsule 400 mg PO TID@,12/08/20 06/12/21 06/12/21 07:00 History hydrocodone 10 mg-acetaminophen 1 tab PO TID 12/08/20 06/12/21 06/12/21 08:00 History 325 mg tablet linaclotide 145 mcg capsule 145 mcg PO DAILY@69912/08/20 06/12/21 06/12/21 07:00 History (Linzess) omeprazole 40 mg capsule,delayed 40 mg PO DAILY@199912/08/20 06/12/21 12/26/20 History release tamsulosin 0.4 mg capsule 0.4 mg PO DAILY@69912/08/20 06/12/21 06/12/21 07:00 History Mylanta 20 ml PO Q6H PRN 12/27/20 06/12/21 Unknown History aluminum hydrox-magnesium carb 254 10 ml PO QID PRN #0 12/27/20 06/12/21 Unknown History mg-237.5 mg/5 mL oral suspension calcium carbonate 600 mg (1,500 1 tab PO BID@0700,1900 12/27/20 06/12/21 06/12/21 07:00 History mg)-vitamin D3 400 unit tablet (Calcium 600 + D(3)) diclofenac sodium 1 % topical gel 2 g TOPICAL QID PRN 12/27/20 06/12/21 Unknown History folic acid 1 mg tablet 1 mg PO DAILY 04/09/21 06/12/21 06/12/21 07:00 History carboxymethylcellulose sodium 1 % 1 - 2 drp OPHTHALMIC (EYE) DAILY 04/16/21 06/12/21 Unknown History eye liquid gel drops PRN copper gluconate 2 mg capsule 2 mg PO DAILY 04/16/21 06/12/21 Unknown History magnesium sulfate (bulk) 100 % 1 applic TOPICAL BID 04/16/21 06/12/21 Unknown History crystals (Epsom Salt) aspirin 81 mg chewable tablet 81 mg PO DAILY 05/07/21 06/12/21 06/12/21 07:00 History cyanocobalamin (vitamin B-12) 1,000 mcg IM Q30D 05/07/21 06/12/21 06/12/21 07:00 History 1,000 mcg/mL injection solution metoprolol tartrate 25 mg tablet 12.5 mg PO BID #60 tab 05/07/21 06/12/21 06/12/21 07:00 Rx DOPATEDINE 1 drp EYE-BOTH DAILY PRN 05/22/21 06/12/21 Unknown History ascorbic acid (vitamin C) 500 mg 500 mg PO DAILY cap 05/22/21 06/12/21 06/12/21 07:00 History capsule carboxymethylcellulose sodium 0.5 2 drp OPHTHALMIC (EYE) .PRN ml 05/22/21 06/12/21 Unknown History % eye drops (Refresh Tears) quetiapine 25 mg tablet 25 mg PO BID@0700,1900 tab 05/22/21 06/12/21 06/12/21 07:00 History cephalexin 500 mg capsule 500 mg PO QID 7 Days #28 cap 06/12/21 Unknown Rx clonazepam 0.5 mg tablet 0.5 mg PO BID PRN 06/12/21 06/12/21 Unknown History clonidine HCl 0.2 mg tablet 0.2 mg PO TID@0600,1600,2000 06/12/21 06/12/21 06/12/21 06:00 History lorazepam 2 mg tablet 1 mg PO TID@0600,1600,1999 #0 tab 06/12/21 06/12/21 06/12/21 06:00 Rx losartan 100 mg tablet 50 mg PO BEDTIME #0 tab 06/12/21 06/12/21 Unknown Rx Allergies Allergy/AdvReac Type Severity Reaction Status Date / Time green pepper Allergy ADR-Vomitin Verified 06/12/21 13:05 g Milk Containing Products Allergy Unknown Verified 06/12/21 13:05 PFSH Acute PFSH: Medical History (Updated 06/14/21 @ 01:16 by Jair Pena MD) Acute blood loss anemia Acute UTI STEVEN (acute kidney injury) STEVEN (acute kidney injury) Bacteremia Bilateral hydronephrosis Chronic cystitis Complicated UTI (urinary tract infection) Constipation Depression determined by examination Detrusor dysfunction Gross hematuria Gross hematuria Prostatitis Prostatitis Sepsis Sepsis Urinary retention Urinary retention UTI (urinary tract infection) UTI (urinary tract infection) Family History Mother Diabetes Father Diabetes Sister Diabetes Social History Smoking and tobacco status: never smoked Alcohol intake: never Marital status: Single Current occupational status: unemployed and retired Vitals/I&O/Wt Last Vital Signs Pulse 98 06/13/21 20:30 Resp 20 H 06/13/21 20:30 BP 161/90 06/13/21 20:30 Pulse Ox 96 06/13/21 20:30 Weight last 48 hrs Weight 65.771 kg Physical Exam Const: COMMON NORMALS: no acute distress EXAM LIMITATIONS: altered mental status GENERAL APPEARANCE: cooperative ORIENTATION/CONSCIOUSNESS: Yes awake, Yes oriented to person and Yes confused; not oriented to place and not oriented to time HENMT: COMMON NORMALS: normocephalic HEAD & SCALP: normocephalic Neck/C-Spine: COMMON NORMALS: no JVD Resp: COMMON NORMALS: normal respiratory effort, No retractions, No use of accessory muscles and clear to auscultation bilaterally AUSCULTATION: clear to auscultation bilaterally Cardio: COMMON NORMALS: no JVD, regular rate, regular rhythm, S1 normal heart sound present and S2 normal heart sound present RATE: regular rate RHYTHM: regular rhythm HEART SOUNDS: S1 normal heart sound present and S2 normal heart sound present GI: COMMON NORMALS: Normal to inspection, nondistended, normoactive bowel sounds present, Soft to palpation, non-tender, No hepatosplenomegaly present, no masses and no bruits PALPATION: Yes Soft to palpation and Yes No hepatos plenomegaly present Extremity: COMMON NORMALS: capillary refill normal, no clubbing, cyanosis or edema, no calf tenderness and no pedal edema Neuro: OTHER: Alert to person, not to place, not to time, confused, does not follow neurologic testing Data : 06/13/21 21:57 06/13/21 21:57 A&P Assessment and plan (1) Acute cystitis with hematuria: Status: Acute (2) Acute encephalopathy: Status: Acute (3) Polypharmacy: Status: Acute (4) Hyponatremia: Status: Acute (5) Chronic kidney disease: Status: Acute (6) Acute blood loss anemia: Status: Acute Plan Acute encephalopathy -Multifactorial, from UTI, hyponatremia, polypharmacy, possible narcotics and benzodiazepines UTI -History of Enterococcus UTI, bacteremia -CT scan shows bladder distention, moderate hydroureter, and hydronephrosis, renal swelling -Start vancomycin, Zosyn -Follow urine cultures, blood cultures Acute urinary retention -Place Bazan catheter Hyponatremia -Likely secondary dehydration, IV fluids -Monitor serum sodium CT scan shows fluid distended small bowel, question partial or early small bowel obstruction, excess stool within the left hemicolon -Keep n.p.o. -IV fluids -Bowel regimen, Colace, MiraLAX Polypharmacy -Hold narcotics, benzodiazepines, monitor mentation -Neurochecks, aspiration precautions -In addition he is on Seroquel, Elavil, BuSpar, Depakote, Hypertension, continue home meds Acute blood loss anemia, at baseline, evidence of iron deficiency anemia -We will need outpatient evaluation -Consider IV iron Full code SCDs for DVT prophylaxis Attestations Medical Necessity Statement*: Patient requires hospitalization for altered mental status, inpatient, greater than 2 midnights Coding Level of Care Code Acute Regulatory Services Consultant for [facility] Lulu Diagnoses Acute cystitis with hematuria N30.01 Acute encephalopathy G93.40 Polypharmacy Z79.899 Hyponatremia E87.1 Chronic kidney disease N18.9 Acute blood loss anemia D62
[2021-06-14] MEDS: vancomycin 1,000 MG in sodium chloride 0.9% 250 ML 250 MG IV (01:42)
[2021-06-14 01:55] LABS: Procalcitonin 0.57 ng/mL (0-0.5); Thyroid Stimulating Hormone 1.55 uIU/mL (0.27-4.20)
[2021-06-14 01:59] LABS: Lactic Sepsis W/Reflex 0.7 mmol/L (0.5-2.2)
[2021-06-14 02:06] LABS: Ferritin 490 ng/mL (30-400); Iron 20 ug/dL (59-158); Percent Saturation 9.9 % (20-50); Total Iron Binding Capacity 202 mcg/dl; Unsaturated Iron Binding 182 ug/dL (112-347)
[2021-06-14 02:11] LABS: Glucose Urine UA Norm (Normal); Ketones Urine Negative (Negative); Protein Urine Neg (Negative); Specific Gravity, Urine 1.025 (1.005-1.030); Urine Appearance Hazy (CLEAR); Urine Color Yellow (Yellow); pH Urine 5 (5-7)
[2021-06-14 02:12] LABS: Add Urine Culture? No; Add Urine Microscopic? YES; Bacteria Urine 1+ /hpf; Bilirubin Urine Neg (Negative); Blood Urine 2+ (Negative); Leukocyte Esterase Urine 2+ (Negative); Nitrate Urine Negative (Negative); Squamous Epithelial Cell Urine 0-4 /hpf (0-5); Urobilinogen Urine Norm (Negative); WBC Urine TOO NUMEROUS TO CNT /hpf (0-5)
[2021-06-14] MEDS: piperacillin-tazobactam 3.375 GM in sodium chloride 0.9% (plus) 50 ML IV ×3 (03:20→18:16)
[2021-06-14] MEDS: labetalol 5 mg/mL SDV 20mL 10 MG IVP (03:21)
[2021-06-14] MEDS: pantoprazole 40 mg SDV IVP ×2 (05:43→16:18)
[2021-06-14] MEDS: dextrose 5%-sod chloride 0.9% 1,000 ML 75 ML IV ×2 (05:49→16:22)
[2021-06-14] MEDS: divalproex DR 250 mg Tablet PO ×3 (08:56→20:30)
[2021-06-14] MEDS: ferrous sulfate EC 325 mg Tablet PO ×2 (08:56→18:25)
[2021-06-14] MEDS: metoprolol tartrate 25 mg Tablet 12.5 MG PO ×2 (08:56→20:30)
[2021-06-14] MEDS: gabapentin 400 mg Capsule PO ×3 (08:57→20:30)
[2021-06-14] MEDS: tamsulosin 0.4 mg Capsule PO (08:57)
[2021-06-14] MEDS: cloNIDine 0.1 mg Tablet 0.2 MG PO ×3 (08:57→20:30)
[2021-06-14] MEDS: BuSPIRONE 10 mg Tablet 15 MG PO ×2 (08:57→18:16)
[2021-06-14] MEDS: docusate sodium 100 mg Capsule PO ×2 (08:57→18:16)
[2021-06-14] MEDS: aspirin 81 mg EC Tablet PO (08:57)
[2021-06-14] MEDS: quetiapine 25 mg Tablet PO ×2 (08:57→18:16)
[2021-06-14] MEDS: folic acid 1 mg Tablet PO (08:57)
[2021-06-14] MEDS: polyethylene glycol 3350 Pkt 17 gm PO ×2 (08:59→18:25)
--- NOTE | 2021-06-14 13:01 | PC.NURSE ---
Report called to Sara
--- NOTE | 2021-06-14 16:19 | PC.OT ---
Eval attempted. Patient refused OT eval this date.
[2021-06-15] VITALS (12 sets, daily range): BP systolic 158–210; BP diastolic 86–102; PULSE 61–78; RESP 14–17; TEMP 36.4–37; O2SAT 94–97
[2021-06-15] MEDS: vancomycin 1,000 MG in sodium chloride 0.9% 250 ML 250 MG IV (02:04)
[2021-06-15] MEDS: pantoprazole 40 mg SDV IVP ×2 (02:41→16:28)
[2021-06-15] MEDS: piperacillin-tazobactam 3.375 GM in sodium chloride 0.9% (plus) 50 ML IV ×2 (03:41→10:01)
[2021-06-15 05:36] LABS: Basophils # 0.1 10^3/uL (0.0-0.1); Basophils % 0.8 %; Eosinophils % 0.6 %; Hematocrit 27.8 % (42.0-52.0); Hemoglobin 8.8 g/dL (11.7-16.6); Lymphocytes # 1.3 10^3/uL (0.8-4.8); Lymphocytes % 19.9 %; Mean Corpuscular HGB Conc 31.7 g/dL (30.0-36.0); Mean Corpuscular Volume 94.9 fl (80-94); Mean Platelet Volume 9.2 fL (7.4-10.4); Monocytes # 0.6 10^3/uL (0.2-0.9); Monocytes % 8.6 %; Neutrophils # 4.44 10^3/uL (1.8-7.7); Neutrophils % 69.2 %; Nucleated Red Blood Cells % 0 %; Platelet Count 341 10^3/cmm (130-400); Red Blood Count 2.93 10^6/uL (4.1-5.3); Red Cell Distribution Width 13.8 % (12.1-15.1); White Blood Count 6.4 10^3/uL (4.0-10.0)
[2021-06-15] MEDS: dextrose 5%-sod chloride 0.9% 1,000 ML 75 ML IV (05:43)
[2021-06-15 05:52] LABS: Estmated Average Glucose 111; Hemoglobin A1C 5.5 % (4.0-6.0)
[2021-06-15 05:56] LABS: Alanine Aminotransferase 6 U/L (0-41); Albumin Level 2.7 g/dL (3.5-5.2); Alkaline Phosphatase 53 IU/L (40-130); Aspartate Amino Transferase 7 U/L (0-40); Blood Urea Nitrogen 12 mg/dL (8-23); C Reactive Protein 60.5 mg/L (0.0-4.9); Calcium 8.1 mg/dL (8.5-10.5); Carbon Dioxide 21 mmol/L (22-29); Chloride 104 mmol/L (98-107); Creatine Phosphokinase 150 U/L (39-308); Globulin 2.7 g/dL (1.3-4.6); Glomerular Filtration Rate 51.2 mL/min (90-130); Glucose 95 mg/dL (65-115); Magnesium 1.9 mg/dL (1.7-2.3); Osmolality Calculated 278 mOsm/kg (285-295); Phosphorus 3.4 mg/dL (2.5-4.5); Sodium 134 mmol/L (136-145); Total Bilirubin 0.2 mg/dL (0.15-1.2); Total Protein 5.4 g/dL (6.6-8.7)
--- NOTE | 2021-06-15 09:54 | PC.CHAP ---
Pastoral Care Encounter/Spiritual Assessment Type of Contact [] Declined medicare sales representative visit [] Patient/Family/Request visit [] Outpatient visit [x] Follow-up visit [] Physician referral [] Code/Alert [x] Routine visit [] Staff referral [] Actively dying [] Patient sleeping [] Family support [] [] Out of room [] Palliative care [] [] Receiving care in room [] Pre-surgical visit [] Trauma [] Long length of stay [] ICU visit [] Other: Relational/Emotional Strength [] Patient feels connected with others/family/visitors/staff [] Distress [] Loneliness/isolation [] Abandonment Spirituality of Patient [] Person of Camilla [] Attends Sabianist of their Camilla [] Believes in Prayer [] Reads Bible or Muslim materials [] There are Spiritual issues to be addressed Occupational Therapy Assistant Interventions [] Prayer [] Active listening [] Non-anxious presence [] Spiritual/emotional support [] Crisis/trauma care [] Spiritual counseling [] Bereavement support [] Provided bereavement packet [] Provided Bible/devotional materials [] Provided toy/stuffed animal, coloring book to patient or family member [] Provided Communion [] Anointing/[place] [] Salvation [] Completed spiritual assessment [] Other: Impact on Illness or Injury [] Angry [] Fearful [] Anxious [] Often cries [] Exhaustion [] Unable to work [] Unable to attend hoahaoism [] Unable to walk/stand [] Unable to read [] Unable to drive [] Unable to eat/drink [] Unable to sleep [] Unable to be with family [] Patient intubated [] Other: Summary Follow-up visit Time spent with patient 5 mins
[2021-06-15] MEDS: aspirin 81 mg EC Tablet PO (09:57)
[2021-06-15] MEDS: folic acid 1 mg Tablet PO (09:57)
[2021-06-15] MEDS: polyethylene glycol 3350 Pkt 17 gm PO (09:57)
[2021-06-15] MEDS: tamsulosin 0.4 mg Capsule PO (09:57)
[2021-06-15] MEDS: ferrous sulfate EC 325 mg Tablet PO ×2 (09:57→17:54)
[2021-06-15] MEDS: divalproex DR 250 mg Tablet PO ×3 (09:57→20:42)
[2021-06-15] MEDS: metoprolol tartrate 25 mg Tablet 12.5 MG PO ×2 (09:58→20:43)
[2021-06-15] MEDS: docusate sodium 100 mg Capsule PO ×2 (09:58→17:54)
[2021-06-15] MEDS: cloNIDine 0.1 mg Tablet 0.2 MG PO ×3 (09:59→20:38)
[2021-06-15] MEDS: BuSPIRONE 10 mg Tablet 15 MG PO ×2 (10:00→17:55)
[2021-06-15] MEDS: gabapentin 400 mg Capsule PO ×3 (10:00→20:43)
[2021-06-15] MEDS: quetiapine 25 mg Tablet PO ×2 (10:00→17:54)
--- NOTE | 2021-06-15 11:42 | PC.OT ---
OT EVALUATION ORDERS RECEIVED. PATIENT DEMONSTRATED NO DEFICITS IN ADL PERFORMANCE AT THIS TIME; NO DEFICITS IN UE ROM OR MX STRENGTH. NO FURTHER SKILLED OT REQUIRED AT THIS TIME.
--- NOTE | 2021-06-15 12:34 | P.PN_ITS ---
Subjective Subjective: Patient mentation has improved, urine culture has shown Klebsiella Vitals/I&O/Wt Last Vital Signs Temp 98.3 F 06/15/21 07:39 Pulse 68 06/15/21 07:39 Resp 17 06/15/21 07:39 BP 190/96 06/15/21 09:59 Pulse Ox 95 06/15/21 07:39 06/14/21 06/15/21 06/15/21 22:59 06:59 14:59 Intake Total 841.25 / 941.25 1250 / 2191.25 50 / 50 Output Total 450 / 2250 Balance 391.25 / -1308.75 1250 / -58.75 50 / 50 Weight last 48 hrs Weight 65.771 kg Physical Exam Narrative: Patient is back to baseline Appropriate mood and affect S1, S2 Nonfocal neuro exam Bazan catheter draining yellow urine No audible stridor or wheezing Appropriate mood and affect Appears euvolemic Abdomen is soft Urinary Catheter Management: Bazan: Cath Placed During This Visit: yes Reason for Continuing Indwelling Catheter: Acute Urinary Retention or Obstruction Urinary Catheter Date of Insertion: 06/14/21 Urinary Catheter Time of Insertion: 01:36 Data : 06/15/21 04:58 06/15/21 04:58 Micro: Microbiology 06/14/21 01:30 Urine Culture - Preliminary Urine Catheterized 06/14/21 01:33 Blood Culture - Preliminary Blood NEGATIVE TO DATE 06/14/21 01:35 Blood Culture - Preliminary Blood NEGATIVE TO DATE A&P Assessment and plan (1) Acute encephalopathy: Status: Acute (2) UTI (urinary tract infection): Status: Acute (3) Urinary retention: Status: Acute Plan Encephalopathy related to UTI Klebsiella, sensitive to cephalosporin penicillin, will DC IV antibiotics and switch to p.o. Levaquin Continue regular diet For hypertension optimize medications, DC IV antibiotics Attestations Medical Necessity Statement*: Plan is to send him back to jail tomorrow Coding Level of Care Code Acute Shared Services Manager for [facility] Fwd Diagnoses Acute encephalopathy G93.40 UTI (urinary tract infection) N39.0 Urinary retention R33.9
[2021-06-15] MEDS: hyDRALAzine 20 mg/mL INJ 1 mL 10 MG IVP (16:28)
[2021-06-16] VITALS: BP 158/79; PULSE 49; RESP 15; O2SAT 96
--- NOTE | 2021-06-16 00:37 | ECG_ITS ---
[facility] Test Date: 2021-06-16 Pat Name: Luis Lucero Department: Room: 255 Gender: Male Software Testing Specialist: : [id number] Requested By: Jair Pena Order Number: [id number] Reading MD: ELIZABETH VEGA Measurements Intervals Mobile Rate: 46 P: 31 [place]: 165 QRS: 62 QRSD: 105 T: 57 QT: 469 QTc: 414 Interpretive Statements SINUS BRADYCARDIA POSSIBLE LEFT VENTRICULAR HYPERTROPHY [VOLTAGE CRITERIA PLUS LAE OR QRS WIDENING] Compared to ECG 06/13/2021 21:42:27 Sinus rhythm no longer present T-wave abnormality no longer present Electronically Signed On 06-16-2021 22:55:35 ADOBE FLEX DEVELOPER by ELIZABETH VEGA [id number]
--- NOTE | 2021-06-16 00:55 | PC.NURSE ---
i reported low pulse 49 to nurse
[2021-06-16] MEDS: pantoprazole 40 mg SDV IVP (02:38)
[2021-06-16 04:00] VITALS: BP 146/72; PULSE 45; RESP 16; TEMP 36.4; O2SAT 94
[2021-06-16] MEDS: acetaminophen 325 mg Tablet 650 MG PO (04:38)
[2021-06-16] MEDS: levoFLOXacin 750 mg Tablet PO (05:44)
[2021-06-16 06:04] LABS: Basophils # 0.1 10^3/uL (0.0-0.1); Basophils % 1.2 %; Eosinophils # 0.1 10^3/uL (0.0-0.8); Eosinophils % 2.4 %; Hematocrit 29.6 % (42.0-52.0); Hemoglobin 9.1 g/dL (11.7-16.6); Lymphocytes # 1.7 10^3/uL (0.8-4.8); Lymphocytes % 29.6 %; Mean Corpuscular HGB Conc 30.7 g/dL (30.0-36.0); Mean Corpuscular Volume 97.7 fl (80-94); Mean Platelet Volume 8.8 fL (7.4-10.4); Monocytes # 0.6 10^3/uL (0.2-0.9); Monocytes % 10.9 %; Neutrophils # 3.19 10^3/uL (1.8-7.7); Neutrophils % 54.5 %; Nucleated Red Blood Cells % 0 %; Platelet Count 316 10^3/cmm (130-400); Red Blood Count 3.03 10^6/uL (4.1-5.3); Red Cell Distribution Width 13.7 % (12.1-15.1); White Blood Count 5.9 10^3/uL (4.0-10.0)
--- NOTE | 2021-06-16 06:15 | PC.NURSE ---
i reported low temp 97.5 and low pulse 45 to nurse
--- NOTE | 2021-06-16 07:25 | P.DS_ITS ---
Discharge Providers Date of Admission: 06/14/21 00:00 Date of Discharge: June 16, 2021 Attending Provider at Admission: Jair Pena MD Attending Provider at Discharge: Maritza Tran MD Primary Care Provider: Rehan Rodriguez MD Diagnoses at Discharge Discharge Diagnosis (1) Acute encephalopathy: Status: Acute (2) UTI (urinary tract infection): Status: Acute (3) Urinary retention: Status: Acute Reason for Visit Reason for Visit: ALOC Hospital Course Hospital Course Admitting note by Dr. Braydon Smith Cassandra Lucero Jr is a 65 year old male with a past medical history of acute blood loss anemia requiring transfusion chronic anemia, chronic kidney disease, bilateral hydronephrosis, constipation, anxiety and depression on multiple psychotropic medications, chronic pain on narcotics, congestive dysfunction, gross hematuria, prostatitis, hypertension, history of sepsis, history of UTIs, history of urinary retention, history of Enterococcus bacteremia, who presents [facility] due to altered mental status.? Patient has had 6 ER visits in the last month, he has a history of recurrent UTIs, recently seen in the emergency room for UTI, sent home on Keflex, he sees urology as outpatient, has urinary retention, and UTIs.? Currently impression is alert to person, not to place, not to time, he does not know why he is here in the hospital he does follow commands at times, but falls back asleep, denies any headaches, no blurry vision, no nausea, vomiting, no abdominal pain, no shortness of breath.? Blood pressure 161/90, pulse 90, respiratory rate 20, saturating 96% on room air, UA yesterday showed evidence of UTI, white blood cell count 1.6, hemoglobin 8.8, serum sodium 128.? There was concerns for narcotic overdose, he was given Narcan twice, some improvement of his mentation Hospital course Patient was admitted for management and evaluation of metabolic encephalopathy related to UTI. Urine culture was obtained after placement of Bazan catheter in the ER. After placement of Bazan catheter and adequate diuresis his mentation improved. He remained afebrile no worsening of leukocytosis. Urine culture showed Klebsiella, pansensitive, planning to discharge him on 06/16 on 10-day regimen of Levaquin, I recommended him to keep Bazan catheter in and see Dr. Yuan outpatient for further evaluation he might need chronic suppressive therapy. CT abdomen pelvis did not show any signs of hydronephrosis. No hematuria with Bazan catheter placement this time. He was hypertensive secondary to rebound hypertension for not getting clonidine in the hospital. Blood pressure did improve before discharge once medications were reinitiated. Physical Exam Narrative: Awake and alert Nonfocal neuro exam S1, S2 Euvolemic Abdomen soft Bazan catheter draining dilute urine No audible stridor or wheezing Saturating well on room air Urinary Catheter Management: Bazan: Cath Placed During This Visit: yes Reason for Continuing Indwelling Catheter: Other Urinary Catheter Date of Insertion: 06/14/21 Urinary Catheter Time of Insertion: 01:36 Discharge Data Studies Completed and Pending Completed Studies During Hospitalization Category Date Time Status CT abdomen pelvis wo con [id number] Urgent Cat Scan 06/13/21 23:[address] head wo con* [id number] Urgent Cat Scan 06/13/21 21:22 Completed Pending at discharge Category Date Time Status Blood Culture Stat Lab 06/13/21 23:58 Results Complete Blood Count w/Auto AM LABS Lab 06/17/21 04:00 Ordered Enteric Parasite Panel by PCR Routine Lab 06/14/21 00:00 Ordered Lactoferrin Routine Lab 06/14/21 00:00 Ordered Urine Culture Stat Lab 06/14/21 01:30 Results Radiology Impressions Head CT 06/13/21 21:22 IMPRESSION: Mild involutional changes, no acute intracranial abnormality. Abdomen/Pelvis CT 06/13/21 23:58 IMPRESSION: 1. Again demonstrated is a hiatal with food material moderately distending. 2. Bladder distension. Secondary moderate hydroureter and hydronephrosis. Renal swelling. Correlate for causes of outlet dysfunction or retention. 3. Fluid distended small bowel loops in the left lower abdomen measuring up to 3 cm with decompressed terminal ileum, question partial or early small bowel obstruction. 4. Excess stool within the left hemicolon. Laboratory Results WBC 5.9 10^3/uL (4.0-10.0) 06/16/21 05:29 RBC 3.03 10^6/uL (4.1-5.3) L 06/16/21 05:29 Hgb 9.1 g/dL (11.7-16.6) L 06/16/21 05:29 Hct 29.6 % (42.0-52.0) L 06/16/21 05:29 MCV 97.7 fl (80-94) H 06/16/21 05:29 MCH 30.0 pg (28.0-34.0) 06/16/21 05: MCHC 30.7 g/dL (30.0-36.0) 06/16/21 05:29 RDW 13.7 % (12.1-15.1) 06/16/21 05:29 Plt Count 316 10^3/cmm (130-400) 06/16/21 05:29 MPV 8.8 fL (7.4-10.4) 06/16/21 05:29 Neut % (Auto) 54.5 % 06/16/21 05:29 Lymph % (Auto) 29.6 % 06/16/21 05:29 [place] % (Auto) 10.9 % 06/16/21 05:29 Eos % (Auto) 2.4 % 06/16/21 05:29 Baso % (Auto) 1.2 % 06/16/21 05:29 Neut # (Auto) 3.19 10^3/uL (1.8-7.7) 06/16/21 05:29 Lymph # (Auto) 1.7 10^3/uL (0.8-4.8) 06/16/21 05:29 [place] # (Auto) 0.6 10^3/uL (0.2-0.9) 06/16/21 05:29 Eos # (Auto) 0.1 10^3/uL (0.0-0.8) 06/16/21 05:29 Baso # (Auto) 0.1 10^3/uL (0.0-0.1) 06/16/21 05:29 Nucleated RBC % (auto) 0 % 06/16/21 05:29 Nucleated RBCs # 0.0 /100WBC 06/16/21 05:29 Sodium 134 mmol/L (136-145) L 06/15/21 04:58 Potassium 4.0 mmol/L (3.5-5.1) 06/15/21 04:58 Chloride 104 mmol/L (98-107) 06/15/21 04:58 Carbon Dioxide 21 mmol/L (22-29) L 06/15/21 04:58 Anion Gap 13.0 (5-19) 06/15/21 04:58 BUN 12 mg/dL (8-23) 06/15/21 04:58 Creatinine 1.4 mg/dL (0.7-1.2) H 06/15/21 04:58 GFR Calculation 51.2 mL/min (90-130) L 06/15/21 04:58 Glucose 95 mg/dL (65-115) 06/15/21 04:58 Estimat Average Glucose 111 06/15/21 04:58 Hemoglobin A1c 5.5 % (4.0-6.0) 06/15/21 04:58 Calculated Osmolality 278 mOsm/kg (285-295) L 06/15/21 04:58 Lactic Acid 0.7 mmol/L (0.5-2.2) 06/14/21 01:21 Calcium 8.1 mg/dL (8.5-10.5) L 06/15/21 04:58 Phosphorus 3.4 mg/dL (2.5-4.5) 06/15/21 04:58 Magnesium 1.9 mg/dL (1.7-2.3) 06/15/21 04:58 Iron 20 ug/dL (59-158) L 06/13/21 21:57 TIBC 202 mcg/dl 06/13/21 21:57 % Saturation 9.9 % (20-50) L 06/13/21 21:57 Unsat Iron Binding 182 ug/dL (112-347) 06/13/21 21:57 Ferritin 490 ng/mL (30-400) H 06/13/21 21:57 Total Bilirubin 0.2 mg/dL (0.15-1.2) 06/15/21 04:58 AST 7 U/L (0-40) 06/15/21 04:58 ALT 6 U/L (0-41) 06/15/21 04:58 Alkaline Phosphatase 53 IU/L (40-130) 06/15/21 04:58 Creatine Kinase 150 U/L (39-308) 06/15/21 04:58 C-Reactive Protein 60.5 mg/L (0.0-4.9) H 06/15/21 04:58 Total Protein 5.4 g/dL (6.6-8.7) L 06/15/21 04:58 Albumin 2.7 g/dL (3.5-5.2) L 06/15/21 04:58 Globulin 2.7 g/dL (1.3-4.6) 06/15/21 04:58 Procalcitonin 0.57 ng/mL (0-0.5) H 06/13/21 21:57 TSH 1.55 uIU/mL (0.27-4.20) 06/13/21 21:57 Urine Color Yellow (Yellow) 06/14/21 01:30 Urine Appearance Hazy (CLEAR) A 06/14/21 01:30 Urine pH 5 (5-7) 06/14/21 01:30 Ur Specific [place] 1.025 (1.005-1.030) 06/14/21 01:30 Urine Protein Neg (Negative) 06/14/21 01:30 Urine Glucose (UA) Norm (Normal) 06/14/21 01:30 Urine Ketones Negative (Negative) 06/14/21 01:30 Urine Blood 2+ (Negative) H 06/14/21 01:30 Urine Nitrate Negative (Negative) 06/14/21 01:30 Urine Bilirubin Neg (Negative) 06/14/21 01:30 Urine Urobilinogen Norm mg/dL (Negative) 06/14/21 01:30 Ur Leukocyte Esterase 2+ (Negative) H 06/14/21 01:30 Urine RBC 5-10 /hpf (0-2) H 06/14/21 01:30 Urine WBC Too numerous to cnt /hpf (0-5) H 06/14/21 01:30 Ur Squamous Epith Cells 0-4 /hpf (0-5) H 06/14/21 01:30 Amorphous Sediment Not Reportable 06/14/21 01:30 Urine Bacteria 1+ /hpf (NONE) H 06/14/21 01:30 Salicylates 0.7 mg/dL (3-10) L 06/13/21 21:57 Acetaminophen < 5.0 ug/mL (10-30) L 06/13/21 21:57 Vitals Last Vital Signs Temp 97.5 F L 06/16/21 04:00 Pulse 45 L 06/16/21 04:00 Resp 16 06/16/21 04:00 BP 146/72 06/16/21 04:00 Pulse Ox 94 06/16/21 04:00 Discharge Plan Discharge Patient Disposition: Home Condition: Stable Prescriptions: New levofloxacin 750 mg tablet 750 mg PO DAILY 10 Days Qty: 10 0RF Continued ferrous sulfate 325 mg (65 mg iron) tablet 325 mg PO DAILY@0700 0RF finasteride 5 mg tablet 5 mg PO DAILY@0700 0RF Linzess 145 mcg capsule 145 mcg PO DAILY@0700 0RF tamsulosin 0.4 mg capsule 0.4 mg PO DAILY@0700 0RF bethanechol chloride 25 mg tablet 25 mg PO BID@0800,1999 0RF docusate sodium 100 mg capsule 100 mg PO BID@07,1999 0RF hydrocodone-acetaminophen 10-325 mg tablet 1 tab PO TID@08,,20 0RF divalproex [Depakote] 250 mg tablet,delayed release (DR/EC) 250 mg PO TID@0700,1399,1999 0RF gabapentin 400 mg capsule 400 mg PO TID@07,, 0RF buspirone 15 mg tablet 15 mg PO TID@0700,1399,1999 0RF amitriptyline 100 mg tablet 100 mg PO BEDTIME@1999 0RF omeprazole 40 mg capsule,delayed release(DR/EC) 40 mg PO DAILY@1900 0RF ascorbic acid (vitamin C) 500 mg capsule 500 mg PO DAILY@07 0RF carboxymethylcellulose sodium [Refresh Tears] 0.5 % drops 1 - 2 drp ophthalmic (eye) .PRN 0RF DOPATEDINE 1 drp eye-both DAILY PRN (Reason: allergy eye) 0RF calcium carbonate-vitamin D3 [Calcium 600 + D(3)] 600 mg(1,500mg) -400 unit Tablet 1 tab PO BID@0700,1900 0RF Rx Instructions: TAKE WITH MEALS aluminum hydrox-magnesium carb 254-237.5 mg/5 mL Suspension 10 ml PO Q6H PRN (Reason: Stomach Upset) Qty: 0 0RF diclofenac sodium 1 % Gel 2 - 4 g TOPICAL QID PRN (Reason: Pain) 0RF copper gluconate 2 mg Capsule 2 mg PO DAILY@07 0RF quetiapine 100 mg tablet 100 mg PO BEDTIME@20 0RF [place] Salt 100 % Crystals See Rx Instructions .ROUTE .COMPLEX 0RF Rx Instructions: soak affected toe bid prn alum-mag hydroxide-simeth 200-200-20 mg/5 mL Suspension 20 ml PO Q6H PRN (Reason: unknown) 0RF metoprolol tartrate 25 mg tablet 25 mg PO BID@07,19 0RF folic acid 1 mg Tablet 1 mg PO DAILY@07 0RF quetiapine 25 mg tablet 25 mg PO DAILY@07 0RF cyanocobalamin (vitamin B-12) 1,000 mcg/mL Solution 1,000 mcg IM Q30D 0RF Rx Instructions: on the 10th aspirin 81 mg Tablet,Chewable 81 mg PO DAILY@07 0RF clonidine HCl 0.2 mg Tablet 0.2 mg PO TID@0600,1600,1999 0RF clonazepam 0.5 mg tablet 0.5 mg PO BID PRN (Reason: Anxiety) 0RF lorazepam 2 mg Tablet 1 mg PO TID@0600,1600,2000 Qty: 0 0RF losartan 100 mg Tablet 50 mg PO BEDTIME Qty: 0 0RF cephalexin 500 mg capsule 500 mg PO QID 7 Days Qty: 28 0RF Rx Instructions: for 7 days (@06;00,12:00,16:00,20:00) Discharge Orders: Discharge Order (Routine); Ordered 06/16/21 Ordered By: Maritza Tran Referrals: Rehan Rodriguez MD [Primary Care Provider] - 06/22/21 9:00 am () Anthony Yuan MD [Physician] - 07/03/21 10:15 am (May be seen by Shawanda NAVARRETE) Patient Instructions: Levofloxacin (By mouth), Hyponatremia, Opioid Safety Discharge Attestations Time Spent in Discharge Care*: less than 30 min Status at Discharge: Cognitive status at discharge: cognitively intact , Behavioral status at discharge: cooperative , Quality Metrics Clinical Quality Measures [ No reported AMI, CVA or VTE this stay] Coding Level of Care Code Acute Chg FW DC note Diagnoses Acute encephalopathy G93.40 UTI (urinary tract infection) N39.0 Urinary retention R33.9
[2021-06-16 07:29] VITALS: BP 192/87; PULSE 50; RESP 16; TEMP 36.9; O2SAT 98
[2021-06-16] MEDS: gabapentin 400 mg Capsule PO (08:05)
[2021-06-16] MEDS: tamsulosin 0.4 mg Capsule PO (08:05)
[2021-06-16] MEDS: BuSPIRONE 10 mg Tablet 15 MG PO (08:05)
[2021-06-16] MEDS: docusate sodium 100 mg Capsule PO (08:05)
[2021-06-16] MEDS: ferrous sulfate EC 325 mg Tablet PO (08:05)
[2021-06-16] MEDS: quetiapine 25 mg Tablet PO (08:06)
[2021-06-16] MEDS: folic acid 1 mg Tablet PO (08:06)
[2021-06-16] MEDS: aspirin 81 mg EC Tablet PO (08:06)
[2021-06-16] MEDS: divalproex DR 250 mg Tablet PO (08:11)
[2021-06-16 08:34] VITALS: BP 192/87
[2021-06-16] MEDS: cloNIDine 0.1 mg Tablet 0.2 MG PO (08:34)
[2021-06-16 09:38] VITALS: BP 130/80; PULSE 58
--- NOTE | 2021-06-16 11:00 | PC.NURSE ---
report given to Anastacio Serna RN at [facility] for anticipated pt d/c
[2021-06-16 11:50] VITALS: BP 130/80; PULSE 58; RESP 16; TEMP 36.9; O2SAT 98
== END 2021-06-16 11:25 | disposition home or self-care (01) | DRG 689 ==
LOC: ER 06-14 04:36 → ER IP 06-14 08:43 → MEDSURG 06-14 12:42
PROVIDERS: Admitting Provider Family Medicine; Emergency Provider Emergency Medicine; PCP Internal Medicine; Visit Provider Internal Medicine
DX: N30.01 Acute cystitis with hematuria (principal); G93.41 Metabolic encephalopathy; E87.1 Hypo-osmolality and hyponatremia; F41.8 Other specified anxiety disorders; D50.9 Iron deficiency anemia, unspecified; I12.9 Hypertensive chronic kidney disease with stage 1 through stage 4 chronic kidney disease, or unspecified chronic kidney disease; N18.9 Chronic kidney disease, unspecified; G89.29 Other chronic pain; Z87.440 Personal history of urinary (tract) infections; R33.9 Retention of urine, unspecified; B96.1 Klebsiella pneumoniae [K. pneumoniae] as the cause of diseases classified elsewhere; K59.00 Constipation, unspecified; Z79.82 Long term (current) use of aspirin; Z79.891 Long term (current) use of opiate analgesic
CPT/HCPCS: 36415; 51701; 51702; 70450; 71045; 74176; 80053; 80307; 81001; 82550; 82728; 83036; 83540; 83550; 83605; 83735; 84100; 84145; 84443; 84484; 85025; 86140; 87040; 87077; 87086; 87186; 92523; 92610; 93005; 94664; 96365; 96366; 96367; 96372; 96375; 97161; 97530; 99283; 99285; C9113; J0360; J0696; J2310; J2543; J3370; J3490; J7030; J7050

== ENCOUNTER 2021-07-11 15:50 | Emergency (ER) | payer MEDICARE, MEDICAID, SELFPAY ==
[2021-07-11 15:53] VITALS: BP 184/88; PULSE 67; RESP 17; TEMP 36.7; O2SAT 97; BMI 22.5
--- NOTE | 2021-07-11 16:04 | W.ED.GENADLT ---
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 Patient had his Moyer changed 3 days ago. 2 days ago, patient was walking when he noticed that the Moyer cath pulled accidently. Patient denies any bleeding around the urethral meatus. Since then, patient has had hematuria with passage of clots. Patient has no complaints of urinary retention. Reports mild dysuria. Denies any flank pain, fever/chills, nausea/vomiting, abdominal complaints, chest pain, shortness palpitation or lightheadedness. Patient is not any blood thinner. Patient reports only taking aspirin Onset: 2 days ago Duration:2 days Location:home Severity:moderate Associated symptoms: Deny chest pain, dyspnea, nausea, rash, palpitations or vomiting Review of Systems Const: Denies: fever(s) or chills Eyes: Denies: change in vision ENMT: Denies: mouth pain Card: Denies: chest pain or palpitations Resp: Denies: dyspnea or non-productive cough GI: Denies: abdominal pain, nausea, vomiting or diarrhea : Reports: dysuria and other (+hematuria) Musc: Denies: extremity pain Skin/Breast: Denies: rash or new lesions Neuro: Denies: weakness in extremities Psych: Reports: other (Normal mood) [place]/Lymph: Denies: easy bruising [facility] ED PFSH: Medical History Acute blood loss anemia Acute cystitis with hematuria Acute UTI STEVEN (acute kidney injury) STEVEN (acute kidney injury) Altered mental status Bacteremia Bilateral hydronephrosis Chronic cystitis Chronic kidney disease Complicated UTI (urinary tract infection) Constipation Depression determined by examination Detrusor dysfunction Gross hematuria Gross hematuria Hyponatremia Polypharmacy Prostatitis Prostatitis Recurrent UTI Sepsis Sepsis Urinary retention Urinary retention UTI (urinary tract infection) UTI (urinary tract infection) Family History Mother Diabetes Father Diabetes Sister Diabetes Social History Smoking and tobacco status: never smoked Alcohol intake: never Marital status: Single Current occupational status: unemployed and retired Physical Exam Const: COMMON NORMALS: alert HENMT: COMMON NORMALS: atraumatic HEAD & SCALP: atraumatic MOUTH: moist mucous membranes not abnormal Eye: COMMON NORMALS: EOMs intact bilaterally and conjunctivae normal CONJUNCTIVA: Yes conjunctivae normal Neck/C-Spine: COMMON NORMALS: full ROM and supple Resp: COMMON NORMALS: normal respiratory effort and clear to auscultation bilaterally AUSCULTATION: clear to auscultation bilaterally Cardio: COMMON NORMALS: regular rate RATE: regular rate GI: COMMON NORMALS: Soft to palpation and non-tender PALPATION: Yes Soft to palpation OTHER: +mild suprapublic tenderness to palpation : OTHER: 16Fr indwelling moyer with hematuria and clots, no blood around the urethral meatus Extremity: COMMON NORMALS: full ROM Neuro: SENSORIUM/ORIENTATION: Yes alert MOTOR EXAM: No Abnormal motor strength present and Other motor observations present (no focal motor deficits) Psych: COMMON NORMALS: speech normal SPEECH: Yes normal speech MOOD & AFFECT: Yes euthymic mood Course Vital Signs: Vital signs: Vital Signs Temperature 98.0 F 07/11/21 15:53 Pulse Rate 67 07/11/21 15:53 Respiratory Rate 17 07/11/21 15:53 Blood Pressure 184/88 07/11/21 15:53 Pulse Oximetry 97 07/11/21 15:53 MDM - General Adult Medical Decision Making 65-year-old male with history of chronic indwelling Moyer presenting to the emergency room with hematuria x2-day after his Moyer was pulled. On exam of the urine bag appears to be bloody with occasional clots. Patient's Moyer is flushing without any difficulty. Creatinine similar to baseline. H&H appears to be stable. Patient is voiding without any difficulty. UA is not consistent with UTI. I have given patient follow up with our shelter case manager to be seen by our outpatient Urology for further management of hematuria. Patient aware of a call from our shelter case manager to schedule for appointment(s) and verbalizes understanding of the importance of following up. Disposition: Discharge. Patient counseled regarding diagnostic impression, treatment plan. Patient given ED strict return precautions to return for continuation, worsening, or development of new symptoms. Instructed to f/u w/ PCP and Urologist regarding symptoms today. Patient verbalized understanding. Lab Data : 07/11/21 16:40 07/11/21 16:40 Laboratory Results WBC 7.6 10^3/uL (4.0-10.0) 07/11/21 16:40 RBC 3.36 10^6/uL (4.1-5.3) L 07/11/21 16:40 Hgb 10.0 g/dL (11.7-16.6) L 07/11/21 16:40 Hct 32.1 % (42.0-52.0) L 07/11/21 16:40 MCV 95.5 fl (80-94) H 07/11/21 16:40 MCH 29.8 pg (28.0-34.0) 07/11/21 16:40 MCHC 31.2 g/dL (30.0-36.0) 07/11/21 16:40 RDW 14.2 % (12.1-15.1) 07/11/21 16:40 Plt Count 244 10^3/cmm (130-400) 07/11/21 16:40 MPV 8.8 fL (7.4-10.4) 07/11/21 16:40 Neut % (Auto) 63.1 % 07/11/21 16:40 Lymph % (Auto) 24.0 % 07/11/21 16:40 [place] % (Auto) 9.9 % 07/11/21 16:40 Eos % (Auto) 1.7 % 07/11/21 16:40 Baso % (Auto) 0.4 % 07/11/21 16:40 Neut # (Auto) 4.76 10^3/uL (1.8-7.7) 07/11/21 16:40 Lymph # (Auto) 1.8 10^3/uL (0.8-4.8) 07/11/21 16:40 [place] # (Auto) 0.8 10^3/uL (0.2-0.9) 07/11/21 16:40 Eos # (Auto) 0.1 10^3/uL (0.0-0.8) 07/11/21 16:40 Baso # (Auto) 0.0 10^3/uL (0.0-0.1) 07/11/21 16:40 Nucleated RBC % (auto) 0 % 07/11/21 16:40 Nucleated RBCs # 0.0 /100WBC 07/11/21 16:40 Sodium 133 mmol/L (136-145) L 07/11/21 16:40 Potassium 4.5 mmol/L (3.5-5.1) 07/11/21 16:40 Chloride 97 mmol/L (98-107) L 07/11/21 16:40 Carbon Dioxide 26 mmol/L (22-29) 07/11/21 16:40 Anion Gap 14.5 (5-19) 07/11/21 16:40 BUN 15 mg/dL (8-23) 07/11/21 16:40 Creatinine 1.3 mg/dL (0.7-1.2) H 07/11/21 16:40 GFR Calculation 55.8 mL/min (90-130) L 07/11/21 16:40 Glucose 88 mg/dL (65-115) 07/11/21 16:40 Calculated Osmolality 276 mOsm/kg (285-295) L 07/11/21 16:40 Calcium 9.1 mg/dL (8.5-10.5) 07/11/21 16:40 Urine Color Red (Yellow) 07/11/21 16:55 Urine Appearance Cloudy (CLEAR) 07/11/21 16:55 Urine pH 7 (5-7) 07/11/21 16:55 Ur Specific [place] 1.005 (1.005-1.030) 07/11/21 16:55 Urine Protein 1+ (Negative) H 07/11/21 16:55 Urine Glucose (UA) Norm (Normal) 07/11/21 16:55 Urine Ketones Negative (Negative) 07/11/21 16:55 Urine Blood 3+ (Negative) H 07/11/21 16:55 Urine Nitrate Negative (Negative) 07/11/21 16:55 Urine Bilirubin Neg (Negative) 07/11/21 16:55 Urine Urobilinogen Norm mg/dL (Negative) 07/11/21 16:55 Ur Leukocyte Esterase Negative (Negative) 07/11/21 16:55 Urine RBC 80-100 /hpf (0-2) H 07/11/21 16:55 Urine WBC 0-4 /hpf (0-5) H 07/11/21 16:55 Ur Squamous Epith Cells 0-4 /hpf (0-5) H 07/11/21 16:55 Amorphous Sediment Not Reportable 07/11/21 16:55 Urine Bacteria Trace /hpf (NONE) 07/11/21 16:55 Discharge Plan Discharge Patient Disposition: Home Clinical Impression: Hematuria Condition: Stable Prescriptions: No Action ferrous sulfate 325 mg (65 mg iron) tablet 325 mg PO DAILY@0700 0RF finasteride 5 mg tablet 5 mg PO DAILY@0700 0RF Linzess 145 mcg capsule 145 mcg PO DAILY@0700 0RF tamsulosin 0.4 mg capsule 0.4 mg PO DAILY@0700 0RF bethanechol chloride 25 mg tablet 25 mg PO BID@08,1999 0RF docusate sodium 100 mg capsule 100 mg PO BID@07,1999 0RF hydrocodone-acetaminophen 10-325 mg tablet 1 tab PO TID@,,20 0RF divalproex [Depakote] 250 mg tablet,delayed release (DR/EC) 250 mg PO TID@0700,1399,1999 0RF gabapentin 400 mg capsule 400 mg PO TID@,,20 0RF buspirone 15 mg tablet 15 mg PO TID@0700,1399,1999 0RF omeprazole 40 mg capsule,delayed release(DR/EC) 40 mg PO DAILY@1900 0RF ascorbic acid (vitamin C) 500 mg capsule 500 mg PO DAILY@07 0RF carboxymethylcellulose sodium [Refresh Tears] 0.5 % drops 1 - 2 drp ophthalmic (eye) .PRN 0RF DOPATEDINE 1 drp eye-both DAILY PRN (Reason: allergy eye) 0RF calcium carbonate-vitamin D3 [Calcium 600 + D(3)] 600 mg(1,500mg) -400 unit Tablet 1 tab PO BID@0700,1900 0RF Rx Instructions: TAKE WITH MEALS aluminum hydrox-magnesium carb 254-237.5 mg/5 mL Suspension 10 ml PO Q6H PRN (Reason: Stomach Upset) Qty: 0 0RF diclofenac sodium 1 % Gel 2 - 4 g TOPICAL QID PRN (Reason: Pain) 0RF quetiapine 100 mg tablet 100 mg PO BEDTIME@20 0RF folic acid 1 mg Tablet 1 mg PO DAILY@07 0RF cyanocobalamin (vitamin B-12) 1,000 mcg/mL Solution 1,000 mcg IM Q30D 0RF Rx Instructions: on the 10th aspirin 81 mg Tablet,Chewable 81 mg PO DAILY@07 0RF Discharge Orders: Discharge ED (Routine); Ordered 07/11/21 Ordered By: Serafin Davila Referrals: Rehan Rodriguez MD [Primary Care Provider] - Discharge Diet: Advance as tolerated Discharge Activity: Increase activity as tolerated Patient Instructions: Hematuria (ED) Activity Restrictions/Additional Instructions: Our shelter case manager will have you follow-up with Dr. Yuan in the next few days. You would be expected to have a phone call with our shelter case manager who will put you on the schedule. You can expect a call from us in the next 2-3 days. If you don't hear from us, call us back in the emergency room at [phone]. 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
[2021-07-11 16:12] VITALS: BMI 20.6
[2021-07-11 16:53] LABS: Basophils % 0.4 %; Eosinophils # 0.1 10^3/uL (0.0-0.8); Eosinophils % 1.7 %; Hematocrit 32.1 % (42.0-52.0); Lymphocytes # 1.8 10^3/uL (0.8-4.8); Mean Corpuscular HGB Conc 31.2 g/dL (30.0-36.0); Mean Corpuscular Hemoglobin 29.8 pg (28.0-34.0); Mean Corpuscular Volume 95.5 fl (80-94); Mean Platelet Volume 8.8 fL (7.4-10.4); Monocytes # 0.8 10^3/uL (0.2-0.9); Monocytes % 9.9 %; Neutrophils # 4.76 10^3/uL (1.8-7.7); Neutrophils % 63.1 %; Nucleated Red Blood Cells % 0 %; Platelet Count 244 10^3/cmm (130-400); Red Blood Count 3.36 10^6/uL (4.1-5.3); Red Cell Distribution Width 14.2 % (12.1-15.1); White Blood Count 7.6 10^3/uL (4.0-10.0)
--- NOTE | 2021-07-11 17:03 | PC.NURSE ---
REMOVED PREVIOUS PEDERSEN 16 FR AND THEN REPLACED WITH NEW 16 FR INDWELLING PEDERSEN CATHETER.
[2021-07-11 17:20] LABS: Anion Gap 14.5 (5-19); Blood Urea Nitrogen 15 mg/dL (8-23); Calcium 9.1 mg/dL (8.5-10.5); Carbon Dioxide 26 mmol/L (22-29); Chloride 97 mmol/L (98-107); Glomerular Filtration Rate 55.8 mL/min (90-130); Glucose 88 mg/dL (65-115); Osmolality Calculated 276 mOsm/kg (285-295); Potassium 4.5 mmol/L (3.5-5.1); Sodium 133 mmol/L (136-145)
[2021-07-11 17:39] LABS: Add Urine Microscopic? YES; Bilirubin Urine Neg (Negative); Blood Urine 3+ (Negative); Glucose Urine UA Norm (Normal); Ketones Urine Negative (Negative); Leukocyte Esterase Urine Negative (Negative); Nitrate Urine Negative (Negative); Protein Urine 1+ (Negative); Specific Gravity, Urine 1.005 (1.005-1.030); Urine Appearance Cloudy (CLEAR); Urine Color Red (Yellow); Urobilinogen Urine Norm (Negative); pH Urine 7 (5-7)
[2021-07-11 17:41] LABS: Add Urine Culture? Yes; Bacteria Urine TRACE /hpf; RBC Urine 80-100 /hpf (0-2); Squamous Epithelial Cell Urine 0-4 /hpf (0-5); WBC Urine 0-4 /hpf (0-5)
--- NOTE | 2021-07-17 11:23 | DCPLANNER ---
Addendum entered by Johanny Mack 07/18/21 05:54: Patient had an appointment scheduled for 07.17.[address] Duran office - patient did attend appointment. Original Note: manager of network had message to schedule a follow up appointment for patient with Dr. Yuan. manager of network emailed patients information to Jez Perez and Julie in the office of Dr. Yuan. Patients information will be printed and reviewed. Clinic will call patient with appointment information.
== END 2021-07-11 18:07 | disposition home or self-care (01) ==
PROVIDERS: Emergency Provider Emergency Medicine; PCP Internal Medicine
DX: R31.9 Hematuria, unspecified (principal); Z79.82 Long term (current) use of aspirin; Z87.440 Personal history of urinary (tract) infections
CPT/HCPCS: 36415; 51702; 80048; 81001; 85025; 87086; 99283

== ENCOUNTER 2021-07-11 23:35 | Emergency (ER) | payer MEDICARE, MEDICAID, SELFPAY ==
--- NOTE | 2021-07-11 23:40 | W.ED.MALEGU ---
HPI - Male Genitourinary General: Chief complaint: Urogenital-Male Stated complaint: blood in catheter Time Seen by Provider: 07/11/21 23:37 Source: patient and EMS Mode of arrival: EMS Limitations: no limitations History of Present Illness: 65-year-old male who was seen here earlier today for urinary retention had a Bazan placed he is concerned she had a slight amount of blood at the meatus since stopped she had no more blood out the Bazan tube Bazan tube still working. Denies any pain denies any fevers. Associated symptoms: Deny dysuria, nausea or vomiting Review of Systems Const: Denies: fever(s), chills, body aches or change in appetite Eyes: Denies: blurry vision or eye discomfort ENMT: Denies: throat pain or dental pain Card: Denies: chest pain Resp: Denies: dyspnea GI: Denies: abdominal pain, nausea, vomiting or diarrhea : Denies: dysuria Musc: Denies: neck pain or back pain Skin/Breast: Denies: rash Neuro: Denies: headache(s) Psych: Denies: depression Ebenezer/Lymph: Denies: easy bruising All/Imm: Denies: urticaria PFSH ED PFSH: Medical History Acute blood loss anemia Acute cystitis with hematuria Acute UTI STEVEN (acute kidney injury) STEVEN (acute kidney injury) Altered mental status Bacteremia Bilateral hydronephrosis Chronic cystitis Chronic kidney disease Complicated UTI (urinary tract infection) Constipation Depression determined by examination Detrusor dysfunction Gross hematuria Gross hematuria Hyponatremia Polypharmacy Prostatitis Prostatitis Recurrent UTI Sepsis Sepsis Urinary retention Urinary retention UTI (urinary tract infection) UTI (urinary tract infection) Family History Mother Diabetes Father Diabetes Sister Diabetes Social History Smoking and tobacco status: never smoked Alcohol intake: never Marital status: Single Current occupational status: unemployed and retired Physical Exam Const: COMMON NORMALS: no acute distress, patient oriented x3 and healthy appearing HENMT: COMMON NORMALS: normocephalic and atraumatic HEAD & SCALP: normocephalic and atraumatic Eye: COMMON NORMALS: Equal, round and reactive pupils present and EOMs intact bilaterally PUPIL: Yes Equal, round and reactive pupils present Neck/C-Spine: COMMON NORMALS: full ROM and supple Chest: COMMONS NORMALS: normal inspection of the chest and normal palpation of entire chest wall Resp: COMMON NORMALS: normal respiratory effort, No retractions, No use of accessory muscles and clear to auscultation bilaterally AUSCULTATION: clear to auscultation bilaterally Cardio: COMMON NORMALS: regular rate, regular rhythm and No murmurs present (Cardio) RATE: regular rate RHYTHM: regular rhythm GI: COMMON NORMALS: Normal to inspection, nondistended, normoactive bowel sounds present, Soft to palpation, non-tender and no masses PALPATION: Yes Soft to palpation : OTHER: Bazan in place some slight blood at the meatus one blood clot in Bazan bag urine in the Bazan tube is clear no active bleeding at this time Extremity: COMMON NORMALS: normal to inspection and full ROM Neuro: COMMON NORMALS: patient oriented x3, moves all extremities and no focal motor deficits Psych: COMMON NORMALS: mental status grossly normal, Normal thought process present and cooperative THOUGHT PROCESS: Normal thought process present Skin: COMMON NORMALS: no rashes or lesions noted and no wounds GENERAL SKIN EXAM: no rashes or lesions noted Course Vital Signs: Vital signs: Vital Signs Temperature 98.1 F 07/11/21 23:41 Pulse Rate 60 07/12/21 01:54 Respiratory Rate 16 07/12/21 01:54 Blood Pressure 140/81 07/12/21 01:54 Pulse Oximetry 94 07/12/21 01:54 MDM - Male Medical Decision Making Patient presents here with hematuria likely from stricture after having a new Bazan placed today CT scan here is normal he is stable for discharge he is to follow-up with Dr. Kwabena juárez if worsening. He had a work-up done earlier today with normal blood work and urinalysis showed no UTI do not feel like he needed to have labs repeated. Lab Data Radiology Impressions Abdomen/Pelvis CT 07/12/21 00:22 IMPRESSION: 1. Thick-walled bladder suggest muscular hypertrophy. This could be due to chronic partial bladder outlet obstruction. There is no visible bladder mass or blood clots in the lumen. 2. Mild bilateral hydronephrosis is markedly decreased since 06/14/2021. This finding suggests bladder outlet obstruction as the cause of hydronephrosis previously. 3. Nonspecific liver nodules. Consider nonemergent follow-up MRI. 4. Incidental findings above. Discharge Plan Discharge Patient Disposition: Home Clinical Impression: Hematuria Condition: Stable Prescriptions: No Action ferrous sulfate 325 mg (65 mg iron) tablet 325 mg PO DAILY@0700 0RF finasteride 5 mg tablet 5 mg PO DAILY@0700 0RF Linzess 145 mcg capsule 145 mcg PO DAILY@0700 0RF tamsulosin 0.4 mg capsule 0.4 mg PO DAILY@0700 0RF bethanechol chloride 25 mg tablet 25 mg PO BID@0800,2000 0RF docusate sodium 100 mg capsule 100 mg PO BID@07,1999 0RF hydrocodone-acetaminophen 10-325 mg tablet 1 tab PO TID@,,20 0RF divalproex [Depakote] 250 mg tablet,delayed release (DR/EC) 250 mg PO TID@0700,1399,1999 0RF gabapentin 400 mg capsule 400 mg PO TID@,,20 0RF buspirone 15 mg tablet 15 mg PO TID@0700,1400,1999 0RF omeprazole 40 mg capsule,delayed release(DR/EC) 40 mg PO DAILY@1900 0RF ascorbic acid (vitamin C) 500 mg capsule 500 mg PO DAILY@07 0RF carboxymethylcellulose sodium [Refresh Tears] 0.5 % drops 1 - 2 drp ophthalmic (eye) .PRN 0RF DOPATEDINE 1 drp eye-both DAILY PRN (Reason: allergy eye) 0RF calcium carbonate-vitamin D3 [Calcium 600 + D(3)] 600 mg(1,500mg) -400 unit Tablet 1 tab PO BID@0700,1900 0RF Rx Instructions: TAKE WITH MEALS aluminum hydrox-magnesium carb 254-237.5 mg/5 mL Suspension 10 ml PO Q6H PRN (Reason: Stomach Upset) Qty: 0 0RF diclofenac sodium 1 % Gel 2 - 4 g TOPICAL QID PRN (Reason: Pain) 0RF quetiapine 100 mg tablet 100 mg PO BEDTIME@20 0RF folic acid 1 mg Tablet 1 mg PO DAILY@07 0RF cyanocobalamin (vitamin B-12) 1,000 mcg/mL Solution 1,000 mcg IM Q30D 0RF Rx Instructions: on the 10th aspirin 81 mg Tablet,Chewable 81 mg PO DAILY@07 0RF Discharge Orders: Discharge ED (Routine); Ordered 07/12/21 Ordered By: Lucio Hanna Referrals: Rehan Rodriguez MD [Primary Care Provider] - Anthony Yuan MD [Physician] - 1-3 days Discharge Diet: Advance as tolerated Discharge Activity: Resume usual activity Patient Instructions: Hematuria (ED) Coding Level of Care Code ED Newspaper Illustrator for Chg Fwd Exam Comprehensive
[2021-07-11 23:41] VITALS: BP 161/89; PULSE 74; RESP 18; TEMP 36.7; O2SAT 98; BMI 22.5
--- NOTE | 2021-07-12 00:03 | PC.NURSE ---
flushed catheter with approx 250 mL (total) of sterile water for irrigation, catheter draining appropriately.
--- NOTE | 2021-07-12 00:22 | CTR_ITS ---
PROCEDURE INFORMATION: Exam: CT Abdomen And Pelvis With Contrast Exam date and time: 07/12/2021 12:22 AM Age: 65 years old Clinical indication: Other: Gross hematuria; Prior surgery; Surgery type: Gb. Hiatal hernia. Hernia mesh. ; Patient HX: Blood clots in moyer bag. TECHNIQUE: Imaging protocol: Computed tomography of the abdomen and pelvis with contrast. Radiation optimization: All CT scans at this facility use at least one of these dose optimization techniques: automated exposure control; mA and/or kV adjustment per patient size (includes targeted exams where dose is matched to clinical indication); or iterative reconstruction. Contrast material: VISI 320; Contrast volume: 95 ml; Contrast route: INTRAVENOUS (IV); COMPARISON: CT abdomen pelvis wo con [id number] 06/14/2021 12:16 AM RADIATION DOSE METRICS: Total DLP (mGy-cm): 1072.74 FINDINGS: Lungs: There is subsegmental atelectasis in the right lung. Liver: There are scattered hypodense liver nodules measuring up to 10 mm diameter in the inferior right lobe. See axial series 2, image 39. Gallbladder and bile ducts: The gallbladder is absent. There is moderate dilation of the common bile duct and central intrahepatic ducts. Pancreas: There is mild atrophy of the pancreas. Spleen: The spleen is unremarkable. Adrenal glands: The adrenal glands are unremarkable. Kidneys and ureters: Renal parenchymal enhancement pattern is normal bilaterally. There is mild bilateral hydronephrosis and mildly patulous ureters. The degree of hydronephrosis and ureteral dilation is markedly decreased since 06/14/2021. Stomach and bowel: Large hiatal hernia contains a majority of the stomach. The small bowel is nondilated. The colon is unremarkable. Appendix: The appendix is not visible. Intraperitoneal space: There is no free air or significant intraperitoneal free fluid. Vasculature: There is moderate aortic atherosclerotic disease. The portal, splenic and superior mesenteric veins are patent. Lymph nodes: There is no lymphadenopathy in the retroperitoneum, mesentery, pelvis or inguinal regions. Urinary bladder: The Moyer catheter is appropriately positioned with the bulb and tip within the bladder lumen. The bladder lumen is nondistended. The wall is diffusely thickened suggesting muscular hypertrophy. Reproductive: The prostate and seminal vesicles are unremarkable. Bones/joints: Bones are unremarkable. Soft tissues: Intact ventral hernia repair. CT/CT abdomen pelvis w con* [id number] IMPRESSION: 1. Thick-walled bladder suggest muscular hypertrophy. This could be due to chronic partial bladder outlet obstruction. There is no visible bladder mass or blood clots in the lumen. 2. Mild bilateral hydronephrosis is markedly decreased since 06/14/2021. This finding suggests bladder outlet obstruction as the cause of hydronephrosis previously. 3. Nonspecific liver nodules. Consider nonemergent follow-up MRI. 4. Incidental findings above.
[2021-07-12] MEDS: iodixanol 320 mg/mL 100mL Btl IV (00:55)
[2021-07-12 01:54] VITALS: BP 140/81; PULSE 60; RESP 16; O2SAT 94
--- NOTE | 2021-07-17 11:28 | DCPLANNER ---
Addendum entered by Johanny Mack 07/18/21 05:54: Patient had an appointment scheduled for 07.17.[address] Duran office - patient did attend appointment. Original Note: international sales manager received another referral for patient to be seen by Dr. Yuan. international sales manager referred patient to Dr. Yuan from previous visit on 07.11.21. Please refer to notes and appointment information on the date of 07.11.21.
== END 2021-07-12 01:57 | disposition home or self-care (01) ==
PROVIDERS: Emergency Provider Emergency Medicine; PCP Internal Medicine
DX: R31.9 Hematuria, unspecified (principal); Z79.82 Long term (current) use of aspirin
CPT/HCPCS: 74177; 99282; Q9967

== ENCOUNTER 2021-08-11 17:07 | Emergency (ER) | payer MEDICARE, MEDICAID, SELFPAY ==
[2021-08-11 17:34] VITALS: BP 131/78; PULSE 64; RESP 16; TEMP 36.9; O2SAT 98; BMI 22.4
--- NOTE | 2021-08-11 17:42 | ED_ITS ---
HPI - General Adult General: Chief complaint: General Medical Stated complaint: HIGH BP Time Seen by Provider: 08/11/21 17:42 History of Present Illness: 65-year-old male patient comes in today for concerns of elevated blood pressure. Patient had a systolic blood pressure above 200 when being evaluated at his assisted living facility, [facility]. Patient appears in no acute distress. Patient appears chronically ill. Patient appears no pain. Patient denies chest pain or difficulty breathing. Associated symptoms: Reports rash; Deny chest pain or dyspnea Review of Systems General: Reports: 10 or more systems reviewed and unremarkable except in HPI and below Const: Denies: fever(s) Card: Denies: chest pain Resp: Denies: dyspnea : Reports: other (Indwelling urinary catheter); Denies: flank pain Musc: Denies: extremity pain Skin/Breast: Reports: rash PFSH ED PFSH: Medical History Acute blood loss anemia Acute cystitis with hematuria Acute UTI STEVEN (acute kidney injury) STEVEN (acute kidney injury) Altered mental status Bacteremia Bilateral hydronephrosis Chronic cystitis Chronic kidney disease Complicated UTI (urinary tract infection) Constipation Depression determined by examination Detrusor dysfunction Gross hematuria Gross hematuria Hyponatremia Polypharmacy Prostatitis Prostatitis Recurrent UTI Sepsis Sepsis Urinary retention Urinary retention UTI (urinary tract infection) UTI (urinary tract infection) Family History Mother Diabetes Father Diabetes Sister Diabetes Social History Smoking and tobacco status: never smoked Alcohol intake: never Marital status: Single Current occupational status: unemployed and retired Physical Exam Const: COMMON NORMALS: alert HENMT: COMMON NORMALS: atraumatic HEAD & SCALP: atraumatic Neck/C-Spine: COMMON NORMALS: full ROM Resp: COMMON NORMALS: normal respiratory effort and clear to auscultation bilaterally AUSCULTATION: clear to auscultation bilaterally Cardio: COMMON NORMALS: regular rate and regular rhythm RATE: regular rate RHYTHM: regular rhythm GI: COMMON NORMALS: Soft to palpation and non-tender PALPATION: Yes Soft to palpation Extremity: COMMON NORMALS: no pedal edema Neuro: SENSORIUM/ORIENTATION: Yes alert Psych: COMMON NORMALS: cooperative Skin: COMMON NORMALS: no rashes or lesions noted GENERAL SKIN EXAM: no rashes or lesions noted Course Vital Signs: Vital signs: Vital Signs Temperature 98.5 F 08/11/21 17:34 Pulse Rate 53 L 08/11/21 19:07 Respiratory Rate 16 08/11/21 19:07 Blood Pressure 154/90 08/11/21 19:07 Pulse Oximetry 100 08/11/21 19:07 MDM - General Adult Medical Decision Making Patient was referred to the ER by his primary care provider and nursing staff at the [facility] in which he resides. Patient had elevated blood pressure above 200 at the site. On arrival EMS reported a blood pressure of 150. Patient denied any chest pain or other complaints. Initial blood pressure in the emergency room was 131/78. Patient has a chronic indwelling catheter. Patient does have a history of recurrent urinary tract infections. Lungs were c lear to auscultation. No edema is noted extremities. Differential diagnosis includes not limited to ACS, CHF, uncontrolled hypertension. Laboratory values showing a mildly low sodium at 129 although this seems to be chronic for patient with his last 1 being 130. Creatinine was 1.4 which patient does seem to have some renal insufficiency as similar creatinines in the past. Hemoglobin hematocrit was unremarkable. Urinalysis was clear. Chest x-ray was clear. I think patient just had a abnormal blood pressure read that corrected itself or it was corrected by patient's medication he had taken at the detention. Patient should follow-up with primary care for further instructions. Return to the ER for new concerns. Lab Data : 08/11/21 17:30 08/11/21 17:30 Radiology Impressions Chest X-Ray 08/11/21 17:43 IMPRESSION: No acute findings. Laboratory Results WBC 7.3 10^3/uL (4.0-10.0) 08/11/21 17:30 RBC 4.14 10^6/uL (4.1-5.3) 08/11/21 17:30 Hgb 12.7 g/dL (11.7-16.6) 08/11/21 17:30 Hct 39.1 % (42.0-52.0) L 08/11/21 17:30 MCV 94.4 fl (80-94) H 08/11/21 17:30 MCH 30.7 pg (28.0-34.0) 08/11/21 17:30 MCHC 32.5 g/dL (30.0-36.0) 08/11/21 17:30 RDW 13.9 % (12.1-15.1) 08/11/21 17: Plt Count 173 10^3/cmm (130-400) 08/11/21 17:30 MPV 10.2 fL (7.4-10.4) 08/11/21 17: Neut % (Auto) 60.4 % 08/11/21 17:30 Lymph % (Auto) 28.3 % 08/11/21 17:30 [place] % (Auto) 8.0 % 08/11/21 17: Eos % (Auto) 2.2 % 08/11/21 17: Baso % (Auto) 0.8 % 08/11/21: Neut # (Auto) 4.40 10^3/uL (1.8-7.7) 08/11/21 17: Lymph # (Auto) 2.1 10^3/uL (0.8-4.8) 08/11/21 17:30 [place] # (Auto) 0.6 10^3/uL (0.2-0.9) 08/11/21 17:30 Eos # (Auto) 0.2 10^3/uL (0.0-0.8) 08/11/21:30 Baso # (Auto) 0.1 10^3/uL (0.0-0.1) 08/11/21 17: Nucleated RBC % (auto) 0 % 08/11/21: Nucleated RBCs # 0.0 /100WBC 08/11/21 17:30 Sodium 129 mmol/L (136-145) L 08/11/21 17:30 Potassium 4.0 mmol/L (3.5-5.1) 08/11/21: Chloride 97 mmol/L (98-107) L 08/11/21: Carbon Dioxide 23 mmol/L (22-29) 08/11/21 17:30 Anion Gap 13.0 (5-19) 08/11/21 17:30 BUN 21 mg/dL (8-23) 08/11/21 17:30 Creatinine 1.4 mg/dL (0.7-1.2) H 08/11/21 17:30 GFR Calculation 51.2 mL/min (90-130) L 08/11/21 17:30 Glucose 134 mg/dL (65-115) H 08/11/21 17:30 Calculated Osmolality 273 mOsm/kg (285-295) L 08/11/21 17:30 Calcium 9.0 mg/dL (8.5-10.5) 08/11/21 17:30 Urine Color Yellow (Yellow) 08/11/21 18:50 Urine Appearance Clear (CLEAR) 08/11/21 18:50 Urine pH 6.5 (5-7) 08/11/21 18:50 Ur Specific [place] 1.010 (1.005-1.030) 08/11/21 18:50 Urine Protein Neg (Negative) 08/11/21 18:50 Urine Glucose (UA) Norm (Normal) 08/11/21 18:50 Urine Ketones Negative (Negative) 08/11/21 18:50 Urine Blood Neg (Negative) 08/11/21 18:50 Urine Nitrate Negative (Negative) 08/11/21 18:50 Urine Bilirubin Neg (Negative) 08/11/21 18:50 Urine Urobilinogen Norm mg/dL (Negative) 08/11/21 18:50 Ur Leukocyte Esterase Negative (Negative) 08/11/21 18:50 Discharge Plan Discharge Patient Disposition: Home Clinical Impression: Elevated blood pressure reading Hypertension Qualifiers: Hypertension type: unspecified Qualified Code(s): I10 - Essential (primary) hypertension Condition: Stable Prescriptions: No Action clonidine HCl 0.1 mg tablet 0.1 mg PO BID PRN0RF copper gluconate 2 mg tablet 2 mg PO DAILY 0RF clonidine HCl 0.2 mg tablet 0.2 mg PO TID 0RF metoprolol tartrate 25 mg tablet 25 mg PO BID 0RF clonazepam 0.5 mg tablet 0.25 mg PO BID PRN0RF losartan 100 mg tablet 100 mg PO DAILY 0RF ascorbic acid (vitamin C) 1,000 mg tablet 1 g PO BID 0RF ferrous sulfate 325 mg (65 mg iron) tablet 325 mg PO DAILY@0700 0RF finasteride 5 mg tablet 5 mg PO DAILY@0700 0RF Linzess 145 mcg capsule 145 mcg PO DAILY@0700 0RF tamsulosin 0.4 mg capsule 0.4 mg PO DAILY@0700 0RF bethanechol chloride 25 mg tablet 25 mg PO BID@0800,1999 0RF docusate sodium 100 mg capsule 100 mg PO BID@0700,1999 0RF hydrocodone-acetaminophen 10-325 mg tablet 1 tab PO TID@08,14,20 0RF divalproex [Depakote] 250 mg tablet,delayed release (DR/EC) 250 mg PO TID@0700,1399,1999 0RF buspirone 15 mg tablet 15 mg PO TID@0700,1399,1999 0RF omeprazole 40 mg capsule,delayed release(DR/EC) 40 mg PO DAILY@1900 0RF ascorbic acid (vitamin C) 500 mg capsule 500 mg PO DAILY@07 0RF carboxymethylcellulose sodium [Refresh Tears] 0.5 % drops 1 - 2 drp ophthalmic (eye) .PRN 0RF DOPATEDINE 1 drp eye-both DAILY PRN (Reason: allergy eye) 0RF methenamine hippurate 1 gram tablet 1 g PO BID Qty: 60 12RF Rx Instructions: Take 1000 mg of vitamin C with each dose of methenamine calcium carbonate-vitamin D3 [Calcium 600 + D(3)] 600 mg(1,500mg) -400 unit Tablet 1 tab PO BID@0700,1900 0RF Rx Instructions: TAKE WITH MEALS aluminum hydrox-magnesium carb 254-237.5 mg/5 mL Suspension 10 ml PO Q6H PRN (Reason: Stomach Upset) Qty: 0 0RF diclofenac sodium 1 % Gel 2 - 4 g TOPICAL QID PRN (Reason: Pain) 0RF quetiapine 100 mg tablet 100 mg PO BEDTIME@20 0RF folic acid 1 mg Tablet 1 mg PO DAILY@07 0RF cyanocobalamin (vitamin B-12) 1,000 mcg/mL Solution 1,000 mcg IM Q30D 0RF Rx Instructions: on the 10th aspirin 81 mg Tablet,Chewable 81 mg PO DAILY@07 0RF Discharge Orders: Discharge ED (Routine); Ordered 08/11/21 Ordered By: Fer Reddy Referrals: Rehan Rodriguez MD [Primary Care Provider] - Discharge Diet: Usual diet Discharge Activity: Increase activity as tolerated Patient Instructions: Opioid Safety Activity Restrictions/Additional Instructions: continue with routine care Coding Level of Care Code ED Logistics Vice President for Chg Fwd Exam Comprehensive
--- NOTE | 2021-08-11 17:43 | ECG_ITS ---
[facility] Test Date: 2021-08-11 Pat Name: Luis Lucero Department: Room: Gender: Male Transit Survey Worker: : 1955 Requested By: Fer Gold Order Number: [id number] Angel MD: Arturo España M.D. Measurements Intervals [place] Rate: 56 P: 38 WV: 184 QRS: 71 QRSD: 95 T: 31 QT: 412 QTc: 401 Interpretive Statements SINUS BRADYCARDIA WITH OCCASIONAL VENTRICULAR PREMATURE COMPLEXES POSSIBLE LEFT VENTRICULAR HYPERTROPHY [VOLTAGE CRITERIA PLUS LAE OR QRS WIDENING] Compared to ECG 06/16/2021 00:48:59 Ventricular premature complex(es) now present Electronically Signed On 08-11-2021 22:40:43 CDT by Arturo España M.D. [email or web address] [email or web address] Medical [id number]
--- NOTE | 2021-08-11 17:43 | XRR_ITS ---
PROCEDURE INFORMATION: Exam: XR Chest Exam date and time: 08/11/2021 5:49 PM Age: 65 years old Clinical indication: Other: Elevated blood pressure, chronic problem; Additional info: Elevated BP TECHNIQUE: Imaging protocol: XR of the chest. Views: 1 view. COMPARISON: CR XR chest 1V portable [id number] 06/12/2021 11:30 AM FINDINGS: Lungs: Hyperinflated lungs. No consolidation. Pleural spaces: No pleural effusion. No pneumothorax. Heart/Mediastinum: Mediastinal clips noted. No cardiomegaly. Diaphragm: Similar moderate elevation of the left hemidiaphragm. Bones/joints: Visualized osseous structures are intact. XR/XR chest 1V portable [id number] IMPRESSION: No acute findings.
[2021-08-11 18:11] LABS: Basophils # 0.1 10^3/uL (0.0-0.1); Basophils % 0.8 %; Eosinophils # 0.2 10^3/uL (0.0-0.8); Eosinophils % 2.2 %; Hematocrit 39.1 % (42.0-52.0); Hemoglobin 12.7 g/dL (11.7-16.6); Lymphocytes # 2.1 10^3/uL (0.8-4.8); Lymphocytes % 28.3 %; Mean Corpuscular HGB Conc 32.5 g/dL (30.0-36.0); Mean Corpuscular Hemoglobin 30.7 pg (28.0-34.0); Mean Corpuscular Volume 94.4 fl (80-94); Mean Platelet Volume 10.2 fL (7.4-10.4); Monocytes # 0.6 10^3/uL (0.2-0.9); Neutrophils % 60.4 %; Nucleated Red Blood Cells % 0 %; Platelet Count 173 10^3/cmm (130-400); Red Blood Count 4.14 10^6/uL (4.1-5.3); Red Cell Distribution Width 13.9 % (12.1-15.1); White Blood Count 7.3 10^3/uL (4.0-10.0)
[2021-08-11 18:27] LABS: Blood Urea Nitrogen 21 mg/dL (8-23); Carbon Dioxide 23 mmol/L (22-29); Chloride 97 mmol/L (98-107); Glomerular Filtration Rate 51.2 mL/min (90-130); Glucose 134 mg/dL (65-115); Osmolality Calculated 273 mOsm/kg (285-295); Sodium 129 mmol/L (136-145)
[2021-08-11 19:05] LABS: Add Urine Microscopic? NO; Charge for UA Resulting for Rev
[2021-08-11 19:07] VITALS: BP 154/90; PULSE 53; RESP 16; O2SAT 100
[2021-08-11 19:27] LABS: Bilirubin Urine Neg (Negative); Blood Urine Neg (Negative); Glucose Urine UA Norm (Normal); Ketones Urine Negative (Negative); Leukocyte Esterase Urine Negative (Negative); Nitrate Urine Negative (Negative); Protein Urine Neg (Negative); Urine Appearance Clear (CLEAR); Urine Color Yellow (Yellow); Urobilinogen Urine Norm (Negative); pH Urine 6.5 (5-7)
== END 2021-08-11 20:36 | disposition home or self-care (01) ==
PROVIDERS: Emergency Provider Nurse Practitioner Family; PCP Internal Medicine
DX: I10 Essential (primary) hypertension (principal); N18.9 Chronic kidney disease, unspecified; Z79.899 Other long term (current) drug therapy
CPT/HCPCS: 71045; 80048; 81003; 85025; 93005; 99283

== ENCOUNTER → 2021-09-13 08:49 | Outpatient (BNVA) | payer MEDICARE, MEDICAID, SELFPAY | PROVIDERS: PCP Internal Medicine; Visit Provider Nurse Practitioner Family | DX: R33.9 Retention of urine, unspecified (principal); N31.8 Other neuromuscular dysfunction of bladder | CPT/HCPCS: 51702 ==

== ENCOUNTER → 2021-10-18 08:27 | Outpatient (BNVA) | payer MEDICARE, MEDICAID, SELFPAY | PROVIDERS: PCP Internal Medicine; Visit Provider Nurse Practitioner Family | DX: R33.9 Retention of urine, unspecified (principal) | CPT/HCPCS: 51798; 99213 ==